=== PATIENT | female | born 1975 | race Caucasian/White ===

== ENCOUNTER → 2019-11-01 16:10 | Outpatient (BNVA) | payer OTHER, SELFPAY | PROVIDERS: Family Provider Registered Nurse; PCP Registered Nurse; Visit Provider Obstetrics & Gynecology | DX: R32 Unspecified urinary incontinence (principal) | CPT/HCPCS: 81003; 87086 ==

== ENCOUNTER → 2019-11-27 15:49 | Outpatient (BNVA) | payer OTHER, SELFPAY | PROVIDERS: Family Provider Registered Nurse; PCP Registered Nurse; Visit Provider Obstetrics & Gynecology | DX: R32 Unspecified urinary incontinence (principal); N64.4 Mastodynia; Z98.890 Other specified postprocedural states | CPT/HCPCS: 81003 ==

== ENCOUNTER → 2020-04-17 15:53 | Outpatient (BNVA) | payer OTHER, SELFPAY | PROVIDERS: Family Provider Registered Nurse; PCP Registered Nurse; Visit Provider Nurse Practitioner Family | DX: M25.512 Pain in left shoulder (principal); M25.522 Pain in left elbow | CPT/HCPCS: 73030; 73080 ==

== ENCOUNTER 2020-12-01 11:22 | Outpatient (CLI) | payer OTHER, SELFPAY ==
--- NOTE | 2020-12-01 | USCV_ITS ---
Miriam Bernard Age: 45 Gender: F : 1975 Exam Date: 12/01/2020 12:14 Ordering Phys: GEORGIE Littlejohn APRN Technologist: Kelsie Smith [place] [facility] [place] ABN EKG WITH CHEST PAIN BP: 123 / 72 HR: 89 Rhythm: Sinus Technical Quality: Adequate MEASUREMENTS (Male / Female) Normal Values 2D ECHO LV Diastolic Diameter PLAX 3.0 cm 4.2 - 5.9 / 3.9 - 5.3 cm LV Systolic Diameter PLAX 2.3 cm LV Chamber Size 3.0 cm IVS Diastolic Thickness 1.4 cm 0.6 - 1.0 / 0.6 - 0.9 cm IVS Systolic Thickness 1.0 cm LVPW Diastolic Thickness 1.2 cm 0.6 - 1.0 / 0.6 - 0.9 cm LVPW Systolic Thickness 1.4 cm RV Chamber Size 2.4 cm LVOT Diameter 2.0 cm LV Ejection Fraction 2D Teich 49.4 % LV Ejection Fraction MOD 2C 44.1 % LV Ejection Fraction 2C AL 43.1 % LA Diameter 2.9 cm LA Width 2.9 cm LA Height 3.8 cm RA Width 2.7 cm RA Height 4.5 cm Aorta at Sinotubular Diameter 2.9 cm M-MODE LV Diastolic Diameter MM 3.4 cm 4.2 - 5.9 / 3.9 - 5.3 cm LV Systolic Diameter MM 1.8 cm LV Ejection Fraction MM Teich 77.7 % IVS Diastolic Thickness MM 0.8 cm 0.6 - 1.0 / 0.6 - 0.9 cm IVS Systolic Thickness MM 1.4 cm LVPW Diastolic Thickness MM 1.5 cm 0.6 - 1.0 / 0.6 - 0.9 cm LVPW Systolic Thickness MM 1.6 cm RV Diastolic Diameter MM 1.4 cm Aortic Annulus Diameter 3.2 cm LA Ao Ratio MM 1.2 MV E Point Septal Separation 0.6 cm DOPPLER AV Peak Velocity 110.0 cm/s LVOT Peak Velocity 83.0 cm/s AV Area Cont Eq vti 2.6 cm squared AV Area Cont Eq pk 2.4 cm squared MV Area PHT 5.0 cm squared Mitral E to A Ratio 1.2 MV E' Velocity 46.0 cm/s Mitral E to MV E' Ratio 6.8 Mitral E to LV E' Lateral Ratio 6.5 Mitral E to LV E' Septal Ratio 7.1 TR Peak Velocity 112.4 cm/s TR Peak Gradient 5.1 mmHg TR Mean Velocity 81.7 cm/s TR Mean Gradient 3.1 mmHg TR Velocity Time Integral 23.1 cm TV Peak E Velocity 56.0 cm/s Right Atrial Pressure 3.0 mmHg Pulmonary Artery Systolic Pressu 8.1 mmHg PV Peak Velocity 50.0 cm/s RV Acceleration Time 0.1 s RV Ejection Time 0.3 s RV AcT/ET 0.3 FINDINGS Left Ventricle Normal left ventricular cavity size. Normal left ventricular systolic function. No regional wall motion abnormalities. Left ventricular ejection fraction is estimated at 65 %. Grade I/IV diastolic dysfunction (abnormal relaxation filling pattern), normal to mildly elevated filling pressures. Right Ventricle The right ventricle is normal in size and function. Right Atrium The right atrium is normal in size. Left Atrium The left atrium is normal in size. Mitral Valve Moderately thickened mitral valve. Moderate mitral annular calcification. No mitral valve stenosis. No mitral valve regurgitation. Aortic Valve Aortic valve sclerosis without stenosis or regurgitation. Tricuspid Valve Structurally normal tricuspid valve without significant stenosis or regurgitation. Pulmonary artery systolic pressure is normal. Pulmonic Valve Structurally normal pulmonic valve without significant stenosis. There is no pulmonic regurgitation. Pericardium Normal pericardium without effusion. Aorta Normal ascending aorta dimension. CONCLUSIONS 1-Normal left ventricular cavity size. Normal left ventricular systolic function. No regional wall motion abnormalities. Left ventricular ejection fraction is estimated at 65 %. Grade I/IV diastolic dysfunction (abnormal relaxation filling pattern), normal to mildly elevated filling pressures. 2-Moderately thickened mitral valve. Moderate mitral annular calcification. No mitral valve stenosis. No mitral valve regurgitation. 3-Aortic valve sclerosis without stenosis or regurgitation. 4-There is no pericardial effusion. 5-Pulmonary artery systolic pressure is within normal limits. 6-There is no pericardial effusion. 7-There are no prior echocardiogram studies to compare. Romy Foreman MD (Electronically Signed) Final Date: 01 December 2020 19:34 S
[2020-12-01 13:14] LABS: Basophils # 0.1 10^3/uL (0.0-0.1); Basophils % 0.7 %; Eosinophils # 0.1 10^3/uL (0.0-0.8); Eosinophils % 0.7 %; Hematocrit 43.4 % (37.0-47.0); Hemoglobin 14.3 g/dL (11.5-15.3); Lymphocytes # 3.1 10^3/uL (0.8-4.8); Lymphocytes % 38.1 %; Mean Corpuscular HGB Conc 32.9 g/dL (30.0-36.0); Mean Corpuscular Hemoglobin 29.7 pg (28.0-34.0); Mean Corpuscular Volume 90.2 fL (81-99); Mean Platelet Volume 9.5 fL (7.4-10.4); Monocytes # 0.7 10^3/uL (0.2-0.9); Monocytes % 9.1 %; Neutrophils # 4.15 10^3/uL (1.8-7.7); Nucleated Red Blood Cells % 0 %; Platelet Count 371 10^3/cmm (130-400); Red Blood Count 4.81 10^6/uL (4.1-5.3); Red Cell Distribution Width 12.4 % (12.1-15.1); White Blood Count 8.1 10^3/uL (4.0-10.0)
[2020-12-01 13:42] LABS: Urine Appearance Clear (CLEAR); Urine Color Yellow (Yellow)
[2020-12-01 13:43] LABS: Bilirubin Urine Neg (Negative); Blood Urine Neg (Negative); Glucose Urine UA Norm (Normal); Ketones Urine Negative (Negative); Leukocyte Esterase Urine Negative (Negative); Nitrate Urine Negative (Negative); Protein Urine Neg (Negative); Urobilinogen Urine Norm (Negative); pH Urine 6.5 (5-7)
[2020-12-01 13:47] LABS: Add Urine Culture? No; Bacteria Urine TRACE /hpf; Squamous Epithelial Cell Urine 0-4 /hpf (0-5)
[2020-12-01 13:59] LABS: Alanine Aminotransferase 18 U/L (0-33); Albumin Level 4.6 g/dL (3.5-5.2); Alkaline Phosphatase 71 IU/L (35-105); Anion Gap 12.2 (5-19); Aspartate Amino Transferase 16 U/L (0-32); Blood Urea Nitrogen 15 mg/dL (6-20); Calcium 9.5 mg/dL (8.5-10.5); Carbon Dioxide 31 mmol/L (22-29); Chloride 98 mmol/L (98-107); Chol HDL Ratio 2.96 mg/dL (0.0-4.40); Cholesterol 201 mg/dL (0-200); Globulin 3.1 g/dL (1.3-4.6); Glomerular Filtration Rate 90.1 mL/min (90-130); Glucose 78 mg/dL (65-115); HDL Cholesterol 68 mg/dL (60-100); LDL Cholesterol Calculated 107 mg/dL (50-129); LDL HDL Ratio 1.57 RATIO (0.00-3.22); Osmolality Calculated 286 mOsm/kg (285-295); Potassium 3.2 mmol/L (3.5-5.1); Sodium 138 mmol/L (136-145); Thyroid Stimulating Hormone 0.92 uIU/mL (0.27-4.20); Total Bilirubin 0.3 mg/dL (0.15-1.2); Total Protein 7.7 g/dL (6.6-8.7); Triglycerides 132 mg/dL (0-150)
[2020-12-01 14:11] LABS: Estmated Average Glucose 97
[2020-12-01 14:28] LABS: 25 Hydroxy Vitamin D 31 ng/mL (30-100)
== END 2020-12-01 11:23 | disposition home or self-care (01) ==
LOC: RAD 11:37
PROVIDERS: PCP Nurse Practitioner Family; Visit Provider Nurse Practitioner Family
DX: R07.9 Chest pain, unspecified (principal); I10 Essential (primary) hypertension; E55.9 Vitamin D deficiency, unspecified; Z79.899 Other long term (current) drug therapy; R94.31 Abnormal electrocardiogram [ECG] [EKG]; I35.8 Other nonrheumatic aortic valve disorders; I05.9 Rheumatic mitral valve disease, unspecified
CPT/HCPCS: 36415; 80053; 80061; 81001; 82306; 83036; 84443; 85025; 93306

== ENCOUNTER 2020-12-04 12:09 | Outpatient (CLI) | payer OTHER, SELFPAY ==
[2020-12-04 12:39] VITALS: BMI 32.2
--- NOTE | 2020-12-04 12:39 | ECG_ITS ---
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 Interpretive Statements NAME OF STUDY: TREADMILL STRESS TEST INDICATION: [Chest Pain, ] EXERCISE DATA: The patient was exercised by Hilton protocol. Baseline heart rate was 91 beats per minute. Baseline blood pressure was 129/87 millimeters of mercury. Maximum predicted heart rate was 174 beats per minute. Maximum heart rate achieved was 175, which was 100% of the target heart rate. Maximum blood pressure was 167/90 millimeters of mercury. Total exercise time was 9 minutes and 37 seconds. Maximum METs achieved was 13.5, maximum VO2 was 47.3. The reason for ending the test was completion of the protocol. The patient did not complain of symptoms during the stress test. ELECTROCARDIOGRAM: BASELINE: Showed sinus rhythm, normal axis, no significant ST-T changes at the baseline noted. [] EXERCISE: At the peak exercise level, [] No significant ST-T changes suggestive of ischemia noted. [] RECOVERY: During the recovery period, heart rate dropped appropriately. No significant ST-T changes in the recovery suggestive of ischemia noted. [] CONCLUSION: 1. Exercise capacity excellent. 2. Heart rate response was appropriate 3. Blood pressure response was appropriate 4. Symptoms not suggestive of ischemia. 5. Electrocardiogram was not suggestive of ischemia. Electronically Signed On 12-14-2020 18:18:21 CDT by Chung Freire M.D. [id number]
[2020-12-04 13:01] VITALS: BP 141/82; PULSE 99
== END 2020-12-04 12:10 | disposition home or self-care (01) ==
LOC: CDL 12:10
PROVIDERS: PCP Nurse Practitioner Family; Visit Provider Nurse Practitioner Family
DX: R07.9 Chest pain, unspecified (principal)
CPT/HCPCS: 93017

== ENCOUNTER → 2021-02-26 11:56 | Outpatient (BNVA) | payer OTHER, SELFPAY | PROVIDERS: PCP Nurse Practitioner Family; Visit Provider Nurse Practitioner Family | DX: K21.9 Gastro-esophageal reflux disease without esophagitis (principal); E87.6 Hypokalemia; E55.9 Vitamin D deficiency, unspecified; E78.2 Mixed hyperlipidemia | CPT/HCPCS: 80053; 80061; 82306; 85025 ==

== ENCOUNTER → 2021-07-13 15:08 | Outpatient (BNVA) | payer OTHER, SELFPAY | PROVIDERS: PCP Nurse Practitioner Family; Visit Provider Internal Medicine | DX: G57.93 Unspecified mononeuropathy of bilateral lower limbs (principal); K21.9 Gastro-esophageal reflux disease without esophagitis; E78.5 Hyperlipidemia, unspecified; Z20.822 Contact with and (suspected) exposure to COVID-19 | CPT/HCPCS: 82607; 82746; 83550 ==

== ENCOUNTER → 2021-12-08 09:05 | Outpatient (BNVA) | payer OTHER, SELFPAY | PROVIDERS: PCP Registered Nurse; Visit Provider Registered Nurse | DX: E87.6 Hypokalemia (principal); E55.9 Vitamin D deficiency, unspecified | CPT/HCPCS: 80053 ==

== ENCOUNTER 2022-04-14 15:21 | Outpatient (CLI) | payer OTHER, SELFPAY ==
--- NOTE | 2022-04-14 15:34 | MM_ITS ---
WS: [id number] BILATERAL 3D TOMOSYNTHESIS DIGITAL SCREENING MAMMOGRAPHY WITH CAD CLINICAL INFORMATION: SCREENING HISTORY: Screening mammogram. No current complaints. COMPARISON: TECHNIQUE: Bilateral CC and MLO views. FINDINGS: The breasts are composed of heterogeneous fibroglandular density tissue, which can limit the detectio n of small underlying mass lesions. Punctate and lucent centered calcifications. No suspicious mass, asymmetry, calcifications, or architectural distortion. No evidence of malignancy. MM/[place] [id number] IMPRESSION: BI-RADS: 2-Benign FOLLOW UP: 1 Year Follow-up Recommend return to annual screening mammography.
[2022-04-14 17:28] LABS: NT Pro B Type Natriuretic Pept 12 pg/mL (0-125)
== END 2022-04-14 15:22 | disposition home or self-care (01) ==
LOC: RAD 15:22
PROVIDERS: Nurse Practitioner Family; PCP Registered Nurse; Visit Provider Family Medicine
DX: Z12.31 Encounter for screening mammogram for malignant neoplasm of breast (principal); R07.9 Chest pain, unspecified; I10 Essential (primary) hypertension
CPT/HCPCS: 77063; 77067; 83880

== ENCOUNTER → 2022-10-25 10:26 | Outpatient (BNVA) | payer OTHER, SELFPAY | PROVIDERS: PCP Registered Nurse; Visit Provider Nurse Practitioner | DX: M79.641 Pain in right hand (principal) | CPT/HCPCS: 73130 ==

== ENCOUNTER 2022-11-22 12:15 | Outpatient (CLI) | payer OTHER, SELFPAY ==
[2022-11-22 13:35] LABS: Anion Gap 13.9 (5-19); Blood Urea Nitrogen 11 mg/dL (6-20); Calcium 8.9 mg/dL (8.5-10.5); Carbon Dioxide 26 mmol/L (22-29); Chloride 100 mmol/L (98-107); Glomerular Filtration Rate 106.7 mL/min (90-130); Glucose 98 mg/dL (65-115); Magnesium 2.1 mg/dL (1.7-2.3); NT Pro B Type Natriuretic Pept 55 pg/mL (0-125); Osmolality Calculated 281 mOsm/kg (285-295); Potassium 3.9 mmol/L (3.5-5.1); Sodium 136 mmol/L (136-145)
== END 2022-11-22 12:16 | disposition home or self-care (01) ==
LOC: LAB 12:17
PROVIDERS: PCP Registered Nurse; Visit Provider Internal Medicine Cardiovascular Disease
DX: I10 Essential (primary) hypertension (principal); R07.9 Chest pain, unspecified
CPT/HCPCS: 36415; 80048; 83735; 83880

== ENCOUNTER → 2023-04-21 10:45 | Outpatient (BNVA) | payer OTHER, SELFPAY | PROVIDERS: PCP Registered Nurse; Visit Provider Nurse Practitioner Family | DX: N83.209 Unspecified ovarian cyst, unspecified side (principal) | CPT/HCPCS: 83001; 83002; 84403; 84443 ==

== ENCOUNTER 2023-04-25 16:19 | Outpatient (CLI) | payer OTHER, SELFPAY ==
--- NOTE | 2023-04-25 16:45 | US_ITS ---
WS: [id number] US transvaginal [id number] HISTORY: N83.209 - Unspecified ovarian cyst, unspecified side COMPARISON: None available. Status post hysterectomy. No midline mass. Right ovary: Prior RIGHT oophorectomy. No adnexal mass. Left ovary: 3.8 cm x 1.6 cm x 2.1 cm. Normal size and vascularity, no cystic or solid masses. Small f ollicles associated with the LEFT ovary. No free fluid in the pelvis. US/US transvaginal [id number] IMPRESSION: 1. Status post hysterectomy and RIGHT oophorectomy. 2. Normal LEFT ovary.
== END 2023-04-25 16:20 | disposition home or self-care (01) ==
PROVIDERS: PCP Registered Nurse; Visit Provider Nurse Practitioner Family
DX: N83.209 Unspecified ovarian cyst, unspecified side (principal); Z90.710 Acquired absence of both cervix and uterus; Z90.721 Acquired absence of ovaries, unilateral
CPT/HCPCS: 76830

== ENCOUNTER 2023-06-01 15:27 | Outpatient (CLI) | payer OTHER, SELFPAY ==
--- NOTE | 2023-06-01 15:34 | MM_ITS ---
WS: [id number] BILATERAL SCREENING DIGITAL TOMOSYNTHESIS MAMMOGRAM WITH CAD HISTORY: SCREENING COMPARISON: 04/14/2022 and 02/14/2019 Bilateral CC and MLO views with tomosynthesis and synthetic mammography submitted. Computer aided det ection analyzed. Breast composition: The breasts are heterogeneously dense, which may obscure small masses. No suspici ous masses, microcalcifications or architectural distortion. Benign calcifications in each breast. He terogeneous densities are stable. IMPRESSION: MM/[place] [id number] BI-RADS: 2-Benign FOLLOW UP: 1 Year Follow-up
== END 2023-06-01 15:28 | disposition home or self-care (01) ==
LOC: RAD 15:32 → MOBLMAM 15:33
PROVIDERS: PCP Registered Nurse; Visit Provider Family Medicine
DX: Z12.31 Encounter for screening mammogram for malignant neoplasm of breast (principal)
CPT/HCPCS: 77063; 77067

== ENCOUNTER 2023-06-07 14:26 | Observation (INO) | payer OTHER, SELFPAY ==
[2023-06-03 08:20] VITALS: BMI 36.3
--- NOTE | 2023-06-03 08:43 | ANES.PREANE2 ---
Pre-Anesthetic Assessment Height/Weight: Height 1.7 m Weight 105.233 kg Operation Date: 06/07/23 12:05 Proposed Procedures p Anterior colporrhaphy 87999,N81.10(Not Applicable) - Arjun Chi MD Familial anesthetic complications: None Social No alcohol and No tobacco Exam alert, oriented x 3, clear to auscultation bilaterally and regular rate & rhythm Airway Mallampati: Class I Dentition: full Pulmonary None reported CV/HEM Hypertension GI Gastroesophageal Reflux Disease Anesthetic Plan ASA status: 2 Anesthesia: General Risk of > 500 ml blood loss (7ml/kg in children): No Medications/Allergies Home Medications Medication Instructions Recorded Confirmed Last Taken Type multivitamin 1 tab PO DAILY 11/27/19 06/03/23 06/03/23 History hydroxyzine HCl 50 mg tablet 50 mg PO DAILY PRN Pain 03/16/22 06/03/23 06/03/23 History metoprolol tartrate 50 mg tablet 50 mg PO BID #180 tabs 01/04/23 06/03/23 06/03/23 Rx potassium chloride 20 mEq 20 meq PO DAILY #90 tabs 01/04/23 06/03/23 06/03/23 Rx tablet,extended release dexlansoprazole 60 mg 60 mg PO DAILY stomach 03/15/23 06/03/23 06/03/23 History capsule,biphase delayed release (Dexilant) epinephrine 0.3 mg/0.3 mL 0.3 mg SUBCUT ONCE PRN Allergic 03/15/23 06/03/23 Unknown History injection, auto-injector Reaction furosemide 20 mg tablet 20 mg PO DAILY #90 tabs 03/15/23 06/03/23 06/03/23 Rx montelukast 10 mg tablet 10 mg PO DAILY #90 tabs 03/15/23 06/03/23 06/03/23 Rx (Singulair) ropinirole 0.5 mg tablet 0.5 mg PO .HS 03/15/23 06/03/23 06/03/23 History albuterol sulfate 90 mcg/actuation See Rx Instructions .Route 05/02/23 06/03/23 Unknown Rx aerosol inhaler .COMPLEX #6.7 grams naproxen 500 mg tablet (Naprosyn) 500 mg PO BID PRN pain #28 tabs 05/09/23 06/03/23 Unknown Rx ibuprofen 800 mg tablet 800 mg PO TID #60 tabs 05/12/23 06/03/23 06/03/23 Rx bupropion HCl 150 mg tablet,12 hr 150 mg PO BID 06/03/23 06/03/23 06/03/23 History sustained-release cyclobenzaprine 5 mg tablet 5 mg PO DAILY PRN Pain 06/03/23 06/03/23 05/29/23 History Allergies Allergy/AdvReac Type Severity Reaction Status Date / Time codeine Allergy Mild unknown Verified 06/02/23 13:05 Tetracyclines Allergy Mild unknown Verified 06/02/23 13:05 doxycycline Allergy unknown Verified 06/02/23 13:05 meperidine [From Demerol] Allergy unknown Verified 06/02/23 13:05 neomycin Allergy unknown Verified 06/02/23 13:05 prochlorperazine Allergy unknown Verified 06/02/23 13:05 [From Compazine] Sulfa (Sulfonamide Allergy Unknown Verified 06/02/23 13:05 Antibiotics) [facility] Anesthesia Medical History Anxiety and depression Chest pain Essential hypertension GERD (gastroesophageal reflux disease) Patient has hsitory of GERD and is controlled with Dexilant. Will refill medication and monitor. Hypokalemia Mixed hyperlipidemia Neuropathy of both feet Obesity Otitis media Urinary incontinence Vitamin D insufficiency Yeast vaginitis Surgical History H/O vaginal surgery anterior colporrhaphy 11/15/2018 S/P ear surgery S/P hysterectomy S/P left oophorectomy S/P tonsillectomy Patient had recent tonsillectomy to remove residual tonsillar tissue. She had previous tonsillectomy in the past, but continued to have problems. Status post creation of urethral sling by suprapubic approach 11/15/2018 Family History Father Congestive heart failure Hypertension Diabetes Hyperlipidemia Heart disease Mother Hypertension Leukemia Diabetes Breast cancer Heart disease Thyroid condition Stroke Sister Hyperlipidemia Denies family history of Colon cancer Ovarian cancer Uterine cancer Social History Smoking and tobacco status: never smoked Alcohol intake: current Alcohol intake frequency: holidays/special occasions only Alcohol type: wine Substance/Drug Use: never Current occupation: [employer] Anesthesia Cardiac Studies: Echocardiogram Ultrasound 12/01/20
[2023-06-03 09:54] LABS: Basophils % 0.5 %; Eosinophils # 0.2 10^3/uL (0.0-0.8); Eosinophils % 2.7 %; Hematocrit 40.5 % (36-47); Lymphocytes # 2.1 10^3/uL (0.8-4.8); Lymphocytes % 36.9 %; Mean Corpuscular HGB Conc 32.3 g/dL (30-55); Mean Corpuscular Hemoglobin 29.9 pg (27-33); Mean Corpuscular Volume 92.5 fl (85-98); Mean Platelet Volume 9.9 fL (7.4-10.4); Monocytes # 0.7 10^3/uL (0.2-0.9); Monocytes % 11.5 %; Neutrophils # 2.72 10^3/uL (1.8-7.7); Neutrophils % 48.2 %; Nucleated Red Blood Cells % 0 %; Platelet Count 353 10^3/cmm (157-399); Red Blood Count 4.38 10^6/uL (3.85-5.65); Red Cell Distribution Width 12.8 % (12.1-15.1); White Blood Count 5.64 10^3/uL (3.29-11.43)
[2023-06-03 10:10] LABS: Anion Gap 14.1 (5-19); Blood Urea Nitrogen 18 mg/dL (6-20); Calcium 9.5 mg/dL (8.5-10.5); Carbon Dioxide 28 mmol/L (22-29); Chloride 104 mmol/L (98-107); Glomerular Filtration Rate 106.7 mL/min (90-130); Glucose 101 mg/dL (65-115); Osmolality Calculated 296 mOsm/kg (285-295); Potassium 4.1 mmol/L (3.5-5.1); Sodium 142 mmol/L (136-145)
[2023-06-07] VITALS (16 sets, daily range): BP systolic 105–135; BP diastolic 63–94; PULSE 65–92; RESP 15–20; TEMP 36.4–36.7; O2SAT 94–100
--- NOTE | 2023-06-07 10:50 | W.PM.OPSUD ---
Surgery/Procedure H&P Update DATE OF PROCEDURE: June 07, 2023 DATE H&P PERFORMED: 06/02/23 H&P UPDATE INFORMATION: I have reviewed H&P completed within last 30 days, I have examined patient prior to procedure and No changes to prior documentation PREOP DIAGNOSIS: Cystocele stage II PLANNED PROCEDURE: Operation Date: 06/07/23 12:05 Proposed Procedures p Anterior colporrhaphy 54944,N81.10(Not Applicable) - Arjun Chi MD
[2023-06-07] MEDS: sodium chloride 0.9% 1,000 ML 30 ML IV (11:31)
[2023-06-07] MEDS: scopolamine 1.5 Patch 1 PATCH TRANSDERMA (11:31)
--- NOTE | 2023-06-07 11:44 | P.ANESUD_ITS ---
Pre-Anesthetic Update Pre-Anesthetic Assessment: Date of Surgery/Procedure: 06/07/23 Preop Yessenia gnosis: Cystocele stage II Proposed Procedure: Operation Date: 06/07/23 12:05 Proposed Procedures p Anterior colporrhaphy 89005,N81.10(Not Applicable) - Arjun Chi MD Any changes to Pre-Anesthetic Assessment?: No Last Intake: Intake Last Liquid Date 06/06/23 Last Liquid Time 22:30 Last Solid Date 06/06/23 Last Solid Time 21:00 Vitals: Temperature 97.7 F 06/07/23 10:59 Temperature Source Temporal Artery S can 06/07/23 10:59 Pulse Rate 65 06/07/23 10:59 Respiratory Rate 18 06/07/23 10:59 Blood Pressure 125/85 06/07/23 10:59 Blood Pressure Sunshine n 98 06/07/23 10:59 Pulse Oximetry 100 06/07/23 10:59 Oxygen Delivery Me thod Room Air 06/07/23 11:05 Exam: Pre-Anes Outpt Exam: alert, oriented x 3, clear to auscultation bilaterally and regular rate & rhythm Cardiac Studies: Echocardiogram Ultrasound 12/01/20
[2023-06-07 12:11] LABS: Add Urine Microscopic? NO; Charge for UA Resulting for Rev
[2023-06-07 12:15] LABS: Bilirubin Urine Neg (Negative); Blood Urine Neg (Negative); Glucose Urine UA Norm (Normal); Ketones Urine Negative (Negative); Leukocyte Esterase Urine Negative (Negative); Nitrate Urine Negative (Negative); Protein Urine Neg (Negative); Specific Gravity, Urine 1.015 (1.005-1.030); Urine Appearance Clear (CLEAR); Urine Color Yellow (Yellow); Urobilinogen Urine Norm (Negative); pH Urine 6 (5-7)
[2023-06-07] MEDS: ceFAZolin 2,000 MG in sodium chloride 0.9% (plus) 50 ML 100 MG IV (12:22)
[2023-06-07] MEDS: lidocaine-epi 2% 20 mL INJ INJECTION (13:14)
[2023-06-07] MEDS: estrogens Conjugated Cream 30 gm 1 APPLIC VAGINAL (13:37)
--- NOTE | 2023-06-07 13:50 | P.OP_ITS ---
Operative Report Date of procedure: June 07, 2023 Pre-op diagnosis: Cystocele stage II Post-op diagnosis: same Post-op findings: Cystocele Surgeon: Arjun Chi MD Estimated blood loss (mL): 5 IV fluids (mL): 500 Urine output (mL): 100 Complications: None Findings: Cystocele Procedure: After obtaining informed consent, the patient was taken to the operating room and placed in the supine position, given general anesthesia, and prepped and draped in sterile fashion. The abdomen, vulva and vagina were prepped and draped in a sterile manner. A time out procedure was performed. The vaginal mucosa was then injected in the midline with normal saline. The vaginal mucosa was scored in the midline with the Bovie approximately 1 cm med ial to the urethral meatus to 1 cm distal to the vaginal cuff. This vaginal mucosa was then undermined and then incised in the midline with the Metzenbaum scissors. The lateral aspects of the vaginal mucosa were then grasped with the Allis clamps and the vaginal mucosa was then dissected off the underlying fascia with the Metzenbaum scissors. Again, there was noted to be quite a bit of oozing at the incision, which was controlled with cautery. After adequate dissection was performed, bilaterally. An Coloplast allograft modified at time of application to fit spacea, 3 x 3 cm piece . The allograft placed in front of cystocele ready to be implanted facing the vagina mucosa. Suture is placed at distal end of graft and placed towards vaginal cuff. Final suture is placed on proximal portion of the graft to complete the placement overlying the bladder. Then Interrupted vertical mattress sutures of 0 Vicryl were used to elevate the cystocele superiorly. The excessive vaginal mucosa was then trimmed with the Metzenbaum scissors and the vaginal mucosa was then reapproximated in the running interlocking fashion with 2-0 Vicryl. The Cummins catheter was was noted yielding clear yellow urine. Excellent hemostasis was obtained. A vaginal pack is placed overnight as postoperative support for the vaginal tissues after graft placement and closure of vaginal incisions. Sponge, lap, needle, and instrument counts were correct times three. The patient was taken to the recovery room, awake and in stable condition.
--- NOTE | 2023-06-07 14:35 | ANE.PACU2 ---
Inpatient post-anesthesia follow up: Airway intact: Yes Vital signs: Temperature 97.9 F Pulse Rate 67 Respiratory Rate 16 Blood Pressure 121/77 Pulse Oximetry 98 Oxygen Delivery Me thod Room Air Oxygen Flow Rate 6 Fraction of Inspir ed Oxygen Hydration adequate: Yes Nausea and vomiting: No Pain level: 1 Mental status: Baseline
[2023-06-07] MEDS: dextrose 5%-lactated ringers 1,000 ML 125 ML IV ×2 (15:33→23:53)
[2023-06-07] MEDS: HYDROcodone-acetaminophen 5-325 mg Tablet PO (15:36)
[2023-06-07] MEDS: ketorolac 30 mg/mL INJ IVP ×2 (17:57→23:53)
[2023-06-07] MEDS: docusate sodium 100 mg Capsule PO (18:09)
[2023-06-07] MEDS: diphenhydrAMINE 50 mg Capsule PO (20:44)
[2023-06-07] MEDS: ropinirole 0.25 mg Tablet 0.5 MG PO (20:45)
[2023-06-07] MEDS: metoprolol tartrate 50 mg Tablet PO (20:45)
[2023-06-07] MEDS: buPROPion SR (12 HR) 150 mg Tablet PO (20:46)
[2023-06-07] MEDS: ondansetron 2 mg/ML SDV 2 mL 4 MG IVP (23:06)
--- NOTE | 2023-06-07 23:14 | PC.NURSE ---
Pt had 20g IV present in right hand at begining of shift that was patent and fluids were running at 125 mL/hr. At 2248 pt stated her arm was starting to swell. This RN stopped fluids, hand appeared to be infiltrated. 20g IV was removed, catheter tip intact, site was covered with 2x2 and bandaid. Pt tolerated well.
[2023-06-08 04:29] VITALS: BP 121/77; PULSE 67; RESP 16; TEMP 36.6; O2SAT 98
[2023-06-08 05:32] LABS: Hematocrit 34.9 % (36-47); Mean Corpuscular HGB Conc 32.7 g/dL (30-55); Mean Corpuscular Hemoglobin 29.8 pg (27-33); Mean Corpuscular Volume 91.1 fl (85-98); Mean Platelet Volume 9.8 fL (7.4-10.4); Platelet Count 308 10^3/cmm (157-399); Red Blood Count 3.83 10^6/uL (3.85-5.65); Red Cell Distribution Width 12.4 % (12.1-15.1); White Blood Count 11.47 10^3/uL (3.29-11.43)
[2023-06-08] MEDS: HYDROcodone-acetaminophen 5-325 mg Tablet PO (07:00)
[2023-06-08] MEDS: docusate sodium 100 mg Capsule PO (08:19)
[2023-06-08] MEDS: FUROsemide 20 mg Tablet PO (08:20)
[2023-06-08] MEDS: buPROPion SR (12 HR) 150 mg Tablet PO (08:20)
[2023-06-08] MEDS: potassium chloride ER 20 mEq Tablet PO (08:20)
[2023-06-08] MEDS: montelukast sodium 10 mg Tablet PO (08:20)
[2023-06-08] MEDS: metoprolol tartrate 50 mg Tablet PO (08:21)
[2023-06-08] MEDS: ibuprofen 800 mg tablet PO (09:01)
[2023-06-08] MEDS: ondansetron 4 MG Tablet PO (09:22)
--- NOTE | 2023-06-08 09:36 | P.DS_ITS ---
Discharge Providers ERECTOR OPERATOR Date of Admission: 06/07/23 14:26 Date of Discharge: 06/08/23 Attending Provider at Admission: Arjun Chi MD Attending Provider at Discharge: Arjun Chi MD Primary Care Provider: Cornelia Pugh [facility] Course Hospital Course Mrs. Bernard 47-year-old female with a cystocele stage II was admitted for planned anterior colporrhaphy augmented with allograft. The procedure was performed without complication. Overnight observation was uneventful. She is afebrile and hemodynamically stable postoperative day 1. Tolerating diet well. Adequate urine output. Normal PVR. Ambulating without difficulty. She was counseled regarding pelvic rest for 6 weeks (no sex, no tampons, no vaginal douches). Return to the emergency room if any fever, increased bleeding or pain. Physical Exam Narrative: GA: Alert and oriented ?3. HEENT: WNL. Heart: Regular rate and rhythm. Lungs: Clear to auscultation bilaterally. Abdomen: Bowel sounds present, nontender. 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 Extremities: No edema, no cyanosis, no calves pain. Urinary Catheter Management: Cummins: Cath Placed During This Visit: yes, but has since been removed by the nurse Reason for Continuing Indwelling Catheter: Decision to DC Catheter Urinary Catheter Date of Insertion: 06/07/23 Urinary Catheter Time of Insertion: 13:00 Date Urinary Catheter Removed: 06/08/23 Time Urinary Catheter Discontinued: 05:33 History History History 2 Term 2 0 Miscarriages/Ectopic 0 Living Children 2 Past Pregnancies Del. Date GA/Weeks Outcome Route Wt Inf Gender Labor Lgth Comp. Anesth esia [facility] 10/29/95 live - full term Vaginal 2.948 kg Female [facility] 04/09/98 live - full term Vaginal 3.629 kg Female [place], [place] Discharge Data Studies Completed and Pending Laboratory Results WBC 11.47 10^3/uL (3.29-11.43) H 06/08/23 05:05 RBC 3.83 10^6/uL (3.85-5.65) L 06/08/23 05:05 Hgb 11.40 g/dL (11.27-16.99) 06/08/23 05:05 Hct 34.9 % (36-47) L 06/08/23 05:05 MCV 91.1 fl (85-98) 06/08/23 05:05 MCH 29.8 pg (27-33) 06/08/23 05:05 MCHC 32.7 g/dL (30-55) 06/08/23 05:05 RDW 12.4 % (12.1-15.1) 06/08/23 05:05 Plt Count 308 10^3/cmm (157-399) 06/08/23 05:05 MPV 9.8 fL (7.4-10.4) 06/08/23 05:05 Neut % (Auto) 48.2 % 06/03/23 08:30 Lymph % (Auto) 36.9 % 06/03/23 08:30 [place] % (Auto) 11.5 % 06/03/23 08:30 Eos % (Auto) 2.7 % 06/03/23 08:30 Baso % (Auto) 0.5 % 06/03/23 08:30 Neut # (Auto) 2.72 10^3/uL (1.8-7.7) 06/03/23 08:30 Lymph # (Auto) 2.1 10^3/uL (0.8-4.8) 06/03/23 08:30 [place] # (Auto) 0.7 10^3/uL (0.2-0.9) 06/03/23 08:30 Eos # (Auto) 0.2 10^3/uL (0.0-0.8) 06/03/23 08:30 Baso # (Auto) 0.0 10^3/uL (0.0-0.1) 06/03/23 08:30 Nucleated RBC % (auto) 0 % 06/03/23 08:30 Nucleated RBCs # 0.0 /100WBC 06/03/23 08:30 Sodium 142 mmol/L (136-145) 06/03/23 08:30 Potassium 4.1 mmol/L (3.5-5.1) 06/03/23 08:30 Chloride 104 mmol/L (98-107) 06/03/23 08:30 Carbon Dioxide 28 mmol/L (22-29) 06/03/23 08:30 Anion Gap 14.1 (5-19) 06/03/23 08:30 BUN 18 mg/dL (6-20) 06/03/23 08:30 Creatinine 0.6 mg/dL (0.5-0.9) 06/03/23 08:30 GFR Calculation 106.7 mL/min (90-130) 06/03/23 08:30 Glucose 101 mg/dL (65-115) 06/03/23 08:30 Calculated Osmolality 296 mOsm/kg (285-295) H 06/03/23 08:30 Calcium 9.5 mg/dL (8.5-10.5) 06/03/23 08:30 Urine Color Yellow (Yellow) 06/07/23 12:00 Urine Appearance Clear (CLEAR) 06/07/23 12:00 Urine pH 6 (5-7) 06/07/23 12:00 Ur Specific [place] 1.015 (1.005-1.030) 06/07/23 12:00 Urine Protein Neg (Negative) 06/07/23 12:00 Urine Glucose (UA) Norm (Normal) 06/07/23 12:00 Urine Ketones Negative (Negative) 06/07/23 12:00 Urine Blood Neg (Negative) 06/07/23 12:00 Urine Nitrate Negative (Negative) 06/07/23 12:00 Urine Bilirubin Neg (Negative) 06/07/23 12:00 Urine Urobilinogen Norm mg/dL (Negative) 06/07/23 12:00 Ur Leukocyte Esterase Negative (Negative) 06/07/23 12:00 Blood Type O Positive 06/07/23 11:20 Rho(D) Type Positive 06/07/23 11:20 Antibody Screen Negative 06/07/23 11:20 Vitals Last Vital Signs Temp 97.9 F 06/08/23 04:29 Pulse 67 06/08/23 04:29 Resp 16 06/08/23 04:29 BP 121/77 06/08/23 04:29 Pulse Ox 98 06/08/23 04:29 O2 Del Method Room Air 06/08/23 04:29 O2 Flow Rate 6 06/07/23 13:58 Discharge Plan Discharge Patient Disposition: Home Condition: Stable Prescriptions: New ibuprofen 800 mg tablet 800 mg PO TID PRN (Reason: pain) Qty: 60 0RF acetaminophen 325 mg capsule 325 mg PO Q4H PRN (Reason: fever or postoperative pain) Qty: 60 0RF ondansetron 4 mg tablet,disintegrating 4 mg PO DAILY 1 Days Qty: 20 0RF Continued hydroxyzine HCl 50 mg tablet 50 mg PO DAILY PRN (Reason: Pain) multivitamin Tablet 1 tab PO DAILY epinephrine 0.3 mg/0.3 mL auto-injector 0.3 mg SUBCUT ONCE PRN (Reason: Allergic Reaction) montelukast [Singulair] 10 mg tablet 10 mg PO DAILY Qty: 90 3RF Dexilant 60 mg capsule,biphase delayed releas 60 mg PO DAILY ropinirole 0.5 mg tablet 0.5 mg PO .HS furosemide 20 mg tablet 20 mg PO DAILY Qty: 90 1RF potassium chloride 20 mEq tablet extended release 20 meq PO DAILY Qty: 90 1RF metoprolol tartrate 50 mg tablet 50 mg PO BID Qty: 180 1RF albuterol sulfate 90 mcg/actuation HFA aerosol inhaler See Rx Instructions .ROUTE .COMPLEX Qty: 6.7 0RF Dose Instruction: INHALE 2 PUFFS BY MOUTH EVERY 6 HOURS NEEDED FOR SHORTNESS OF BREATH OR WHEEZING Rx Instructions: INHALE 2 PUFFS BY MOUTH EVERY 6 HOURS NEEDED FOR SHORTNESS OF BREATH OR WHEEZING naproxen [Naprosyn] 500 mg tablet 500 mg PO BID PRN (Reason: pain) Qty: 28 0RF ibuprofen 800 mg tablet 800 mg PO TID Qty: 60 0RF bupropion HCl 150 mg tablet sustained-release 12 hr 150 mg PO BID cyclobenzaprine 5 mg tablet 5 mg PO DAILY PRN (Reason: Pain) Referrals: Arjun Chi MD [Physician] - 06/21/23 8:00 am (2 week post-op: 06/21/23 @8:00 6 week post-op: 07/18/23 @3:45) Discharge Diet: Usual diet Discharge Activity: Limit activity as instructed Patient Instructions: Cystocele (DC), Anterior Vaginal Repair (DC), OB Discharge Report, OB Food/Drug Interaction Guide, Opioid Safety Activity Restrictions/Additional Instructions: 1. Please call [facility] on next working day to make your post-operative appointment in 2 weeks. 2. Please stay home until you come back to the clinic on first post- hospatilization check up. 3. Please follow instructions on your medications CAREFULLY. 4. If you have abdominal incision, do not cover it unless dressing is necessary because of drainage. OK to shower, but avoid bath. Leave steri-strips until they fall off. If they are still on one week after surgery, you may remove them. 5. If you had vaginal surgery or vaginal repair, Dr. Chi may instruct you to take SITZ bath. 6. Yellow, blood tinged odorous vaginal discharge is usually normal after hysterectomy or vaginal surgeries. 7. No SEXUAL INTERCOURSE, tampons, or douches until you are completely released from the post-operative care. 8. Avoid constipation by eating right and maybe using some Metamucil or Milk of Magnesia. 9. All prescription refills are given during the working hours. Please do no wait till it runs out. Call the clinic at [phone] before your medication runs out. The clinic will get in touch with your doctor to prescribe medications if necessary. 10. Please remain within 40 mile radius from our hospital because emergencies do happen now and then during the post-operative period. 11. If you have stairs at home, take one step at a time slowly and minimize the number of trips. It helps to stay in one floor for the next few days. No lifting except what you can lift by one hand until you are released from the post-operative care. 12. Driving is discouraged until you are well healed. It may be 3-4 weeks before you feel strong enough to drive. You should be able to turn and look through the rear window without pain and you should be able to push the brake pedal very hard without pain before you drive. No fast rules, but SAFETY should be your primary concern. DO NOT drive if you are on sedating medications such as narcotics. 13. Call the clinic (during working hours) to make urgent appointment or go to the Emergency room, if any of the following occurs: i. Vaginal bleeding becomes heavy, more than a period. ii. Incision becomes red and sore, or drains pus. iii. Your TEMPERATURE is over 100.4F or you have chill. iv. IV site becomes red and swollen (a little ``knot?? is usually OK) v. Persistent nausea and vomiting vi. Persistent constipation or diarrhea vii. Rash or allergic reaction to medications. Discharge Attestations ERECTOR OPERATOR Time Spent in Discharge Care*: greater than 30 min Coding Level of Care Code Acute Code for Chg Fwd Diagnoses
[2023-06-08 10:05] VITALS: BP 131/86; PULSE 73; RESP 16; TEMP 36.9
[2023-06-08 10:15] VITALS: BP 131/86; PULSE 73; RESP 16; TEMP 36.9
== END 2023-06-08 10:12 | disposition home or self-care (01) ==
LOC: OBGYN 14:26
PROVIDERS: Anesthesiology; Admitting Provider Obstetrics & Gynecology; PCP Registered Nurse; Visit Provider Obstetrics & Gynecology
PROC: 0JQC0ZZ Repair Pelvic Region Subcutaneous Tissue and Fascia, Open Approach (ICD-10-PCS; CPT 57240; principal; 2023-06-07 11:55)
DX: N81.10 Cystocele, unspecified (principal); I10 Essential (primary) hypertension; K21.9 Gastro-esophageal reflux disease without esophagitis; E66.9 Obesity, unspecified; Z68.36 Body mass index [BMI] 36.0-36.9, adult
CPT/HCPCS: 57240; 57267; 36415; 80048; 81003; 85025; 85027; 86850; 86900; 96374; 96376; C1762; G0378; J0690; J1100; J1885; J2405; J2704; J3010; J3490; J7030; J7121; Q0162; Q0163

== ENCOUNTER 2023-06-10 13:37 | Emergency (ER) | payer OTHER, SELFPAY ==
[2023-06-10 13:42] VITALS: BP 165/107; PULSE 74; RESP 22; TEMP 36.3; O2SAT 98; BMI 36.0
[2023-06-10 14:20] LABS: Basophils # 0.1 10^3/uL (0.0-0.1); Basophils % 0.6 %; Eosinophils # 0.2 10^3/uL (0.0-0.8); Eosinophils % 2.6 %; Hematocrit 36.5 % (36-47); Lymphocytes # 2.7 10^3/uL (0.8-4.8); Lymphocytes % 32.8 %; Mean Corpuscular HGB Conc 32.6 g/dL (30-55); Mean Corpuscular Hemoglobin 29.6 pg (27-33); Mean Corpuscular Volume 90.8 fl (85-98); Mean Platelet Volume 9.9 fL (7.4-10.4); Monocytes # 0.7 10^3/uL (0.2-0.9); Monocytes % 8.9 %; Neutrophils # 4.47 10^3/uL (1.8-7.7); Neutrophils % 54.6 %; Nucleated Red Blood Cells % 0 %; Platelet Count 294 10^3/cmm (157-399); Red Blood Count 4.02 10^6/uL (3.85-5.65); Red Cell Distribution Width 12.4 % (12.1-15.1); White Blood Count 8.19 10^3/uL (3.29-11.43)
[2023-06-10 14:35] LABS: Blood Urea Nitrogen 15 mg/dL (6-20); Calcium 9.3 mg/dL (8.5-10.5); Carbon Dioxide 28 mmol/L (22-29); Chloride 102 mmol/L (98-107); Glomerular Filtration Rate 89.3 mL/min (90-130); Glucose 102 mg/dL (65-115); Osmolality Calculated 289 mOsm/kg (285-295); Sodium 139 mmol/L (136-145)
[2023-06-10 15:26] VITALS: BP 121/75; PULSE 72; RESP 16; TEMP 36.8; O2SAT 99
--- NOTE | 2023-06-10 16:43 | W.ED.ABDPA2 ---
HPI - Abdominal Pain General: Chief Complaint: Abdominal Pain Stated Complaint: lower abd pain Time Seen by Provider: 06/10/23 16:40 Source: patient Mode of arrival: ambulatory History of Present Illness: 47-year-old female presents emergency room complaining of abdominal discomfort. She has a pressure sensation in her lower abdomen she had a bladder surgery 3 days ago. She having pain with urination. No fevers sweats or chills she is states the pain is not controlled by pain medication she was given. MD elicited complaint: abdominal pain Pertinent past history: other (Recent bladder infection) Onset (ago): day(s) Pain Consistency: constant Location: Suprapubic Severity: moderate Quality: cramping Radiation: none Migration to: no migration Exacerbating factors: other (Urination) Relieving factors: nothing Associated Symptoms: Denies anorexia, belching, bloating, change in bowel habits, change in stool character, chills, coffee ground emesis, constipation, GI cramping, diarrhea, dyspepsia, dysuria, excessive flatus, fever(s), heartburn, hematochezia, hematuria, hematemesis, fecal incontinence, loose stools, melena, nausea, poor appetite, syncope and vomiting Review of Systems Const: Denies: fever(s) or chills ENMT: Denies: throat pain, ear or mastoid pain, nasal discharge or nasal congestion Card: Denies: chest pain, palpitations or syncope Resp: Denies: dyspnea, productive cough or non-productive cough GI: Reports: abdominal pain; Denies: nausea, vomiting, hematemesis, coffee ground emesis, heartburn, diarrhea, constipation, bloating, GI cramping, belching, excessive flatus, fecal incontinence, change in bowel habits, change in stool character, hematochezia or melena : Denies: dysuria, urinary frequency, urinary urgency or hematuria Skin/Breast: Denies: rash or pruritus PFSH ED PFSH: Medical History Anxiety and depression Chest pain Essential hypertension GERD (gastroesophageal reflux disease) Patient has hsitory of GERD and is controlled with Dexilant. Will refill medication and monitor. Hypokalemia Mixed hyperlipidemia Neuropathy of both feet Obesity Otitis media Urinary incontinence Vitamin D insufficiency Yeast vaginitis Surgical History H/O vaginal surgery anterior colporrhaphy 11/15/2018 S/P ear surgery S/P hysterectomy S/P left oophorectomy S/P tonsillectomy Patient had recent tonsillectomy to remove residual tonsillar tissue. She had previous tonsillectomy in the past, but continued to have problems. Status post creation of urethral sling by suprapubic approach 11/15/2018 Family History Father Congestive heart failure Hypertension Diabetes Hyperlipidemia Heart disease Mother Hypertension Leukemia Diabetes Breast cancer Heart disease Thyroid condition Stroke Sister Hyperlipidemia Denies family history of Colon cancer Ovarian cancer Uterine cancer Social History Smoking and tobacco status: never smoked Alcohol intake: current Alcohol intake frequency: holidays/special occasions only Alcohol type: wine Substance/Drug Use: never Current occupation: [employer] Physical Exam Const: GENERAL APPEARANCE: cooperative and comfortable ORIENTATION/CONSCIOUSNESS: Yes awake, Yes oriented to person, Yes oriented to place and Yes oriented to time HENMT: COMMON NORMALS: normocephalic, atraumatic and hearing grossly normal bilaterally HEAD & SCALP: normocephalic and atraumatic Resp: COMMON NORMALS: normal respiratory effort, No retractions, No use of accessory muscles and clear to auscultation bilaterally AUSCULTATION: clear to auscultation bilaterally Cardio: COMMON NORMALS: regular rate, regular rhythm and No murmurs present (Cardio) RATE: regular rate RHYTHM: regular rhythm GI: COMMON NORMALS: Soft to palpation and No hepatosplenomegaly present AUSCULTATION: Yes normoactive bowel sounds PALPATION: Yes Soft to palpation, No Tenderness to palpation present (GI), No Guarding due to palpation present (GI) and Yes No hepatosplenomegaly present Extremity: COMMON NORMALS: normal to inspection, capillary refill normal, no clubbing, cyanosis or edema, no calf tenderness and no pedal edema Neuro: SENSORIUM/ORIENTATION: Yes oriented to person, Yes oriented to place and Yes oriented to time Skin: COMMON NORMALS: no rashes or lesions noted GENERAL SKIN EXAM: no rashes or lesions noted Course Vital Signs: Vital signs: Vital Signs Temperature 98.3 F 06/10/23 15:26 Pulse Rate 72 06/10/23 15:26 Respiratory Rate 16 06/10/23 15:26 Blood Pressure 121/75 06/10/23 15:26 Pulse Oximetry 98 06/10/23 17:43 Oxygen Delivery Me thod Room Air 06/10/23 17:43 MDM - Abdominal Pain Medical Decision Making Postsurgical pain no evidence of pathology or infection on the CT her white count is normal no evidence of urinary retention discussed with Dr. Christie will follow-up in his office as previously scheduled. Medical Records I reviewed the patient's medical records. Lab Data I reviewed the patient's lab results. 06/10/23 13:11 06/10/23 13:11 Labs/Radiology: Radiology Impressions Abdomen/Pelvis CT 06/10/23 16:44 IMPRESSION: 1. Previous cholecystectomy and hysterectomy. 2. No acute findings within the abdomen and pelvis. Laboratory Results WBC 8.19 10^3/uL (3.29-11.43) 06/10/23 13:11 RBC 4.02 10^6/uL (3.85-5.65) 06/10/23 13:11 Hgb 11.90 g/dL (11.27-16.99) 06/10/23 13:11 Hct 36.5 % (36-47) 06/10/23 13:11 MCV 90.8 fl (85-98) 06/10/23 13:11 MCH 29.6 pg (27-33) 06/10/23 13:11 MCHC 32.6 g/dL (30-55) 06/10/23 13:11 RDW 12.4 % (12.1-15.1) 06/10/23 13:11 Plt Count 294 10^3/cmm (157-399) 06/10/23 13:11 MPV 9.9 fL (7.4-10.4) 06/10/23 13:11 Neut % (Auto) 54.6 % 06/10/23 13:11 Lymph % (Auto) 32.8 % 06/10/23 13:11 [place] % (Auto) 8.9 % 06/10/23 13:11 Eos % (Auto) 2.6 % 06/10/23 13:11 Baso % (Auto) 0.6 % 06/10/23 13:11 Neut # (Auto) 4.47 10^3/uL (1.8-7.7) 06/10/23 13:11 Lymph # (Auto) 2.7 10^3/uL (0.8-4.8) 06/10/23 13:11 [place] # (Auto) 0.7 10^3/uL (0.2-0.9) 06/10/23 13:11 Eos # (Auto) 0.2 10^3/uL (0.0-0.8) 06/10/23 13:11 Baso # (Auto) 0.1 10^3/uL (0.0-0.1) 06/10/23 13:11 Nucleated RBC % (auto) 0 % 06/10/23 13:11 Nucleated RBCs # 0.0 /100WBC 06/10/23 13:11 Sodium 139 mmol/L (136-145) 06/10/23 13:11 Potassium 4.0 mmol/L (3.5-5.1) 06/10/23 13:11 Chloride 102 mmol/L (98-107) 06/10/23 13:11 Carbon Dioxide 28 mmol/L (22-29) 06/10/23 13:11 Anion Gap 13.0 (5-19) 06/10/23 13:11 BUN 15 mg/dL (6-20) 06/10/23 13:11 Creatinine 0.7 mg/dL (0.5-0.9) 06/10/23 13:11 GFR Calculation 89.3 mL/min (90-130) L 06/10/23 13:11 Glucose 102 mg/dL (65-115) 06/10/23 13:11 Calculated Osmolality 289 mOsm/kg (285-295) 06/10/23 13:11 Calcium 9.3 mg/dL (8.5-10.5) 06/10/23 13:11 Urine Color Yellow (Yellow) 06/10/23 15:00 Urine Appearance Clear (CLEAR) 06/10/23 15:00 Urine pH 5 (5-7) 06/10/23 15:00 Ur Specific [place] 1.005 (1.005-1.030) 06/10/23 15:00 Urine Protein Neg (Negative) 06/10/23 15:00 Urine Glucose (UA) Norm (Normal) 06/10/23 15:00 Urine Ketones Negative (Negative) 06/10/23 15:00 Urine Blood 3+ (Negative) H 06/10/23 15:00 Urine Nitrate Negative (Negative) 06/10/23 15:00 Urine Bilirubin Neg (Negative) 06/10/23 15:00 Urine Urobilinogen Norm mg/dL (Negative) 06/10/23 15:00 Ur Leukocyte Esterase Trace (Negative) H 06/10/23 15:00 Urine RBC 0-4 /hpf (0-2) H 06/10/23 15:00 Urine WBC 0-4 /hpf (0-5) H 06/10/23 15:00 Ur Squamous Epith Cells 10-15 /hpf (0-5) H 06/10/23 15:00 Amorphous Sediment Not Reportable 06/10/23 15:00 Urine Bacteria None /hpf (NONE) 06/10/23 15:00 Discharge Plan Discharge Patient Disposition: Home Clinical Impression: Pelvic pain Condition: Stable Prescriptions: New ondansetron HCl 4 mg tablet 4 mg PO Q6H PRN (Reason: nausea and vomiting) Qty: 10 0RF No Action hydroxyzine HCl 50 mg tablet 50 mg PO DAILY PRN (Reason: Pain) multivitamin Tablet 1 tab PO DAILY epinephrine 0.3 mg/0.3 mL auto-injector 0.3 mg SUBCUT ONCE PRN (Reason: Allergic Reaction) montelukast [Singulair] 10 mg tablet 10 mg PO DAILY Qty: 90 3RF Dexilant 60 mg capsule,biphase delayed releas 60 mg PO DAILY ropinirole 0.5 mg tablet 0.5 mg PO .HS furosemide 20 mg tablet 20 mg PO DAILY Qty: 90 1RF potassium chloride 20 mEq tablet extended release 20 meq PO DAILY Qty: 90 1RF metoprolol tartrate 50 mg tablet 50 mg PO BID Qty: 180 1RF ibuprofen 800 mg tablet 800 mg PO TID Qty: 60 0RF albuterol sulfate 90 mcg/actuation HFA aerosol inhaler See Rx Instructions .ROUTE .COMPLEX Qty: 6.7 0RF Dose Instruction: INHALE 2 PUFFS BY MOUTH EVERY 6 HOURS NEEDED FOR SHORTNESS OF BREATH OR WHEEZING Rx Instructions: INHALE 2 PUFFS BY MOUTH EVERY 6 HOURS NEEDED FOR SHORTNESS OF BREATH OR WHEEZING nitrofurantoin monohyd/m-cryst [Macrobid] 100 mg capsule 100 mg PO BID Qty: 10 0RF Rx Instructions: must administer with a meal/food naproxen [Naprosyn] 500 mg tablet 500 mg PO BID PRN (Reason: pain) Qty: 28 0RF bupropion HCl 150 mg tablet sustained-release 12 hr 150 mg PO BID cyclobenzaprine 5 mg tablet 5 mg PO DAILY PRN (Reason: Pain) acetaminophen 325 mg capsule 325 mg PO Q4H PRN (Reason: fever or postoperative pain) Qty: 60 0RF ibuprofen 800 mg tablet 800 mg PO TID PRN (Reason: pain) Qty: 60 0RF Discharge Orders: Discharge ED (Routine); Ordered 06/10/23 Ordered By: Adalberto Raya Referrals: Cornelia Pugh [Primary Care Provider] - Patient Instructions: Opioid Safety, Pain Management Coding Level of Care Code ED Electronic Lab Technician for Padma Orr
--- NOTE | 2023-06-10 16:44 | CTR_ITS ---
PROCEDURE INFORMATION: Exam: CT Abdomen And Pelvis Without Contrast Exam date and time: 06/10/2023 4:50 PM Age: 47 years old Clinical indication: Abdominal pain; Localized; Lower; Prior surgery; Surgery date: 3-7 days post-operative; Surgery type: Urinary bladder repair; Additional info: Abdominal pain/post op bladder surgery TECHNIQUE: Imaging protocol: Computed tomography of the abdomen and pelvis without contrast. Radiation optimization: All CT scans at this facility use at least one of these dose optimization techniques: automated exposure control; mA and/or kV adjustment per patient size (includes targeted exams where dose is matched to clinical indication); or iterative reconstruction. REPORTING DATA: Count of CT and Cardiac NM exams in prior 12 months: This patient has received 0 known CTs and 0 known cardiac nuclear medicine studies in the 12 months prior to the current study. COMPARISON: US transvaginal [id number] 04/25/2023 5:04 PM RADIATION DOSE METRICS: Total DLP (mGy-cm): 1004.24 FINDINGS: Lungs: No infiltrate or effusion is seen within the visualized lung bases. Liver: Normal. No mass. Gallbladder and bile ducts: Surgical clips in the gallbladder fossa prior cholecystectomy. No biliary ductal dilatation. Pancreas: Normal. No ductal dilation. Spleen: Normal. No splenomegaly. Adrenal glands: Normal. No mass. Kidneys and ureters: Normal. No hydronephrosis or obstruction. No urinary tract stone or perinephric stranding. Stomach and bowel: Unremarkable. No obstruction. No mucosal thickening. Scattered stool in the colon. Appendix: No evidence of appendicitis. Intraperitoneal space: Unremarkable. No free air. No significant fluid collection or ascites. Vasculature: Unremarkable. No abdominal aortic aneurysm. Minimal vascular calcification. Lymph nodes: Unremarkable. No enlarged lymph nodes. Urinary bladder: Partially distended urinary bladder without focal abnormality. Reproductive: Suggestion of prior hysterectomy. No significant adnexal abnormality. Probable tubal ligation clip upper left adnexal region. Pelvic phleboliths. Bones/joints: Mild spondylotic change with component of degenerative disc L4-5 and L5-S1 levels. Soft tissues: Very small umbilical hernia fat. CT/CT abdomen pelvis wo con [id number] IMPRESSION: 1. Previous cholecystectomy and hysterectomy. 2. No acute findings within the abdomen and pelvis.
[2023-06-10] MEDS: ketorolac 30 mg/mL INJ IVP (17:36)
[2023-06-10] MEDS: morphine 4 mg/mL SDV 1 mL IVP (17:36)
[2023-06-10 17:41] LABS: Add Urine Microscopic? YES; Bilirubin Urine Neg (Negative); Blood Urine 3+ (Negative); Glucose Urine UA Norm (Normal); Ketones Urine Negative (Negative); Leukocyte Esterase Urine Trace (Negative); Nitrate Urine Negative (Negative); Protein Urine Neg (Negative); Specific Gravity, Urine 1.005 (1.005-1.030); Urine Appearance Clear (CLEAR); Urine Color Yellow (Yellow); Urobilinogen Urine Norm (Negative); pH Urine 5 (5-7)
[2023-06-10 17:42] LABS: Add Urine Culture? No; RBC Urine 0-4 /hpf (0-2); WBC Urine 0-4 /hpf (0-5)
[2023-06-10 17:43] VITALS: O2SAT 98
[2023-06-10] MEDS: HYDROcodone-acetaminophen 5-325 mg Tablet 1 TAB PO (19:01)
== END 2023-06-10 19:07 | disposition home or self-care (01) ==
PROVIDERS: Physician Assistant; Emergency Provider Family Medicine; PCP Registered Nurse
DX: R10.2 Pelvic and perineal pain (principal); I10 Essential (primary) hypertension; E78.2 Mixed hyperlipidemia
CPT/HCPCS: 36415; 74176; 80048; 81001; 85025; 96374; 96375; 99285; J1885; J2270

== ENCOUNTER → 2023-06-21 09:00 | Outpatient (BNVA) | payer OTHER, SELFPAY | PROVIDERS: PCP Registered Nurse; Visit Provider Nurse Practitioner Women's Health | DX: R30.0 Dysuria (principal); N76.0 Acute vaginitis | CPT/HCPCS: 81000; 87086 ==

== ENCOUNTER → 2023-07-28 13:27 | Outpatient (BNVA) | payer OTHER, SELFPAY | PROVIDERS: PCP Registered Nurse; Visit Provider Obstetrics & Gynecology | DX: R30.0 Dysuria (principal); R39.9 Unspecified symptoms and signs involving the genitourinary system; N95.2 Postmenopausal atrophic vaginitis | CPT/HCPCS: 84315; 87086 ==

== ENCOUNTER → 2023-12-22 09:31 | Outpatient (BNVA) | payer OTHER, SELFPAY | PROVIDERS: PCP Registered Nurse; Visit Provider Obstetrics & Gynecology | DX: R30.0 Dysuria (principal); N83.209 Unspecified ovarian cyst, unspecified side; Z48.816 Encounter for surgical aftercare following surgery on the genitourinary system | CPT/HCPCS: 83001 ==

== ENCOUNTER → 2024-04-13 14:23 | Outpatient (BNVA) | payer OTHER, SELFPAY | PROVIDERS: PCP Registered Nurse; Visit Provider Obstetrics & Gynecology | DX: R39.9 Unspecified symptoms and signs involving the genitourinary system (principal); N76.0 Acute vaginitis; B96.89 Other specified bacterial agents as the cause of diseases classified elsewhere | CPT/HCPCS: 84315; 87086 ==

== ENCOUNTER 2024-05-03 14:52 | Outpatient (CLI) | payer OTHER, SELFPAY ==
[2024-05-03 16:48] LABS: Anion Gap 13.9 (5-19); Blood Urea Nitrogen 14 mg/dL (6-20); Calcium 9.1 mg/dL (8.5-10.5); Carbon Dioxide 28 mmol/L (22-29); Chloride 103 mmol/L (98-107); Glomerular Filtration Rate 106.3 mL/min (90-130); Glucose 81 mg/dL (65-115); NT Pro B Type Natriuretic Pept 59 pg/mL (0-125); Osmolality Calculated 292 mOsm/kg (285-295); Potassium 3.9 mmol/L (3.5-5.1); Sodium 141 mmol/L (136-145)
== END 2024-05-03 14:53 | disposition home or self-care (01) ==
LOC: LAB 14:53
PROVIDERS: PCP Registered Nurse; Visit Provider Internal Medicine
DX: I10 Essential (primary) hypertension (principal); M79.89 Other specified soft tissue disorders
CPT/HCPCS: 36415; 80048; 83880

== ENCOUNTER 2024-06-18 15:02 | Outpatient (CLI) | payer OTHER, SELFPAY ==
--- NOTE | 2024-06-18 15:00 | USCV_ITS ---
Miriam Bernard Age: 48 Gender: F : 1975 Exam Date: 06/18/2024 15:19 Ordering Phys: Jen Randhawa Technologist: CT Exam Location: [facility]_ Indication: BP: 121 / 89 HR: 82 Rhythm: Sinus Technical Quality: Technically difficult study MEASUREMENTS (Male / Female) Normal Values 2D ECHO LVOT Diameter 2.1 cm LV Ejection Fraction MOD 4C 63.8 % LV Ejection Fraction MOD 2C 51.8 % LV Ejection Fraction 2C AL 53.3 % LA Diameter 4.0 cm RA Systolic Volume 4C AL 45.7 ml RA Systolic Volume 4C MOD 45.2 ml LA Sys Volume AL 56.6 cm cubed LA Sys Volume Index AL 23.9 cm cubed/m squared Aorta at Sinotubular Diameter 2.2 cm M-MODE LA Ao Ratio MM 1.5 AV Cusp Separation MM 1.7 cm DOPPLER AV Peak Velocity 122.0 cm/s LVOT Peak Velocity 117.0 cm/s AV Area Cont Eq vti 4.2 cm squared AV Area Cont Eq pk 3.3 cm squared MV Peak Velocity 78.0 cm/s MV Area PHT 4.1 cm squared Mitral E to A Ratio 1.0 TR Peak Velocity 181.0 cm/s TR Peak Gradient 13.1 mmHg TV Peak E Velocity 85.0 cm/s Right Atrial Pressure 3.0 mmHg Pulmonary Artery Systolic Pressu 16.1 mmHg PV Peak Velocity 123.5 cm/s FINDINGS Left Ventricle Left ventricle is normal size. LV systolic function is normal with EF of 55-60%. No regional wall motion abnormalities are seen. Right Ventricle Normal in size and function Right Atrium Normal in size Left Atrium Normal in size Mitral Valve Structurally normal mitral valve. Mild mitral regurgitation. Aortic Valve Structurally normal aortic valve. No significant stenosis . Tricuspid Valve Mild tricuspid regurgitation. Insufficient TR jet to calculate RVSP. Pulmonic Valve Not well visualized Pericardium Normal Aorta Normal in size IVC Appears to be normal CONCLUSIONS LV systolic function is normal with EF of 55-60% Mild mitral regurgitation Mild tricuspid regurgitation Compared to prior echocardiogram from 2020, no significant changes are seen. Chung Freire MD (Electronically Signed) Final Date: 19 June 2024 07:15 S
== END 2024-06-18 15:03 | disposition home or self-care (01) ==
PROVIDERS: PCP Registered Nurse; Visit Provider Nurse Practitioner Family
DX: I51.89 Other ill-defined heart diseases (principal)
CPT/HCPCS: 93306

== ENCOUNTER 2024-07-11 15:29 | Outpatient (CLI) | payer OTHER, SELFPAY ==
--- NOTE | 2024-07-11 15:20 | MM_ITS ---
WS: [id number] BILATERAL 3D TOMOSYNTHESIS DIGITAL SCREENING MAMMOGRAPHY WITH CAD CLINICAL INFORMATION: SCREENING HISTORY: Screening mammogram. No current complaints. COMPARISON: 2022 TECHNIQUE: Bilateral CC and MLO views. FINDINGS: The breasts are composed of heterogeneous fibroglandular density tissue, which can limit the detectio n of small underlying mass lesions. No suspicious mass, asymmetry, calcifications, or architectural d istortion. No evidence of malignancy. Similar-appearing punctate and lucent centered calcifications. MM/MM [facility] tomosynthesis [id number] IMPRESSION: DENSITY: The breasts are heterogeneously dense, which may obscure small masses. BI-RADS: 2 - Benign FOLLOW UP: 1 Year Follow-up Recommend return to annual screening mammography.
== END 2024-07-11 15:30 | disposition home or self-care (01) ==
LOC: MOBLMAM 15:32
DX: Z12.31 Encounter for screening mammogram for malignant neoplasm of breast (principal)
CPT/HCPCS: 77063; 77067

== ENCOUNTER 2024-08-13 16:33 | Outpatient (CLI) | payer OTHER, SELFPAY ==
--- NOTE | 2024-08-13 17:15 | US_ITS ---
WS: [id number] ULTRASOUND SOFT TISSUES bilateral feet HISTORY: rule out mortons neuroma COMPARISON: None available. TECHNIQUE: 2-D and color Doppler imaging is submitted. Ultrasound directed to the intermetatarsal regions of the foot to evaluate for soft tissue mass. No s ignal changes or masses are noted in the intermetatarsal regions. There is no bursitis or fluid. US/US soft tissue/extremity [id number] IMPRESSION: Negative ultrasound bilateral feet for Parr's neuroma.
== END 2024-08-13 16:34 | disposition home or self-care (01) ==
PROVIDERS: Visit Provider Podiatrist Foot & Ankle Surgery
DX: M77.41 Metatarsalgia, right foot (principal); M77.42 Metatarsalgia, left foot
CPT/HCPCS: 76882

== ENCOUNTER 2025-08-12 19:55 | Emergency (ER) | payer OTHER, SELFPAY ==
--- OUTSIDE RECORDS SUMMARY | 2025-08-08 11:00 | XMS_ITS | Encounter Summary ---
Author Organization [facility] Address [address] [place] [address] Care Team Providers Care Real Estate Inspector Name Role Phone Elton Velasquez MD Primary Care Provider [phone] Reason for Visit * Reason Comments Ear Pain Encounter Details Date Type Department Care Team (Late st Contact Info) Description 08/08/2025 11:00 AM PHYSICAL MEDICINE TEACHER Office Visit [facility] Medicine Feura Bush [address] [facility] [address] [place] [address] Gini Pal NP [address] [place] [address] Jaw pain (Primary Dx); Screening [...] on file Legal Sex Female 3:05 PM PHYSICAL MEDICINE TEACHER Gender Identity Not on file Sexual Orientation Not on file documented as of this encounter Last Filed Vital Signs Vital Sign Reading Time Taken Comments Blood Pressure 110/80 08/08/2025 11:21 AM PHYSICAL MEDICINE TEACHER Pulse 60 08/08/2025 11:21 AM PHYSICAL MEDICINE TEACHER Temperature 36.9 C (98.4 F) 08/08/2025 11:21 AM PHYSICAL MEDICINE TEACHER Respiratory Rate 20 08/08/2025 11:2 1 AM PHYSICAL MEDICINE TEACHER Oxygen Saturation 97% 08/08/2025 11: 21 AM PHYSICAL MEDICINE TEACHER Inhaled Oxygen Concentration - - Weight 69.8 kg (153 lb 12.8 oz) 025 11:21 AM PHYSICAL MEDICINE TEACHER Height 168.9 cm (5' 6.5 ) 08/08/2025 11 :21 AM PHYSICAL MEDICINE TEACHER Body Mass Index 24.45 08/08/2025 11:21 AM PHYSICAL MEDICINE TEACHER documented in this encounter Progress Notes * Gini Pal NP - 08/08/2025 12:19 PM CST [facility] [place] 08/08/2025 Subjective: Miriam Bernard [...] author of this note, patient (or authorized public service representative), and all other persons present consent to the audio recording of this visit for charting documentation purposes. This note was automatically generated by a Generative AI technology ([employer]), reviewed, edited, and finalized by Gini Pal NP. ICAL MEDICINE TEACHER documented in this encounter Plan of Treatment Upcoming Encounters Date Type Department Care Team (Late st Contact Info) Description 09/04/2025 12:00 PM PHYSICAL MEDICINE TEACHER Office Visit [address] [address] Elton Velasquez MD [address] [address] documented as of this encounter Visit Diagnoses Diagnosis Jaw pain- Primary Screening mammogram, encounter for Nerve pain Neuralgia, neuritis, and radiculitis, unspecified documented in this encounter Care Teams Real Estate Inspector Relationship Specialty Start Date End Date Elton Velasquez MD [address] [address] PCP - General Family Practice 11/18/22 documented as of this encounter
[2025-08-12] VITALS (7 sets, daily range): BP systolic 112–177; BP diastolic 71–91; PULSE 62–74; RESP 16–20; TEMP 36.4; O2SAT 96–100; BMI 24.5
--- OUTSIDE RECORDS SUMMARY | 2025-08-12 13:35 | XMS_ITS | Encounter Summary ---
Author Organization [facility] Address [address] [place] [address] Care Team Providers Care Offset Printing Operator Name Role Phone Elton Velasquez MD Primary Care Provider [phone] Reason for Visit * Reason Comments Flank Pain Encounter Details Date Type Department Care Team (Late st Contact Info) Description 08/12/2025 1:35 PM SAP DATA ANALYST - 08/12/2025 3:23 PM SAP DATA ANALYST Emergency [facility] Emergency Medicine [address] [place] [address] Melinda Fabian MD [address] [place] [address] Ureteral calculus, right (Primary Dx) [...] worry about transportation for future doctor visits, supervisor opening and picking medication, etc.? No 2024 Housing Stability Answer [...] on file Legal Sex Female 3:05 PM SAP DATA ANALYST Gender Identity Not on file Sexual Orientation Not on file documented as of this encounter Last Filed Vital Signs Vital Sign Reading Time Taken Comments Blood Pressure 115/72 08/12/2025 3:15 PM SAP DATA ANALYST Pulse 66 08/12/2025 3:15 PM SAP DATA ANALYST Temperature 36.5 C (97.7 F) 08/12/2025 1:36 PM SAP DATA ANALYST Respiratory Rate 14 08/12/2025 3:15 PM SAP DATA ANALYST Oxygen Saturation 100% 08/12/2025 3:15 PM SAP DATA ANALYST Inhaled Oxygen Concentration - - Weight 68.9 kg (152 lb) 08/12/2025 1:36 PM SAP DATA ANALYST Height 165.1 cm (5' 5 ) 08/12/2025 1:36 PM SAP DATA ANALYST Body Mass Index 25.29 08/12/2025 1:36 PM SAP DATA ANALYST documented in this encounter Discharge Instructions * Discharge Instructions* Melinda Fabian MD - 08/12/2025 3:18 PM SAP DATA ANALYST Drink plenty of fluids. Take Flomax as prescribed. Take [place] as needed for pain. Follow-up with your primary care physician in 3 to 5 days for reevaluation. Return if you develop fever (with temperature of 100.4 or more), intractable vomiting or worsening pain. DATA ANALYST * Attachments The following attachments cannot be sent through Care Everywhere. * Kidney Stone (Ukrainian) * Tamsulosin (Ukrainian) * Hydrocodone (Ukrainian) * Naloxone Nasal [place] (Ukrainian) documented in this encounter Medications at Time of Discharge tamsulosin (Flomax) 0.4 mg capsule Take 1 Capsule (0.4 mg) by mouth daily for 10 days. 10 Capsule 08/12/2025 08/22/20 25 HYDROcodone-aceta minophen (NORCO) 5-325 mg tabletIndications :Ureteral calculus, right Take 1 Tablet by mouth every 4 hours as needed for Pain, Moderate. Max Daily Amount: 6 Tablets 20 Tablet 08/12/2025 naloxone (NARCAN) 4 mg/spray [place], Non-Aerosol EMERGENCY USE ONLY: Administer 1 spray (4 mg) in one nostril one time. May repeat in alternating nostrils every 2-3 min until responsive or EMS arrives. 2 Each 3 08/12/2025 potassium CHLORIDE (K-TAB) 20 mEq Extended Release tabletIndications :H/O bariatric surgery Take 1 tablet by mouth once daily with breakfast 100 Tablet 08/08/2025 HYDROcodone-aceta minophen (NORCO) 7.5-325 mg Tablet Take 1 Tablet by mouth every 4 hours as needed for Pain. 08/05/2025 baclofen (LIORESAL) 10 mg tabletIndications :Nerve pain Take 1 Tablet (10 mg) by mouth 3 times daily. 90 Tablet 08/08/2025 metoprolol tartrate (LOPRESSOR) 50 mg tabletIndications :HTN (hypertension), benign Take 1 tablet by mouth twice daily 200 Tablet 1 03/11/2025 amoxicillin (AMOXIL) 500 mg capsule Take 500 mg by mouth 3 times daily. until gone 08/02/2025 ondansetron (ZOFRAN ODT) 4 mg Tablet, Rapid [...] daily with breakfast. 100 Tablet 1 03/11/2025 estradioL (ESTRACE) 1 mg [...] by mouth. fluticasone propionate (FLONASE) 50 mcg/spray [place], Suspension nasal inhalerIndication s:Subacute pansinusitis shake liquid and use 2 sprays in each nostril daily 48 Gram 2 09/30/2023 [id number] c acid-biotin (Hair,Skin and Nails,FA-biotin,) 100-1,500 mcg Tablet Take by mouth. mv-minerals/FA/om ega 3,6,9 #3 (WOMEN'S 50+ ADVANCED ORAL) Take by mouth. melatonin 10 mg tablet Take by mouth nightly as needed. furosemide (LASIX) 20 mg tablet 20 mg daily in the morning. 05/07/2022 documented as of this encounter ED Notes * Kayleen Novak RN - 08/12/2025 1:45 PM CST Provider at bedside. DATA ANALYST * Kayleen Novak RN - 08/12/2025 1:43 [...] Patient alert and oriented during this triage. DATA ANALYST * Melinda Fabian MD - 08/12/2025 1:35 PM CST 08/12/25 1:50 PM HISTORY OF PRESENT ILLNESS This 49-year-old female with a history of kidney stones presents to the ER with right flank pain that worsened over the last several hours. Pain is sharp and is associated with nausea. Patient recalls Tylenol she had kidney stones while she was in [place] about 3 weeks ago. She wastreated with [...] Date/Time Order Dose Route Action 08/12/2025 1348 SAP DATA ANALYST HYDROmorphone (PF) (DILAUDID) injection 1 mg 1 mg IV Given 08/12/2025 1405 SAP DATA ANALYST ondansetron (ZOFRAN) 4 mg/2 mL injection 4 mg 4 mg IV Given 08/12/2025 1451 SAP DATA ANALYST metoclopramide (REGLAN) 5 mg/mL injection 10 mg 10 mg IV Given 08/12/2025 1451 SAP DATA ANALYST tamsulosin (FLOMAX) SR 24 hour capsule 0.4 mg 0.4 mg Oral Given 08/12/2025 1457 SAP DATA ANALYST morphine 4 mg/mL injection 4 mg 4 [...] Disp-20 Tablet, R-0 naloxone (NARCAN) 4 mg/spray [place], Non-Aerosol EMERGENCY USE ONLY: Administer 1 spray [...] by mouth. fluticasone propionate (FLONASE) 50 mcg/spray [place], Suspension nasal inhaler shake liquid and use 2 sprays in each nostril dailyPatient requests 90 days supplyDisp-48 Gram, R-2 [id number] acid-biotin (Hair,Skin and Nails,FA-biotin,) 100-1,500 mcg Tablet [...] 2025 3:13 PM Comment -- ATTESTATION STATEMENTS DATA ANALYST documented in this encounter Miscellaneous Notes * Gen AI NATHAN - GENERATIVE AI HANDOFF NOTE - 08/12/2025 7:33 PM CST ## ER_course: ## # DIAGNOSIS: Ureteral calculus, right. The patient, a 49-year-old female with a history of kidney stones, presented to the ER with sharp right flank pain radiating to the right groin, worsening over several hours, and associated with nausea. She has a history of similar episodes, with the most recent kidney stone occurrence about a month ago. # During the ER visit, a CT abdomen/pelvis revealed a 4 mm stone in the distal right ureter, causing moderate right hydronephrosis and hydroureter, along with associated right perinephric edema. # Abnormal findings included elevated blood pressure at 183/122 and a heart rate of 57 bpm. The urinalysis showed trace leukocyte esterase, trace protein, and 1+ ketones. # Medications administered in the ER included HYDROmorphone, ondansetron, metoclopramide, tamsulosin (Flomax), and morphine. # The patient was advised to drink plenty of fluids and was discharged with Flomax. She was instructed to return if she develops fever, worsening pain, intractable vomiting, or any new concerning symptoms. ## Follow_up_orders: ## # The patient was started on a new prescription for tamsulosin (Flomax) 0.4 mg daily for 10 days to aid in passing the stone. # She was advised to follow up with her primary care physician. # The patient was instructed to return to the ER if she experiences fever, worsening pain, intractable vomiting, or any new concerning symptoms. ## Home_Situation: ## # The patient arrived at the ED with her daughter, indicating some level of caregiver support. No specific transportation or financial issues were noted in the ER notes. DATA ANALYST documented in this encounter Plan of Treatment Upcoming Encounters Date Type Department Care Team (Late st Contact Info) Description 09/04/2025 12:00 PM SAP DATA ANALYST Office Visit [facility] [address] [phone] Elton Velasquez MD [address] [phone] documented as of this encounter Procedures Procedure Name Priority Date/Time Associated Diagnosis Comments URINALYSIS WITH REFLEX CULTURE Stat 08/12/2025 2:[address] ABDOMEN PELVIS WO CONTRAST Stat 08/12/2025 2:14 PM SAP DATA ANALYST CBC WITH DIFFERENTIAL Stat 08/12/2025 1:41 PM SAP DATA ANALYST COMPREHENSIVE METABOLIC PANEL Stat 08/12/2025 1:41 PM SAP DATA ANALYST documented in this encounter Results * (ABNORMAL) URINALYSIS WITH REFLEX CULTURE (08/12/2025 2:44 PM SAP DATA ANALYST) COLOR UA Yellow Pale to Dark Yellow 08/12/2025 2:50 PM SAP DATA ANALYST [facility] CLARITY UA Clear Clear 08/12/2025 2:50 PM SAP DATA ANALYST [facility] SPECIFIC GRAVITY UA 1.025 1.003 - 1.035 08/12/2025 2:50 PM SAP DATA ANALYST [facility] PH UA 5.5 5.0 - 8.0 08/12/2025 2:50 PM SAP DATA ANALYST [facility] LEUKOCYTE ESTERASE UA Trace(A) Negative 08/12/2025 2:50 PM [facility] Comment:For patient s with 'trace' results, consider ordering a culture and sensitivity if clinically indicated. NITRITE UA Negative Negative 08/12/2025 2:50 PM SAP DATA ANALYST [facility] PROTEIN UA Trace(A) Negative 08/12/2025 2:50 PM SAP DATA ANALYST [facility] Comment: For patients with 'trace' results, consider ordering a culture and sensitivity if clinically indicated. GLUCOSE UA Negative Negative 08/12/2025 2:50 PM SAP DATA ANALYST [facility] KETONES UA 1+(A) Negative 08/12/2025 2:50 PM SAP DATA ANALYST [facility] UROBILINOGEN UA 0.2 <2.0 mg/dL 2:50 PM SAP DATA ANALYST [facility] BILIRUBIN UA Negative Negative 08/12/2025 2:50 PM SAP DATA ANALYST [facility] BLOOD UA Negative Negative 08/12/2025 2:50 PM SAP DATA ANALYST [facility] Urine URINE SPECIMEN OBTAINED BY CLEAN CATCH PROCEDURE / Unknown Collection / Unknown 08/12/2025 2:44 PM SAP DATA ANALYST 08/12/2025 2:46 PM SAP DATA ANALYST Melinda Fabian MD URINE ORDERABLES Final Resul t [facility] CLIA # [id number] [address] [place] [address] * CT ABDOMEN PELVIS WO CONTRAST (08/12/2025 2:14 PM SAP DATA ANALYST) Anatomical Region Laterality Modality Abdomen Computed Tomogra phy 08/12/2025 2:56 PM SAP DATA ANALYST Impressions 08/12/2025 2:39 PM SAP DATA ANALYST IMPRESSION: 1. Moderate right hydronephrosis and hydroureter with a 4 mm calculus in the distal right ureter. Associated right perinephric edema. Narrative 08/12/2025 2:39 PM SAP DATA ANALYST EXAM: CT ABDOMEN PELVIS WO CONTRAST DATE/TIME [...] (ABNORMAL) COMPREHENSIVE METABOLIC PANEL (08/12/2025 1:41 PM SAP DATA ANALYST) SODIUM 140 136 - 145 mmol/L 08/12/2025 2:05 PM [facility] POTASSIUM 4.1 3.5 - 5.1 mmol/L 08/12/2025 2:05 PM [facility] CHLORIDE 103 98 - 107 mmol/L 08/12/2025 2:05 PM [facility] CO2 27 22 - 29 mmol/L 08/12/2025 2:05 PM [facility] CALCIUM 9.3 8.6 - 10.0 mg/dL 08/12/2025 2:05 PM [facility] BUN 14 6 - 20 mg/dL 08/12/2025 2:05 PM [facility] CREATININE 0.73 0.51 - 0.95 mg/dL 08/12/2025 2:05 PM [facility] GLUCOSE 103(H) 74 - 99 mg/dL 08/12/2025 2:05 PM [facility] TOTAL PROTEIN 7.3 6.6 - 8.7 g/dL 08/12/2025 2:05 PM [facility] ALBUMIN 4.4 3.5 - 5.2 g/dL 08/12/2025 2:05 PM [facility] BILIRUBIN TOTAL 0.4 0.0 - 1.2 mg/dL 08/12/2025 2:05 PM [facility] ALKALINE PHOSPHATASE 104 35 - 104 U/L 08/12/2025 2:05 PM [facility] AST 33 0 - 35 U/L 08/12/2025 2:05 PM [facility] ALT 40(H) 0 - 35 U/L 08/12/2025 2:05 PM [facility] GFR >60 >=60 mL/min/1.7 3 sq meter 08/12/2025 2:05 PM [facility] Comment:eGFR calculated with 2020 CKD-EPI equation. Vegetarian diet, extremely high or low muscle mass, and may affect results. Cystatin C with Glomerular Filtration Rate is a suitable alternative for these patients. ANION GAP 10 5 - 20 mmol/L 08/12/2025 2:05 PM [facility] Blood BLOOD SPECIMEN / Unknown Venipuncture / Unknown 08/12/2025 1:41 PM SAP DATA ANALYST 08/12/2025 1:50 PM SAP DATA ANALYST Melinda Fabian MD CHEMISTRY ORDERABLES Final [id number] [address] [place] [address] * (ABNORMAL) CBC WITH DIFFERENTIAL (08/12/2025 1:41 PM SAP DATA ANALYST) WBC 8.8 4.0 - 10.0 K/uL 08/12/2025 1:56 PM [facility] RBC 4.18 3.93 - 5.22 M/uL 08/12/2025 1:56 PM [facility] HEMOGLOBIN 12.5 11.2 - 15.7 g/dL 08/12/2025 1:56 PM [facility] HEMATOCRIT 38.2 34.1 - 44.9 % 08/12/2025 1:56 PM [facility] MCV 91.4 79.4 - 94.8 fL 08/12/2025 1:56 PM [facility] MCH 29.9 25.6 - 32.2 pg 08/12/2025 1:56 PM [facility] MCHC 32.7 32.2 - 35.5 g/dL 08/12/2025 1:56 PM [facility] RDW 13.0 11.0 - 14.5 % 08/12/2025 1:56 PM [facility] RDW-STDEV 42.9 36.9 - 56.9 fL 08/12/2025 1:56 PM [facility] PLATELETS 353(H) 163 - 337 K/uL 08/12/2025 1:56 PM [facility] MPV 10.0 10.0 - 14.8 fL 08/12/2025 1:56 PM [facility] NEUTROPHILS 51 34 - 71 % 08/12/2025 1:56 PM [facility] LYMPHOCYTES 35 19 - 52 % 08/12/2025 1:56 PM [facility] MONOCYTES 11 5 - 13 % 08/12/2025 1:56 PM [facility] EOSINOPHILS 2 1 - 6 % 08/12/2025 1:56 PM [facility] BASOPHILS 1 0 - 1 % 08/12/2025 1:56 PM [facility] IMMATURE GRANULOCYTES 0 % 08/12/2025 1:56 PM [facility] NEUTROPHIL ABSOLUTE 4.53 1.56 - 6.13 K/uL 08/12/2025 1:56 PM [facility] LYMPHOCYTE ABSOLUTE 3.07 1.20 - 3.40 K/uL 08/12/2025 1:56 PM [facility] MONOCYTE ABSOLUTE 0.99(H) 0.24 - 0.36 K/uL 08/12/2025 1:56 PM [facility] EOSINOPHIL ABSOLUTE 0.14 0.04 - 0.36 K/uL 08/12/2025 1:56 PM [facility] BASOPHILS ABSOLUTE 0.07 0.01 - 0.08 K/uL 08/12/2025 1:56 PM SAP DATA ANALYST [facility] IMMATURE GRANULOCYTES ABSOLUTE 0.02 K/uL 08/12/2025 1:56 PM SAP DATA ANALYST [facility] Blood BLOOD SPECIMEN / Unknown Venipuncture / Unknown 08/12/2025 1:41 PM SAP DATA ANALYST 08/12/2025 1:50 PM SAP DATA ANALYST Melinda Fabian MD HEMATOLOGY ORDERABLES Final Result [facility] CLIA # [id number] [address] [place] [id number] documented in this encounter Visit Diagnoses Diagnosis Ureteral calculus, right- Primary Calculus of ureter documented in this encounter Administered Medications Inactive Administered Medications - up to 3 most recent administrations Medication Order MAR Action Action Date Dose Rate Site HYDROmorphone (PF) (DILAUDID) injection 1 mg 1 mg, IV, ONE TIME ONLY, 1 dose, On Tue08/12/25 at 1400, Routine Given 08/12/2025 1:48 PM SAP DATA ANALYST 1 mg metoclopramide (REGLAN) 5 mg/mL injection 10 mg 10 mg, IV, ONE TIME ONLY, 1 dose, On Tue08/12/25 at 1430, Routine Given 08/12/2025 2:51 PM SAP DATA ANALYST 10 mg morphine 4 mg/mL injection 4 mg 4 mg, IV, ONE TIME ONLY, 1 dose, On Tue08/12/25 at 1500, Routine Given 08/12/2025 2:57 PM SAP DATA ANALYST 4 mg ondansetron (ZOFRAN) 4 mg/2 mL injection 4 mg 4 mg, IV, ONE TIME ONLY, 1 dose, On Tue08/12/25 at 1400, Routine Given 08/12/2025 2:05 PM SAP DATA ANALYST 4 mg tamsulosin (FLOMAX) SR 24 hour capsule 0.4 mg 0.4 mg, Oral, ONE TIME ONLY, 1 dose, On Tue08/12/25 at 1500, Routine Given 08/12/2025 2:51 PM SAP DATA ANALYST 0.4 mg documented in this encounter Active and Recently Administered Medications Times are shown in SAP DATA ANALYST. Scheduled Medication Order 08/10/2025 08/11/2025 08/12/2025 HYDROmorphone [...] RN) documented in this encounter Care Teams Offset Printing Operator Relationship Specialty Start Date End Date Elton Velasquez MD [address] [phone] PCP - General Family Practice 11/18/22 documented as of this encounter
--- OUTSIDE RECORDS SUMMARY | 2025-08-12 20:00 | XMS_ITS | Encounter Summary ---
Author Organization [facility] Address [address] [place] [address] Care Team Providers Care Dry Cell And Battery Assembler Name Role Phone Graciela Marsh MD Primary Care Provider Encounter Details Date Type Department Care Team (Latest Contact Info) Description 06/18/1998 Outpatient Historical [facility] Medicine [address] [phone] Christian Longoria MD [address] [place] [address] Routine follow-up (Primary Dx) Social History Tobacco Use Types Packs/Day Years Used Date Smoking Tobacco: Never Assessed Comments Unknown Sex and Gender Information Value Date Recorded Sex Assigned at Not on file Legal Sex Female 5:20 AM ECOLOGICAL RISK ASSESSOR Gender Identity Not on file Sexual Orientation Not on file documented as of this encounter Plan of Treatment Not on file documented as of this encounter Visit Diagnoses Diagnosis Routine follow-up- Primary documented in this encounter Care Teams Dry Cell And Battery Assembler Relationship Specialty Start Date End Date Graciela Marsh MD [address] [facility] [address] [place] [phone] PCP - General Family Practice 10/11/13 documented as of this encounter
--- OUTSIDE RECORDS SUMMARY | 2025-08-12 20:00 | XMS_ITS | Encounter Summary ---
Author Organization [facility] Address [address] [address] Phone Care Team Providers Care Electrode Turner And Finisher Name Role Phone Mary Ann Thurman RN Unavailable [phone] Elton Velasquez MD Primary Care Provider [phone] Reason for Visit * Reason Onset Date Comments Appointment 12/29/2021 Encounter Details Date Type Department Care Team (Late st Contact Info) Description 12/29/2021 Telephone [facility] [address] [place], [place] [phone] John Paul Khan MD [address] [address] Appointment Social History Tobacco Use Types Packs/Day Years Used Date Smoking Tobacco: Never Smokeless Tobacco: Never Alcohol Use Standard Drinks/Week Comments Not Currently 0 (1 standard drink = 0.6 oz pur e alcohol) Comments Unknown Sex and Gender Information Value Date Recorded Sex Assigned at Not on file Legal Sex Female 10:53 AM CDT Gender Identity Not on file Sexual Orientation Not on file documented as of this encounter Miscellaneous Notes * Telephone Encounter - Marielle Lauren - 12/29/2021 9:25 AM CDT Pt decided she didn't need an appointment after taking some allergy medications. * Telephone Encounter - Shalini Rhodesyton - 12/29/2021 8:00 AM CDT Pt is wanting to make an appointment documented in this encounter Plan of Treatment Upcoming Encounters Date Type Department Care Team (Late st Contact Info) Description 08/28/2025 3:00 PM AIRWORTHINESS SAFETY INSPECTOR [facility] [place] [facility] [address] [place] [address] Omkar Garg Jr., DO [address] [place] [address] documented as of this encounter Visit Diagnoses Not on filedocumented in this encounter Care Teams Electrode Turner And Finisher Relationship Specialty Start Date End Date Elton Velasquez MD [address] [phone] PCP - General Family Medicine 07/18/24 Mary Ann Thurman, RN [address] [phone] Registered Nurse Internal Medicine 06/29/24 documented as of this encounter
--- OUTSIDE RECORDS SUMMARY | 2025-08-12 20:00 | XMS_ITS | Encounter Summary ---
Author Organization [facility] Address 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 [address] [phone] Elton Velasquez MD [address] [address] documented as of this encounter Procedures Procedure Name Priority Date/Time Associated Diagnosis Comments CBC WITH DIFFERENTIAL Stat 08/20/2024 9:29 AM LAUNDROMAT MANAGER Hematuria, unspecified COMPREHENSIVE METABOLIC PANEL Stat 08/20/2024 9:29 AM LAUNDROMAT MANAGER Hematuria, unspecified documented in this encounter Results * (ABNORMAL) COMPREHENSIVE METABOLIC PANEL (08/20/2024 9:29 AM LAUNDROMAT MANAGER) SODIUM 139 136 - 145 mmol/L 08/20/2024 9:55 AM [facility] POTASSIUM 3.5 3.5 - 5.1 mmol/L 08/20/2024 9:55 AM [facility] CHLORIDE 104 98 - 107 mmol/L 08/20/2024 9:55 AM [facility] CO2 25 22 - 29 mmol/L 08/20/2024 9:55 AM [facility] CALCIUM 9.3 8.6 - 10.0 mg/dL 08/20/2024 9:55 AM [facility] BUN 13 6 - 20 mg/dL 08/20/2024 9:55 AM [facility] CREATININE 0.65 0.51 - 0.95 mg/dL 08/20/2024 9:55 AM [facility] GLUCOSE 119(H) 74 - 99 mg/dL 08/20/2024 9:55 AM [facility] TOTAL PROTEIN 7.0 6.6 - 8.7 g/dL 08/20/2024 9:55 AM [facility] ALBUMIN 4.3 3.5 - 5.2 g/dL 08/20/2024 9:55 AM [facility] BILIRUBIN TOTAL 0.4 <=1.2 mg/dL 08/20/2024 9:55 AM [facility] ALKALINE PHOSPHATASE 94 35 - 104 U/L 08/20/2024 9:55 AM [facility] AST 19 10 - 35 U/L 08/20/2024 9:55 AM [facility] ALT 19 10 - 35 U/L 08/20/2024 9:55 AM [facility] GFR >60 >=60 mL/min/1.7 3 sq meter 08/20/2024 9:55 AM [facility] Comment:eGFR calculated with 2020 CKD-EPI equation. Vegetarian diet, extremely high or low muscle mass, and may affect results. Cystatin C with Glomerular Filtration Rate is a suitable alternative for these patients. ANION GAP 10(L) 12 - 20 mmol/L 08/20/2024 9:55 AM [facility] Blood 08/20/2024 9:29 AM LAUNDROMAT MANAGER 08/20/2024 9:29 AM LAUNDROMAT MANAGER us Gini Pal NP CHEMISTRY ORDERABLES Final Res ult [facility] CLIA # [id number] [address] [place] [address] * (ABNORMAL) CBC WITH DIFFERENTIAL (08/20/2024 9:29 AM LAUNDROMAT MANAGER) WBC 6.3 4.0 - 10.0 K/uL 08/20/2024 9:35 AM [facility] RBC 4.16 3.93 - 5.22 M/uL 08/20/2024 9:35 AM [facility] HEMOGLOBIN 12.0 11.2 - 15.7 g/dL 08/20/2024 9:35 AM [facility] HEMATOCRIT 37.5 34.1 - 44.9 % 08/20/2024 9:35 AM [facility] MCV 90.1 79.4 - 94.8 fL 08/20/2024 9:35 AM [facility] MCH 28.8 25.6 - 32.2 pg 08/20/2024 9:35 AM [facility] MCHC 32.0(L) 32.2 - 35.5 g/dL 08/20/2024 9:35 AM [facility] RDW 14.1 11.0 - 14.5 % 08/20/2024 9:35 AM [facility] RDW-STDEV 46.2 36.9 - 56.9 fL 08/20/2024 9:35 AM [facility] PLATELETS 286 163 - 337 K/uL 08/20/2024 9:35 AM [facility] MPV 10.0 10.0 - 14.8 fL 08/20/2024 9:35 AM [facility] NEUTROPHILS 50 34 - 71 % 08/20/2024 9:35 AM [facility] LYMPHOCYTES 36 19 - 52 % 08/20/2024 9:35 AM [facility] MONOCYTES 11 5 - 13 % 08/20/2024 9:35 AM [facility] EOSINOPHILS 2 1 - 6 % 08/20/2024 9:35 AM [facility] BASOPHILS 1 0 - 1 % 08/20/2024 9:35 AM [facility] IMMATURE GRANULOCYTES 0 % 08/20/2024 9:35 AM [facility] NEUTROPHIL ABSOLUTE 3.13 1.56 - 6.13 K/uL 08/20/2024 9:35 AM [facility] LYMPHOCYTE ABSOLUTE 2.27 1.20 - 3.40 K/uL 08/20/2024 9:35 AM [facility] MONOCYTE ABSOLUTE 0.72(H) 0.24 - 0.36 K/uL 08/20/2024 9:35 AM [facility] EOSINOPHIL ABSOLUTE 0.14 0.04 - 0.36 K/uL 08/20/2024 9:35 AM [facility] BASOPHILS ABSOLUTE 0.05 0.01 - 0.08 K/uL 08/20/2024 9:35 AM LAUNDROMAT MANAGER [facility] IMMATURE GRANULOCYTES ABSOLUTE 0.01 K/uL 08/20/2024 9:35 AM LAUNDROMAT MANAGER [facility] Blood Collection / Unknown 08/20/2024 9:29 AM LAUNDROMAT MANAGER 08/20/2024 9:29 AM LAUNDROMAT MANAGER Gini Pal BAG TESTER HEMATOLOGY ORDERABLES Final Re sult [facility] CLIA # [id number] [address] [address] documented in this encounter Visit Diagnoses Diagnosis Hematuria, unspecified documented in this encounter Care Teams Certified Flight Instructor Relationship Specialty Start Date End Date Elton Velasquez MD [address] [address] PCP - General Family Practice 11/18/22 documented as of this encounter
--- OUTSIDE RECORDS SUMMARY | 2025-08-12 20:00 | XMS_ITS | Encounter Summary ---
Author Organization [facility] Address [address] [address] Phone Care Team Providers Care Technical Trainer Name Role Phone Program, Send To [facility] Primary Care Provider Mary Ann Ramirez RN Unavailable [phone] Elton Velasquez MD Primary Care Provider [phone] Encounter Details Date Type Department Care Team (Late st Contact Info) Description 06/24/2020 Orders Only [facility] [address] [place], [place] [phone] Lorraine Patel RN [address] [address] Social History Tobacco Use Types Packs/Day Years [...] st Contact Info) Description 08/28/2025 3:00 PM AUTOMATION LEAD [facility] [address] [phone] Omkar Garg Jr., DO [address] [address] documented as of this encounter Visit Diagnoses Not on filedocumented in this encounter Care Teams Technical Trainer Relationship Specialty Start Date End Date Program, Send To [address] [address] PCP - General Family Medicine 03/03/21 03/03/21 Elton Velasquez MD [address] [phone] PCP - General Family Medicine 07/18/24 Mary Ann Thurman RN [address] [place] [address] Registered Nurse Internal Medicine 06/29/24 documented as of this encounter
--- OUTSIDE RECORDS SUMMARY | 2025-08-12 20:00 | XMS_ITS | Encounter Summary ---
Author Organization [facility] Address [address] [facility] [address] Wilson: [place] [address] Care Team Providers Care Health Unit Supervisor Name Role Phone Elton Velasquez MD Primary Care Provider [phone] Encounter Details Date Type Department Care Team (Latest Contact Info) Description 08/12/2025 Travel Social History Tobacco Use Types Packs/Day Years [...] worry about transportation for future doctor visits, picking crew supervisor medication, etc.? No 2024 Housing Stability Answer [...] on file Legal Sex Female 3:05 PM DRIVER STARTING GATE Gender Identity Not on file Sexual Orientation Not on file documented as of this encounter Plan of Treatment Upcoming Encounters Date Type Department Care Team (Late st Contact Info) Description 09/04/2025 12:00 PM DRIVER STARTING GATE Office Visit [facility] [address] [phone] Elton Velasquez MD [address] [phone] documented as of this encounter Visit Diagnoses Not on filedocumented in this encounter Care Teams Health Unit Supervisor Relationship Specialty Start Date End Date Elton Velasquez MD [address] [phone] PCP - General Family Practice 11/18/22 documented as of this encounter
--- OUTSIDE RECORDS SUMMARY | 2025-08-12 20:00 | XMS_ITS | Encounter Summary ---
Author Organization [facility] Address [address] [place] [address] Care Team Providers Care Human Resources Professional Name Role Phone Graciela Marsh MD Primary Care Provider Encounter Details Date Type Department Care Team (Latest Contact Info) Description 05/16/2000 Outpatient [facility] [address] [phone] Lexi Streeter MD [address] [place] [address] Chest pain, unspecified (Primary Dx); Other specified temporomandibular joint disorders Social History Tobacco Use Types Packs/Day Years Used Date Smoking Tobacco: Never Assessed Comments Unknown Sex and Gender Information Value Date Recorded Sex Assigned at Not on file Legal Sex Female 5:20 AM CYBER 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
--- OUTSIDE RECORDS SUMMARY | 2025-08-12 20:00 | XMS_ITS | Encounter Summary ---
Author Organization [facility] Address [address] [place] [address] Care Team Providers Care Manager Strategic Partnerships Name Role Phone Elton Velasquez MD Primary Care Provider [phone] Reason for Visit * Reason Onset Date Comments Appointment 08/12/2025 08/12/2025 Encounter Details Date Type Department Care Team (Late st Contact Info) Description 08/12/2025 Telephone [facility] Medicine [place] 104 [facility] 60 [place] [address] Gini Pal NP [address] [place] [phone] Appointment 08/12/2025 Social History Tobacco Use Types Packs/Day Years [...] worry about transportation for future doctor visits, pick pulling machine tender medication, etc.? No 2024 Housing Stability Answer [...] on file Legal Sex Female 3:05 PM PACKAGING MACHINE SUPPLIES DISTRIBUTOR Gender Identity Not on file Sexual Orientation Not on file documented as of this encounter Miscellaneous Notes * Telephone Encounter - Betzy Mackay - 08/12/2025 9:37 AM CST 08/12/2025 9:37 AM I called the patient to see if she could come in earlier in the afternoon for her appointment but Iwas unable to speak to the patient at the time of contact. A message with callback information was provided and a [employer] message will be sent. No further commentary to report at this time. Betzy AGING MACHINE SUPPLIES DISTRIBUTOR documented in this encounter Plan of Treatment Upcoming Encounters Date Type Department Care Team (Late st Contact Info) Description 09/04/2025 12:00 PM PACKAGING MACHINE SUPPLIES DISTRIBUTOR Office Visit [facility] Medicine [address] [phone] Elton Velasquez MD [address] [phone] documented as of this encounter Visit Diagnoses Not on filedocumented in this encounter Care Teams Manager Strategic Partnerships Relationship Specialty Start Date End Date Elton Velasquez MD [address] [phone] PCP - General Family Practice 11/18/22 documented as of this encounter
--- OUTSIDE RECORDS SUMMARY | 2025-08-12 20:00 | XMS_ITS | Encounter Summary ---
Author Organization [facility] Address [address] [place] [address] Care Team Providers Care Regulatory Consultant Name Role Phone Graciela Marsh MD Primary Care Provider Encounter Details Date Type Department Care Team (Latest Contact Info) Description 01/26/1999 Outpatient [facility] Medicine[address] [phone] Lexi Streeter MD [address] [place] [address] Other general counseling and advice for contraceptive management (Primary Dx) Social History Tobacco Use Types Packs/Day Years Used Date Smoking Tobacco: Never Assessed Comments Unknown Sex and Gender Information Value Date Recorded Sex Assigned at Not on file Legal Sex Female 5:20 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
--- OUTSIDE RECORDS SUMMARY | 2025-08-12 20:00 | XMS_ITS | Encounter Summary ---
Author Organization [facility] Address [address] [address] Phone Care Team Providers Care Track Patrol Name Role Phone Mary Ann Thurman RN Unavailable [phone] Elton Velasquez MD Primary Care Provider [phone] Reason for Visit * Reason Comments Med Refill Encounter Details Date Type Department Care Team (Late st Contact Info) Description 03/18/2022 Refill [facility] [address] [place], [place] [phone] Jackie Springer, CHRIS [address] [phone] Seasonal allergic rhinitis due to pollen Social History Tobacco Use Types Packs/Day Years [...] st Contact Info) Description 08/28/2025 3:00 PM PRINCIPAL EMBEDDED SOFTWARE ENGINEER [facility] [address] [phone] Omkar Garg Jr., DO [address] [phone] documented as of this encounter Visit Diagnoses Diagnosis Seasonal allergic rhinitis due to pollen documented in this encounter Care Teams Track Patrol Relationship Specialty Start Date End Date Elton Velasquez MD [address] [phone] PCP - General Family Medicine 07/18/24 Mary Ann Thurman, RN [address] [address] Registered Nurse Internal Medicine 06/29/24 documented as of this encounter
--- OUTSIDE RECORDS SUMMARY | 2025-08-12 20:00 | XMS_ITS | Encounter Summary ---
Author Organization [facility] Address [address] [place] [address] Care Team Providers Care Rn Orthopedic Name Role Phone Elton Velasquez MD Primary Care Provider [phone] Reason for Visit * Reason Comments Med Refill Encounter Details Date Type Department Care Team (Late st Contact Info) Description 08/08/2025 Refill [facility] [address] [place] [address] Gini Pal NP [address] [place] [address] H/O bariatric surgery Social History Tobacco Use Types Packs/Day Years [...] on file Legal Sex Female 3:05 PM CALL OR CONTACT CENTRE MANAGER Gender Identity Not on file Sexual Orientation Not on file documented as of this encounter Plan of Treatment Upcoming Encounters Date Type Department Care Team (Late st Contact Info) Description 09/04/2025 12:00 PM CALL OR CONTACT CENTRE MANAGER Office Visit [facility] [address] [phone] Elton Velasquez MD [address] [phone] documented as of this encounter Visit Diagnoses Diagnosis H/O bariatric surgery Bariatric surgery status documented in this encounter Care Teams Rn Orthopedic Relationship Specialty Start Date End Date Elton Velasquez MD [address] [phone] PCP - General Family Practice 11/18/22 documented as of this encounter
--- OUTSIDE RECORDS SUMMARY | 2025-08-12 20:00 | XMS_ITS | Encounter Summary ---
Author Organization [facility] Address [address] [place] [address] Care Team Providers Care Gas Station Service Attendant Name Role Phone Graciela Marsh MD Primary Care Provider [phone] Encounter Details Date Type Department Care Team (Latest Contact Info) Description 04/28/1999 Outpatient [facility] Medicine[address] [phone] Matthew Palacios MD [address] [address] Urinary tract infection, site not specified (Primary Dx) Social History Tobacco Use Types Packs/Day Years Used Date Smoking Tobacco: Never Assessed Comments Unknown Sex and Gender Information Value Date Recorded Sex Assigned at Not on file 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
--- OUTSIDE RECORDS SUMMARY | 2025-08-12 20:00 | XMS_ITS | Encounter Summary ---
Author Organization [facility] Address 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 Gender Identity Not on file Sexual Orientation Not on file documented as of this encounter Plan of Treatment Upcoming Encounters Date Type Department Care Team (Late st Contact Info) Description 09/04/2025 12:00 PM SALES AND MARKETING EXECUTIVE Office Visit [facility] [address] [place] [phone] Elton Velasquez MD [address] [phone] documented as of this encounter Visit Diagnoses Not on filedocumented in this encounter Care Teams Respiratory Care Specialist Relationship Specialty Start Date End Date Elton Velasquez MD [address] [phone] PCP - General Family Practice 11/18/22 documented as of this encounter
--- OUTSIDE RECORDS SUMMARY | 2025-08-12 20:00 | XMS_ITS | Encounter Summary ---
Author Organization [facility] Address [address] [place] [address] Care Team Providers Care Helicopter Repairer Name Role Phone Graciela Marsh MD Primary Care Provider Encounter Details Date Type Department Care Team (Latest Contact Info) Description 07/29/1998 Outpatient [facility] [address] [phone] Christian Longoria MD [address] [place] [address] Acute upper respiratory infections of unspecified site (Primary Dx) Social History Tobacco Use Types Packs/Day Years Used Date Smoking Tobacco: Never Assessed Comments Unknown Sex and Gender Information Value Date Recorded Sex Assigned at Not on file Legal Sex Female 5:20 AM LEAD SOFTWARE DEVELOPER Gender Identity Not on file Sexual Orientation Not on file documented as of this encounter Plan of Treatment Not on file documented as of this encounter Visit Diagnoses Diagnosis Acute upper respiratory infections of unspecified site- Primary documented in this encounter Care Teams Helicopter Repairer Relationship Specialty Start Date End Date Graciela Marsh MD [address] [phone] PCP - General Family Practice 10/11/13 documented as of this encounter
--- OUTSIDE RECORDS SUMMARY | 2025-08-12 20:00 | XMS_ITS | Encounter Summary ---
Author Organization [facility] Address [address] [place] [address] Care Team Providers Care Wad Printing Machine Operator Name Role Phone Elton Velasquez MD Primary Care Provider [phone] [phone] Encounter Details Date Type Department Care Team (Late st Contact Info) Description 07/26/2025 Lab Requisition [facility] [place] [address] [address] NereydaClare olvera, [facility] [address] [address] Calculus of kidney Social History Tobacco Use Types Packs/Day Years [...] on file Legal Sex Female 3:05 PM NUISANCE WILDLIFE TRAPPER Gender Identity Not on file Sexual Orientation Not on file documented as of this encounter Plan of Treatment Upcoming Encounters Date Type Department Care Team (Late st Contact Info) Description 09/04/2025 12:00 PM NUISANCE WILDLIFE TRAPPER Office Visit [facility] [address] [address] Elton Velasquez MD [address] [address] documented as of this encounter Procedures Procedure Name Priority Date/Time Associated Diagnosis Comments CBC WITH DIFFERENTIAL Stat 07/26/2025 3:54 PM CDT Calculus of kidney COMPREHENSIVE METABOLIC PANEL Stat 07/26/2025 3:54 PM CDT Calculus of kidney documented in this encounter Results * (ABNORMAL) COMPREHENSIVE METABOLIC PANEL (07/26/2025 3:54 PM CDT) SODIUM 143 136 - 145 mmol/L 07/26/2025 4:13 PM CDT [facility] POTASSIUM 3.4(L) 3.5 - 5.1 mmol/L 07/26/2025 4:13 PM T [facility] CHLORIDE 106 98 - 107 mmol/L 07/26/2025 4:13 PM T [facility] CO2 29 22 - 29 mmol/L 07/26/2025 4:13 PM T [facility] CALCIUM 8.9 8.6 - 10.0 mg/dL 07/26/2025 4:13 PM [facility] BUN 8 6 - 20 mg/dL 07/26/2025 4:13 PM T [facility] CREATININE 0.62 0.51 - 0.95 mg/dL 07/26/2025 4:13 PM T [facility] GLUCOSE 86 74 - 99 mg/dL 07/26/2025 4:13 PM [facility] TOTAL PROTEIN 6.5(L) 6.6 - 8.7 g/dL 07/26/2025 4:13 PM T [facility] ALBUMIN 4.0 3.5 - 5.2 g/dL 07/26/2025 4:13 PM [facility] BILIRUBIN TOTAL 0.4 0.0 - 1.2 mg/dL 07/26/2025 4:13 PM [facility] ALKALINE PHOSPHATASE 100 35 - 104 U/L 07/26/2025 4:13 PM [facility] AST 27 0 - 35 U/L 07/26/2025 4:13 PM [facility] ALT 37(H) 0 - 35 U/L 07/26/2025 4:13 PM [facility] GFR >60 >=60 mL/min/1.7 3 sq meter 07/26/2025 4:13 PM [facility] Comment:eGFR calculated with 2020 CKD-EPI equation. Vegetarian diet, extremely high or low muscle mass, and may affect results. Cystatin C with Glomerular Filtration Rate is a suitable alternative for these patients. ANION GAP 8 5 - 20 mmol/L 07/26/2025 4:13 PM [facility] Blood BLOOD SPECIMEN / Unknown Venipuncture / Unknown 07/26/2025 3:54 PM CDT 07/26/2025 3:54 PM CDT Clare Dawn IT SUPPORT SPECIALIST CHEMISTRY ORDERABLES Fin al Result [facility] CLIA # [id number] [address] [place] [address] * (ABNORMAL) CBC WITH DIFFERENTIAL (07/26/2025 3:54 PM CDT) WBC 5.0 4.0 - 10.0 K/uL 07/26/2025 3:58 PM CDT [facility] RBC 4.14 3.93 - 5.22 M/uL 07/26/2025 3:58 PM CDT [facility] HEMOGLOBIN 12.2 11.2 - 15.7 g/dL 07/26/2025 3:58 PM [facility] HEMATOCRIT 36.9 34.1 - 44.9 % 07/26/2025 3:58 PM [facility] MCV 89.1 79.4 - 94.8 fL 07/26/2025 3:58 PM [facility] MCH 29.5 25.6 - 32.2 pg 07/26/2025 3:58 PM [facility] MCHC 33.1 32.2 - 35.5 g/dL 07/26/2025 3:58 PM [facility] RDW 13.5 11.0 - 14.5 % 07/26/2025 3:58 PM [facility] RDW-STDEV 44.0 36.9 - 56.9 fL 07/26/2025 3:58 PM [facility] PLATELETS 236 163 - 337 K/uL 07/26/2025 3:58 PM [facility] MPV 10.2 10.0 - 14.8 fL 07/26/2025 3:58 PM [facility] NEUTROPHILS 47 34 - 71 % 07/26/2025 3:58 PM [facility] LYMPHOCYTES 41 19 - 52 % 07/26/2025 3:58 PM [facility] MONOCYTES 10 5 - 13 % 07/26/2025 3:58 PM [facility] EOSINOPHILS 2 1 - 6 % 07/26/2025 3:58 PM [facility] BASOPHILS 1 0 - 1 % 07/26/2025 3:58 PM [facility] IMMATURE GRANULOCYTES 0 % 07/26/2025 3:58 PM [facility] NEUTROPHIL ABSOLUTE 2.34 1.56 - 6.13 K/uL 07/26/2025 3:58 PM [facility] LYMPHOCYTE ABSOLUTE 2.06 1.20 - 3.40 K/uL 07/26/2025 3:58 PM [facility] MONOCYTE ABSOLUTE 0.49(H) 0.24 - 0.36 K/uL 07/26/2025 3:58 PM CDT [facility] EOSINOPHIL ABSOLUTE 0.08 0.04 - 0.36 K/uL 07/26/2025 3:58 PM CDT [facility] BASOPHILS ABSOLUTE 0.05 0.01 - 0.08 K/uL 07/26/2025 3:58 PM CDT [facility] IMMATURE GRANULOCYTES ABSOLUTE 0.01 K/uL 07/26/2025 3:58 PM CDT [facility] Blood BLOOD SPECIMEN / Unknown Venipuncture / Unknown 07/26/2025 3:54 PM CDT 07/26/2025 3:54 PM CDT Clare Ambrose Nereyda IT SUPPORT SPECIALIST HEMATOLOGY ORDERABLES Fi nal Result [facility] CLIA # [id number] [address] [address] documented in this encounter Visit Diagnoses Diagnosis Calculus of kidney documented in this encounter Care Teams Wad Printing Machine Operator Relationship Specialty Start Date End Date Elton Velasquez MD [address] [phone] PCP - General Family Practice 11/18/22 documented as of this encounter
--- OUTSIDE RECORDS SUMMARY | 2025-08-12 20:00 | XMS_ITS | Encounter Summary ---
Author Organization [facility] Address [address] [place] [address] Care Team Providers Care Operations Planner Name Role Phone Elton Velasquez MD Primary Care Provider [phone] Reason for Visit * Reason Onset Date Comments Appointment Information 08/12/2025 Encounter Details Date Type Department Care Team (Late st Contact Info) Description 08/12/[address] [facility] [place] 104 [facility] [address] [place] [address] Gini Pal NP [address] [place] [address] Appointment Information Social History Tobacco Use Types Packs/Day Years [...] for future doctor visits, pick pulling machine operator medication, etc.? No 2024 Housing Stability Answer [...] on file Legal Sex Female 3:05 PM CHOCOLATE FINISHER OPERATOR Gender Identity Not on file Sexual Orientation Not on file documented as of this encounter Miscellaneous Notes * Telephone Encounter - Betzy Mackay - 08/12/2025 10:05 AM CST 08/12/2025 10:06 AM I called the patient and rescheduled her appointment for 3:40. Betzy OLATE FINISHER OPERATOR documented in this encounter Plan of Treatment Upcoming Encounters Date Type Department Care Team (Late st Contact Info) Description 09/04/2025 12:00 PM CHOCOLATE FINISHER OPERATOR Office Visit [facility] [place] [address] [address] Elton Velasquez MD [address] [address] documented as of this encounter Visit Diagnoses Not on filedocumented in this encounter Care Teams Operations Planner Relationship Specialty Start Date End Date Elton Velasquez MD [address] [address] PCP - General Family Practice 11/18/22 documented as of this encounter
--- OUTSIDE RECORDS SUMMARY | 2025-08-12 20:00 | XMS_ITS | Encounter Summary ---
Author Organization [facility] Address [address] [place] [address] Care Team Providers Care Admissions Manager Rn Name Role Phone Graciela Marsh MD Primary Care Provider Encounter Details Date Type Department Care Team (Latest Contact Info) Description 02/04/1999 Outpatient [facility] [address] [phone] Matthew Palacios MD [address] [address] Urinary tract infection, site not specified (Primary Dx) Social History Tobacco Use Types Packs/Day Years Used Date Smoking Tobacco: Never Assessed Comments Unknown Sex and Gender Information Value Date Recorded Sex Assigned at Not on file 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
--- OUTSIDE RECORDS SUMMARY | 2025-08-12 20:00 | XMS_ITS | Encounter Summary ---
Author Organization [facility] Address [address] [place] [address] Care Team Providers Care Driver Recruiter Name Role Phone Graciela Marsh MD Primary Care Provider Encounter Details Date Type Department Care Team (Latest Contact Info) Description 03/06/2001 Outpatient Historical [facility] Medicine [address] [address] Lexi Streeter MD [address] [place] [address] Dyspareunia (Primary Dx); Irregular menstruation Social History Tobacco Use Types Packs/Day Years Used Date Smoking Tobacco: Never Assessed Comments Unknown Sex and Gender Information Value Date Recorded Sex Assigned at Not on file Legal Sex Female 5:20 AM DIRECTOR RECREATION Gender Identity Not on file Sexual Orientation Not on file documented as of this encounter Plan of Treatment Not on file documented as of this encounter Visit Diagnoses Diagnosis Dyspareunia- Primary Irregular menstruation Irregular menstrual cycle documented in this encounter Care Teams Driver Recruiter Relationship Specialty Start Date End Date Graciela Marsh MD [address] [facility] [address] [place] [phone] PCP - General Family Practice 10/11/13 documented as of this encounter
--- OUTSIDE RECORDS SUMMARY | 2025-08-12 20:00 | XMS_ITS | Encounter Summary ---
Author Organization [facility] Address [address] [place] [address] Care Team Providers Care Precision Assembly Inspector Name Role Phone Graciela Marsh MD Primary Care Provider Encounter Details Date Type Department Care Team (Latest Contact Info) Description 05/04/1999 Outpatient [facility] [address] [phone] Lexi Streeter MD [address] [place] [address] Abdominal pain, unspecified site (Primary Dx) Social History Tobacco Use Types Packs/Day Years Used Date Smoking Tobacco: Never Assessed Comments Unknown Sex and Gender Information Value Date Recorded Sex Assigned at Not on file Legal Sex Female 5:20 AM DIRECTOR OF OPERATIONS Gender Identity Not on file Sexual Orientation Not on file documented as of this encounter Plan of Treatment Not on file documented as of this encounter Visit Diagnoses Diagnosis Abdominal pain, unspecified site- Primary documented in this encounter Care Teams Precision Assembly Inspector Relationship Specialty Start Date End Date Graciela Marsh MD [address] [facility] 60 [place] [address] PCP - General Family Practice 10/11/13 documented as of this encounter
--- OUTSIDE RECORDS SUMMARY | 2025-08-12 20:00 | XMS_ITS | Encounter Summary ---
Author Organization [facility] Address [address] [place] [address] Care Team Providers Care Field Installation Technician Name Role Phone Graciela Marsh MD Primary Care Provider Encounter Details Date Type Department Care Team (Latest Contact Info) Description 10/15/1998 Outpatient [facility] [address] [phone] Christian Longoria MD [address] [place] [address] Acute frontal sinusitis (Primary Dx) Social History Tobacco Use Types Packs/Day Years Used Date Smoking Tobacco: Never Assessed Comments Unknown Sex and Gender Information Value Date Recorded Sex Assigned at Not on file 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
--- OUTSIDE RECORDS SUMMARY | 2025-08-12 20:00 | XMS_ITS | Encounter Summary ---
Author Organization [facility] Address [address] [place] [address] Care Team Providers Care Internet Marketing Coordinator Name Role Phone Elton Velasquez MD Primary Care Provider [phone] Encounter Details Date Type Department Care Team [...] on file Legal Sex Female 3:05 PM FURNITURE STAINER Gender Identity Not on file Sexual Orientation Not on file documented as of this encounter Plan of Treatment Upcoming Encounters Date Type Department Care Team (Late st Contact Info) Description 09/04/2025 12:00 PM FURNITURE STAINER Office Visit [facility] [address] [place] [phone] Elton Velasquez MD [address] [address] documented as of this encounter Visit Diagnoses Not on filedocumented in this encounter Care Teams Internet Marketing Coordinator Relationship Specialty Start Date End Date Elton Velasquez MD [address] [address] PCP - General Family Practice 11/18/22 documented as of this encounter
--- OUTSIDE RECORDS SUMMARY | 2025-08-12 20:01 | XMS_ITS | Encounter Summary ---
Author Organization [facility] Address [address] [place] [address] Care Team Providers Care Director Account Management Name Role Phone Graciela Marsh MD Primary Care Provider Encounter Details Date Type Department Care Team (Latest Contact Info) Description 05/31/2002 Outpatient Historical [facility] [address] [phone] Matthew Palacios MD [address] [address] VAGINITIS NOS (Primary Dx) Social History Tobacco Use Types Packs/Day Years Used Date Smoking Tobacco: Never Assessed Comments Unknown Sex and Gender Information Value Date Recorded Sex Assigned at Not on file 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
--- OUTSIDE RECORDS SUMMARY | 2025-08-12 20:01 | XMS_ITS | Encounter Summary ---
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
--- OUTSIDE RECORDS SUMMARY | 2025-08-12 20:01 | XMS_ITS | Encounter Summary ---
Author Organization [facility] Address [address] [place] [address] Care Team Providers Care Certifier Name Role Phone Graciela Marsh MD Primary Care Provider Encounter Details Date Type Department Care Team (Latest Contact Info) Description 08/05/2004 Outpatient Historical [facility] [address] [place] [address] Eliza Amezcua, MIXING TUMBLER OPERATOR [address] [place] [address] ACUTE URI NOS (Primary Dx) Social History Tobacco Use Types Packs/Day Years Used Date Smoking Tobacco: Never Assessed Comments Unknown Sex and Gender Information Value Date Recorded Sex Assigned at Not on file 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
--- OUTSIDE RECORDS SUMMARY | 2025-08-12 20:01 | XMS_ITS | Encounter Summary ---
Author Organization [facility] Address [address] [place] [address] Care Team Providers Care Math Coach Name Role Phone Graciela Marsh MD Primary Care Provider [phone] Encounter Details Date Type Department Care Team (Latest Contact Info) Description 03/28/2002 Outpatient Historical [facility] [address] [place] [address] Drew Davis MD [address] [facility] 200 [place] [phone] URIN TRACT INFECTION NOS (Primary Dx) Social History Tobacco Use Types Packs/Day Years Used Date Smoking Tobacco: Never Assessed Comments Unknown Sex and Gender Information Value Date Recorded Sex Assigned at Not on file 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
--- OUTSIDE RECORDS SUMMARY | 2025-08-12 20:01 | XMS_ITS | Encounter Summary ---
Author Organization [facility] Address [address] [place] [address] Care Team Providers Care Marketing Strategy Manager Name Role Phone Graciela Marsh MD Primary Care Provider Encounter Details Date Type Department Care Team (Latest Contact Info) Description 09/10/2004 Outpatient Historical [facility] Medicine [address] [phone] Alton Kat NP NO ADDRESS ON FILE FINGER INJURY NOS (Primary Dx); FX PHALANX, HAND NOS-CLOSE Social History Tobacco Use Types Packs/Day Years Used Date Smoking Tobacco: Never Assessed Comments Unknown Sex and Gender Information Value Date Recorded Sex Assigned at Not on file Legal Sex Female 5:20 AM PRODUCTION SANITIZER Gender Identity Not on file Sexual Orientation Not on file documented as of this encounter Plan of Treatment Not on file documented as of this encounter Visit Diagnoses Diagnosis Injury, other and unspecified, finger- Primary Closed fracture of unspecified phalanx or phalanges of hand documented in this encounter Care Teams Marketing Strategy Manager Relationship Specialty Start Date End Date Graciela Marsh MD [address] [phone] PCP - General Family Practice 10/11/13 documented as of this encounter
--- OUTSIDE RECORDS SUMMARY | 2025-08-12 20:01 | XMS_ITS | Encounter Summary ---
Author Organization [facility] Address [address] [facility] [address] Wilson: [place] [address] Care Team Providers Care Centrifugal Separator Name Role Phone Graciela Marsh MD Primary Care Provider [phone] Encounter Details Date Type Department Care Team (Late st Contact Info) Description 12/26/2001 Outpatient Historical Eliza Amezcua, SOCIAL SCIENCE MANAGER [address] [place] [phone] Social History Tobacco Use Types Packs/Day Years Used Date Smoking Tobacco: Never Assessed Comments Unknown Sex and Gender Information Value Date Recorded Sex Assigned at Not on file Legal Sex Female 5:20 AM COACH TOUR DRIVER Gender Identity Not on file Sexual Orientation Not on file documented as of this encounter Plan of Treatment Not on file documented as of this encounter Visit Diagnoses Not on filedocumented in this encounter Care Teams Centrifugal Separator Relationship Specialty Start Date End Date Graciela Marsh MD [address] [facility] [address] [place] [phone] PCP - General Family Practice 10/11/13 documented as of this encounter
--- OUTSIDE RECORDS SUMMARY | 2025-08-12 20:01 | XMS_ITS | Encounter Summary ---
Author Organization [facility] Address [address] [place] [address] Care Team Providers Care Issuer Name Role Phone Graciela Marsh MD Primary Care Provider Encounter Details Date Type Department Care Team (Latest Contact Info) Description 02/16/2002 Outpatient Historical [facility] [address] [place] [address] Drew Davis MD [address] [facility] [address] [place] [phone] Corpus luteum cyst (Primary Dx) Social History Tobacco Use Types Packs/Day Years Used Date Smoking Tobacco: Never Assessed Comments Unknown Sex and Gender Information Value Date Recorded Sex Assigned at Not on file Legal Sex Female 5:20 AM MEDICAL LAB DIRECTOR Gender Identity Not on file Sexual Orientation Not on file documented as of this encounter Plan of Treatment Not on file documented as of this encounter Visit Diagnoses Diagnosis Corpus luteum cyst- Primary Corpus luteum cyst or hematoma documented in this encounter Care Teams Issuer Relationship Specialty Start Date End Date Graciela Marsh MD [address] [facility] [address] [place] [address] PCP - General Family Practice 10/11/13 documented as of this encounter
--- OUTSIDE RECORDS SUMMARY | 2025-08-12 20:01 | XMS_ITS | Encounter Summary ---
Author Organization [facility] Address [address] [place] [address] Care Team Providers Care Cloth Cutting Machine Operator Name Role Phone Graciela Marsh MD Primary Care Provider Encounter Details Date Type Department Care Team (Latest Contact Info) Description 05/15/2002 Outpatient Historical [facility] Medicine [address] [address] Amanuel Duvall DO NO ADDRESS ON FILE URIN TRACT INFECTION NOS (Primary Dx); ESOPHAGEAL REFLUX Social History Tobacco Use Types Packs/Day Years Used Date Smoking Tobacco: Never Assessed Comments Unknown Sex and Gender Information Value Date Recorded Sex Assigned at Not on file Legal Sex Female 5:20 AM LAND ACQUISITION MANAGER Gender Identity Not on file Sexual Orientation Not on file documented as of this encounter Plan of Treatment Not on file documented as of this encounter Visit Diagnoses Diagnosis Urinary tract infection, site not specified- Primary Esophageal reflux documented in this encounter Care Teams Cloth Cutting Machine Operator Relationship Specialty Start Date End Date Graciela Marsh MD [address] [address] PCP - General Family Practice 10/11/13 documented as of this encounter
--- OUTSIDE RECORDS SUMMARY | 2025-08-12 20:01 | XMS_ITS | Encounter Summary ---
Author Organization [facility] Address [address] [place] [address] Care Team Providers Care Retail Loan Originator Assistant Name Role Phone Graciela Marsh MD Primary Care Provider Encounter Details Date Type Department Care Team (Latest Contact Info) Description 11/10/2005 Outpatient Historical [facility] [address] [place] [address] Eliza Amezcua, SUGAR BOILER [address] [place] [address] MAMMOGRAPHIC MICROCALCIFICATION (Primary Dx) Social History Tobacco Use Types Packs/Day Years Used Date Smoking Tobacco: Never Assessed Comments Unknown Sex and Gender Information Value Date Recorded Sex Assigned at Not on file 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
--- OUTSIDE RECORDS SUMMARY | 2025-08-12 20:01 | XMS_ITS | Encounter Summary ---
Author Organization [facility] Address [address] [place] [address] Care Team Providers Care Industrial Spray Painter Name Role Phone Graciela Marsh MD Primary Care Provider Encounter Details Date Type Department Care Team (Latest Contact Info) Description 12/25/2004 Outpatient Historical [facility] [address] [place] [address] Eliza Amezcua, BOILER CLEANER [address] [place] [address] FEMALE GENITAL SYMPTOMS NOS (Primary Dx) Social History Tobacco Use Types Packs/Day Years Used Date Smoking Tobacco: Never Assessed Comments Unknown Sex and Gender Information Value Date Recorded Sex Assigned at Not on file Legal Sex Female 5:20 AM COMBO WELDER Gender Identity Not on file Sexual Orientation Not on file documented as of this encounter Plan of Treatment Not on file documented as of this encounter Visit Diagnoses Diagnosis Unspecified symptom associated with female genital organs- Primary documented in this encounter Care Teams Industrial Spray Painter Relationship Specialty Start Date End Date Graciela Marsh MD [address] [facility] 60 [place] [address] PCP - General Family Practice 10/11/13 documented as of this encounter
--- OUTSIDE RECORDS SUMMARY | 2025-08-12 20:01 | XMS_ITS | Encounter Summary ---
Author Organization [facility] Address [address] [place] [address] Care Team Providers Care Operating Systems Specialist Name Role Phone Graciela Marsh MD Primary Care Provider Encounter Details Date Type Department Care Team (Latest Contact Info) Description 06/24/[address] [facility] [address] [place] [address] Eliza Amezcua, WOOD HEEL ATTACHER [address] [place] [address] URTICARIA NOS (Primary Dx) Social History Tobacco Use Types Packs/Day Years Used Date Smoking Tobacco: Never Assessed Comments Unknown Sex and Gender Information Value Date Recorded Sex Assigned at Not on file Legal Sex Female 5:20 AM CROP PRODUCTION ADVISOR Gender Identity Not on file Sexual Orientation Not on file documented as of this encounter Plan of Treatment Not on file documented as of this encounter Visit Diagnoses Diagnosis Urticaria, unspecified- Primary documented in this encounter Care Teams Operating Systems Specialist Relationship Specialty Start Date End Date Graciela Marsh MD [address] [facility] 60 [place] [address] PCP - General Family Practice 10/11/13 documented as of this encounter
--- OUTSIDE RECORDS SUMMARY | 2025-08-12 20:01 | XMS_ITS | Encounter Summary ---
Author Organization [facility] Address [address] [place] [address] Care Team Providers Care Medical Investigator Name Role Phone Graciela Marsh MD Primary Care Provider Encounter Details Date Type Department Care Team (Latest Contact Info) Description 10/20/2005 Outpatient Historical [facility] [address] [place] [address] Eliza Amezcua, WASH OIL COOLER OPERATOR [address] [place] [address] ACUTE URI NOS (Primary Dx) Social History Tobacco Use Types Packs/Day Years Used Date Smoking Tobacco: Never Assessed Comments Unknown Sex and Gender Information Value Date Recorded Sex Assigned at Not on file Legal Sex Female 5:20 AM EHS TEACHER Gender Identity Not on file Sexual Orientation Not on file documented as of this encounter Plan of Treatment Not on file documented as of this encounter Visit Diagnoses Diagnosis Acute upper respiratory infections of unspecified site- Primary documented in this encounter Care Teams Medical Investigator Relationship Specialty Start Date End Date Graciela Marsh MD [address] [facility] 60 [place] [address] PCP - General Family Practice 10/11/13 documented as of this encounter
--- OUTSIDE RECORDS SUMMARY | 2025-08-12 20:01 | XMS_ITS | Encounter Summary ---
Author Organization [facility] Address [address] [place] [address] Care Team Providers Care Industrial Yard Brake Coupler Name Role Phone Graciela Marsh MD Primary Care Provider Encounter Details Date Type Department Care Team (Latest Contact Info) Description 03/25/2003 Outpatient Historical [facility] [address] [place] [address] Drew Davis MD [address] [facility] [address] [place] [address] THRUSH (Primary Dx); ALLERGY, UNSPECIFIED Social History Tobacco Use Types Packs/Day Years Used Date Smoking Tobacco: Never Assessed Comments Unknown Sex and Gender Information Value Date Recorded Sex Assigned at Not on file Legal Sex Female 5:20 AM SENIOR ADMINISTRATIVE ASSOCIATE Gender Identity Not on file Sexual Orientation Not on file documented as of this encounter Plan of Treatment Not on file documented as of this encounter Visit Diagnoses Diagnosis Candidiasis of mouth- Primary Allergy, unspecified not elsewhere classified documented in this encounter Care Teams Industrial Yard Brake Coupler Relationship Specialty Start Date End Date Graciela Marsh MD [address] [facility] [address] [place] [address] PCP - General Family Practice 10/11/13 documented as of this encounter
--- OUTSIDE RECORDS SUMMARY | 2025-08-12 20:01 | XMS_ITS | Encounter Summary ---
Author Organization [facility] Address [address] [place] [address] Care Team Providers Care Pearl Hand Name Role Phone Graciela Marsh MD Primary Care Provider Encounter Details Date Type Department Care Team (Latest Contact Info) Description 12/31/2003 Outpatient Historical [facility] Family Medicine [address] [address] Eliza Amezcua, MACHINE FANCY STITCHER [address] [place] [address] FEMALE GENITAL SYMPTOMS NOS (Primary Dx) Social History Tobacco Use Types Packs/Day Years Used Date Smoking Tobacco: Never Assessed Comments Unknown Sex and Gender Information Value Date Recorded Sex Assigned at Not on file Legal Sex Female 5:20 AM SUPERVISOR PHOSPHORIC ACID Gender Identity Not on file Sexual Orientation Not on file documented as of this encounter Plan of Treatment Not on file documented as of this encounter Visit Diagnoses Diagnosis Unspecified symptom associated with female genital organs- Primary documented in this encounter Care Teams Pearl Hand Relationship Specialty Start Date End Date Graciela Marsh MD [address] [phone] PCP - General Family Practice 10/11/13 documented as of this encounter
--- OUTSIDE RECORDS SUMMARY | 2025-08-12 20:01 | XMS_ITS | Encounter Summary ---
Author Organization [facility] Address [address] [place] [address] Care Team Providers Care Patient Financial Counselor Name Role Phone Graciela Marsh MD Primary Care Provider Encounter Details Date Type Department Care Team (Latest Contact Info) Description 06/01/2004 Outpatient Historical [facility] [address] [place] [address] Eliza Amezcua, POSTAL SORTING OFFICER [address] [place] [address] ACUTE URI NOS (Primary Dx) Social History Tobacco Use Types Packs/Day Years Used Date Smoking Tobacco: Never Assessed Comments Unknown Sex and Gender Information Value Date Recorded Sex Assigned at Not on file Legal Sex Female 5:20 AM MUSEUM DIRECTOR Gender Identity Not on file Sexual Orientation Not on file documented as of this encounter Plan of Treatment Not on file documented as of this encounter Visit Diagnoses Diagnosis Acute upper respiratory infections of unspecified site- Primary documented in this encounter Care Teams Patient Financial Counselor Relationship Specialty Start Date End Date Graciela Marsh MD [address] [facility] 60 [place] [address] PCP - General Family Practice 10/11/13 documented as of this encounter
--- OUTSIDE RECORDS SUMMARY | 2025-08-12 20:01 | XMS_ITS | Encounter Summary ---
Author Organization [facility] Address [address] [place] [address] Care Team Providers Care Drying Machine Tender Name Role Phone Graciela Marsh MD Primary Care Provider [phone] Encounter Details Date Type Department Care Team (Latest Contact Info) Description 02/02/2002 Outpatient Historical [facility] [address] [place] [address] Amanuel Duvall DO NO ADDRESS ON FILE HEMATURIA (Primary Dx) Social History Tobacco Use Types Packs/Day Years Used Date Smoking Tobacco: Never Assessed Comments Unknown Sex and Gender Information Value Date Recorded Sex Assigned at Not on file Legal Sex Female 5:20 AM RETAIL LEASING AGENT Gender Identity Not on file Sexual Orientation Not on file documented as of this encounter Plan of Treatment Not on file documented as of this encounter Visit Diagnoses Diagnosis Hematuria- Primary documented in this encounter Care Teams Drying Machine Tender Relationship Specialty Start Date End Date Graciela Marsh MD [address] [facility] [address] [place] [address] PCP - General Family Practice 10/11/13 documented as of this encounter
--- OUTSIDE RECORDS SUMMARY | 2025-08-12 20:01 | XMS_ITS | Encounter Summary ---
Author Organization [facility] Address [address] [place] [address] Care Team Providers Care Drug Abuse Counselor Name Role Phone Graciela Marsh MD Primary Care Provider Encounter Details Date Type Department Care Team (Latest Contact Info) Description 07/22/2005 Outpatient Historical [facility] Family Medicine [address] [address] Eliza Amezcua, GAUGE AND INSTRUMENT INSPECTOR [address] [place] [address] ACUTE URI NOS (Primary Dx) Social History Tobacco Use Types Packs/Day Years Used Date Smoking Tobacco: Never Assessed Comments Unknown Sex and Gender Information Value Date Recorded Sex Assigned at Not on file Legal Sex Female 5:20 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
--- OUTSIDE RECORDS SUMMARY | 2025-08-12 20:01 | XMS_ITS | Encounter Summary ---
Author Organization [facility] Address [address] [place] [address] Care Team Providers Care Service Desk Lead Name Role Phone Graciela Marsh MD Primary Care Provider Encounter Details Date Type Department Care Team (Latest Contact Info) Description 10/07/2004 Outpatient Historical [facility] [address] [place] [address] Eliza Amezcua, SAND MILL OPERATOR FACING SAND [address] [place] [address] ACUTE SINUSITIS NOS (Primary Dx); ACUTE BRONCHITIS; ABDOMINAL PAIN UNSPEC SITE Social History Tobacco Use Types Packs/Day Years Used Date Smoking Tobacco: Never Assessed Comments Unknown Sex and Gender Information Value Date Recorded Sex Assigned at Not on file Legal Sex Female 5:20 AM LOOM STARTER Gender Identity Not on file Sexual Orientation Not on file documented as of this encounter Plan of Treatment Not on file documented as of this encounter Visit Diagnoses Diagnosis Acute sinusitis, unspecified- Primary Acute bronchitis Abdominal pain, unspecified site documented in this encounter Care Teams Service Desk Lead Relationship Specialty Start Date End Date Graciela Marsh MD [address] [facility] 60 [place] [address] PCP - General Family Practice 10/11/13 documented as of this encounter
--- OUTSIDE RECORDS SUMMARY | 2025-08-12 20:01 | XMS_ITS | Encounter Summary ---
Author Organization [facility] Address [address] [place] [address] Care Team Providers Care Flatbed Company Driver Name Role Phone Graciela Marsh MD Primary Care Provider [phone] Encounter Details Date Type Department Care Team (Latest Contact Info) Description 11/03/2005 Outpatient Historical [facility] [address] [place] [address] Eliza Amezcua, SENIOR STACK ENGINEER [address] [place] [address] SYMPTOMS IN BREAST NEC (Primary Dx); ACUTE URI NOS Social History Tobacco Use Types Packs/Day Years Used Date Smoking Tobacco: Never Assessed Comments Unknown Sex and Gender Information Value Date Recorded Sex Assigned at Not on file Legal Sex Female 5:20 AM DEHORNER Gender Identity Not on file Sexual Orientation Not on file documented as of this encounter Plan of Treatment Not on file documented as of this encounter Visit Diagnoses Diagnosis Other sign and symptom in breast- Primary Acute upper respiratory infections of unspecified site documented in this encounter Care Teams Flatbed Company Driver Relationship Specialty Start Date End Date Graciela Marsh MD [address] [facility] [address] [place] [address] PCP - General Family Practice 10/11/13 documented as of this encounter
--- OUTSIDE RECORDS SUMMARY | 2025-08-12 20:01 | XMS_ITS | Encounter Summary ---
Author Organization [facility] Address [address] [place] [address] Care Team Providers Care Seed District Sales Manager Name Role Phone Graciela Marsh MD Primary Care Provider [phone] Encounter Details Date Type Department Care Team (Latest Contact Info) Description 12/29/2001 Outpatient Historical [facility] [address] [place] [address] Drew Davis MD [address] [address] Gynecologic examination (Primary Dx); VAGINITIS NOS Social History Tobacco Use Types Packs/Day Years Used Date Smoking Tobacco: Never Assessed Comments Unknown Sex and Gender Information Value Date Recorded Sex Assigned at Not on file Legal Sex Female 5:20 AM NUTRITIONAL SERVICES COOK Gender Identity Not on file Sexual Orientation Not on file documented as of this encounter Plan of Treatment Not on file documented as of this encounter Visit Diagnoses Diagnosis Gynecologic examination- Primary Gynecological examination Vaginitis and vulvovaginitis, unspecified documented in this encounter Care Teams Seed District Sales Manager Relationship Specialty Start Date End Date Graciela Marsh MD [address] [facility] [address] [place] [address] PCP - General Family Practice 10/11/13 documented as of this encounter
--- OUTSIDE RECORDS SUMMARY | 2025-08-12 20:01 | XMS_ITS | Encounter Summary ---
Author Organization [facility] Address [address] [place] [address] Care Team Providers Care Employment Clerk Name Role Phone Graciela Marsh MD Primary Care Provider Encounter Details Date Type Department Care Team (Latest Contact Info) Description 09/16/2004 Outpatient Historical [facility] [address] [place] [address] Eliza Amezcua, ITALIAN LECTURER [address] [place] [address] ACUTE URI NOS (Primary Dx) Social History Tobacco Use Types Packs/Day Years Used Date Smoking Tobacco: Never Assessed Comments Unknown Sex and Gender Information Value Date Recorded Sex Assigned at Not on file 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
--- OUTSIDE RECORDS SUMMARY | 2025-08-12 20:01 | XMS_ITS | Encounter Summary ---
Author Organization [facility] Address [address] [place] [address] Care Team Providers Care Asset Coordinator Name Role Phone Graciela Marsh MD Primary Care Provider [phone] Encounter Details Date Type Department Care Team (Latest Contact Info) Description 02/07/2002 Outpatient Historical [facility] [address] [place] [address] Drew Davis MD [address] [facility] [address] [place] [address] ABDOMINAL PAIN UNSPEC SITE (Primary Dx) Social History Tobacco Use Types Packs/Day Years Used Date Smoking Tobacco: Never Assessed Comments Unknown Sex and Gender Information Value Date Recorded Sex Assigned at Not on file Legal Sex Female 5:20 AM HOURLY TEAM MEMBERS Gender Identity Not on file Sexual Orientation Not on file documented as of this encounter Plan of Treatment Not on file documented as of this encounter Visit Diagnoses Diagnosis Abdominal pain, unspecified site- Primary documented in this encounter Care Teams Asset Coordinator Relationship Specialty Start Date End Date Graciela Marsh MD [address] [facility] 60 [place] [address] PCP - General Family Practice 10/11/13 documented as of this encounter
--- OUTSIDE RECORDS SUMMARY | 2025-08-12 20:01 | XMS_ITS | Encounter Summary ---
Author Organization [facility] Address [address] [place] [address] Care Team Providers Care Human Resources Operations Director Name Role Phone Graciela Marsh MD Primary Care Provider Encounter Details Date Type Department Care Team (Latest Contact Info) Description 04/04/2001 Outpatient Historical [facility] Medicine [address] [address] Lexi Streeter MD [address] [place] [address] Abdominal pain, unspecified site (Primary Dx) Social History Tobacco Use Types Packs/Day Years Used Date Smoking Tobacco: Never Assessed Comments Unknown Sex and Gender Information Value Date Recorded Sex Assigned at Not on file Legal Sex Female 5:20 AM SEASONER Gender Identity Not on file Sexual Orientation Not on file documented as of this encounter Plan of Treatment Not on file documented as of this encounter Visit Diagnoses Diagnosis Abdominal pain, unspecified site- Primary documented in this encounter Care Teams Human Resources Operations Director Relationship Specialty Start Date End Date Graciela Marsh MD [address] [facility] [address] [place] [address] PCP - General Family Practice 10/11/13 documented as of this encounter
--- OUTSIDE RECORDS SUMMARY | 2025-08-12 20:01 | XMS_ITS | Encounter Summary ---
Author Organization [facility] Address [address] [place] [address] Care Team Providers Care Gasoline Pump Mechanic Name Role Phone Graciela Marsh MD Primary Care Provider Encounter Details Date Type Department Care Team (Latest Contact Info) Description 10/02/[address] [facility] Medicine [address] [address] Lexi Streeter MD [address] [place] [address] ACUTE FRONTAL SINUSITIS (Primary Dx); MASTODYNIA Social History Tobacco Use Types Packs/Day Years Used Date Smoking Tobacco: Never Assessed Comments Unknown Sex and Gender Information Value Date Recorded Sex Assigned at Not on file Legal Sex Female 5:20 AM LOADING MACHINE OPERATOR HELPER Gender Identity Not on file Sexual Orientation Not on file documented as of this encounter Plan of Treatment Not on file documented as of this encounter Visit Diagnoses Diagnosis Acute frontal sinusitis- Primary Mastodynia documented in this encounter Care Teams Gasoline Pump Mechanic Relationship Specialty Start Date End Date Graciela Marsh MD [address] [facility] 60 [place] [address] PCP - General Family Practice 10/11/13 documented as of this encounter
--- OUTSIDE RECORDS SUMMARY | 2025-08-12 20:01 | XMS_ITS | Encounter Summary ---
Author Organization [facility] Address [address] [facility] [address]: [place] [address] Care Team Providers Care Counter Stacker Name Role Phone Graciela Marsh MD Primary Care Provider [phone] Encounter Details Date Type Department Care Team (Late st Contact Info) Description 01/19/2002 Outpatient Historical Eliza Amezcua, SURFACE PLATE INSPECTOR [address] [place] [address] Social History Tobacco Use Types Packs/Day Years Used Date Smoking Tobacco: Never Assessed Comments Unknown Sex and Gender Information Value Date Recorded Sex Assigned at Not on file Legal Sex Female 5:20 AM SPEEDOMETER INSPECTOR Gender Identity Not on file Sexual Orientation Not on file documented as of this encounter Plan of Treatment Not on file documented as of this encounter Visit Diagnoses Not on filedocumented in this encounter Care Teams Counter Stacker Relationship Specialty Start Date End Date Graciela Marsh MD [address] [facility] 60 [place] [address] PCP - General Family Practice 10/11/13 documented as of this encounter
--- OUTSIDE RECORDS SUMMARY | 2025-08-12 20:01 | XMS_ITS | Encounter Summary ---
Author Organization [facility] Address [address] [place] [address] Care Team Providers Care Field Technical Support Consultant Name Role Phone Graciela Marsh MD Primary Care Provider [phone] Encounter Details Date Type Department Care Team (Latest Contact Info) Description 01/17/2002 Outpatient Historical [facility] [address] [place] [address] Amanuel Duvall DO NO ADDRESS ON FILE Dermatitis due to plant (Primary Dx) Social History Tobacco Use Types Packs/Day Years Used Date Smoking Tobacco: Never Assessed Comments Unknown Sex and Gender Information Value Date Recorded Sex Assigned at Not on file Legal Sex Female 5:20 AM COMPOUND WORKER Gender Identity Not on file Sexual Orientation Not on file documented as of this encounter Plan of Treatment Not on file documented as of this encounter Visit Diagnoses Diagnosis Dermatitis due to plant- Primary Contact dermatitis and other eczema due to plants (except food) documented in this encounter Care Teams Field Technical Support Consultant Relationship Specialty Start Date End Date Graciela Marsh MD [address] [phone] PCP - General Family Practice 10/11/13 documented as of this encounter
--- OUTSIDE RECORDS SUMMARY | 2025-08-12 20:01 | XMS_ITS | Encounter Summary ---
Author Organization [facility] Address [address] [place] [address] Care Team Providers Care Storage Facility Housekeeper Name Role Phone Graciela Marsh MD Primary Care Provider Encounter Details Date Type Department Care Team (Latest Contact Info) Description 04/26/2007 Outpatient Historical [facility] [address] [place] [address] Amanuel Duvall DO NO ADDRESS ON FILE Injury, Other and Unspecified, Knee, Leg, Ankle, and Foot (Primary Dx); Contact Dermatitis and Other Eczema, due to Unspecified Cause Social History Tobacco Use Types Packs/Day Years Used Date Smoking Tobacco: Never Assessed Comments Unknown Sex and Gender Information Value Date Recorded Sex Assigned at Not on file Legal Sex Female 5:20 AM COINING PRESS OPERATOR Gender Identity Not on file Sexual Orientation Not on file documented as of this encounter Plan of Treatment Not on file documented as of this encounter Visit Diagnoses Diagnosis Injury, other and unspecified, knee, leg, ankle, and foot- Primary Contact dermatitis and other eczema, due to unspecified cause documented in this encounter Care Teams Storage Facility Housekeeper Relationship Specialty Start Date End Date Graciela Marsh MD [address] [facility] 60 [place] [address] PCP - General Family Practice 10/11/13 documented as of this encounter
--- OUTSIDE RECORDS SUMMARY | 2025-08-12 20:01 | XMS_ITS | Encounter Summary ---
Author Organization [facility] Address [address] [place] [address] Care Team Providers Care Die Cutter Diamond Name Role Phone Graciela Marsh MD Primary Care Provider Encounter Details Date Type Department Care Team (Latest Contact Info) Description 07/04/2002 Outpatient Historical [facility] [address] [place] [address] Drew Davis MD [address] [facility] [address] [place] [address] OTITIS MEDIA NOS (Primary Dx) Social History Tobacco Use Types Packs/Day Years Used Date Smoking Tobacco: Never Assessed Comments Unknown Sex and Gender Information Value Date Recorded Sex Assigned at Not on file Legal Sex Female 5:20 AM SPECIAL WARFARE COMBATANT CREWMAN Gender Identity Not on file Sexual Orientation Not on file documented as of this encounter Plan of Treatment Not on file documented as of this encounter Visit Diagnoses Diagnosis Unspecified otitis media- Primary documented in this encounter Care Teams Die Cutter Diamond Relationship Specialty Start Date End Date Graciela Marsh MD [address] [facility] 60 [place] [address] PCP - General Family Practice 10/11/13 documented as of this encounter
--- OUTSIDE RECORDS SUMMARY | 2025-08-12 20:01 | XMS_ITS | Encounter Summary ---
Author Organization [facility] Address [address] [place] [address] Care Team Providers Care First Leveler Name Role Phone Graciela Marsh MD Primary Care Provider Encounter Details Date Type Department Care Team (Latest Contact Info) Description 01/12/2002 Outpatient Historical [facility] [address] [address] Lexi Streeter MD [address] [place] [address] DYSPAREUNIA (Primary Dx); ALLERGY, UNSPECIFIED Social History Tobacco Use Types Packs/Day Years Used Date Smoking Tobacco: Never Assessed Comments Unknown Sex and Gender Information Value Date Recorded Sex Assigned at Not on file Legal Sex Female 5:20 AM FLAT DRIER Gender Identity Not on file Sexual Orientation Not on file documented as of this encounter Plan of Treatment Not on file documented as of this encounter Visit Diagnoses Diagnosis Dyspareunia- Primary Allergy, unspecified not elsewhere classified documented in this encounter Care Teams First Leveler Relationship Specialty Start Date End Date Graciela Marsh MD [address] [facility] [address] [place] [address] PCP - General Family Practice 10/11/13 documented as of this encounter
--- OUTSIDE RECORDS SUMMARY | 2025-08-12 20:01 | XMS_ITS | Encounter Summary ---
Author Organization [facility] Address [address] [place] [address] Care Team Providers Care Licensed Pharmacist Name Role Phone Graciela Marsh MD Primary Care Provider Encounter Details Date Type Department Care Team (Latest Contact Info) Description 10/14/2003 Outpatient Historical [facility] [address] [place] [address] Drew Davis MD [address] [facility] [address] [place] [address] ACUTE BRONCHITIS (Primary Dx) Social History Tobacco Use Types Packs/Day Years Used Date Smoking Tobacco: Never Assessed Comments Unknown Sex and Gender Information Value Date Recorded Sex Assigned at Not on file Legal Sex Female 5:20 AM CONCRETE GRINDER OPERATOR Gender Identity Not on file Sexual Orientation Not on file documented as of this encounter Plan of Treatment Not on file documented as of this encounter Visit Diagnoses Diagnosis Acute bronchitis- Primary documented in this encounter Care Teams Licensed Pharmacist Relationship Specialty Start Date End Date Graciela Marsh MD [address] [facility] 60 [place] [address] PCP - General Family Practice 10/11/13 documented as of this encounter
--- OUTSIDE RECORDS SUMMARY | 2025-08-12 20:01 | XMS_ITS | Encounter Summary ---
Author Organization [facility] Address [address] [place] [address] Care Team Providers Care Cigarette Package Examiner Name Role Phone Graciela Marsh MD Primary Care Provider Encounter Details Date Type Department Care Team (Latest Contact Info) Description 06/27/2006 Outpatient Historical [facility] [address] [place] [address] Eliza Amezcua, CHILDHOOD DEVELOPMENT TEACHER [address] [place] [address] Contusion of Unspecified Part of Upper Limb (Primary Dx) Social History Tobacco Use Types Packs/Day Years Used Date Smoking Tobacco: Never Assessed Comments Unknown Sex and Gender Information Value Date Recorded Sex Assigned at Not on file Legal Sex Female 5:20 AM TOP POLISHER Gender Identity Not on file Sexual Orientation Not on file documented as of this encounter Plan of Treatment Not on file documented as of this encounter Visit Diagnoses Diagnosis Contusion of unspecified part of upper limb- Primary documented in this encounter Care Teams Cigarette Package Examiner Relationship Specialty Start Date End Date Graciela Marsh MD [address] [place] [address] PCP - General Family Practice 10/11/13 documented as of this encounter
--- OUTSIDE RECORDS SUMMARY | 2025-08-12 20:01 | XMS_ITS | Encounter Summary ---
Author Organization [facility] Address [address] [place] [address] Care Team Providers Care Eyeglass Lens Cutter Name Role Phone Graciela Marsh MD Primary Care Provider Encounter Details Date Type Department Care Team (Latest Contact Info) Description 12/16/2003 Outpatient Historical [facility] [address] [place] [address] Eilza Amezcua, LEASE ADMINISTRATION ANALYST [address] [place] [address] ACUTE URI NOS (Primary Dx); Benign adilia skin arm Social History Tobacco Use Types Packs/Day Years Used Date Smoking Tobacco: Never Assessed Comments Unknown Sex and Gender Information Value Date Recorded Sex Assigned at Not on file Legal Sex Female 5:20 AM INFECTION CONTROL PRACTITIONER Gender Identity Not on file Sexual Orientation Not on file documented as of this encounter Plan of Treatment Not on file documented as of this encounter Visit Diagnoses Diagnosis Acute upper respiratory infections of unspecified site- Primary Benign adilia skin arm Benign neoplasm of skin of upper limb, including shoulder documented in this encounter Care Teams Eyeglass Lens Cutter Relationship Specialty Start Date End Date Graciela Marsh MD [address] [facility] [address] [place] [address] PCP - General Family Practice 10/11/13 documented as of this encounter
--- OUTSIDE RECORDS SUMMARY | 2025-08-12 20:01 | XMS_ITS | Encounter Summary ---
Author Organization [facility] Address [address] [place] [address] Care Team Providers Care Lidding Machine Operator Name Role Phone Graciela Marsh MD Primary Care Provider Encounter Details Date Type Department Care Team (Latest Contact Info) Description 12/09/2004 Outpatient Historical [facility] [address] [place] [address] Eliza Amezcua, MIDDLEWARE SYSTEMS ARCHITECT [address] [place] [address] ACUTE URI NOS (Primary Dx) Social History Tobacco Use Types Packs/Day Years Used Date Smoking Tobacco: Never Assessed Comments Unknown Sex and Gender Information Value Date Recorded Sex Assigned at Not on file Legal Sex Female 5:20 AM UI SOFTWARE DEVELOPER Gender Identity Not on file Sexual Orientation Not on file documented as of this encounter Plan of Treatment Not on file documented as of this encounter Visit Diagnoses Diagnosis Acute upper respiratory infections of unspecified site- Primary documented in this encounter Care Teams Lidding Machine Operator Relationship Specialty Start Date End Date Graciela Marsh MD [address] [facility] [address] [place] [address] PCP - General Family Practice 10/11/13 documented as of this encounter
--- OUTSIDE RECORDS SUMMARY | 2025-08-12 20:01 | XMS_ITS | Encounter Summary ---
Author Organization [facility] Address [address] [place] [address] Care Team Providers Care Agricultural Mechanic Name Role Phone Graciela Marsh MD Primary Care Provider Encounter Details Date Type Department Care Team (Latest Contact Info) Description 09/18/2003 Outpatient Historical [facility] [address] [phone] Matthew Palacios MD [address] [address] ACUTE FRONTAL SINUSITIS (Primary Dx); Tuberculosis contact Social History Tobacco Use Types Packs/Day Years Used Date Smoking Tobacco: Never Assessed Comments Unknown Sex and Gender Information Value Date Recorded Sex Assigned at Not on file Legal Sex Female 5:20 AM SUPERVISOR TRAIN OPERATIONS Gender Identity Not on file Sexual Orientation Not on file documented as of this encounter Plan of Treatment Not on file documented as of this encounter Visit Diagnoses Diagnosis Acute frontal sinusitis- Primary Tuberculosis contact Contact with or exposure to tuberculosis documented in this encounter Care Teams Agricultural Mechanic Relationship Specialty Start Date End Date Graciela Marsh MD [address] [facility] [address] [place] [phone] PCP - General Family Practice 10/11/13 documented as of this encounter
--- OUTSIDE RECORDS SUMMARY | 2025-08-12 20:01 | XMS_ITS | Encounter Summary ---
Author Organization [facility] Address [address] [place] [address] Care Team Providers Care Cardiac Nurse Practitioner Name Role Phone Graciela Marsh MD Primary Care Provider [phone] Encounter Details Date Type Department Care Team (Latest Contact Info) Description 08/31/2004 Outpatient Historical [facility] [address] [place] [address] Eliza Amezcua, UPSETTER [address] [place] [address] ACUTE URI NOS (Primary Dx) Social History Tobacco Use Types Packs/Day Years Used Date Smoking Tobacco: Never Assessed Comments Unknown Sex and Gender Information Value Date Recorded Sex Assigned at Not on file Legal Sex Female 5:20 AM 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
--- OUTSIDE RECORDS SUMMARY | 2025-08-12 20:01 | XMS_ITS | Encounter Summary ---
Author Organization [facility] Address [address] [place] [address] Care Team Providers Care Allopathic Doctor Name Role Phone Graciela Marsh MD Primary Care Provider Encounter Details Date Type Department Care Team (Latest Contact Info) Description 11/11/2003 Outpatient Historical [facility] [address] [place] [address] Eliza Amezcua, LASTING MACHINE OPERATOR BED [address] [place] [address] Skin sensation disturb (Primary Dx) Social History Tobacco Use Types Packs/Day Years Used Date Smoking Tobacco: Never Assessed Comments Unknown Sex and Gender Information Value Date Recorded Sex Assigned at Not on file Legal Sex Female 5:20 AM PROGRAM ENGAGEMENT DIRECTOR Gender Identity Not on file Sexual Orientation Not on file documented as of this encounter Plan of Treatment Not on file documented as of this encounter Visit Diagnoses Diagnosis Skin sensation disturb- Primary Disturbance of skin sensation documented in this encounter Care Teams Allopathic Doctor Relationship Specialty Start Date End Date Graciela Marsh MD [address] [facility] 60 [place] [address] PCP - General Family Practice 10/11/13 documented as of this encounter
--- OUTSIDE RECORDS SUMMARY | 2025-08-12 20:01 | XMS_ITS | Encounter Summary ---
Author Organization [facility] Address [address] [place] [address] Care Team Providers Care Fan Blade Aligner Name Role Phone Graciela Marsh MD Primary Care Provider Encounter Details Date Type Department Care Team (Latest Contact Info) Description 04/20/2004 Outpatient Historical [facility] [address] [place] [address] Eliza Amezcua, GI TECHNICIAN [address] [place] [address] ACUTE URI NOS (Primary Dx) Social History Tobacco Use Types Packs/Day Years Used Date Smoking Tobacco: Never Assessed Comments Unknown Sex and Gender Information Value Date Recorded Sex Assigned at Not on file Legal Sex Female 5:20 AM EXECUTIVE VP Gender Identity Not on file Sexual Orientation Not on file documented as of this encounter Plan of Treatment Not on file documented as of this encounter Visit Diagnoses Diagnosis Acute upper respiratory infections of unspecified site- Primary documented in this encounter Care Teams Fan Blade Aligner Relationship Specialty Start Date End Date Graciela Marsh MD [address] [facility] 60 [place] [address] PCP - General Family Practice 10/11/13 documented as of this encounter
--- OUTSIDE RECORDS SUMMARY | 2025-08-12 20:01 | XMS_ITS | Encounter Summary ---
Author Organization [facility] Address [address] [place] [address] Care Team Providers Care Garden Consultant Name Role Phone Graciela Marsh MD Primary Care Provider Encounter Details Date Type Department Care Team (Latest Contact Info) Description 07/03/2004 Outpatient Historical [facility] [address] [place] [address] Eliza Amezcua, DISTRIBUTION TECH [address] [place] [address] CONJUNCTIVITIS NEC (Primary Dx) Social History Tobacco Use Types Packs/Day Years Used Date Smoking Tobacco: Never Assessed Comments Unknown Sex and Gender Information Value Date Recorded Sex Assigned at Not on file Legal Sex Female 5:20 AM 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
--- OUTSIDE RECORDS SUMMARY | 2025-08-12 20:01 | XMS_ITS | Encounter Summary ---
Author Organization [facility] Address [address] [facility] [address]: [place] [address] Care Team Providers Care Agricultural Chemicals Inspector Name Role Phone Graciela Marsh MD Primary Care Provider [phone] Encounter Details Date Type Department Care Team (Late st Contact Info) Description 01/01/2002 Outpatient Historical Eliza Amezcua, JET AIRCRAFT SERVICER [address] [place] [address] Social History Tobacco Use Types Packs/Day Years Used Date Smoking Tobacco: Never Assessed Comments Unknown Sex and Gender Information Value Date Recorded Sex Assigned at Not on file Legal Sex Female 5:20 AM PICU NURSE Gender Identity Not on file Sexual Orientation Not on file documented as of this encounter Plan of Treatment Not on file documented as of this encounter Visit Diagnoses Not on filedocumented in this encounter Care Teams Agricultural Chemicals Inspector Relationship Specialty Start Date End Date Graciela Marsh MD [address] [facility] 60 [place] [address] PCP - General Family Practice 10/11/13 documented as of this encounter
--- OUTSIDE RECORDS SUMMARY | 2025-08-12 20:01 | XMS_ITS | Encounter Summary ---
Author Organization [facility] Address [address] [place] [address] Care Team Providers Care Environmental Maintenance Worker Name Role Phone Graciela Marsh MD Primary Care Provider [phone] Encounter Details Date Type Department Care Team (Latest Contact Info) Description 07/23/[address] 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
--- OUTSIDE RECORDS SUMMARY | 2025-08-12 20:01 | XMS_ITS | Encounter Summary ---
Author Organization [facility] Address [address] [place] [address] Care Team Providers Care Production Control Planner Name Role Phone Graciela Marsh MD Primary Care Provider [phone] Encounter Details Date Type Department Care Team (Latest Contact Info) Description 06/21/2002 Outpatient Historical [facility] [address] [phone] Kathie Steward MD NO ADDRESS ON FILE ACUTE PHARYNGITIS (Primary Dx) Social History Tobacco Use Types Packs/Day Years Used Date Smoking Tobacco: Never Assessed Comments Unknown Sex and Gender Information Value Date Recorded Sex Assigned at Not on file Legal Sex Female 5:20 AM SANDWICH HAND Gender Identity Not on file Sexual Orientation Not on file documented as of this encounter Plan of Treatment Not on file documented as of this encounter Visit Diagnoses Diagnosis Acute pharyngitis- Primary documented in this encounter Care Teams Production Control Planner Relationship Specialty Start Date End Date Graciela Marsh MD [address] [address] PCP - General Family Practice 10/11/13 documented as of this encounter
--- OUTSIDE RECORDS SUMMARY | 2025-08-12 20:01 | XMS_ITS | Encounter Summary ---
Author Organization [facility] Address [address] [place] [address] Care Team Providers Care Demolitionist Name Role Phone Graciela Marsh MD Primary Care Provider Encounter Details Date Type Department Care Team (Latest Contact Info) Description 04/10/2004 Outpatient Historical [facility] [address] [place] [address] Eliza Amezcua, EVENT MANAGEMENT CONSULTANT [address] [place] [address] VAGINITIS NOS (Primary Dx) Social History Tobacco Use Types Packs/Day Years Used Date Smoking Tobacco: Never Assessed Comments Unknown Sex and Gender Information Value Date Recorded Sex Assigned at Not on file Legal Sex Female 5:20 AM LOCAL OPERATOR Gender Identity Not on file Sexual Orientation Not on file documented as of this encounter Plan of Treatment Not on file documented as of this encounter Visit Diagnoses Diagnosis Vaginitis and vulvovaginitis, unspecified- Primary documented in this encounter Care Teams Demolitionist Relationship Specialty Start Date End Date Graciela Marsh MD [address] [facility] [address] [place] [address] PCP - General Family Practice 10/11/13 documented as of this encounter
--- OUTSIDE RECORDS SUMMARY | 2025-08-12 20:01 | XMS_ITS | Encounter Summary ---
Author Organization [facility] Address [address] [place] [address] Care Team Providers Care Construction Ironworker Helper Name Role Phone Etlon Velasquez MD Primary Care Provider [phone] Encounter Details Date Type Department Care Team [...] on file Legal Sex Female 3:05 PM HUMAN RESOURCE ANALYST Gender Identity Not on file Sexual Orientation Not on file documented as of this encounter Plan of Treatment Upcoming Encounters Date Type Department Care Team (Late st Contact Info) Description 09/04/2025 12:00 PM HUMAN RESOURCE ANALYST Office Visit [facility] [address] [place] [phone] Elton Velasquez MD [address] [address] documented as of this encounter Visit Diagnoses Not on filedocumented in this encounter Care Teams Construction Ironworker Helper Relationship Specialty Start Date End Date Elton Velasquez MD [address] [address] PCP - General Family Practice 11/18/22 documented as of this encounter
--- OUTSIDE RECORDS SUMMARY | 2025-08-12 20:01 | XMS_ITS | Encounter Summary ---
Author Organization [facility] Address [address] [place] [address] Care Team Providers Care Web Database Developer Name Role Phone Graciela Marsh MD Primary Care Provider Encounter Details Date Type Department Care Team (Latest Contact Info) Description 08/21/2004 Outpatient Historical [facility] [address] [place] [address] Eliza Amezcua, CONTROL SUPERVISOR [address] [place] [address] Pain in limb (Primary Dx) Social History Tobacco Use Types Packs/Day Years Used Date Smoking Tobacco: Never Assessed Comments Unknown Sex and Gender Information Value Date Recorded Sex Assigned at Not on file Legal Sex Female 5:20 AM REGULATORY PRODUCT MANAGER Gender Identity Not on file Sexual Orientation Not on file documented as of this encounter Plan of Treatment Not on file documented as of this encounter Visit Diagnoses Diagnosis Pain in limb- Primary Pain in soft tissues of limb documented in this encounter Care Teams Web Database Developer Relationship Specialty Start Date End Date Graciela Marsh MD [address] [facility] [place] [address] PCP - General Family Practice 10/11/13 documented as of this encounter
--- OUTSIDE RECORDS SUMMARY | 2025-08-12 20:01 | XMS_ITS | Encounter Summary ---
Author Organization [facility] Address [address] [place] [address] Care Team Providers Care Joint Runner Name Role Phone Graciela Marsh MD Primary Care Provider Encounter Details Date Type Department Care Team (Latest Contact Info) Description 07/15/2004 Outpatient Historical [facility] Medicine[address] [phone] Rosio Washington MD [address] [place] [address] ACUTE FRONTAL SINUSITIS (Primary Dx); ESOPHAGEAL REFLUX Social History Tobacco Use Types Packs/Day Years Used Date Smoking Tobacco: Never Assessed Comments Unknown Sex and Gender Information Value Date Recorded Sex Assigned at Not on file Legal Sex Female 5:20 AM BENCH LOOM WEAVER Gender Identity Not on file Sexual Orientation Not on file documented as of this encounter Plan of Treatment Not on file documented as of this encounter Visit Diagnoses Diagnosis Acute frontal sinusitis- Primary Esophageal reflux documented in this encounter Care Teams Joint Runner Relationship Specialty Start Date End Date Graciela Marsh MD [address] [phone] PCP - General Family Practice 10/11/13 documented as of this encounter
--- OUTSIDE RECORDS SUMMARY | 2025-08-12 20:01 | XMS_ITS | Encounter Summary ---
Author Organization [facility] Address [address] [place] [address] Care Team Providers Care Ornamental Machine Operator Name Role Phone Graciela Marsh MD Primary Care Provider Encounter Details Date Type Department Care Team (Latest Contact Info) Description 07/30/2002 Outpatient [facility] Medicine[address] [phone] Christian Longoria MD [address] [place] [address] ACUTE PHARYNGITIS (Primary Dx) Social History Tobacco Use Types Packs/Day Years Used Date Smoking Tobacco: Never Assessed Comments Unknown Sex and Gender Information Value Date Recorded Sex Assigned at Not on file Legal Sex Female 5:20 AM CARDIOTHORACIC ICU RN Gender Identity Not on file Sexual Orientation Not on file documented as of this encounter Plan of Treatment Not on file documented as of this encounter Visit Diagnoses Diagnosis Acute pharyngitis- Primary documented in this encounter Care Teams Ornamental Machine Operator Relationship Specialty Start Date End Date Graciela Marsh MD [address] [facility] [address] [place] [phone] PCP - General Family Practice 10/11/13 documented as of this encounter
--- OUTSIDE RECORDS SUMMARY | 2025-08-12 20:01 | XMS_ITS | Encounter Summary ---
Author Organization [facility] Address [address] [place] [address] Care Team Providers Care Art Editor Name Role Phone Graciela Marsh MD Primary Care Provider [phone] Encounter Details Date Type Department Care Team (Latest Contact Info) Description 11/16/2004 Outpatient Historical [facility] Medicine[address] [phone] Rosio Washington MD [address] [place] [address] ACUTE FRONTAL SINUSITIS (Primary Dx) Social History Tobacco Use Types Packs/Day Years Used Date Smoking Tobacco: Never Assessed Comments Unknown Sex and Gender Information Value Date Recorded Sex Assigned at Not on file Legal Sex Female 5:20 AM ANVIL SEATING PRESS OPERATOR Gender Identity Not on file Sexual Orientation Not on file documented as of this encounter Plan of Treatment Not on file documented as of this encounter Visit Diagnoses Diagnosis Acute frontal sinusitis- Primary documented in this encounter Care Teams Art Editor Relationship Specialty Start Date End Date Graciela Marsh MD [address] at [facility] [address] [place] [phone] PCP - General Family Practice 10/11/13 documented as of this encounter
--- OUTSIDE RECORDS SUMMARY | 2025-08-12 20:01 | XMS_ITS | Encounter Summary ---
Author Organization [facility] Address [address] [place] [address] Care Team Providers Care Box Fabricator Name Role Phone Graciela Marsh MD Primary Care Provider [phone] Encounter Details Date Type Department Care Team (Latest Contact Info) Description 02/08/2002 Outpatient Historical [facility] Family Medicine [address] [phone] Kathie Steward MD NO ADDRESS ON FILE ABDOMINAL TENDERNESS UNSP SITE (Primary Dx); FEMALE GENITAL SYMPTOMS NOS Social History Tobacco Use Types Packs/Day Years Used Date Smoking Tobacco: Never Assessed Comments Unknown Sex and Gender Information Value Date Recorded Sex Assigned at Not on file Legal Sex Female 5:20 AM SCARFER Gender Identity Not on file Sexual Orientation Not on file documented as of this encounter Plan of Treatment Not on file documented as of this encounter Visit Diagnoses Diagnosis Abdominal tenderness, unspecified site- Primary Unspecified symptom associated with female genital organs documented in this encounter Care Teams Box Fabricator Relationship Specialty Start Date End Date Graciela Marsh MD [address] [phone] PCP - General Family Practice 10/11/13 documented as of this encounter
--- OUTSIDE RECORDS SUMMARY | 2025-08-12 20:01 | XMS_ITS | Clinical Summary ---
Author Organization [facility] Address [address] [place] [address] Care Team Providers Care Child Development Specialist Name Role Phone Elton Velasquez MD Primary Care Provider [phone] Allergies Active Allergy Reactions Criticality Noted Date Comments Codeine Hives High 10/10/2017 Doxycycline Swelling Low 10/23/2008 Gabapentin Hives High 01/18/2023 Heparin Hives High 08/02/2023 Meperidine Hives High 10/23/2008 Neomycin Hives High 10/10/2017 Other Van-3s Other (See Comments) 05/18/2023 NEOSPORIN TRIPLE ANTIBIOTOC OINTMENT CAUSES BURNING Phenergan Dm Unknown 01/06/2022 Prochlorperazine Anaphylaxis High 10/23/2008 Prochlorperazine Edisylate Anaphylaxis High 10/23/2008 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 022 Active ncymjkmg-etk-db lic acid-biotin (Hair,Skin and Nails,FA-biotin ,) 100-1,500 mcg Tablet Take by mouth. Acti ve mv-minerals/FA/ omega 3,6,9 #3 (WOMEN'S 50+ ADVANCED ORAL) Take by mouth. Active melatonin 10 mg tablet Take by mouth nightly as needed. Active fluticasone propionate (FLONASE) 50 mcg/spray Clayton, Suspension nasal inhalerIndicati ons:Subacute pansinusitis shake liquid and use 2 sprays in each nostril daily 48 Gram 2 023 Active Arginine HCl, L-Arginine, 1,000 mg Tablet Take by mouth. Active EPINEPHrine (EPIPEN) 0.3 mg/0.3 mL Auto-Injector Inject 0.3 mL (0.3 mg) by intramuscular injection 1 time daily as needed for Anaphylaxis. 2 Each 1 024 Active dicyclomine (BENTYL) 10 mg capsule 024 Active pseudoephedrine (SUDAFED) 30 mg tabletIndicatio ns:Acute non-recurrent pansinusitis Take 1 Tablet (30 mg) by mouth every 4 hours as needed for Congestion. 20 Tablet 025 Active Additional Information Patient not taking.Reported on 07/26/2025 hydrOXYzine HCL (ATARAX) 25 mg tabletIndicatio ns:Itching,Rash TAKE 1 TABLET(25 MG) BY MOUTH EVERY 8 HOURS NEEDED FOR ITCHING Strength: 25 mg 30 Tablet 3 025 Active sucralfate (CARAFATE) 1 gram tabletIndicatio ns:Gastroesopha geal reflux disease with esophagitis, unspecified whether hemorrhage Take 1 Tablet (1 Gram) by mouth 4 times daily before meals and at bedtime. 120 Tablet 3 025 Active estradioL (ESTRACE) 1 mg tablet Take 1 mg by mouth daily. 025 Active predniSONE (DELTASONE) 10 mg tabletIndicatio ns:Bug bite, initial encounter,Pain and swelling of left elbow Take 4 tablets for 3 days then 3 tablets for 3 days then 2 tablets for 3 days and 1 tablet for 3 days 30 Tablet 025 Active Additional Information Patient not taking.Reported on 07/26/2025 metFORMIN (GLUCOPHAGE XR) 500 mg Extended Release 24 hour tabletIndicatio ns:Obesity (BMI 35.0-39.9 without comorbidity) Take 1 Tablet (500 mg) by mouth daily with breakfast. 100 Tablet 1 025 Active metoprolol tartrate (LOPRESSOR) 50 mg tabletIndicatio ns:HTN (hypertension), benign Take 1 tablet by mouth twice daily 200 Tablet 1 025 Active buPROPion HCL (WELLBUTRIN SR) 150 mg Sustained Release 12 hour tabletIndicatio ns:Encounter for weight management,Obes ity (BMI 35.0-39.9 without comorbidity) Take 1 Tablet (150 mg) by mouth 2 times daily. 180 Tablet 3 025 Active mupirocin (BACTROBAN) 2 % OintmentIndicat ions:Infected superficial injury of toe of left foot, initial encounter Apply to affected area daily. 30 Gram 1 025 Active ofloxacin (FLOXIN) 0.3 % DropsIndication s:Recurrent acute allergic otitis media of left ear Administer 10 Drops in left ear daily. 10 mL 025 Active rOPINIRole (REQUIP) 0.5 mg tabletIndicatio ns:Restless leg syndrome Take 1 Tablet (0.5 mg) by mouth daily at bedtime. 30 Tablet 1 025 Active ondansetron (ZOFRAN) 8 mg TabletIndicatio ns:Nausea TAKE 1 TABLET BY MOUTH EVERY 8 HOURS NEEDED FOR NAUSEA OR VOMITING 30 Tablet 2 025 Active progesterone micronized (PROMETRIUM) 100 mg Capsule Take by mouth. 025 Active fluconazole (DIFLUCAN) 150 mg tabletIndicatio ns:Vaginal deyvi Take one tablet and repeat in 72 hours if needed 2 Tablet 025 Active nystatin (MYCOSTATIN) 100,000 unit/mL suspensionIndic ations:Oral thrush Take 5 mL (500,000 Units) by mouth 4 times daily. 473 mL 1 025 Active Additional Information Patient not taking.Reported on 07/26/2025 albuterol sulfate HFA 90 mcg/actuation aerosol inhalerIndicati ons:Environment al and seasonal allergies INHALE 2 PUFFS BY MOUTH EVERY 6 HOURS NEEDED FOR SHORTNESS OF BREATH 9 Gram 2 025 Active ondansetron (ZOFRAN ODT) 4 mg Tablet, Rapid DissolveIndicat ions:Nausea Take 1 Tablet (4 mg) by mouth every 8 hours as needed for Nausea/Emesis. Dissolve tablet on top of tongue, then swallow with saliva. 30 Tablet 025 Active potassium CHLORIDE (K-TAB) 20 mEq Extended Release tabletIndicatio ns:H/O bariatric surgery Take 1 tablet by mouth once daily with breakfast 100 Tablet Active HYDROcodone-wilson taminophen (NORCO) 7.5-325 mg Tablet Take 1 Tablet by mouth every 4 hours as needed for Pain. Active amoxicillin (AMOXIL) 500 mg capsule Take 500 mg by mouth 3 times daily. until gone Active baclofen (LIORESAL) 10 mg tabletIndicatio ns:Nerve pain Take 1 Tablet (10 mg) by mouth 3 times daily. 90 Tablet Active tamsulosin (Flomax) 0.4 mg capsule Take 1 Capsule (0.4 mg) by mouth daily for 10 days. 10 Capsule 025 2024 Active HYDROcodone-wilson taminophen (NORCO) 5-325 mg tabletIndicatio ns:Ureteral calculus, right Take 1 Tablet by mouth every 4 hours as needed for Pain, Moderate. Max Daily Amount: 6 Tablets 20 Tablet Active naloxone (NARCAN) 4 mg/spray Clayton, Non-Aerosol EMERGENCY USE ONLY: Administer 1 spray (4 mg) in one nostril one time. May repeat in alternating nostrils every 2-3 min until responsive or EMS arrives. 2 Each 3 Active cyclobenzaprine (FLEXERIL) 5 mg Tablet TAKE 1 TABLET(5 MG) BY MOUTH DAILY AT BEDTIME 90 Tablet 3 024 2024 Discontinued potassium CHLORIDE (K-TAB) 20 mEq Extended Release tabletIndicatio ns:H/O bariatric surgery Take 1 Tablet (20 mEq) by mouth daily with breakfast. 100 Tablet 025 2024 Discontinued albuterol sulfate HFA 90 mcg/actuation aerosol inhalerIndicati ons:Environment al and seasonal allergies INHALE 2 PUFFS BY MOUTH EVERY 6 HOURS NEEDED FOR SHORTNESS OF BREATH 9 Gram 2 025 2024 Discontinued tamsulosin (FLOMAX) 0.4 mg capsuleIndicati ons:Kidney stone Take 1 Capsule (0.4 mg) by mouth daily for 14 days. 14 Capsule 025 2024 Discontinued(R eorder) tamsulosin (FLOMAX) 0.4 mg capsuleIndicati ons:Kidney stone Take 1 Capsule (0.4 mg) by mouth daily for 14 days. 14 Capsule 025 2024 phenazopyridine 200 mg tabletIndicatio ns:Kidney stones Take 1 Tablet (200 mg) by mouth 3 times daily for 3 days. 9 Tablet 025 2024 Active Problems Problem Noted Date Diagnosed Date Calculus of ureterovesical junction (UVJ) 2023 Esophageal dysphagia 08/03/2023 YENY (generalized anxiety disorder) 11/18/2022 HTN (hypertension), benign 11/18/2022 Chronic left maxillary sinusitis 07/29/2020 Decreased hearing of right ear 07/29/2020 Gastroesophageal reflux disease with esophagitis 07/29/2020 Fluid retention 05/11/2012 Resolved Problems Problem Noted Date Diagnosed Date Resolved Date Severe obesity (BMI 35.0-39. 9) with comorbidity 11/18/2022 10/25/2024 Encounters Date Type Department Care Team Description 08/12/2025 1:35 PM STOCK ROLLER - 08/12/2025 3:23 PM [facility] Emergency [facility] Emergency Medicine [address] [phone] Melinda Fabian MD Ureteral calculus, right (Primary Dx) Discharge Disposition: Home or Self Care 08/12/2025 Travel 08/12/[address] [phone] Gini Pal NP Appointment Information 08/12/[address] [phone] Gini Pal NP Appointment 08/12/2025 08/08/2025 11:00 AM STOCK ROLLER Office Visit [address] [phone] Gini Pal NP Jaw pain (Primary Dx); Screening mammogram, encounter for; Nerve pain 08/08/2025 Refill [facility] [address] [place] [address] Gini Pal NP H/O bariatric surgery 08/06/2025 External Device Data STL ABSTRACTION Provider, Abstract 08/06/2025 External Device Data STL ABSTRACTION Provider, Abstract 08/06/2025 External Device Data STL ABSTRACTION Provider, Abstract 07/31/2025 External Device Data STL ABSTRACTION Provider, Abstract 07/30/2025 External Device Data STL ABSTRACTION Provider, Abstract 07/26/2025 3:30 PM CDT - 07/26/2025 11:59 PM CDT Hospital Encounter [facility] [place] [address] [phone] Nereyda, Crystal Halie, HYDROGEN PLANT OPERATIONS MANAGER Calculus of kidney Discharge Disposition: Home or Self Care 07/26/2025 3:27 PM CDT - 07/26/2025 11:59 PM CDT Hospital Encounter [facility] CT Scan [address] [phone] Nereyda, Crystal Halie, HY[employer]OG[employer]ANT OPERATIONS MANAGER Discharge Disposition: Home or Self Care 07/26/2025 2:40 PM CDT Office Visit [address] [phone] Nereyda, Crystal Halie, HYDROG[employer] PLANT OPERATIONS MANAGER Kidney stones (Primary Dx); Hematuria, unspecified type; Bilateral flank pain; Nausea; Muscular atrophy, unspecified site 07/26/2025 Results Follow-Up [address] [phone] Nereyda, Crystal Halie, HYDROGEN PLANT OPERATIONS MANAGER CBC WITH DIFFERENTIAL, COMPREHENSIVE METABOLIC PANEL 07/26/2025 Lab Requisition [facility] [place] [address] [phone] Nereyda, Crystal Halie, HYDROG[employer] PLANT OPERATIONS MANAGER Calculus of kidney 07/24/2025 External Device Data STL ABSTRACTION Provider, Abstract 07/23/[address] [phone] Gini Pal NP Kidney stone 07/23/[address] [phone] Gini Pal NP Environmental and seasonal allergies 07/19/2025 2:40 PM CDT Video Visit [address] [phone] Gini Pal NP Oral thrush (Primary Dx) 07/19/2025 Patient Self-Triage [facility] [address] [place] [address] 07/16/2025 External Device Data STL ABSTRACTION Provider, Abstract 07/09/2025 External Device Data STL ABSTRACTION Provider, Abstract 06/21/[address] [phone] Gini Pal NP Vaginal deyvi 06/21/2025 Orders Only [address] [phone] Gini Pal NP Ingrown toenail of both feet 06/19/2025 External Device Data STL ABSTRACTION Provider, Abstract 06/18/2025 External Device Data STL ABSTRACTION Provider, Abstract 06/18/2025 External Device Data STL ABSTRACTION Provider, Abstract 06/17/2025 3:20 PM CDT Procedure visit [address] [phone] Gini Pal NP Ingrown toenail of both feet (Primary Dx) 06/11/2025 8:20 AM CDT Office Visit [address] [phone] Gini Pal NP Ingrown toenail of both feet (Primary Dx); Declined influenza vaccine; Vaginal deyvi 06/11/2025 Results Follow-Up [address] [phone] Gini Pal NP ALLERGY PANEL, FOOD AND TREE NUTS W/COMP 06/05/2025 10:00 AM CDT Clinical Support [facility] [address] [place] [address] Allergy to alpha-gal 06/04/2025 External Device Data STL ABSTRACTION Provider, Abstract 05/27/2025 Refill [facility] [address] [phone] Gini Pal NP Nausea 05/13/2025 Orders Only [facility] [address] [phone] Gini Pal NP Allergy to alpha-gal (Primary Dx) from Last 3 Months Immunizations Immunization Administration Dates Next Due (ADACEL/BOOSTRIX)(10 YR UP) TDAP VACCINE, 0.5ML, IM 03/22/2025 INFLUENZA VACCINE QUADRIVALENT 6 MOS UP IM 07/08 Influenza Seasonal Unspecified Formulation IM ,09/09/2003 Influenza Vaccine Split 3+ Yrs PF IM 07/30/2013 Family History Medical History Relation Name Comments Diabetes Father Dad Heart Disease Father Dad Hypertension Father Dad Breast Cancer Mother Mom Cancer Mother Mom High Cholesterol Mother Mom Hypertension Mother Mom Asthma Paternal Grandmother Grandma Colon Cancer Neg Hx Ovarian Cancer Neg Hx Relation Name Status Comments Daughter 1 Alive Daughter 2 Alive Father Dad Alive Maternal Grandmother Alive Mother Mom Alive Paternal Grandmother Grandma Alive Sister 1 Alive Sister 2 Alive Social History Tobacco Use Types Packs/Day Years [...] worry about transportation for future doctor visits, sheepskin pickler medication, etc.? No 2024 Housing Stability [...] on file Legal Sex Female 3:05 PM STOCK ROLLER Gender Identity Not on file Sexual Orientation Not on file Last Filed Vital Signs Vital Sign Reading Time Taken Comments Blood Pressure 115/72 08/12/2025 3:15 PM STOCK ROLLER Pulse 66 08/12/2025 3:15 PM STOCK ROLLER Temperature 36.5 C (97.7 F) 08/12/2025 1:36 PM STOCK ROLLER Respiratory Rate 14 08/12/2025 3:15 PM STOCK ROLLER Oxygen Saturation 100% 08/12/2025 3:15 PM STOCK ROLLER Inhaled Oxygen Concentration - - Weight 68.9 kg (152 lb) 08/12/2025 1:36 PM STOCK ROLLER Height 165.1 cm (5' 5 ) 08/12/2025 1:36 PM STOCK ROLLER Body Mass Index 25.29 08/12/2025 1:36 PM STOCK ROLLER Plan of Treatment Upcoming Encounters Date Type Department Care Team (Late st Contact Info) Description 09/04/2025 12:00 PM STOCK ROLLER Office Visit [facility] Medicine [address] [phone] Elton Velasquez MD [address] [phone] Health Maintenance Due Date Last Done Comments HEPATITIS B VACCINES (1 of 3 - 19+ 3-dose series) 1993 FIT-DNA Q 3 years 2019 FIT/FOBT Q 1 year 2019 Flex Sig/CT Colonography Q 5 years 2019 ZOSTER VACCINE (1 of 2) 2024 Preventative Visit- Commercial 10/03/2024 BREAST CANCER SCREENING 07/11/2025 07/11/20 24, 04/14/2022, 01/14/2016, Additional history exists Pre-Diabetes and Diabetes Screening 10/27/2026 10/27/2023 PAP SMEAR 08/27/2027 08/27/2024 CERVICAL CANCER SCREENING 08/27/2029 HPV/Cotest (21-29) 08/27/2029 08/27/2024 HPV/Cotest (30-65) 08/27/2029 08/27/2024 COLORECTAL SCREENING 12/08/2032 12/08/2022 Colorectal Cancer Screening 12/08/2032 DTAP/TDAP/TD VACCINES (2 - T d or Tdap) 03/22/2035 03/22/2025 INFLUENZA VACCINE Completed 06/17/2025, , 01/21/2022, Additional history exists Medical Devices Implanted Type Area Supervisor [employer] Device Identifier Shelf Expiration Date Model / Serial / Lot Clip Crtg Med/Lrg 1112 - [id number] Implanted:Qty: 1 on 04/09/2023 by Ignacio Peña MD at [facility] Clip N/A: Abdomen [employer] [id number] 12/29/2027 1112 / / [id number] Capsule [employer] Fgs-0635 - [id number] Implanted:Qty: 1 on 06/14/2023 by Gama Verde MD at [facility] Other N/A: Esophagus [employer] broadband engineer. GIVEN 08/04/2024 FGS-[id number] / / [id number] Description:implanted at 33 cm in the esophagus Procedures Procedure Name Priority Date/Time Associated Diagnosis Comments URINALYSIS WITH REFLEX CULTURE Stat 08/12/2025 2:[address] ABDOMEN PELVIS WO CONTRAST Stat 08/12/2025 2:14 PM STOCK ROLLER COMPREHENSIVE METABOLIC PANEL Stat 08/12/2025 1:41 PM STOCK ROLLER CBC WITH DIFFERENTIAL Stat 08/12/2025 1:41 PM STOCK ROLLER COMPREHENSIVE METABOLIC PANEL Stat 07/26/2025 3:54 PM CDT Calculus of kidney CBC WITH DIFFERENTIAL Stat 07/26/2025 3:54 PM CDT Calculus of kidney CT URINARY CALCULI WO CONTRAST Stat 07/26/2025 3:48 PM CDT Bilateral flank pain POC URINALYSIS DIPSTICK AUTOMATED Routine 07/26/2025 3:03 PM CDT Hematuria, unspecified type FL AVULSION NAIL PLATE PARTIAL/COMPLETE SIMPLE 1 Routine 06/17/2025 3:20 PM CDT Ingrown toenail of both feet FL AVULSION NAIL PLATE PARTIAL/COMPLETE SIMPLE 1 Routine 06/17/2025 3:20 PM CDT Ingrown toenail of both feet ALLERGY PANEL, FOOD AND TREE NUTS W/COMP Routine 06/05/2025 10:10 AM CDT Allergy to alpha-gal CERV/VAG CYTOPATH, THIN PREP AND HPV W/RFLX GENOTYPES 16, 18/45 Routine 08/27/2024 4:28 PM STOCK ROLLER Encounter for cervical Pap smear with pelvic exam MAMMO SCREEN BILAT W OR WO CAD Routine 07/11/2024 9:33 AM CDT HEMOGLOBIN A1C Routine 10/27/2023 8:15 AM STOCK ROLLER Severe obesity (BMI 35.0-39.9) with comorbidity (CMS/HCC) from Last 3 Months or Most Recently Relevant to Health Maintenance Results * (ABNORMAL) URINALYSIS WITH REFLEX CULTURE (08/12/2025 2:44 PM STOCK ROLLER) COLOR UA Yellow Pale to Dark Yellow 08/12/2025 2:50 PM STOCK ROLLER [facility] CLARITY UA Clear Clear 08/12/2025 2:50 PM STOCK ROLLER [facility] SPECIFIC GRAVITY UA 1.025 1.003 - 1.035 08/12/2025 2:50 PM STOCK ROLLER [facility] PH UA 5.5 5.0 - 8.0 08/12/2025 2:50 PM STOCK ROLLER [facility] LEUKOCYTE ESTERASE UA Trace(A) Negative 08/12/2025 2:50 PM STOCK ROLLER [facility] Comment:For patient s with 'trace' results, consider ordering a culture and sensitivity if clinically indicated. NITRITE UA Negative Negative 08/12/2025 2:50 PM STOCK ROLLER [facility] PROTEIN UA Trace(A) Negative 08/12/2025 2:50 PM STOCK ROLLER [facility] Comment: For patients with 'trace' results, consider ordering a culture and sensitivity if clinically indicated. GLUCOSE UA Negative Negative 08/12/2025 2:50 PM STOCK ROLLER [facility] KETONES UA 1+(A) Negative 08/12/2025 2:50 PM STOCK ROLLER [facility] UROBILINOGEN UA 0.2 <2.0 mg/dL 2:50 PM STOCK ROLLER [facility] BILIRUBIN UA Negative Negative 08/12/2025 2:50 PM STOCK ROLLER [facility] BLOOD UA Negative Negative 08/12/2025 2:50 PM STOCK ROLLER [facility] Urine URINE SPECIMEN OBTAINED BY CLEAN CATCH PROCEDURE / Unknown Collection / Unknown 08/12/2025 2:44 PM STOCK ROLLER 08/12/2025 2:46 PM STOCK ROLLER us Melinda Fabian MD URINE ORDERABLES Final Resul t [facility] CLIA # [id number] [address] [place] [address] * CT ABDOMEN PELVIS WO CONTRAST (08/12/2025 2:14 PM STOCK ROLLER) Anatomical Region Laterality Modality Abdomen Computed Tomogra phy 08/12/2025 2:56 PM STOCK ROLLER Impressions 08/12/2025 2:39 PM STOCK ROLLER IMPRESSION: 1. Moderate right hydronephrosis and hydroureter with a 4 mm calculus in the distal right ureter. Associated right perinephric edema. Narrative 08/12/2025 2:39 PM STOCK ROLLER EXAM: CT ABDOMEN PELVIS WO CONTRAST DATE/TIME [...] MD CT ORDERABLES Final Result * (ABNORMAL) CBC WITH DIFFERENTIAL (08/12/2025 1:41 PM STOCK ROLLER) Only the most recent of2 resultswithin the time period is included. WBC 8.8 4.0 - 10.0 K/uL 08/12/2025 1:56 PM [facility] RBC 4.18 3.93 - 5.22 M/uL 08/12/2025 1:56 PM [facility] HEMOGLOBIN 12.5 11.2 - 15.7 g/dL 08/12/2025 1:56 PM [facility] HEMATOCRIT 38.2 34.1 - 44.9 % 08/12/2025 1:56 PM [facility] MCV 91.4 79.4 - 94.8 fL 08/12/2025 1:56 PM [facility] MCH 29.9 25.6 - 32.2 pg 08/12/2025 1:56 PM [facility] MCHC 32.7 32.2 - 35.5 g/dL 08/12/2025 1:56 PM [facility] RDW 13.0 11.0 - 14.5 % 08/12/2025 1:56 PM [facility] RDW-STDEV 42.9 36.9 - 56.9 fL 08/12/2025 1:56 PM [facility] PLATELETS 353(H) 163 - 337 K/uL 08/12/2025 1:56 PM [facility] MPV 10.0 10.0 - 14.8 fL 08/12/2025 1:56 PM [facility] NEUTROPHILS 51 34 - 71 % 08/12/2025 1:56 PM [facility] LYMPHOCYTES 35 19 - 52 % 08/12/2025 1:56 PM [facility] MONOCYTES 11 5 - 13 % 08/12/2025 1:56 PM [facility] EOSINOPHILS 2 1 - 6 % 08/12/2025 1:56 PM [facility] BASOPHILS 1 0 - 1 % 08/12/2025 1:56 PM [facility] IMMATURE GRANULOCYTES 0 % 08/12/2025 1:56 PM [facility] NEUTROPHIL ABSOLUTE 4.53 1.56 - 6.13 K/uL 08/12/2025 1:56 PM [facility] LYMPHOCYTE ABSOLUTE 3.07 1.20 - 3.40 K/uL 08/12/2025 1:56 PM [facility] MONOCYTE ABSOLUTE 0.99(H) 0.24 - 0.36 K/uL 08/12/2025 1:56 PM [facility] EOSINOPHIL ABSOLUTE 0.14 0.04 - 0.36 K/uL 08/12/2025 1:56 PM [facility] BASOPHILS ABSOLUTE 0.07 0.01 - 0.08 K/uL 08/12/2025 1:56 PM [facility] IMMATURE GRANULOCYTES ABSOLUTE 0.02 K/uL 08/12/2025 1:56 PM [facility] Blood BLOOD SPECIMEN / Unknown Venipuncture / Unknown 08/12/2025 1:41 PM STOCK ROLLER 08/12/2025 1:50 PM STOCK ROLLER Melinda Fbaian MD HEMATOLOGY ORDERABLES Final Result [id number] [address] [place] [address] * (ABNORMAL) COMPREHENSIVE METABOLIC PANEL (08/12/2025 1:41 PM STOCK ROLLER) Only the most recent of2 resultswithin the time period is included. SODIUM 140 136 - 145 mmol/L 08/12/2025 2:05 PM [facility] POTASSIUM 4.1 3.5 - 5.1 mmol/L 08/12/2025 2:05 PM [facility] CHLORIDE 103 98 - 107 mmol/L 08/12/2025 2:05 PM [facility] CO2 27 22 - 29 mmol/L 08/12/2025 2:05 PM [facility] CALCIUM 9.3 8.6 - 10.0 mg/dL 08/12/2025 2:05 PM [facility] BUN 14 6 - 20 mg/dL 08/12/2025 2:05 PM [facility] CREATININE 0.73 0.51 - 0.95 mg/dL 08/12/2025 2:05 PM [facility] GLUCOSE 103(H) 74 - 99 mg/dL 08/12/2025 2:05 PM [facility] TOTAL PROTEIN 7.3 6.6 - 8.7 g/dL 08/12/2025 2:05 PM [facility] ALBUMIN 4.4 3.5 - 5.2 g/dL 08/12/2025 2:05 PM [facility] BILIRUBIN TOTAL 0.4 0.0 - 1.2 mg/dL 08/12/2025 2:05 PM [facility] ALKALINE PHOSPHATASE 104 35 - 104 U/L 08/12/2025 2:05 PM [facility] AST 33 0 - 35 U/L 08/12/2025 2:05 PM [facility] ALT 40(H) 0 - 35 U/L 08/12/2025 2:05 PM [facility] GFR >60 >=60 mL/min/1.7 3 sq meter 08/12/2025 2:05 PM [facility] Comment:eGFR calculated with 2020 CKD-EPI equation. Vegetarian diet, extremely high or low muscle mass, and may affect results. Cystatin C with Glomerular Filtration Rate is a suitable alternative for these patients. ANION GAP 10 5 - 20 mmol/L 08/12/2025 2:05 PM [facility] Blood BLOOD SPECIMEN / Unknown Venipuncture / Unknown 08/12/2025 1:41 PM STOCK ROLLER 08/12/2025 1:50 PM STOCK ROLLER us Melinda Fabian MD CHEMISTRY ORDERABLES Final R esult [facility] CLIA # [id number] [address] [place] [address] * CT URINARY CALCULI WO CONTRAST (07/26/2025 3:48 PM CDT) Anatomical Region Laterality Modality Abdomen Computed Tomogra phy 07/26/2025 3:30 PM CDT Impressions 07/26/2025 4:13 PM CDT IMPRESSION: 1. No evidence of any ureteral stones or ureteral obstruction. 2. Prior cholecystectomy and gastric surgery. Narrative 07/26/2025 4:13 PM CDT Exam: CT URINARY CALCULI WO CONTRAST Date/Time of Exam: 07/26/2025 3:48 PM Reason For Exam: Flank pain, stone disease suspected. Contiguous axial images were obtained through the abdomen and pelvis. Sagittal and coronal reformatted images are included. The study was performed without IV contrast. There is no evidence of any ureteral stones or any dilatation of the ureters or collecting systems. The gallbladder is surgically absent. Postsurgical changes are seen in the gastric fundus. There is no evidence of any abdominal aortic aneurysm. The appendix is visualized and is unremarkable in appearance. The liver, spleen, pancreas, kidneys and adrenals are unremarkable. There is no evidence of abnormal soft tissue masses, abnormal fluid collections or adenopathy in the abdomen or pelvis. Bowel loops are nondilated. There is no evidence of any free intraperitoneal air. Procedure Note Eron Trinidad MD - 07/26/2025 Exam: CT URINARY CALCULI WO CONTRAST Date/Time of Exam: 07/26/2025 3:48 PM Reason For Exam: Flank pain, stone disease suspected. Contiguous axial images were obtained through the abdomen and pelvis. Sagittal and coronal reformatted images are included. The study was performed without IV contrast. There is no evidence of any ureteral stones or any dilatation of the ureters or collecting systems. The gallbladder is surgically absent. Postsurgical changes are seen in the gastric fundus. There is no evidence of any abdominal aortic aneurysm. The appendix is visualized and is unremarkable in appearance. The liver, spleen, pancreas, kidneys and adrenals are unremarkable. There is no evidence of abnormal soft tissue masses, abnormal fluid collections or adenopathy in the abdomen or pelvis. Bowel loops are nondilated. There is no evidence of any free intraperitoneal air. IMPRESSION: 1. No evidence of any ureteral stones or ureteral obstruction. 2. Prior cholecystectomy and gastric surgery. Clare Dawn [facility] CT ORDERABLES Final Re sult * (ABNORMAL) POC URINALYSIS DIPSTICK AUTOMATED (07/26/2025 3:03 PM CDT) COLOR UA POC Yellow Pale to Dark Yellow [facility] CLARITY UA POC Slightly Cloudy(A) Clear, Other [facility] GLUCOSE UA POC Negative Negative, Normal [facility] BILIRUBIN UA POC Negative Negative [facility] UA POC Negative Negative [facility] SPECIFIC GRAVITY UA POC >=1.030 1.000 - 1.030 [facility] BLOOD UA POC 2+(A) Negative [facility] PH UA POC 6.5 5.0 - 8.0 [facility] IC [facility] PROTEIN UA POC Trace(A) Negative [facility] UROBILINOGEN UA POC 1.0 <2.0 mg/dL [facility] NITRITE UA POC Negative Negative [facility] LEUKOCYTE ESTERASE UA POC Negative Negative [facility] KIT LOT NUMBER POC [phone] [facility] KIT EXP DATE POC 05/02/2026 [facility] Urine 07/26/2025 3:03 PM CDT Clare Dawn [facility] POINT OF CARE TESTING Fi nal Result [facility] CLIA# [id number] [address] [place] [address] * [place] AVULSION NAIL PLATE PARTIAL/COMPLETE SIMPLE 1 (06/17/2025 3:20 PM CDT) Narrative [facility] - 06/17/2025 3:20 PM CDT Gini Pal NP 06/17/2025 4:19 PM Nail Removal Date/Time: 06/17/2025 3:20 PM Performed by: Gini Pal NP Authorized by: Gini Pal NP Location: left foot Location details: left big toe Anesthesia: local infiltration Anesthesia: Local Anesthetic: lidocaine 1% without epinephrine Anesthetic total: 2 mL Sedation: Patient sedated: no Preparation: sterile field established and skin prepped with providone-iodine Amount removed: partial Side: lateral Wedge excision of skin of nail fold: no Nail bed sutured: no Nail matrix removed: partial Removed nail replaced and anchored: no Dressing: tube gauze and petrolatum-impregnated gauze Patient tolerance: patient tolerated the procedure well with no immediate complications Gini Pal REGULATORY AFFAIRS STRATEGY SPECIALIST PROCEDURE/MINOR SURGICAL ORDER AROLDO Final Result Performing Organization Address [facility] de Phone Number [facility] CLIA# [id number] [address] [address] [address] [place] [address] * [place] AVULSION NAIL PLATE PARTIAL/COMPLETE SIMPLE 1 (06/17/2025 3:20 PM CDT) Narrative [facility] - 06/17/2025 3:20 PM CDT Gini Pal NP 06/17/2025 4:19 PM Nail Removal Date/Time: 06/17/2025 3:20 PM Performed by: Gini Pal NP Authorized by: Gini Pal NP Location: right foot Location details: right big toe Anesthesia: local infiltration Anesthesia: Local Anesthetic: lidocaine 1% without epinephrine Anesthetic total: 2 mL Sedation: Patient sedated: no Preparation: sterile field established and skin prepped with providone-iodine Amount removed: partial Side: medial Wedge excision of skin of nail fold: no Nail bed sutured: no Nail matrix removed: partial Removed nail replaced and anchored: no Dressing: petrolatum-impregnated gauze, 4x4 and tube gauze Patient tolerance: patient tolerated the procedure well with no immediate complications us Gini Pal REGULATORY AFFAIRS STRATEGY SPECIALIST PROCEDURE/MINOR SURGICAL ORDER AROLDO Final Result Performing Organization Address [facility] Co de Phone Number [facility] CLIA# [id number] [address] [place] [address] * ALLERGY PANEL, FOOD AND TREE NUTS W/COMP (06/05/2025 10:10 AM CDT) ALLERGEN EGG WHITE <0.10 kU/L [facility] ALLERGEN EGG WHITE CLASS 0 [facility] ALLERGEN PEANUT <0.10 kU/L [facility] ALLERGEN PEANUT CLASS 0 [facility] WHEAT IGE <0.10 kU/L [facility] ALLERGEN WHEAT CLASS 0 [facility] WALNUT IGE <0.10 kU/L [facility] ALLERGEN WALNUT CLASS 0 [facility] ALLERGEN CODFISH <0.10 kU/L [facility] ALLERGEN CODFISH CLASS 0 [facility] ALLERGEN MILK <0.10 kU/L [facility] ALLERGEN MILK CLASS 0 [facility] SOYBEAN IGE <0.10 kU/L [facility] ALLERGEN SOYBEAN CLASS 0 [facility] SHRIMP IGE <0.10 kU/L [facility] ALLERGEN SHRIMP CLASS 0 [facility] SCALLOP IGE <0.10 kU/L [facility] ALLERGEN SCALLOP CLASS 0 [facility] SESAME SEED IGE <0.10 kU/L [facility] ALLERGEN SESAME SEED CLASS 0 [facility] ALLERGEN HAZELNUT <0.10 kU/L [facility] ALLERGEN HAZELNUT CLASS 0 [facility] ALLERGEN CASHEW NUT <0.10 kU/L [facility] ALLERGEN CASHEW NUT CLASS 0 [facility] ALLERGEN ALMOND <0.10 kU/L [facility] ALLERGEN ALMOND CLASS 0 [facility] SALMON IGE <0.10 kU/L [facility] ALLERGEN SALMON CLASS 0 [facility] TUNA IGE <0.10 kU/L [facility] ALLERGEN TUNA CLASS 0 [facility] ALLERGEN BRAZIL NUT <0.10 kU/L [facility] BRAZIL NUT % RESPONSE (CLASS) 0 [facility] ALLERGEN MACADAMIA <0.10 kU/L [facility] ALLERGEN MACADAMIA CLASS 0 [facility] ALLERGY PANEL INTERP [facility] Comment: Specific Level of Allergen IGE Class kU/L Specific IGE Antibody ----- --------- 0 <0.10 Absent/Undetectable 0/1 0.10-0.34 Very Low Level 1 0.35-0.69 Low Level 2 0.70-3.49 Moderate Level 3 3.50-17.4 High Level 4 17.5-49.9 Very High Level 5 50-100 Very High Level 6 >100 Very High Level The clinical relevance of allergen results of 0.10-0.34 kU/L are undetermined and intended for specialist use. Allergens denoted with a include results using one or more analyte specific reagents. In those cases, the test was developed and its analytical performance characteristics have been determined by [facility]. It has not been cleared or approved by the U.S. Food and Drug Administration. This assay has been validated pursuant to the CLIA regulations and is used for clinical purposes. Test Performed at: [facility] [address] [place] [address] Alison Raymond MD Blood 06/05/2025 10:1 0 AM CDT 06/07/2025 5:05 AM CDT us Gini Pal NP CHEMISTRY ORDERABLES Final Res ult [facility] [phone] [address] [address] [place] [address] * CERV/VAG CYTOPATH, THIN PREP AND HPV W/RFLX GENOTYPES 16, 18/45 (08/27/2024 4:28 PM STOCK ROLLER) CLINICAL INFORMATION [employer] Comment:None given LAST MENSTRUAL PERIOD [employer] Comment:NONE GIVEN PREV PAP: [facility] Comment:NONE GIVEN PREV BX: [facility] Comment:NONE GIVEN SOURCE [facility] Comment:[employer] ADEQUACY: [facility] Comment: Specimen processed and examined, but unsatisfactory for evaluation due to an insufficient number of squamous cells. PAP INTERP [facility] Comment: Cytology Results: Unable to provide interpretation due to unsatisfactory specimen adequacy. COMMENT (PAP TEST) [facility] Comment: This case could not be evaluated with computer assisted technology. The slide was manually screened according to routine procedures. Microscopic features present suggestive of an interfering substance, including cellular debris, mucus, or possible lubricant (patient or provider use). Use of lubricant is not recommended. CUSTOMS MANAGER: [facility] Anthony [place] Comment: MEF, CT(ASCP) CT screening location: [place] [address] [place] [address] REVIEW CUSTOMS MANAGER: Patricia [facility] Anthony [place] Comment: KMS, CT(ASCP) CT Screening location: [place] [address] [address] [facility] EXPLANATORY NOTE [facility] [employer] Anthony [place] Comment: EXPLANATORY NOTE: The Pap is a screening test for cervical cancer. It is not a diagnostic test and is subject to false negative and false positive results. It is most reliable when a satisfactory sample, regularly obtained, is submitted with relevant clinical findings and history, and when the Pap result is evaluated along with historic and current clinical information. HPV E6/E7 Not Detected Not Detected [facility] Anthony [facility] Comment: Methodology: Money Order Clerk-Mediated Amplification This assay detects E6/E7 viral messenger RNA (mRNA) from 14 high-risk HPV types (16,18,31,33,35,39,45,51,52,56,58,59,66,68). Cervical sources are required for HPV testing. If a vaginal source from a patient who has had a total hysterectomy with removal of cervix was submitted, please contact the testing laboratory for alternative testing options. For additional information, please refer to http://education.Crowdpac/faq/YFQ056l4 (This link if provided for information/ educational purposes only.) Test Performed at: [facility] [address] [place] [address] Alison DUBON Genital SWAB OF ENDOCERVIX / Unknown 08/27/2024 4:28 PM STOCK ROLLER 08/30/2024 4:16 AM STOCK ROLLER us Gini Pal NP PATHOLOGY/CYTOLOGY ORDERABLES Final Result [facility] [phone] [facility] [address] [place] [address] * MAMMO SCREEN BILAT W OR WO CAD (07/11/2024 9:33 AM CDT) Anatomical Region Laterality Modality Breast Bilateral Mammography Abstract Provider MAMMO ORDERABLES Final Result * HEMOGLOBIN A1C (10/27/2023 8:15 AM STOCK ROLLER) HEMOGLOBIN A1C 5.4 <5.7 % of total Hgb [facility] Comment: For the purpose of screening for the presence of diabetes: <5.7% Consistent with the absence of diabetes 5.7-6.4% Consistent with increased risk for diabetes (prediabetes) > or =6.5% Consistent with diabetes This assay result is consistent with a decreased risk of diabetes. Currently, no consensus exists regarding use of hemoglobin A1c for diagnosis of diabetes in children. According to [place] Diabetes Association (ADA) guidelines, hemoglobin A1c <7.0% represents optimal control in non- diabetic patients. Different metrics may apply to specific patient populations. Standards of Medical Care in Diabetes(ADA). ESTIMATED AVERAGE GLUCOSE (MG/DL) 108 mg/dL [facility] ESTIMATED AVERAGE GLUCOSE (MMOL/L) 6.0 mmol/L [facility] Comment: HbA1c performed on [employer] platform. Test Performed at: [facility] [address] [place] [address] Alison Raymond MD Blood 10/27/2023 8:15 AM STOCK ROLLER 10/28/2023 4:36 AM STOCK ROLLER Clare JERNIGANP CHEMISTRY ORDERABLES Fin al Result [facility] [phone] [email or web address] [facility] [address] [place] [address] from Last 3 Months or Most Recently Relevant to Health Maintenance Insurance [employer] [facility] [place] [employer] [id number] RX [employer] Member Subscriber Plan / Payer (Ef fective 2023-Present) Name:Miriam Bernard Relation to Subscriber:Not on file Name:Miriam Bernard Subscriber ID:Not on file Date of :1975 Payer ID:Not on file Group ID:[id number] Type:RX Commercial Address: [address] Advance Directives For more information, please contact: [phone] * Full Code (Latest Code Status on File) Date Activated Date Inactivated Comments 09/01/2023 10:48 AM 09/01/2023 3:09 PM * Full Code Date Activated Date Inactivated Comments 07/11/2023 2:49 PM 07/12/2023 7:45 PM * Full Code Date Activated Date Inactivated Comments 07/11/2023 9:34 AM 07/11/2023 2:48 PM * Full Code Date Activated Date Inactivated Comments 04/09/2023 9:51 AM 04/09/2023 7:40 PM * Full Code Date Activated Date Inactivated Comments 04/09/2023 9:50 AM 04/09/2023 9:51 AM Care Teams Child Development Specialist Relationship Specialty Start Date End Date Elton Velasquez MD [address] [id number] PCP - General Family Practice 11/18/22
--- OUTSIDE RECORDS SUMMARY | 2025-08-12 20:01 | XMS_ITS | Clinical Summary ---
Author Organization [facility] Address [address] [address] Phone Care Team Providers Care Financial Examiner Name Role Phone Mary Ann Thurman RN Unavailable [phone] Elton Velasquez MD Primary Care Provider [phone] Allergies Active Allergy Reactions Criticality Noted Date Comments Pvtic-R-Wuxdraofvgjkz 06/18/2025 Alpha-Gal (Ewxkhmgbr-Pwnhr-5,3-Galact ose) 06/18/2025 Amoxicillin-Pot Clavulanate Nausea/Vomiting Upset stomach Clindamycin Hives 06/24/2020 Codeine Hives High 10/10/2017 Other reaction(s): BLISTERS Prochlorperazine Anaphylaxis High 06/24/2020 Doxycycline Swelling Low 10/23/2008 Gabapentin Hives High 01/18/2023 Heparin Hives High 08/02/2023 Meperidine Hives High 10/23/2008 Neomycin Other,Hives High 10/10/2017 Matthews skins Phenergan Dm Unknown 01/06/2022 Other Reaction(s): Unknown, Unknown Prochlorperazine Edisylate Anaphylaxis High 10/23/19 09 Dzmxmezslqkxyxk-Hjsirno-Zd Other 0 Blisters Sulfa (Sulfonamide Antibiotics) Other High 10/23/2008 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 Active furosemide (Lasix) 20 mg tablet Take 20 mg by mouth 1 (one) time each day. Active buPROPion SR (Wellbutrin SR) 100 mg 12 hr tablet Take 150 mg by mouth 2 (two) times a day. 0 Active cyclobenzaprine (Flexeril) 10 mg tablet 0 Active potassium chloride CR (Klor-Con M20) 20 mEq ER tablet Take 20 mEq by mouth 1 (one) time each day. 1 Active fluticasone (Flonase Allergy Relief) 50 mcg/actuation nasal spray Administer 1 spray into each nostril 1 (one) time each day. 16 g 2 1 Active EPINEPHrine (EpiPen 2-Steven) 0.3 mg/0.3 mL injection syringeIndicati ons:Seasonal allergic rhinitis due to pollen Inject 0.3 mL (0.3 mg total) into the shoulder, thigh, or buttocks if needed for anaphylaxis. 1 each 2 Active Additional Information Patient not taking.Reported on 11/28/2024 rOPINIRole (Requip) 1 mg tablet Take 1 mg by mouth every night. Active amitriptyline (Elavil) 50 mg tablet Take 50 mg by mouth every night. Active metFORMIN XR (Glucophage-XR) 500 mg 24 hr tablet Take 500 mg by mouth 1 (one) time each day with breakfast. Do not crush, chew, or split. Active metoclopramide (Reglan) 10 mg tablet Take 10 mg by mouth in the morning and 10 mg at noon and 10 mg in the evening and 10 mg before bedtime. Active metoprolol tartrate (Lopressor) 50 mg tablet Take 50 mg by mouth 2 (two) times a day. 4 Active hydrOXYzine HCL (Atarax) 10 mg tabletIndicatio ns:Other dysphagia,Anxie ty Take 2.5 tablets (25 mg total) by mouth every 8 (eight) hours if needed for itching. 30 tablet 4 11/28/19 26 Active ondansetron (Zofran) 4 mg tablet 3 Active ffwjrgay-jde-pp lic acid-biotin (Hair,Skin and Nails,FA-biotin ,) 100-1,500 mcg tablet Take by mouth. 4 Active melatonin 10 mg tablet Take by mouth 1 (one) time each day if needed. 4 Active loperamide (Imodium) 2 mg capsule Take 2 mg by mouth every 3 (three) hours. 4 Active arginine HCl, L-arginine, 1,000 mg tablet Take by mouth. 4 Active albuterol (Proventil;Vent puja) 90 mcg/actuation inhaler INHALE 2 PUFFS BY MOUTH EVERY 6 HOURS NEEDED FOR SHORTNESS OF BREATH Active acetaminophen (Tylenol) 325 mg tablet Take 325 mg by mouth every 6 (six) hours. 3 Active meloxicam (Mobic) 7.5 mg tablet 3 Active dicyclomine (Bentyl) 10 mg capsule 4 Active sucralfate (Carafate) 1 gram tablet Take 1 g by mouth every night. 5 Active estradioL (Estrace) 1 mg tablet Take 1 mg by mouth 1 (one) time each day. 5 Active Active Problems Problem Noted Date Diagnosed Date Morbid obesity due to excess calories 06/27/2024 Postsurgical dumping syndrome 06/27/2024 History of Hany fundoplication 06/27/2024 Other dysphagia 06/20/2024 Chronic GERD 06/20/2024 Non-seasonal allergic rhinitis 12/18/2020 Tonsil stone 07/29/2020 Gastroesophageal reflux disease with esophagitis 07/29/2020 Food allergy 07/29/2020 Decreased hearing of right ear 07/29/2020 Chronic left maxillary sinusitis 07/29/2020 Seasonal allergic rhinitis due to pollen 020 Allergic rhinitis due to animal hair and dander 07/29/2020 Allergic rhinitis 07/29/2020 Fluid retention 05/11/2012 Immunizations Immunization Administration Dates Next Due Influenza, Quadrivalent, with Preservative 07/08 Family History Medical History Relation Comments Diabetes Father Heart disease Father Heart failure Father Hypertension Father Cancer Mother Diabetes Mother Hypertension Mother Anesthesia problems Neg Hx Malig Hypertension Neg Hx Malig Hyperthermia Neg Hx Pseudochol deficiency Neg Hx Relation Status Comments Father Mother Alive Social History Tobacco Use Types Packs/Day Years Used Date Smoking Tobacco: Never Passive Smoke Exposure: Never Smokeless Tobacco: Never Alcohol Use Standard Drinks/Week Comments Not Currently 0 (1 standard drink = 0.6 oz pur e alcohol) last drink 1 year ago PHQ-2 Answer Date Recorded Patient Health Questionnaire-2 Score 0 02/20/2025 [facility] - Mental Health Answer Date Recorde d Little interest or pleasure in doing things Not at all 02/20/2025 Feeling down, depressed, or hopeless Not at all 02/20/2025 Feeling of Stress Not on file 02/20/2025 Comments No Sex and Gender Information Value Date Recorded Sex Assigned at Not on file Legal Sex Female 10:53 AM CDT Gender Identity Not on file Sexual Orientation Not on file Last Filed Vital Signs Vital Sign Reading Time Taken Comments Blood Pressure 132/81 02/20/2025 8:40 AM CDT Pulse 53 02/20/2025 8:40 AM CDT Temperature 36.4 C (97.6 F) 02/20/2025 8:40 AM CDT Respiratory Rate 18 02/20/2025 8:40 AM CDT Oxygen Saturation 100% 02/20/2025 8:40 AM CDT Inhaled Oxygen Concentration - - Weight 78.4 kg (172 lb 12.8 oz) 02/20/2025 8:40 AM CDT Height 167.6 cm (5' 6 ) 02/20/2025 8:40 AM CDT Body Mass Index 27.89 02/20/2025 8:40 AM CDT Plan of Treatment Upcoming Encounters Date Type Department Care Team (Late st Contact Info) Description 08/28/2025 3:00 PM HUMAN RESOURCES OPERATIONS SPECIALIST [facility] [address] [place] [address] [id number] Omkar Garg Jr., DO [address] [place] [address] [phone] Health Maintenance Due Date Last Done Comments CT Colonography 1974 Colonoscopy 1974 Colorectal Cancer Screening 1974 FIT-DNA 1974 FIT 1974 FOBT 1974 Sigmoidoscopy 1974 MMR Vaccines (1 of 1 - Standard series) 1975 DTaP,Tdap,and Td Vaccines (1 - Tdap) 1981 Varicella Vaccines (1 of 2 - 13+ 2-dose series) 1987 Diabetes Screening 1992 Social Drivers of Health (SDoH) 1992 Hepatitis B Vaccines (1 of 3 - 19+ 3-dose series) 1993 Pneumococcal Vaccine: 50+ Years (1 of 1 - PCV) 2024 Zoster Vaccines (1 of 2) 2024 COVID-19 Vaccine (1 - 2023- season) 2025 Influenza Vaccine (#1) 2025 5, 07/30/2013, 09/09/2003 Mammogram 07/11/2025 07/11/2024, 04/02, 04/14/2022, Additional history exists Creatinine Level 07/19/2025 07/19/2024, 06/2024, 06/21/2024 Potassium Level 07/19/2025 07/19/2024, 10/0 06/2024, 06/21/2024 Depression Screening 02/21/2026 02/20/2025 Lipid Panel 07/11/2029 07/11/2024 RSV Vaccines (1 - 1-dose 75+ series) 2049 HIB Vaccines Aged Out No longer eligi ble based on patient's age to complete this topic HPV Vaccines Aged Out No longer eligi ble based on patient's age to complete this topic Hepatitis A Vaccines Aged Out No long er eligible based on patient's age to complete this topic IPV Vaccines Aged Out No longer eligi ble based on patient's age to complete this topic Meningococcal B Vaccine Aged Out No l onger eligible based on patient's age to complete this topic Meningococcal Vaccine Aged Out No marcela joie eligible based on patient's age to complete this topic Pneumococcal Vaccine Aged Out No long er eligible based on patient's age to complete this topic Rotavirus Vaccines Aged Out No longer eligible based on patient's age to complete this topic Medical Devices Implanted Type Area Network Liaison Device Identifier Shelf Expiration Date Model / Serial / Lot Staple 2.0 Med Thick Tri - [id number] Implanted:Qty : 6 on 07/18/2024 by Omkar Garg Jr., DO at [facility] Patient Billable Implant N/A: Abdomen COVI 03/02/2027 [id number] AMT / / [id number] Staple 2.0 Med Thick Tri - [id number] Implanted:Qty : 1 on 07/18/2024 by Omkar Garg Jr., DO at [facility] Patient Billable Implant N/A: Abdomen COVI 03/02/2027 [id number] AMT / / [id number] Staple Artic Vasc Med Tri - [id number] Implanted:Qty : 1 on 07/18/2024 by Omkar Garg Jr., DO at [facility] Vascular Implant N/A: Abdomen MEDI 06/05/2028 [id number] / / [id number] Procedures Procedure Name Priority Date/Time Associated Diagnosis Comments COMPREHENSIVE METABOLIC PANEL Pending Discharge 07/19/2024 5:35 AM CDT LIPID PANEL Routine 07/11/2024 8:22 AM CDT Pre-bariatric surgery nutrition evaluation Preoperative clearance from Last 3 Months or Most Recently Relevant to Health Maintenance Results * (ABNORMAL) Comprehensive metabolic panel (07/19/2024 5:35 AM CDT) Glucose 103(H) 70 - 100 mg/dL LAB CHEMISTRY METHOD 07/19/2024 6:04 AM CDT [facility] BUN 9 7 - 17 mg/dL LAB CHEMISTRY METHOD 07/19/2024 6:04 AM CDT [facility] Creatinine 0.60 0.52 - 1.04 mg/dl LAB CHEMISTRY METHOD 07/19/2024 6:04 AM CDT [facility] BUN/Creatinine Ratio 15 12 - 17 LAB CHEMISTRY METHOD 07/19/2024 6:04 AM CDT [facility] Sodium 139 135 - 145 mmol/L LAB CHEMISTRY METHOD 07/19/2024 6:04 AM CDT [facility] Potassium 3.9 3.6 - 5.0 mmol/L LAB CHEMISTRY METHOD 07/19/2024 6:04 AM CDT [facility] Chloride 107 101 - 111 mmol/L LAB CHEMISTRY METHOD 07/19/2024 6:04 AM CDT [facility] Total Carbon Dioxide 23 22 - 30 mmol/L LAB CHEMISTRY METHOD 07/19/2024 6:04 AM CDT [facility] Anion Gap 13 9 - 17 mmol/L LAB CHEMISTRY METHOD 07/19/2024 6:04 AM CDT [facility] Calcium 8.5 8.2 - 10.2 mg/dL LAB CHEMISTRY METHOD 07/19/2024 6:04 AM CDT [facility] Total Protein, Serum 6.9 5.6 - 8.5 g/dL LAB CHEMISTRY METHOD 07/19/2024 6:04 AM CDT [facility] Albumin 3.6 3.5 - 5.2 g/dL LAB CHEMISTRY METHOD 07/19/2024 6:04 AM CDT [facility] GLOBULIN 3.3 2.1 - 3.8 g/dL LAB CHEMISTRY METHOD 07/19/2024 6:04 AM CDT [facility] A/G Ratio 1.1(L) 1.4 - 1.7 LAB CHEMISTRY METHOD 07/19/2024 6:04 AM CDT [facility] Bilirubin, Total 0.3 0.1 - 1.3 mg/dL LAB CHEMISTRY METHOD 07/19/2024 6:04 AM CDT [facility] Alkaline Phosphatase 127(H) 45 - 117 U/L LAB CHEMISTRY METHOD 07/19/2024 6:04 AM CDT [facility] ALT (SGPT) 143(H) 11 - 58 U/L LAB CHEMISTRY METHOD 07/19/2024 6:04 AM CDT [facility] AST (SGOT) 72(H) 9 - 55 U/L LAB CHEMISTRY METHOD 07/19/2024 6:04 AM CDT [facility] eGFR >60 >=60 mL/min/1. 73 m2 LAB CHEMISTRY METHOD 07/19/2024 6:04 AM CDT [facility] Blood Venous blood specimen / Unknown Venipuncture / Unknown 07/19/2024 5:35 AM CDT 07/19/2024 5:41 AM CDT us Omkar Garg Jr., DO LAB BLOOD ORDERABLES Final Result [facility] [address] [address] * (ABNORMAL) Lipid panel (07/11/2024 8:22 AM CDT) Cholesterol, Total 255(H) 0 - 200 mg/dL LAB CHEMISTRY METHOD 07/11/2024 10:29 AM CDT [facility] Comment: NCEP guidelines: Adults (older than 19 yrs) Desirable: Less than 200 mg/dL Borderline-High: 200 - 239 mg/dL High: Greater than or equal to 240 mg/dL Triglycerides 172(H) 0 - 150 mg/dL LAB CHEMISTRY METHOD 07/11/2024 10:29 AM CDT [facility] Comment: NCEP guidelines: Normal: 10 - 150 mg/dL Borderline-High: 150 - 199 mg/dL High: 200 - 499 mg/dL Very High: Greater than 500 mg/dL High-Density Lipoprotein 41 40 - 60 mg/dL LAB CHEMISTRY METHOD 07/11/2024 10:29 AM CDT [facility] Comment: NCEP guidelines: Low: Less than 40 mg/dL Normal: 40 - 60 mg/dL High: Greater than 60 mg/dL LDL 180(H) 0 - 130 mg/dL LAB CHEMISTRY METHOD 07/11/2024 10:29 AM CDT [facility] Blood Venous blood specimen / Unknown Venipuncture / Unknown 07/11/2024 8:22 AM CDT 07/11/2024 8:25 AM CDT Omkar Garg Jr., DO LAB BLOOD ORDERABLES Final Result Performing Organization Address City/State/[facility] Co de Phone Number [facility] [address] [address] from Last 3 Months or Most Recently Relevant to Health Maintenance Insurance [facility] Advance Directives For more information, please contact: [phone] (7:30 AM - 5PM [facility], 7 days a week) * Full Code (Latest Code Status on File) Date Activated Date Inactivated Comments 07/18/2024 12:42 PM 07/19/2024 2:50 PM Care Teams Financial Examiner Relationship Specialty Start Date End Date Elton Velasquez MD [address] [address] PCP - General Family Medicine 07/18/24 Mary Ann Thurman, RN [address] [address] Registered Nurse Internal Medicine 06/29/24
--- OUTSIDE RECORDS SUMMARY | 2025-08-12 20:01 | XMS_ITS | Encounter Summary ---
Author Organization [facility] Address [address] [place] [address] Care Team Providers Care Resident Hall Director Name Role Phone Graciela Marsh MD Primary Care Provider Encounter Details Date Type Department Care Team (Latest Contact Info) Description 09/09/[address] [facility] [address] [phone] Matthew Palacios MD [address] [address] Vaccine for influenza (Primary Dx) Social History Tobacco Use Types Packs/Day Years Used Date Smoking Tobacco: Never Assessed Comments Unknown Sex and Gender Information Value Date Recorded Sex Assigned at Not on file Legal Sex Female 5:20 AM CLASSROOM INSTRUCTIONAL AIDE Gender Identity Not on file Sexual Orientation Not on file documented as of this encounter Plan of Treatment Not on file documented as of this encounter Visit Diagnoses Diagnosis Vaccine for influenza- Primary Need for prophylactic vaccination and inoculation against influenza documented in this encounter Care Teams Resident Hall Director Relationship Specialty Start Date End Date Graciela Marsh MD [address] [facility] [address] [place] [address] PCP - General Family Practice 10/11/13 documented as of this encounter
--- OUTSIDE RECORDS SUMMARY | 2025-08-12 20:01 | XMS_ITS | Encounter Summary ---
Author Organization [facility] Address [address] [place] [address] Care Team Providers Care Butt Welder Name Role Phone Graciela Marsh MD Primary Care Provider Encounter Details Date Type Department Care Team (Latest Contact Info) Description 04/27/2004 Outpatient Historical [facility] [address] [place] [address] Eliza Amezcua, LEAD DESIGNER [address] [place] [address] ACUTE URI NOS (Primary Dx) Social History Tobacco Use Types Packs/Day Years Used Date Smoking Tobacco: Never Assessed Comments Unknown Sex and Gender Information Value Date Recorded Sex Assigned at Not on file Legal Sex Female 5:20 AM 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
--- OUTSIDE RECORDS SUMMARY | 2025-08-12 20:01 | XMS_ITS | Encounter Summary ---
Author Organization [facility] Address [address] [place] [address] Care Team Providers Care Company Laborer Name Role Phone Graciela Marsh MD Primary Care Provider Encounter Details Date Type Department Care Team (Latest Contact Info) Description 06/12/2003 Outpatient [facility] Medicine[address] [phone] Lexi Streeter MD [address] [place] [address] ACUTE FRONTAL SINUSITIS (Primary Dx) Social History Tobacco Use Types Packs/Day Years Used Date Smoking Tobacco: Never Assessed Comments Unknown Sex and Gender Information Value Date Recorded Sex Assigned at Not on file 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
--- OUTSIDE RECORDS SUMMARY | 2025-08-12 20:01 | XMS_ITS | Encounter Summary ---
Author Organization [facility] Address [address] [place] [address] Care Team Providers Care Pole Lift Operator Name Role Phone Graciela Marsh MD Primary Care Provider Encounter Details Date Type Department Care Team (Latest Contact Info) Description 06/26/1998 Outpatient Historical [facility] Medicine[address] [phone] Matthew Palacios MD [address] [address] Erythema multiforme (Primary Dx) Social History Tobacco Use Types Packs/Day Years Used Date Smoking Tobacco: Never Assessed Comments Unknown Sex and Gender Information Value Date Recorded Sex Assigned at Not on file Legal Sex Female 5:20 AM SNACK STEWARD Gender Identity Not on file Sexual Orientation Not on file documented as of this encounter Plan of Treatment Not on file documented as of this encounter Visit Diagnoses Diagnosis Erythema multiforme- Primary documented in this encounter Care Teams Pole Lift Operator Relationship Specialty Start Date End Date Graciela Marsh MD [address] [facility] [address] [place] [phone] PCP - General Family Practice 10/11/13 documented as of this encounter
--- OUTSIDE RECORDS SUMMARY | 2025-08-12 20:01 | XMS_ITS | Encounter Summary ---
Author Organization [facility] Address [address] [place] [address] Care Team Providers Care Seo Executive Name Role Phone Elton Velasquez MD Primary Care Provider [phone] Reason for Visit * Reason Onset Date Comments Casey pt 03/01/2024 Encounter Details Date Type Department Care Team (Late st Contact Info) Description 03/01/2024 Telephone [facility] Gen Spec Surg [place] [facility] [address] [place] [address] Ignacio Peña MD [address] [place] [address] [place] [phone] Casey pt Social History Tobacco Use Types Packs/Day Years [...] on file Legal Sex Female 3:05 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 documented in this encounter Plan of Treatment Upcoming Encounters Date Type Department Care Team (Late st Contact Info) Description 09/04/2025 12:00 PM EARLY CHILDHOOD WORKER Office Visit [facility] Medicine [place] [address] [address] Elton Velasquez MD [address] [address] documented as of this encounter Visit Diagnoses Not on filedocumented in this encounter Care Teams Seo Executive Relationship Specialty Start Date End Date Elton Velasquez MD [address] [address] PCP - General Family Practice 11/18/22 documented as of this encounter
--- OUTSIDE RECORDS SUMMARY | 2025-08-12 20:01 | XMS_ITS | Encounter Summary ---
Author Organization [facility] Address [address] [place] [address] Care Team Providers Care Web Marketing Intern Name Role Phone Graciela Marsh MD Primary Care Provider Encounter Details Date Type Department Care Team (Latest Contact Info) Description 06/27/1998 Outpatient Historical [facility] Medicine [address] [phone] Lexi Streeter MD [address] [place] [address] Erythema multiforme (Primary Dx) Social History Tobacco Use Types Packs/Day Years Used Date Smoking Tobacco: Never Assessed Comments Unknown Sex and Gender Information Value Date Recorded Sex Assigned at Not on file 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
--- OUTSIDE RECORDS SUMMARY | 2025-08-12 20:01 | XMS_ITS | Encounter Summary ---
Author Organization [facility] Address [address] [place] [address] Care Team Providers Care Electrician Aircraft Name Role Phone Graciela Marsh MD Primary Care Provider [phone] Encounter Details Date Type Department Care Team (Latest Contact Info) Description 01/13/[address] [facility] [address] [place] [address] Eliza Amezcua, LEAN ENGINEER [address] [place] [address] ACUTE URI NOS (Primary Dx) Social History Tobacco Use Types Packs/Day Years Used Date Smoking Tobacco: Never Assessed Comments Unknown Sex and Gender Information Value Date Recorded Sex Assigned at Not on file Legal Sex Female 5:20 AM HEAD REFRIGERATION ENGINEER Gender Identity Not on file Sexual Orientation Not on file documented as of this encounter Plan of Treatment Not on file documented as of this encounter Visit Diagnoses Diagnosis Acute upper respiratory infections of unspecified site- Primary documented in this encounter Care Teams Electrician Aircraft Relationship Specialty Start Date End Date Graciela Marsh MD [address] [facility] [address] [place] [phone] PCP - General Family Practice 10/11/13 documented as of this encounter
--- OUTSIDE RECORDS SUMMARY | 2025-08-12 20:01 | XMS_ITS | Encounter Summary ---
Author Organization [facility] Address [address] [place] [address] Care Team Providers Care Mobile Equipment Operator Name Role Phone Graciela Marsh MD Primary Care Provider [phone] Encounter Details Date Type Department Care Team (Latest Contact Info) Description 03/22/2003 Outpatient Historical [facility] [address] [place] [address] Amanuel Duvall DO NO ADDRESS ON FILE ACUTE URI NOS (Primary Dx) Social History Tobacco Use Types Packs/Day Years Used Date Smoking Tobacco: Never Assessed Comments Unknown Sex and Gender Information Value Date Recorded Sex Assigned at Not on file 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
--- OUTSIDE RECORDS SUMMARY | 2025-08-12 20:01 | XMS_ITS | Encounter Summary ---
Author Organization [facility] Address [address] [place] [address] Care Team Providers Care Family Services Manager Name Role Phone Graciela Marsh MD Primary Care Provider Encounter Details Date Type Department Care Team (Latest Contact Info) Description 12/25/2003 Outpatient Historical [facility] [address] [place] [address] Eliza Amezcua, LONG WALL MINING MACHINE TENDER [address] [place] [address] BACKACHE NOS (Primary Dx) Social History Tobacco Use Types Packs/Day Years Used Date Smoking Tobacco: Never Assessed Comments Unknown Sex and Gender Information Value Date Recorded Sex Assigned at Not on file Legal Sex Female 5:20 AM DUMP OPERATOR Gender Identity Not on file Sexual Orientation Not on file documented as of this encounter Plan of Treatment Not on file documented as of this encounter Visit Diagnoses Diagnosis Backache, unspecified- Primary documented in this encounter Care Teams Family Services Manager Relationship Specialty Start Date End Date Graciela Marsh MD [address] [facility] [address] [place] [address] PCP - General Family Practice 10/11/13 documented as of this encounter
--- OUTSIDE RECORDS SUMMARY | 2025-08-12 20:01 | XMS_ITS | Encounter Summary ---
Author Organization [facility] Address [address] [place] [address] Care Team Providers Care Cannon Fire Direction Specialist Name Role Phone Graciela Marsh MD Primary Care Provider [phone] Encounter Details Date Type Department Care Team (Latest Contact Info) Description 01/25/2005 Outpatient Historical [facility] [address] [place] [address] Eliza Amezcua, REPRODUCTIVE HEALTHCARE ASSISTANT [address] [place] [address] CANDIDIASIS SITE NEC (Primary Dx) Social History Tobacco Use Types Packs/Day Years Used Date Smoking Tobacco: Never Assessed Comments Unknown Sex and Gender Information Value Date Recorded Sex Assigned at Not on file Legal Sex Female 5:20 AM CHEMICAL BLENDER Gender Identity Not on file Sexual Orientation Not on file documented as of this encounter Plan of Treatment Not on file documented as of this encounter Visit Diagnoses Diagnosis Other candidiasis of other specified sites- Primary documented in this encounter Care Teams Cannon Fire Direction Specialist Relationship Specialty Start Date End Date Graciela Marsh MD [address] [facility] [address] [place] [address] PCP - General Family Practice 10/11/13 documented as of this encounter
--- OUTSIDE RECORDS SUMMARY | 2025-08-12 20:01 | XMS_ITS | Encounter Summary ---
Author Organization [facility] Address [address] [place] [address] Care Team Providers Care Dirt Bike Racer Name Role Phone Graciela Marsh MD Primary Care Provider Encounter Details Date Type Department Care Team (Latest Contact Info) Description 09/04/2003 Outpatient Historical [facility] [address] [place] [address] Drew Davis MD [address] [facility] [address] [place] [address] OTITIS MEDIA NOS (Primary Dx) Social History Tobacco Use Types Packs/Day Years Used Date Smoking Tobacco: Never Assessed Comments Unknown Sex and Gender Information Value Date Recorded Sex Assigned at Not on file Legal Sex Female 5:20 AM SHAKE PACKER Gender Identity Not on file Sexual Orientation Not on file documented as of this encounter Plan of Treatment Not on file documented as of this encounter Visit Diagnoses Diagnosis Unspecified otitis media- Primary documented in this encounter Care Teams Dirt Bike Racer Relationship Specialty Start Date End Date Graciela Marsh MD [address] [facility] 60 [place] [address] PCP - General Family Practice 10/11/13 documented as of this encounter
--- OUTSIDE RECORDS SUMMARY | 2025-08-12 20:01 | XMS_ITS | Encounter Summary ---
Author Organization [facility] Address [address] [place] [address] Care Team Providers Care Media Promoter Name Role Phone Graciela Marsh MD Primary Care Provider Encounter Details Date Type Department Care Team (Latest Contact Info) Description 02/23/2002 Outpatient Historical [facility] Medicine [address] [address] Lexi Streeter MD [address] [place] [address] ABDOMINAL PAIN RUQ (Primary Dx); ACUTE FRONTAL SINUSITIS Social History Tobacco Use Types Packs/Day Years Used Date Smoking Tobacco: Never Assessed Comments Unknown Sex and Gender Information Value Date Recorded Sex Assigned at Not on file Legal Sex Female 5:20 AM QUALITY CONTROL LAB TECHNICIAN Gender Identity Not on file Sexual Orientation Not on file documented as of this encounter Plan of Treatment Not on file documented as of this encounter Visit Diagnoses Diagnosis Abdominal pain, right upper quadrant- Primary Acute frontal sinusitis documented in this encounter Care Teams Media Promoter Relationship Specialty Start Date End Date Graciela Marsh MD [address] [facility] [place] [address] PCP - General Family Practice 10/11/13 documented as of this encounter
--- OUTSIDE RECORDS SUMMARY | 2025-08-12 20:01 | XMS_ITS | Encounter Summary ---
Author Organization [facility] Address [address] [place] [address] Care Team Providers Care Loom Inspector Name Role Phone Graciela Marsh MD Primary Care Provider Encounter Details Date Type Department Care Team (Latest Contact Info) Description 06/17/2004 Outpatient Historical [facility] [address] [place] [address] Eliza Amezcua, DIRECTOR OF FIELD SERVICE [address] [place] [address] ANXIETY STATE NOS (Primary Dx) Social History Tobacco Use Types Packs/Day Years Used Date Smoking Tobacco: Never Assessed Comments Unknown Sex and Gender Information Value Date Recorded Sex Assigned at Not on file Legal Sex Female 5:20 AM 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
--- OUTSIDE RECORDS SUMMARY | 2025-08-12 20:01 | XMS_ITS | Encounter Summary ---
Author Organization [facility] Address [address]: [place] [address] Care Team Providers Care Die Presser Name Role Phone Graciela Marsh MD Primary Care Provider Encounter Details Date Type Department Care Team (Late st Contact Info) Description 07/24/2002 Outpatient Historical Drew Davis MD [address] [address] Social History Tobacco Use Types Packs/Day Years Used Date Smoking Tobacco: Never Assessed Comments Unknown Sex and Gender Information Value Date Recorded Sex Assigned at Not on file Legal Sex Female 5:20 AM WEB EDITOR Gender Identity Not on file Sexual Orientation Not on file documented as of this encounter Plan of Treatment Not on file documented as of this encounter Visit Diagnoses Not on filedocumented in this encounter Care Teams Die Presser Relationship Specialty Start Date End Date Graciela Marsh MD [address] [facility] 60 [place] [address] PCP - General Family Practice 10/11/13 documented as of this encounter
--- OUTSIDE RECORDS SUMMARY | 2025-08-12 20:01 | XMS_ITS | Encounter Summary ---
Author Organization [facility] Address [address] [place] [address] Care Team Providers Care Electronics Detail Draftsperson Name Role Phone Graciela Marsh MD Primary Care Provider [phone] Encounter Details Date Type Department Care Team (Latest Contact Info) Description 09/18/2004 Outpatient Historical [facility] [address] [place] [address] Eliza Amezcua, HIDE AND SKIN CLASSER [address] [place] [address] HAND INJURY NOS (Primary Dx) Social History Tobacco Use Types Packs/Day Years Used Date Smoking Tobacco: Never Assessed Comments Unknown Sex and Gender Information Value Date Recorded Sex Assigned at Not on file Legal Sex Female 5:20 AM FOREIGN LANGUAGES DEPARTMENT CHAIR Gender Identity Not on file Sexual Orientation Not on file documented as of this encounter Plan of Treatment Not on file documented as of this encounter Visit Diagnoses Diagnosis Injury, other and unspecified, hand, except finger- Primary documented in this encounter Care Teams Electronics Detail Draftsperson Relationship Specialty Start Date End Date Graciela Marsh MD [address] [facility] 60 [place] [address] PCP - General Family Practice 10/11/13 documented as of this encounter
--- OUTSIDE RECORDS SUMMARY | 2025-08-12 20:01 | XMS_ITS | Encounter Summary ---
Author Organization [facility] Address [address] [place] [address] Care Team Providers Care Garment Examiner Name Role Phone Graciela Marsh MD Primary Care Provider Encounter Details Date Type Department Care Team (Latest Contact Info) Description 12/26/2001 Outpatient Historical [facility] Medicine [address] [address] Amanuel Duvall DO NO ADDRESS ON FILE HEADACHE (Primary Dx); Irregular menstruation; ESOPHAGEAL REFLUX Social History Tobacco Use Types [...] as of this encounter Visit Diagnoses Diagnosis Headache(784.0)- Primary Headache Irregular menstruation Irregular menstrual cycle Esophageal reflux documented in this encounter Care Teams Garment Examiner Relationship Specialty Start Date End Date Graciela Marsh MD [address] [address] PCP - General Family Practice 10/11/13 documented as of this encounter
--- OUTSIDE RECORDS SUMMARY | 2025-08-12 20:01 | XMS_ITS | Encounter Summary ---
Author Organization [facility] Address [address] [place] [address] Care Team Providers Care Patternmaker Plaster And Plastic Name Role Phone Graciela Marsh MD Primary Care Provider [phone]- [phone] Encounter Details Date Type Department Care Team (Late st Contact Info) Description 07/26/2007 Outpatient Historical [facility] Family Medicine [address] [address] Social History Tobacco Use Types Packs/Day Years Used Date Smoking Tobacco: Never Assessed Comments Unknown Sex and Gender Information Value Date Recorded Sex Assigned at Not on file Legal Sex Female 5:20 AM DIVE SUPERINTENDENT Gender Identity Not on file Sexual Orientation Not on file documented as of this encounter Plan of Treatment Not on file documented as of this encounter Visit Diagnoses Not on filedocumented in this encounter Care Teams Patternmaker Plaster And Plastic Relationship Specialty Start Date End Date Graciela Marsh MD [address] [phone] PCP - General Family Practice 10/11/13 documented as of this encounter
--- OUTSIDE RECORDS SUMMARY | 2025-08-12 20:01 | XMS_ITS | Encounter Summary ---
Author Organization [facility] Address [address] [place] [address] Care Team Providers Care Automotive General Sales Manager Name Role Phone Graciela Marsh MD Primary Care Provider [phone]- [phone] Encounter Details Date Type Department Care Team (Late st Contact Info) Description 06/28/2006 Outpatient Historical [facility] [place] [address] [place] [address] Social History Tobacco Use Types Packs/Day Years Used Date Smoking Tobacco: Never Assessed Comments Unknown Sex and Gender Information Value Date Recorded Sex Assigned at Not on file Legal Sex Female 5:20 AM IT COMMUNICATIONS MANAGER Gender Identity Not on file Sexual Orientation Not on file documented as of this encounter Plan of Treatment Not on file documented as of this encounter Visit Diagnoses Not on filedocumented in this encounter Care Teams Automotive General Sales Manager Relationship Specialty Start Date End Date Graciela Marsh MD [address] [facility] 60 [place] [address] PCP - General Family Practice 10/11/13 documented as of this encounter
--- OUTSIDE RECORDS SUMMARY | 2025-08-12 20:01 | XMS_ITS | Encounter Summary ---
Author Organization [facility] Address [address] [place]: [place] [address] Care Team Providers Care Shop Cooper Name Role Phone Graciela Marsh MD Primary Care Provider [phone]- [phone] Encounter Details Date Type Department Care Team (Late st Contact Info) Description 02/08/2002 Outpatient Historical Eliza Amezcua, RECONCILING CLERK [address] [place] [address] Social History Tobacco Use Types Packs/Day Years Used Date Smoking Tobacco: Never Assessed Comments Unknown Sex and Gender Information Value Date Recorded Sex Assigned at Not on file Legal Sex Female 5:20 AM HR SYSTEMS ANALYST Gender Identity Not on file Sexual Orientation Not on file documented as of this encounter Plan of Treatment Not on file documented as of this encounter Visit Diagnoses Not on filedocumented in this encounter Care Teams Shop Cooper Relationship Specialty Start Date End Date Graciela Marsh MD [address] [facility] [address] [place] [address] PCP - General Family Practice 10/11/13 documented as of this encounter
--- OUTSIDE RECORDS SUMMARY | 2025-08-12 20:01 | XMS_ITS | Encounter Summary ---
Author Organization [facility] Address [address] [place] [address] Care Team Providers Care Sugar Refiner Name Role Phone Graciela Marsh MD Primary Care Provider [phone]- [phone] Encounter Details Date Type Department Care Team (Latest Contact Info) Description 06/29/2002 Outpatient Historical [facility] [address] [place] [address] Kathie Steward MD NO ADDRESS ON FILE Benign adilia skin trunk (Primary Dx) Social History Tobacco Use Types Packs/Day Years Used Date Smoking Tobacco: Never Assessed Comments Unknown Sex and Gender Information Value Date Recorded Sex Assigned at Not on file Legal Sex Female 5:20 AM ANGIOGRAPHY NURSE Gender Identity Not on file Sexual Orientation Not on file documented as of this encounter Plan of Treatment Not on file documented as of this encounter Visit Diagnoses Diagnosis Benign adilia skin trunk- Primary Benign neoplasm of skin of trunk, except scrotum documented in this encounter Care Teams Sugar Refiner Relationship Specialty Start Date End Date Graciela Marsh MD [address] [phone] PCP - General Family Practice 10/11/13 documented as of this encounter
--- OUTSIDE RECORDS SUMMARY | 2025-08-12 20:01 | XMS_ITS | Encounter Summary ---
Author Organization [facility] Address [address] [place] [address] Care Team Providers Care Preparer Making Department Name Role Phone Graciela Marsh MD Primary Care Provider Encounter Details Date Type Department Care Team (Latest Contact Info) Description 10/25/2005 Outpatient Historical [facility] [address] [place] [address] Eliza Amezcua, HEALTH EDUCATOR [address] [place] [address] BREAST DISORDER NOS (Primary Dx) Social History Tobacco Use Types Packs/Day Years Used Date Smoking Tobacco: Never Assessed Comments Unknown Sex and Gender Information Value Date Recorded Sex Assigned at Not on file Legal Sex Female 5:20 AM SKID ADZER Gender Identity Not on file Sexual Orientation Not on file documented as of this encounter Plan of Treatment Not on file documented as of this encounter Visit Diagnoses Diagnosis Unspecified breast disorder- Primary documented in this encounter Care Teams Preparer Making Department Relationship Specialty Start Date End Date Graciela Marsh MD [address] [facility] 60 [place] [address] PCP - General Family Practice 10/11/13 documented as of this encounter
--- OUTSIDE RECORDS SUMMARY | 2025-08-12 20:01 | XMS_ITS | Encounter Summary ---
Author Organization [facility] Address [address] [place] [address] Care Team Providers Care Instrument Designer Name Role Phone Graciela Marsh MD Primary Care Provider Encounter Details Date Type Department Care Team (Latest Contact Info) Description 08/26/2003 Outpatient Historical [facility] [address] [place] [address] Drew Davis MD [address] [facility] [address] [place] [address] ACUTE URI NOS (Primary Dx) Social History Tobacco Use Types Packs/Day Years Used Date Smoking Tobacco: Never Assessed Comments Unknown Sex and Gender Information Value Date Recorded Sex Assigned at Not on file Legal Sex Female 5:20 AM PRODUCTION ADMINISTRATOR Gender Identity Not on file Sexual Orientation Not on file documented as of this encounter Plan of Treatment Not on file documented as of this encounter Visit Diagnoses Diagnosis Acute upper respiratory infections of unspecified site- Primary documented in this encounter Care Teams Instrument Designer Relationship Specialty Start Date End Date Graciela Marsh MD [address] [facility] 60 [place] [address] PCP - General Family Practice 10/11/13 documented as of this encounter
--- OUTSIDE RECORDS SUMMARY | 2025-08-12 20:01 | XMS_ITS | Encounter Summary ---
Author Organization [facility] Address [address] [place] [address] Care Team Providers Care Respiratory Therapy Technician Name Role Phone Graciela Marsh MD Primary Care Provider Encounter Details Date Type Department Care Team (Latest Contact Info) Description 10/31/2003 Outpatient Historical [facility] Family Medicine [address] [address] Kathie Steward MD NO ADDRESS ON FILE URIN TRACT INFECTION NOS (Primary Dx); ACUTE URI NOS Social History Tobacco Use Types Packs/Day Years Used Date Smoking Tobacco: Never Assessed Comments Unknown Sex and Gender Information Value Date Recorded Sex Assigned at Not on file Legal Sex Female 5:20 AM APPOINTMENT CLERK Gender Identity Not on file Sexual Orientation Not on file documented as of this encounter Plan of Treatment Not on file documented as of this encounter Visit Diagnoses Diagnosis Urinary tract infection, site not specified- Primary Acute upper respiratory infections of unspecified site documented in this encounter Care Teams Respiratory Therapy Technician Relationship Specialty Start Date End Date Graciela Marsh MD [address] [address] PCP - General Family Practice 10/11/13 documented as of this encounter
--- OUTSIDE RECORDS SUMMARY | 2025-08-12 20:01 | XMS_ITS | Encounter Summary ---
Author Organization [facility] Address [address] [place] [address] Care Team Providers Care Concrete Mason Name Role Phone Graciela Marsh MD Primary Care Provider [phone] Encounter Details Date Type Department Care Team (Latest Contact Info) Description 08/09/2002 Outpatient Historical [facility] [address] [address] Matthew Palacios MD [address] [address] OTITIS MEDIA NOS (Primary Dx); ACUTE FRONTAL SINUSITIS Social History Tobacco Use Types Packs/Day Years Used Date Smoking Tobacco: Never Assessed Comments Unknown Sex and Gender Information Value Date Recorded Sex Assigned at Not on file Legal Sex Female 5:20 AM MUSIC VIDEO DIRECTOR Gender Identity Not on file Sexual Orientation Not on file documented as of this encounter Plan of Treatment Not on file documented as of this encounter Visit Diagnoses Diagnosis Unspecified otitis media- Primary Acute frontal sinusitis documented in this encounter Care Teams Concrete Mason Relationship Specialty Start Date End Date Graciela Marsh MD [address] [phone] PCP - General Family Practice 10/11/13 documented as of this encounter
--- OUTSIDE RECORDS SUMMARY | 2025-08-12 20:02 | XMS_ITS | Encounter Summary ---
Author Organization [facility] Address [address] [place] [address] Care Team Providers Care Dairy Clerk Name Role Phone Graciela Marsh MD Primary Care Provider Encounter Details Date Type Department Care Team (Latest Contact Info) Description 09/21/2002 Outpatient Historical [facility] [address] [place] [address] Drew Davis MD [address] [address] VACCINE FOR TETANUS + DIPHTHERIA (Primary Dx) Social History Tobacco Use Types Packs/Day Years Used Date Smoking Tobacco: Never Assessed Comments Unknown Sex and Gender Information Value Date Recorded Sex Assigned at Not on file 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
--- OUTSIDE RECORDS SUMMARY | 2025-08-12 20:02 | XMS_ITS | Encounter Summary ---
Author Organization [facility] Address [address] [place] [address] Care Team Providers Care Business Liaison Officer Name Role Phone Graciela Marsh MD Primary Care Provider [phone] Reason for Referral * Outpatient Services (Routine) - Closed Specialty Diagnoses / Procedures Referred By Kenn saavedra Referred To Contact Radiology Diagnoses Visit for screening mammogram Procedures MAMMO DIGITAL SCREEN BILAT Bryan Monet Sr., FNP [address] [place] [address] Phone: tel: fax: [facility] Mammography [place] [address] [place] [address] Phone: tel: fax: Referral ID Status Reason Start Date Expiration Date V isits Requested Visits Authorized [id number] Closed IAN View CTS to Schedule (SGF) 01/06/2016 02/05/2017 1 1 Encounter Details Date Type Department Care Team (Latest Contact Info) Description 01/06/2016 Ancillary Orders [facility] Scheduling [address] [place] [address] Bryan Monet Sr., FNP [address] [place] [address] Visit for screening mammogram (Primary Dx) Social History Tobacco Use Types Packs/Day Years Used Date Smoking Tobacco: Never Smokeless Tobacco: Never Alcohol Use Standard Drinks/Week Comments Not Asked 0 (1 standard drink = 0.6 oz pur e alcohol) Comments No Sex and Gender Information Value Date Recorded Sex Assigned at Not on file 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 This examination was reviewed with the aid of a computer-aided detection system(CAD). The breast tissue is dense. No significant new findings since the prior mammogram(s). Bryan Monet Sr., ASSOCIATE [employer]UDENTS MAMMO ORDERABLES Final Result documented in this encounter Visit Diagnoses Diagnosis Visit for screening mammogram- Primary Other screening mammogram Visit for screening mammogram Other screening mammogram documented in this encounter Care Teams Business Liaison Officer Relationship Specialty Start Date End Date Graciela Marsh MD [address] [facility] [place] [address] PCP - General Family Practice 10/11/13 documented as of this encounter
--- OUTSIDE RECORDS SUMMARY | 2025-08-12 20:02 | XMS_ITS | Encounter Summary ---
Author Organization [facility] Address [address] [place] [address] Care Team Providers Care Electrician Helper Name Role Phone Graciela Marsh MD Primary Care Provider Encounter Details Date Type Department Care Team (Latest Contact Info) Description 03/11/2003 Outpatient Historical [facility] [address] [place] [address] Drew Davis MD [address] [facility] 200 [place] [address] ACUTE URI NOS (Primary Dx) Social History Tobacco Use Types Packs/Day Years Used Date Smoking Tobacco: Never Assessed Comments Unknown Sex and Gender Information Value Date Recorded Sex Assigned at Not on file 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
--- OUTSIDE RECORDS SUMMARY | 2025-08-12 20:02 | XMS_ITS | Encounter Summary ---
Author Organization [facility] Address [address] [place] [address] Care Team Providers Care Outside Laborer Name Role Phone Graciela Marsh MD Primary Care Provider Encounter Details Date Type Department Care Team (Latest Contact Info) Description 03/07/2003 Outpatient Historical [facility] Medicine [address] [address] Eliza Amezcua, CHARGE GANG WEIGHER [address] [place] [address] SCREENING MAL NEOP-CERVIX (Primary Dx) Social History Tobacco Use Types Packs/Day Years Used Date Smoking Tobacco: Never Assessed Comments Unknown Sex and Gender Information Value Date Recorded Sex Assigned at Not on file Legal Sex Female 5:20 AM 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
--- OUTSIDE RECORDS SUMMARY | 2025-08-12 20:02 | XMS_ITS | Encounter Summary ---
Author Organization [facility] Address [address] [place] [address] Care Team Providers Care Joss House Keeper Name Role Phone Graciela Marsh MD Primary Care Provider Encounter Details Date Type Department Care Team (Latest Contact Info) Description 03/21/2003 Outpatient Historical [facility] Family Medicine [address] [address] Kathie Steward MD NO ADDRESS ON FILE OPEN WOUND OF FOOT (Primary Dx) Social History Tobacco Use Types Packs/Day Years Used Date Smoking Tobacco: Never Assessed Comments Unknown Sex and Gender Information Value Date Recorded Sex Assigned at Not on file Legal Sex Female 5:20 AM INFORMATICIST Gender Identity Not on file Sexual Orientation Not on file documented as of this encounter Plan of Treatment Not on file documented as of this encounter Visit Diagnoses Diagnosis Open wound of foot except toe(s) alone, without mention of complication- Primary documented in this encounter Care Teams Joss House Keeper Relationship Specialty Start Date End Date Graciela Marsh MD [address] [address] PCP - General Family Practice 10/11/13 documented as of this encounter
--- OUTSIDE RECORDS SUMMARY | 2025-08-12 20:02 | XMS_ITS | Encounter Summary ---
Author Organization [facility] Address [address] [place] [address] Care Team Providers Care Electronics Hardware Design Engineer Name Role Phone Graciela Marsh MD Primary Care Provider Encounter Details Date Type Department Care Team (Latest Contact Info) Description 12/31/[address] [facility] [address] [place] [address] Drew Davis MD [address] [facility] [address] [place] [phone] ACUTE URI NOS (Primary Dx) Social History Tobacco Use Types Packs/Day Years Used Date Smoking Tobacco: Never Assessed Comments Unknown Sex and Gender Information Value Date Recorded Sex Assigned at Not on file Legal Sex Female 5:20 AM INSURANCE ADVISOR Gender Identity Not on file Sexual Orientation Not on file documented as of this encounter Plan of Treatment Not on file documented as of this encounter Visit Diagnoses Diagnosis Acute upper respiratory infections of unspecified site- Primary documented in this encounter Care Teams Electronics Hardware Design Engineer Relationship Specialty Start Date End Date Graciela Marsh MD [address] [facility] 60 [place] [phone] PCP - General Family Practice 10/11/13 documented as of this encounter
--- OUTSIDE RECORDS SUMMARY | 2025-08-12 20:02 | XMS_ITS | Encounter Summary ---
Author Organization [facility] Address [address] [place] [address] Care Team Providers Care Clinical Documentation Developer Name Role Phone Graciela Marsh MD Primary Care Provider [phone] Encounter Details Date Type Department Care Team (Latest Contact Info) Description 04/10/2004 Outpatient Historical [facility] [address] [place] [address] Eliza Amezcua, SECTION LEADER [address] [place] [address] VAGINITIS NOS (Primary Dx) Social History Tobacco Use Types Packs/Day Years Used Date Smoking Tobacco: Never Assessed Comments Unknown Sex and Gender Information Value Date Recorded Sex Assigned at Not on file Legal Sex Female 5:20 AM ORACLE FUSION DEVELOPER Gender Identity Not on file Sexual Orientation Not on file documented as of this encounter Plan of Treatment Not on file documented as of this encounter Visit Diagnoses Diagnosis Vaginitis and vulvovaginitis, unspecified- Primary documented in this encounter Care Teams Clinical Documentation Developer Relationship Specialty Start Date End Date Graciela Marsh MD [address] [facility] 60 [place] [phone] PCP - General Family Practice 10/11/13 documented as of this encounter
--- OUTSIDE RECORDS SUMMARY | 2025-08-12 20:02 | XMS_ITS | Encounter Summary ---
Author Organization [facility] Address [address] [place] [address] Care Team Providers Care Professor In Family Studies Name Role Phone Graciela Marsh MD Primary Care Provider Encounter Details Date Type Department Care Team (Latest Contact Info) Description 12/17/2002 Outpatient [facility] [address] [place] [address] Drew Davis MD [address] [facility] 200 [place] [address] OPEN WOUND OF FOOT (Primary Dx) Social History Tobacco Use Types Packs/Day Years Used Date Smoking Tobacco: Never Assessed Comments Unknown Sex and Gender Information Value Date Recorded Sex Assigned at Not on file 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
--- OUTSIDE RECORDS SUMMARY | 2025-08-12 20:02 | XMS_ITS | Encounter Summary ---
Author Organization [facility] Address [address] [place] [address] Care Team Providers Care Petroleum Inspector Supervisor Name Role Phone Elton Velasquez MD Primary Care Provider [phone] Encounter Details Date Type Department Care Team (Late st Contact Info) Description 06/11/2025 Results Follow-Up [facility] Family Medicine [place] [address] [facility] 60 [place] [address] Gini Pal NP [address] [place] [address] ALLERGY PANEL, FOOD AND TREE NUTS W/COMP Social History Tobacco Use Types Packs/Day Years [...] worry about transportation for future doctor visits, flower picker medication, etc.? No 2024 Housing Stability Answer [...] on file Legal Sex Female 3:05 PM SECURITY SERVICES MANAGER Gender Identity Not on file Sexual Orientation Not on file documented as of this encounter Miscellaneous Notes * Result Encounter Note - Gini Pal NP - 06/11/2025 5:12 PM CDT Allergy panel is negative. documented in this encounter Plan of Treatment Upcoming Encounters Date Type Department Care Team (Late st Contact Info) Description 09/04/2025 12:00 PM SECURITY SERVICES MANAGER Office Visit [facility] [address] [address] Elton Velasquez MD [address] [address] documented as of this encounter Visit Diagnoses Not on filedocumented in this encounter Care Teams Petroleum Inspector Supervisor Relationship Specialty Start Date End Date Elton Velasquez MD [address] [address] PCP - General Family Practice 11/18/22 documented as of this encounter
--- OUTSIDE RECORDS SUMMARY | 2025-08-12 20:02 | XMS_ITS | Encounter Summary ---
Author Organization [facility] Address [address] [place] [address] Care Team Providers Care Painter And Body Work Name Role Phone Graciela Marsh MD Primary Care Provider [phone] Encounter Details Date Type Department Care Team (Latest Contact Info) Description 12/05/2002 Outpatient Historical [facility] [address] [place] [address] Amanuel Duvall DO NO ADDRESS ON FILE FEMALE GENITAL SYMPTOMS NOS (Primary Dx); REFLUX ESOPHAGITIS Social History Tobacco Use Types Packs/Day Years Used Date Smoking Tobacco: Never Assessed Comments Unknown Sex and Gender Information Value Date Recorded Sex Assigned at Not on file Legal Sex Female 5:20 AM SHIFT PRODUCTION ASSOCIATE Gender Identity Not on file Sexual Orientation Not on file documented as of this encounter Plan of Treatment Not on file documented as of this encounter Visit Diagnoses Diagnosis Unspecified symptom associated with female genital organs- Primary Reflux esophagitis documented in this encounter Care Teams Painter And Body Work Relationship Specialty Start Date End Date Graciela Marsh MD [address] [facility] 60 [place] [address] PCP - General Family Practice 10/11/13 documented as of this encounter
--- OUTSIDE RECORDS SUMMARY | 2025-08-12 20:02 | XMS_ITS | Encounter Summary ---
Author Organization [facility] Address [address] [place] [address] Care Team Providers Care Legal Manager Name Role Phone Graciela Marsh MD Primary Care Provider [phone] Encounter Details Date Type Department Care Team (Latest Contact Info) Description 03/20/2004 Outpatient Historical [facility] Family Medicine [address] [address] Alton Kat NP NO ADDRESS ON FILE ACUTE PHARYNGITIS (Primary Dx); ACUTE SINUSITIS NOS Social History Tobacco Use Types Packs/Day Years Used Date Smoking Tobacco: Never Assessed Comments Unknown Sex and Gender Information Value Date Recorded Sex Assigned at Not on file Legal Sex Female 5:20 AM ORDER ENTRY Gender Identity Not on file Sexual Orientation Not on file documented as of this encounter Plan of Treatment Not on file documented as of this encounter Visit Diagnoses Diagnosis Acute pharyngitis- Primary Acute sinusitis, unspecified documented in this encounter Care Teams Legal Manager Relationship Specialty Start Date End Date Graciela Marsh MD [address] [address] PCP - General Family Practice 10/11/13 documented as of this encounter
--- OUTSIDE RECORDS SUMMARY | 2025-08-12 20:02 | XMS_ITS | Encounter Summary ---
Author Organization [facility] Address [address] [place] [address] Care Team Providers Care Shipping And Receiving Coordinator Name Role Phone Graciela Marsh MD Primary Care Provider Encounter Details Date Type Department Care Team (Latest Contact Info) Description 08/21/[address] [facility] [address] [phone] Matthew Palacios MD [address] [address] OTITIS MEDIA NOS (Primary Dx); ACUTE FRONTAL SINUSITIS Social History Tobacco Use Types Packs/Day Years Used Date Smoking Tobacco: Never Assessed Comments Unknown Sex and Gender Information Value Date Recorded Sex Assigned at Not on file Legal Sex Female 5:20 AM NEWSCAST DIRECTOR Gender Identity Not on file Sexual Orientation Not on file documented as of this encounter Plan of Treatment Not on file documented as of this encounter Visit Diagnoses Diagnosis Unspecified otitis media- Primary Acute frontal sinusitis documented in this encounter Care Teams Shipping And Receiving Coordinator Relationship Specialty Start Date End Date Graciela Marsh MD [address] [phone] PCP - General Family Practice 10/11/13 documented as of this encounter
--- OUTSIDE RECORDS SUMMARY | 2025-08-12 20:02 | XMS_ITS | Encounter Summary ---
Author Organization [facility] Address [address] [place] [address] Care Team Providers Care Safety Director Name Role Phone Graciela Marsh MD Primary Care Provider Encounter Details Date Type Department Care Team (Latest Contact Info) Description 09/27/2002 Outpatient Historical [facility] Family Medicine [address] [address] Kathie Steward MD NO ADDRESS ON FILE ACUTE PHARYNGITIS (Primary Dx); URIN TRACT INFECTION NOS Social History Tobacco Use Types Packs/Day Years Used Date Smoking Tobacco: Never Assessed Comments Unknown Sex and Gender Information Value Date Recorded Sex Assigned at Not on file Legal Sex Female 5:20 AM AGENCY RECRUITER Gender Identity Not on file Sexual Orientation Not on file documented as of this encounter Plan of Treatment Not on file documented as of this encounter Visit Diagnoses Diagnosis Acute pharyngitis- Primary Urinary tract infection, site not specified documented in this encounter Care Teams Safety Director Relationship Specialty Start Date End Date Graciela Marsh MD [address] [address] PCP - General Family Practice 10/11/13 documented as of this encounter
--- OUTSIDE RECORDS SUMMARY | 2025-08-12 20:02 | XMS_ITS | Encounter Summary ---
Author Organization [facility] Address [address] [place] [address] Care Team Providers Care Stove Fitter Name Role Phone Graciela Marsh MD Primary Care Provider Encounter Details Date Type Department Care Team (Latest Contact Info) Description 10/02/2002 Outpatient Historical [facility] Family Medicine [address] [address] Amanuel Duvall DO NO ADDRESS ON FILE URIN TRACT INFECTION NOS (Primary Dx) Social History Tobacco Use Types Packs/Day Years Used Date Smoking Tobacco: Never Assessed Comments Unknown Sex and Gender Information Value Date Recorded Sex Assigned at Not on file Legal Sex Female 5:20 AM ADOPTION SOCIAL WORKER Gender Identity Not on file Sexual Orientation Not on file documented as of this encounter Plan of Treatment Not on file documented as of this encounter Visit Diagnoses Diagnosis Urinary tract infection, site not specified- Primary documented in this encounter Care Teams Stove Fitter Relationship Specialty Start Date End Date Graciela Marsh MD [address] [address] PCP - General Family Practice 10/11/13 documented as of this encounter
--- OUTSIDE RECORDS SUMMARY | 2025-08-12 20:02 | XMS_ITS | Encounter Summary ---
Author Organization [facility] Address [address] [place] [address] Care Team Providers Care Coagulant Dipper Name Role Phone Graciela Marsh MD Primary Care Provider Encounter Details Date Type Department Care Team (Latest Contact Info) Description 02/04/2003 Outpatient [facility] [address] [phone] Matthew Palacios MD [address] [address] INFEC OTITIS EXTERNA NOS (Primary Dx); ACUTE PHARYNGITIS Social History Tobacco Use Types Packs/Day Years Used Date Smoking Tobacco: Never Assessed Comments Unknown Sex and Gender Information Value Date Recorded Sex Assigned at Not on file 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
--- OUTSIDE RECORDS SUMMARY | 2025-08-12 20:02 | XMS_ITS | Encounter Summary ---
Author Organization [facility] Address [address] [place] [address] Care Team Providers Care Heel Builder Machine Name Role Phone Graciela Marsh MD Primary Care Provider Encounter Details Date Type Department Care Team (Latest Contact Info) Description 01/28/2003 Outpatient Historical [facility] [address] [place] [address] Drew Davis MD [address] [facility] 200 [place] [address] URINARY FREQUENCY (Primary Dx) Social History Tobacco Use Types Packs/Day Years Used Date Smoking Tobacco: Never Assessed Comments Unknown Sex and Gender Information Value Date Recorded Sex Assigned at Not on file Legal Sex Female 5:20 AM FOREIGN LAW CONSULTANT Gender Identity Not on file Sexual Orientation Not on file documented as of this encounter Plan of Treatment Not on file documented as of this encounter Visit Diagnoses Diagnosis Urinary frequency- Primary documented in this encounter Care Teams Heel Builder Machine Relationship Specialty Start Date End Date Graciela Marsh MD [address] [facility] [address] [place] [address] PCP - General Family Practice 10/11/13 documented as of this encounter
--- OUTSIDE RECORDS SUMMARY | 2025-08-12 20:02 | XMS_ITS | Encounter Summary ---
Author Organization [facility] Address [address] [place] [address] Care Team Providers Care Skip Hoist Engineer Name Role Phone Graciela Marsh MD Primary Care Provider [phone] Reason for Referral * Outpatient Services (Routine) - Closed Specialty Diagnoses / Procedures Referred By Kenn t Referred To Contact Radiology Diagnoses Other screening mammogram Procedures MAMMO DIGITAL SCREEN BILAT Bryan Monet Sr., FNP [address] [place] [address] Phone: tel: fax: [facility] [place] [address] [place] [address] Phone: tel: fax: Referral ID Status Reason Start Date Expiration Date V isits Requested Visits Authorized [id number] Closed [facility] View CTS to Schedule (SGF) 12/12/2014 01/12/2016 1 1 Encounter Details Date Type Department Care Team (Latest Contact Info) Description 12/12/2014 Ancillary Orders [facility] Scheduling [address] [place] [phone] Bryan Monet Sr., FNP [address] [place] [address] Other screening mammogram (Primary Dx) Social History Tobacco Use Types Packs/Day Years Used Date Smoking Tobacco: Never Smokeless Tobacco: Never Alcohol Use Standard Drinks/Week Comments Not Asked 0 (1 standard drink = 0.6 oz pur e alcohol) Comments No Sex and Gender Information Value Date Recorded Sex Assigned at Not on file Legal Sex Female 5:20 AM LANGUAGE THERAPIST Gender Identity Not on file Sexual Orientation Not on file documented as of this encounter Plan of Treatment Not on file documented as of this encounter Results * MAMMO DIGITAL SCREEN BILAT (12/18/2014 10:03 AM CDT) Anatomical Region Laterality Modality Breast Bilateral Mammography Addenda Addendum by Kartik Islas MD on 12/26/2014 12:49 PM CDT ADDENDUM TO SCREENING MAMMOGRAM OF 12/18/2014: We now have previous 11/03/2005, for comparison. No significant interval change is identified. IMPRESSION: No significant change is suggested when recent screening mammogram is compared with previous. I continue to recommend routine annual screening mammograms. AGUEDA/winsome - Transcribed in Epic - Narrative 12/19/2014 3:32 PM CDT Bilateral Mammogram Reason for Exam: Screening Comparison: Unavailable at time of reading Findings: Bilateral CC and MLO views were obtained. This examination was reviewed with the aid of a computer-aided detection system(CAD). The breast tissue is dense. There are multiple bilateral well defined nodules. Prior mammogram(s) are not available at this time. We are attempting to retrieve them for comparison. If they do not become available within the next 2-4 weeks, I would recommend the patient resume routine screening mammograms. No significant new findings since the prior mammogram(s). Bryan Monet Sr., LOG RAFTER MAMMO ORDERABLES Edited Result - Final documented in this encounter Visit Diagnoses Diagnosis Other screening mammogram- Primary Other screening mammogram documented in this encounter Care Teams Skip Hoist Engineer Relationship Specialty Start Date End Date Graciela Marsh MD [address] [phone] PCP - General Family Practice 10/11/13 documented as of this encounter
--- OUTSIDE RECORDS SUMMARY | 2025-08-12 20:02 | XMS_ITS | Encounter Summary ---
Author Organization [facility] Address [address] [place] [address] Care Team Providers Care Brake [address] Freight Name Role Phone Graciela Marsh MD Primary Care Provider Encounter Details Date Type Department Care Team (Latest Contact Info) Description 02/28/2003 Outpatient Historical [facility] Medicine [address] [address] Kathie Steward MD NO ADDRESS ON FILE ACUTE SINUSITIS NOS (Primary Dx); LYMPHADENITIS NOS Social History Tobacco Use Types Packs/Day Years Used Date Smoking Tobacco: Never Assessed Comments Unknown Sex and Gender Information Value Date Recorded Sex Assigned at Not on file Legal Sex Female 5:20 AM NEURODIAGNOSTIC TECH Gender Identity Not on file Sexual Orientation Not on file documented as of this encounter Plan of Treatment Not on file documented as of this encounter Visit Diagnoses Diagnosis Acute sinusitis, unspecified- Primary Lymphadenitis, unspecified, except mesenteric documented in this encounter Care Teams Brake [address] Freight Relationship Specialty Start Date End Date Graciela Marsh MD [address] [address] PCP - General Family Practice 10/11/13 documented as of this encounter
--- OUTSIDE RECORDS SUMMARY | 2025-08-12 20:02 | XMS_ITS | Encounter Summary ---
Author Organization [facility] Address [address] [place] [address] Care Team Providers Care Babysitter Name Role Phone Graciela Marsh MD Primary Care Provider Encounter Details Date Type Department Care Team (Latest Contact Info) Description 03/18/2003 Outpatient Historical [facility] Family Medicine [address] [address] Kathie Steward MD NO ADDRESS ON FILE OPEN WOUND OF FOOT (Primary Dx) Social History Tobacco Use Types Packs/Day Years Used Date Smoking Tobacco: Never Assessed Comments Unknown Sex and Gender Information Value Date Recorded Sex Assigned at Not on file Legal Sex Female 5:20 AM MGMT SPECIALIST Gender Identity Not on file Sexual Orientation Not on file documented as of this encounter Plan of Treatment Not on file documented as of this encounter Visit Diagnoses Diagnosis Open wound of foot except toe(s) alone, without mention of complication- Primary documented in this encounter Care Teams Babysitter Relationship Specialty Start Date End Date Graciela Marsh MD [address] [address] PCP - General Family Practice 10/11/13 documented as of this encounter
--- OUTSIDE RECORDS SUMMARY | 2025-08-12 20:02 | XMS_ITS | Encounter Summary ---
Author Organization [facility] Address [address] [place] [address] Care Team Providers Care Business Sales Consultant Name Role Phone Graciela Marsh MD Primary Care Provider Encounter Details Date Type Department Care Team (Latest Contact Info) Description 02/19/2003 Outpatient Historical [facility] Family Medicine- [address] [place] [address] Drew Davis MD [address] [phone] CANDIDAL VULVOVAGINITIS (Primary Dx); DYSURIA; ABDOMINAL PAIN EPIGASTRIC; Dysfunct eustachian tube Social History Tobacco Use Types Packs/Day Years Used Date Smoking Tobacco: Never Assessed Comments Unknown Sex and Gender Information Value Date Recorded Sex Assigned at Not on file Legal Sex Female 5:20 AM SILO FILLER Gender Identity Not on file Sexual Orientation Not on file documented as of this encounter Plan of Treatment Not on file documented as of this encounter Visit Diagnoses Diagnosis Candidiasis of vulva and vagina- Primary Dysuria Abdominal pain, epigastric Dysfunct eustachian tube Dysfunction of Eustachian tube documented in this encounter Care Teams Business Sales Consultant Relationship Specialty Start Date End Date Graciela Marsh MD [address] [phone] PCP - General Family Practice 10/11/13 documented as of this encounter
--- OUTSIDE RECORDS SUMMARY | 2025-08-12 20:02 | XMS_ITS | Clinical Summary ---
Author Organization [facility] Address [address] [place] [address] Care Team Providers Care Podiatric Assistant Name Role Phone Graciela Marsh MD Primary Care Provider [phone] Allergies Active Allergy Reactions Criticality Noted Date Comments Codeine Hives High 10/10/2017 Doxycycline Swelling Low 10/23/2008 Meperidine Hives High 10/23/2008 Neomycin Hives High 10/10/2017 Prochlorperazine Anaphylaxis High 10/23/2008 Prochlorperazine Edisylate Anaphylaxis High 10/23/19 09 Sulfa (Sulfonamide Antibiotics) Willis Fabio Syndrome High 10/23/2008 Medications MULTI-VITAMIN PO Take by mouth. Active dexlansoprazole (DEXILANT) 60 mg Delayed Release capsule 1 Capsule. Active hydroCHLOROthiaz jodi 25 mg tablet 1 Tablet. Act finesse buPROPion HCL (WELLBUTRIN SR) 100 mg Sustained Release 12 hour tablet TK 1 T PO BID 02/01/2020 Active montelukast (SINGULAIR) 10 mg tablet Take 10 mg by mouth daily at bedtime. Active fexofenadine HCl (MARTÍNEZ ALLERGY ORAL) Take by mouth. Active phentermine (ADIPEX P) 37.5 mg tabletIndication s:Obesity (BMI 35.0-39.9 without comorbidity) Take 1 Tablet (37.5 mg) by mouth daily before breakfast. 30 Tablet 03/20/2021 Active Active Problems Problem Noted Date Diagnosed Date Chronic left maxillary sinusitis 07/29/2020 Decreased hearing of right ear 07/29/2020 Gastroesophageal reflux disease with esophagitis 07/29/2020 Fluid retention 05/11/2012 Immunizations Immunization Administration Dates Next Due Influenza Seasonal Unspecified Formulation IM Influenza Vaccine Split 3+ Yrs PF IM 07/30/2013 Family History Medical History Relation Name Comments Cancer Mother LEUKEMIA Breast Cancer Neg Hx Ovarian Cancer Neg Hx Relation Name Status Comments Daughter 1 Alive Daughter 2 Alive Maternal Grandmother Alive Mother Alive Sister 1 Alive Sister 2 Alive Social History Tobacco Use Types Packs/Day Years Used Date Smoking Tobacco: Never Smokeless Tobacco: Never Tobacco Cessation:Counseling Given: Yes Alcohol Use Standard Drinks/Week Comments Not Asked 0 (1 standard drink = 0.6 oz pur e alcohol) Comments No Sex and Gender Information Value Date Recorded Sex Assigned at Not on file Legal Sex Female 5:20 AM LINTER OPERATOR Gender Identity Not on file Sexual Orientation Not on file Last Filed Vital Signs Vital Sign Reading Time Taken Comments Blood Pressure 120/66 03/20/2021 8:46 AM CDT Pulse 99 03/20/2021 8:46 AM CDT Temperature 36.3 C (97.3 F) 03/20/2021 8:46 AM CDT Respiratory Rate 18 10/10/2017 4:25 PM LINTER OPERATOR Oxygen Saturation 98% 03/20/2021 8:46 AM CDT Inhaled Oxygen Concentration - - Weight 104.8 kg (231 lb) 03/20/2021 8:46 AM CDT Height 172.7 cm (5' 8 ) 03/20/2021 8:46 AM CDT Body Mass Index 35.12 03/20/2021 8:46 AM CDT Plan of Treatment Health Maintenance Due Date Last Done Comments DTAP/TDAP/TD VACCINES (1 - Tdap) 1993 HEPATITIS B VACCINES (1 of 3 - 19+ 3-dose series) 1993 HPV/Cotest (21-29) 1995 CERVICAL CANCER SCREENING 2004 HPV/Cotest (30-65) 2004 PAP SMEAR 2004 03/06/2001 COLORECTAL SCREENING 2019 Colorectal Cancer Screening 2019 FIT-DNA Q 3 years 2019 FIT/FOBT Q 1 year 2019 Flex Sig/CT Colonography Q 5 years 2019 ZOSTER VACCINE (1 of 2) 2024 Preventative Visit- Commercial 10/03/2024 INFLUENZA VACCINE (#1) 2025 5, 07/30/2013, 09/09/2003 BREAST CANCER SCREENING 07/11/2025 07/11/20 24, 04/14/2022, 01/14/2016, Additional history exists Procedures Procedure Name Priority Date/Time Associated Diagnosis Comments MAMMO SCREEN BILAT W OR WO CAD Routine 01/14/2016 2:32 PM CDT Visit for screening mammogram from Last 3 Months or Most Recently Relevant to Health Maintenance Results * MAMMO DIGITAL SCREEN BILAT (01/14/2016 [...] since the prior mammogram(s). Bryan Monet Sr., TALLOW MAKER MAMMO ORDERABLES Final Result from Last 3 Months or Most Recently Relevant to Health Maintenance Insurance [employer] CHOICE Care Teams Podiatric Assistant Relationship Specialty Start Date End Date Graciela Marsh MD [address] [phone] PCP - General Family Practice 10/11/13
--- OUTSIDE RECORDS SUMMARY | 2025-08-12 20:02 | XMS_ITS | Encounter Summary ---
Author Organization [facility] Address [address] [place] [address] Care Team Providers Care Furniture Technician Name Role Phone Graciela Marsh MD Primary Care Provider [phone] Encounter Details Date Type Department Care Team (Latest Contact Info) Description 01/20/2004 Outpatient Historical [facility] [address] [place] [address] Eliza Amezcua, MANAGER BUSINESS PLANNING [address] [place] [address] ACUTE URI NOS (Primary Dx); CANDIDIASIS SITE NEC Social History Tobacco Use Types Packs/Day Years Used Date Smoking Tobacco: Never Assessed Comments Unknown Sex and Gender Information Value Date Recorded Sex Assigned at Not on file Legal Sex Female 5:20 AM WOOD CARVING LATHE OPERATOR Gender Identity Not on file Sexual Orientation Not on file documented as of this encounter Plan of Treatment Not on file documented as of this encounter Visit Diagnoses Diagnosis Acute upper respiratory infections of unspecified site- Primary Other candidiasis of other specified sites documented in this encounter Care Teams Furniture Technician Relationship Specialty Start Date End Date Graciela Marsh MD [address] [facility] [address] [place] [phone] PCP - General Family Practice 10/11/13 documented as of this encounter
--- OUTSIDE RECORDS SUMMARY | 2025-08-12 20:02 | XMS_ITS | Encounter Summary ---
Author Organization [facility] Address [address] [place] [address] Care Team Providers Care Pattern Cutter Name Role Phone Graciela Marsh MD Primary Care Provider Encounter Details Date Type Department Care Team (Latest Contact Info) Description 01/27/2004 Outpatient Historical [facility] [address] [place] [address] Eliza Amezcua, WELDING MACHINE OPERATOR [employer] [address] [place] [address] URINARY FREQUENCY (Primary Dx) Social History Tobacco Use Types Packs/Day Years Used Date Smoking Tobacco: Never Assessed Comments Unknown Sex and Gender Information Value Date Recorded Sex Assigned at Not on file Legal Sex Female 5:20 AM STUDENT SUCCESS COACH Gender Identity Not on file Sexual Orientation Not on file documented as of this encounter Plan of Treatment Not on file documented as of this encounter Visit Diagnoses Diagnosis Urinary frequency- Primary documented in this encounter Care Teams Pattern Cutter Relationship Specialty Start Date End Date Graciela Marsh MD [address] [facility] [place] [phone] PCP - General Family Practice 10/11/13 documented as of this encounter
--- OUTSIDE RECORDS SUMMARY | 2025-08-12 20:02 | XMS_ITS | Encounter Summary ---
Author Organization [facility] Address [address] [place] [address] Care Team Providers Care Lump Receiver Name Role Phone Graciela Marsh MD Primary Care Provider [phone] Encounter Details Date Type Department Care Team (Latest Contact Info) Description 01/16/2003 Outpatient Historical [facility] [address] [place] [address] Kathie Steward MD NO ADDRESS ON FILE OTITIS MEDIA NOS (Primary Dx) Social History Tobacco Use Types Packs/Day Years Used Date Smoking Tobacco: Never Assessed Comments Unknown Sex and Gender Information Value Date Recorded Sex Assigned at Not on file Legal Sex Female 5:20 AM SUPERVISOR FRAME ASSEMBLY Gender Identity Not on file Sexual Orientation Not on file documented as of this encounter Plan of Treatment Not on file documented as of this encounter Visit Diagnoses Diagnosis Unspecified otitis media- Primary documented in this encounter Care Teams Lump Receiver Relationship Specialty Start Date End Date Graciela Marsh MD [address] [facility] [place] [phone] PCP - General Family Practice 10/11/13 documented as of this encounter
--- OUTSIDE RECORDS SUMMARY | 2025-08-12 20:02 | XMS_ITS | Encounter Summary ---
Author Organization [facility] Address [address] [place] [address] Care Team Providers Care Power Barker Operator Name Role Phone Graciela Marsh MD Primary Care Provider Encounter Details Date Type Department Care Team (Latest Contact Info) Description 03/07/2003 Outpatient Historical [facility] Medicine [address] [address] Kathie Steward MD NO ADDRESS ON FILE Gynecologic examination (Primary Dx); ALLERGY, UNSPECIFIED; ESOPHAGEAL REFLUX Social History Tobacco Use Types Packs/Day Years Used Date Smoking Tobacco: Never Assessed Comments Unknown Sex and Gender Information Value Date Recorded Sex Assigned at Not on file Legal Sex Female 5:20 AM SAND OPERATOR Gender Identity Not on file Sexual Orientation Not on file documented as of this encounter Plan of Treatment Not on file documented as of this encounter Visit Diagnoses Diagnosis Gynecologic examination- Primary Gynecological examination Allergy, unspecified not elsewhere classified Esophageal reflux documented in this encounter Care Teams Power Barker Operator Relationship Specialty Start Date End Date Graciela Marsh MD [address] [phone] PCP - General Family Practice 10/11/13 documented as of this encounter
--- OUTSIDE RECORDS SUMMARY | 2025-08-12 20:02 | XMS_ITS | Encounter Summary ---
Author Organization [facility] Address [address] [place] [address] Care Team Providers Care Assembler Clip On Sunglasses Name Role Phone Graciela Marsh MD Primary Care Provider Encounter Details Date Type Department Care Team (Latest Contact Info) Description 03/09/2004 Outpatient Historical [facility] [address] [place] [address] Eliza Amezcua, MARKETING SEGMENT MANAGER [address] [place] [address] DERMATITIS OTHER NEC (Primary Dx) Social History Tobacco Use Types Packs/Day Years Used Date Smoking Tobacco: Never Assessed Comments Unknown Sex and Gender Information Value Date Recorded Sex Assigned at Not on file Legal Sex Female 5:20 AM HANDLE TURNER Gender Identity Not on file Sexual Orientation Not on file documented as of this encounter Plan of Treatment Not on file documented as of this encounter Visit Diagnoses Diagnosis Contact dermatitis and other eczema due to other specified agent- Primary documented in this encounter Care Teams Assembler Clip On Sunglasses Relationship Specialty Start Date End Date Graciela Marsh MD [address] [facility] [address] [place] [phone] PCP - General Family Practice 10/11/13 documented as of this encounter
--- OUTSIDE RECORDS SUMMARY | 2025-08-12 20:02 | XMS_ITS | Encounter Summary ---
Author Organization [facility] Address [address] [place] [address] Care Team Providers Care Diving Instructor Name Role Phone Graciela Marsh MD Primary Care Provider Encounter Details Date Type Department Care Team (Late st Contact Info) Description 03/06/2019 Ancillary Orders [employer] [place] [address] [place] [address] Dulce Maria Pugh, [facility] [address] [place] [address] Injury of left hand, initial encounter Social History Tobacco Use Types Packs/Day Years Used Date Smoking Tobacco: Never Smokeless Tobacco: Never Alcohol Use Standard Drinks/Week Comments Not Asked 0 (1 standard drink = 0.6 oz pur e alcohol) Comments No Sex and Gender Information Value Date Recorded Sex Assigned at Not on file Legal Sex Female 5:20 AM BAND SCROLL SAW OPERATOR Gender Identity Not on file Sexual Orientation Not on file documented as of this encounter Plan of Treatment Not on file documented as of this encounter Results * XR HAND 3+ VW LEFT (03/06/2019 8:03 AM CDT) Anatomical Region Laterality Modality Wrist / Hand Computed Radiogr aphy 03/06/2019 8:03 AM CDT Impressions 03/06/2019 2:07 PM CDT IMPRESSION: Please see below. Exam: XR HAND 3+ VW LEFT Date/Time of Exam: 03/06/2019 8:03 AM Reason For Exam: See Diagnosis. Diagnosis: Injury of left hand, initial encounter. Comparison: None Findings: No acute fracture or significant focal osseous or joint space abnormality. IMPRESSION: 1. Nothing acute. [id number] Narrative Procedure Note Devin Heaton MD - 03/06/2019 IMPRESSION: Please see below. Exam: XR HAND 3+ VW LEFT Date/Time of Exam: 03/06/2019 8:03 AM Reason For Exam: See Diagnosis. Diagnosis: Injury of left hand, initial encounter. Comparison: None Findings: No acute fracture or significant focal osseous or joint space abnormality. IMPRESSION: 1. Nothing acute. [id number] Dulce Maria Pugh DIE KEEPER DIAGNOSTIC IMAGING ORDERABL ES Final Result documented in this encounter Visit Diagnoses Diagnosis Injury of left hand, initial encounter Injury of left hand, initial encounter documented in this encounter Care Teams Diving Instructor Relationship Specialty Start Date End Date Graciela Marsh MD [address] [phone] PCP - General Family Practice 10/11/13 documented as of this encounter
--- OUTSIDE RECORDS SUMMARY | 2025-08-12 20:02 | XMS_ITS | Encounter Summary ---
Author Organization [facility] Address [address] [place] [address] Care Team Providers Care Structural Steel Ironworker Name Role Phone Graciela Marsh MD Primary Care Provider [phone] Encounter Details Date Type Department Care Team (Latest Contact Info) Description 2002 Outpatient Historical [facility] [address] [place] [address] Kathie Steward MD NO ADDRESS ON FILE ACUTE SINUSITIS NOS (Primary Dx) Social History Tobacco Use Types Packs/Day Years Used Date Smoking Tobacco: Never Assessed Comments Unknown Sex and Gender Information Value Date Recorded Sex Assigned at Not on file Legal Sex Female 5:20 AM PERSONNEL GENERALIST MANAGER Gender Identity Not on file Sexual Orientation Not on file documented as of this encounter Plan of Treatment Not on file documented as of this encounter Visit Diagnoses Diagnosis Acute sinusitis, unspecified- Primary documented in this encounter Care Teams Structural Steel Ironworker Relationship Specialty Start Date End Date Graciela Marsh MD [address] [facility] [place] [phone] PCP - General Family Practice 10/11/13 documented as of this encounter
--- OUTSIDE RECORDS SUMMARY | 2025-08-12 20:02 | XMS_ITS | Encounter Summary ---
Author Organization [facility] Address [address] [place] [address] Care Team Providers Care Importer Or Exporter Name Role Phone Graciela Marsh MD Primary Care Provider Encounter Details Date Type Department Care Team (Latest Contact Info) Description 09/24/2002 Outpatient Historical [facility] [address] [place] [address] Drew Davis MD [address] [facility] [address] [place] [phone] URIN TRACT INFECTION NOS (Primary Dx) Social History Tobacco Use Types Packs/Day Years Used Date Smoking Tobacco: Never Assessed Comments Unknown Sex and Gender Information Value Date Recorded Sex Assigned at Not on file Legal Sex Female 5:20 AM TUBE REBUILDER Gender Identity Not on file Sexual Orientation Not on file documented as of this encounter Plan of Treatment Not on file documented as of this encounter Visit Diagnoses Diagnosis Urinary tract infection, site not specified- Primary documented in this encounter Care Teams Importer Or Exporter Relationship Specialty Start Date End Date Graciela Marsh MD [address] [facility] [address] [place] [phone] PCP - General Family Practice 10/11/13 documented as of this encounter
--- OUTSIDE RECORDS SUMMARY | 2025-08-12 20:02 | XMS_ITS | Encounter Summary ---
Author Organization [facility] Address [address] [place] [address] Care Team Providers Care Risk Intern Name Role Phone Graciela Marsh MD Primary Care Provider Encounter Details Date Type Department Care Team (Latest Contact Info) Description 03/13/2007 Outpatient Historical [facility] [address] [place] [address] Eliza Amezcua, OPERATIONAL INTELLIGENCE OFFICER [address] [place] [address] Contusion of Unspecified Site (Primary Dx) Social History Tobacco Use Types Packs/Day Years Used Date Smoking Tobacco: Never Assessed Comments Unknown Sex and Gender Information Value Date Recorded Sex Assigned at Not on file Legal Sex Female 5:20 AM NEW CAR SALES MANAGER Gender Identity Not on file Sexual Orientation Not on file documented as of this encounter Plan of Treatment Not on file documented as of this encounter Visit Diagnoses Diagnosis Contusion of unspecified site- Primary documented in this encounter Care Teams Risk Intern Relationship Specialty Start Date End Date Graciela Marsh MD [address] [facility] [address] [place] [phone] PCP - General Family Practice 10/11/13 documented as of this encounter
--- OUTSIDE RECORDS SUMMARY | 2025-08-12 20:02 | XMS_ITS | Encounter Summary ---
Author Organization [facility] Address [address] [place] [address] Care Team Providers Care Liquor Bridge Operator Name Role Phone Graciela Marsh MD Primary Care Provider Encounter Details Date Type Department Care Team (Latest Contact Info) Description 12/20/2002 Outpatient [facility] [address] [phone] Matthew Palacios MD [address] [address] MENSTRUAL DISORDER NEC (Primary Dx) Social History Tobacco Use Types Packs/Day Years Used Date Smoking Tobacco: Never Assessed Comments Unknown Sex and Gender Information Value Date Recorded Sex Assigned at Not on file Legal Sex Female 5:20 AM TELEPHONE SEX WORKER Gender Identity Not on file Sexual Orientation Not on file documented as of this encounter Plan of Treatment Not on file documented as of this encounter Visit Diagnoses Diagnosis Other disorder of menstruation and other abnormal bleeding from female genital tract- Primary documented in this encounter Care Teams Liquor Bridge Operator Relationship Specialty Start Date End Date Graciela Marsh MD [address] [phone] PCP - General Family Practice 10/11/13 documented as of this encounter
--- OUTSIDE RECORDS SUMMARY | 2025-08-12 20:02 | XMS_ITS | Encounter Summary ---
Author Organization [facility] Address [address] [place] [address] Care Team Providers Care Training And Development Head Name Role Phone Graciela Marsh MD Primary Care Provider Encounter Details Date Type Department Care Team (Latest Contact Info) Description 08/13/2002 Outpatient Historical [facility] [address] [place] [address] Drew Davis MD [address] 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
--- OUTSIDE RECORDS SUMMARY | 2025-08-12 20:02 | XMS_ITS | Encounter Summary ---
Author Organization [facility] Address [address] [place] [address] Care Team Providers Care Rotary Adjuster Name Role Phone Graciela Marsh MD Primary Care Provider Encounter Details Date Type Department Care Team (Latest Contact Info) Description 10/22/2002 Outpatient Historical [facility] [address] [place] [address] Drew Davis MD [address] [address] ACUTE URI NOS (Primary Dx); URIN TRACT INFECTION NOS Social History Tobacco Use Types Packs/Day Years Used Date Smoking Tobacco: Never Assessed Comments Unknown Sex and Gender Information Value Date Recorded Sex Assigned at Not on file 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
--- NOTE | 2025-08-12 20:30 | W.ED.FEMALGU ---
HPI - Female Genitourinary General: Chief complaint: Urogenital-Female Stated complaint: ABD Pain RT Side Time Seen by Provider: 08/12/25 20:16 Source: patient Mode of arrival: ambulatory Limitations: no limitations History of Present Illness: This patient is a 49-year-old female who presents to the Emergency Department with right back and flank pain beginning yesterday. History of kidney stones in the past, she was actually seen at prior emergency department earlier today diagnosed with a 4 mm nonobstructing kidney stone, and ultimately discharged home on Flomax and [place]. Attempting to obtain these records from previous ER. She states she went home and pain is only gotten worse, has had dysuria throughout the day. No fevers or vomiting but does state that she feels nauseous. No history of previous stone obstruction or infected stone. Reporting severe 10/10 pain at this time, she is tearful. However no other new symptoms of popped up since her discharge from previous ER. She is hypertensive at this time likely secondary to pain, afebrile however and does not appear toxic. No rash. MD elicited complaint: dysuria and flank pain Pertinent past history: other (kidney stones) Onset (ago): day(s) Severity: severe Associated symptoms: Reports abdominal pain and nausea; Deny headache(s) Related Data Home Medications ?Medication ?Instructions ?Recorded ?Confirmed multivitamin 1 tab PO DAILY 11/27/19 06/20/25 hydroxyzine HCl 50 mg tablet 50 mg PO DAILY PRN Pain 03/16/22 06/20/25 cyclobenzaprine 5 mg tablet 5 mg PO DAILY PRN Pain 06/03/23 06/20/25 ondansetron HCl 4 mg tablet 4 mg PO Q6H 09/02/23 06/20/25 metformin 500 mg tablet 500 mg PO DAILY 04/13/24 06/20/25 sucralfate 1 gram tablet PO 12/13/24 06/20/25 potassium chloride 20 mEq 20 meq PO DAILY 03/06/25 06/20/25 tablet,extended release (K-Tab) phytonadione (vitamin K1) 1,000 2 mg PO DAILY 04/25/25 06/20/25 mcg capsule vitamin A 2,400 mcg capsule 10,000 unit PO DAILY 04/25/25 06/20/25 amitriptyline 25 mg tablet 25 mg PO DAILY 06/20/25 06/20/25 estradiol 1 mg tablet 1 mg PO DAILY 06/20/25 06/20/25 Previous Rx's ?Medication ?Instructions ?Recorded metoprolol tartrate 50 mg tablet 50 mg PO BID #180 tabs 01/04/23 albuterol sulfate 90 mcg/actuation See Rx Instructions .Route 07/08/23 aerosol inhaler .COMPLEX #6.7 grams bupropion HCl 150 mg tablet,12 hr See Rx Instructions .Route 08/16/23 sustained-release .COMPLEX #30 tabs epinephrine 0.3 mg/0.3 mL 0.3 mg (0.3 mL) SUBCUT ONCE PRN 02/10/24 injection, auto-injector Allergic Reaction #2 ea furosemide 20 mg tablet See Rx Instructions .Route 06/19/24 .COMPLEX #90 tabs estradiol 0.01% (0.1 mg/gram) 1 g vaginal .twice weekly #3 tubes 04/25/25 vaginal cream terconazole 0.4 % vaginal cream 1 appful vaginal .hs 7 days #45 04/25/25 grams estradiol 1 mg tablet See Rx Instructions .Route 05/27/25 .COMPLEX #90 tabs progesterone micronized 200 mg 200 mg PO BEDTIME #90 caps 06/11/25 capsule ondansetron 4 mg disintegrating 4 mg PO TID PRN nausea and 08/12/25 tablet vomiting #30 tabs Allergies Allergy/AdvReac Type Severity Reaction Status Date / Time codeine Allergy Severe ALGY-Hives Verified 08/12/25 20:05 doxycycline Allergy Severe ALGY-Swell Verified 08/12/25 20:05 Lip/Tongue/Throat heparin Allergy Severe ALGY-Hives Verified 08/12/25 20:05 meperidine (From Demerol) Allergy Severe ALGY-Hives Verified 08/12/25 20:05 prochlorperazine (From Allergy Severe ALGY-Anaphy Verified 08/12/25 20:05 Compazine) laxis Sulfa (Sulfonamide Allergy Severe Unknown Verified 08/12/25 20:05 Antibiotics) Tetracyclines Allergy Severe ALGY-Anaphy Verified 08/12/25 20:05 laxis neomycin Allergy Intermediate ALGY-Bliste Verified 08/12/25 20:05 r Alpha-Gal Allergy Unknown Verified 08/12/25 20:05 ([id number],3-Gala Review of Systems General: Reports: 10 or more systems reviewed and unremarkable except in HPI and below Const: Denies: fever(s), chills, change in appetite, change in weight or diaphoresis ENMT: Denies: throat pain or hoarseness Card: Denies: chest pain, palpitations or lightheadedness Resp: Denies: dyspnea, productive cough or wheezing GI: Reports: abdominal pain and nausea; Denies: vomiting, diarrhea, constipation, bloating, change in stool character or hematochezia : Reports: flank pain and dysuria; Denies: difficulty voiding, urinary frequency, urinary urgency or hematuria Musc: Reports: back pain; Denies: neck pain Skin/Breast: Denies: rash or new lesions Neuro: Denies: headache(s) or dizziness PFSH ED PFSH: Medical History Allergy to alpha-gal No pertinent past medical history neghx: dm, thyroid, dvt/pe PCP: [facility] Esophageal dilatation Neuropathy of both feet Vitamin D insufficiency Mixed hyperlipidemia Anxiety and depression Hypokalemia Essential hypertension Obesity GERD (gastroesophageal reflux disease) Patient has hsitory of GERD and is controlled with Dexilant. Will refill medication and monitor. Surgical History S/P hysterectomy (~2004) [facility]-- performed for AUB, PP. Uncertain of where this occurred. Reported as benign Status post creation of urethral sling by suprapubic approach 11/15/2018 S/P left oophorectomy (~1999) Performed in [facility]--- due to pain. Benign findings (per patient) S/P ear surgery H/O vaginal surgery anterior colporrhaphy 11/15/2018 anterior colporrhapy augmented with allograft 06/07/2023, performed by Alon at [facility] S/P tonsillectomy Patient had recent tonsillectomy to remove residual tonsillar tissue. She had previous tonsillectomy in the past, but continued to have problems. Family History Father Congestive heart failure (CHF) Hypertension Diabetes Hyperlipidemia Heart disease Mother Hypertension Leukemia Diabetes Breast cancer, Onset Age: 66 Heart disease Thyroid disease Stroke Sister Hyperlipidemia Denies family history of Colon cancer Ovarian cancer Uterine cancer Social History Smoking and tobacco/nicotine status: never used tobacco/nicotine Physical Exam Const: COMMON NORMALS: patient oriented x3, healthy appearing, alert and well nourished GENERAL APPEARANCE: cooperative ORIENTATION/CONSCIOUSNESS: Yes awake OTHER: tearful, acute distress from pain Neck/C-Spine: COMMON NORMALS: full ROM, supple and no meningeal signs Resp: COMMON NORMALS: normal respiratory effort, No retractions, No use of accessory muscles and clear to auscultation bilaterally AUSCULTATION: clear to auscultation bilaterally, no crackles, no rales, no rhonchi and no wheezes Cardio: COMMON NORMALS: regular rate, regular rhythm, No gallops present (Cardio), No clicks present (Cardio), No murmurs present (Cardio) and No rub (Cardio) RATE: regular rate RHYTHM: regular rhythm GI: COMMON NORMALS: Soft to palpation, No hepatosplenomegaly present and no masses AUSCULTATION: Yes normoactive bowel sounds PALPATION: Yes Soft to palpation, Yes Tenderness to palpation present (GI) (right abd), No Guarding due to palpation present (GI), No Rigid due to palpation and Yes No hepatosplenomegaly present RECTAL EXAM: deferred : BLADDER/KIDNEY EXAM: Yes CVA tenderness on the right Back/Pelvis: GENERAL BACK: Yes CVA tenderness Extremity: COMMON NORMALS: normal to inspection and full ROM Neuro: COMMON NORMALS: patient oriented x3, moves all extremities, no focal motor deficits and no sensory deficits noted SENSORIUM/ORIENTATION: Yes alert MENINGEAL SIGNS: Yes no meningeal signs Psych: COMMON NORMALS: mental status grossly normal, cooperative and speech normal SPEECH: Yes normal speech Skin: COMMON NORMALS: no rashes or lesions noted GENERAL SKIN EXAM: no rashes or lesions noted Course ED course: I was able to obtain reports on the patient's previous abdominal pelvis CT without contrast from earlier today. Impression there is moderate right hydronephrosis and hydroureter with a 4 mm calculus in the distal right ureter. Associated right perinephric edema. Vital Signs: Vital signs: Vital Signs Temperature 97.5 F L 08/12/25 19:58 Pulse Rate 62 08/12/25 22:26 Respiratory Rate 16 08/12/25 20:43 Blood Pressure 128/77 08/12/25 22:26 Pulse Oximetry 99 08/12/25 22:26 Oxygen Delivery Me thod Room Air 08/12/25 22:26 MDM - Female Medical Decision Making Patient presented with continued right flank pain after being diagnosed with kidney stone earlier today at separate ER. I was able to obtain a CT scan, that showed a 4 mm distal right ureteral stone. Here she was complaining of 10/10 pain, however it was greatly relieved after fentanyl through the IV and fluids. She was also given another dose of Flomax. Lab work was reassuring, urinalysis did not show any significant signs of infection, no leukocytosis on lab, and kidney function normal. Still feel that this will pass spontaneously, she does feel well enough to go home, notably her blood pressure has improved greatly and she just appears more comfortable than when she arrived. She is allowed discharge and will be referred to urology. Medical Records I reviewed the patient's medical records. Lab Data 08/12/25 20:30 08/12/25 22:12 Laboratory Results WBC 9.88 10^3/uL (3.29-11.43) 08/12/25 20:30 RBC 4.29 10^6/uL (3.85-5.65) 08/12/25 20:30 Hgb 12.80 g/dL (11.27-16.99) 08/12/25 20:30 Hct 39.2 % (36-47) 08/12/25 20:30 MCV 91.4 fl (85-98) 08/12/25 20:30 MCH 29.8 pg (27-33) 08/12/25 20:30 MCHC 32.7 g/dL (30-55) 08/12/25 20:30 RDW 13.6 % (12.1-15.1) 08/12/25 20:30 Plt Count 330 10^3/cmm (157-399) 08/12/25 20:30 MPV 11.1 fL (7.4-10.4) H 08/12/25 20:30 Neut % (Auto) 84.0 % 08/12/25 20:30 Lymph % (Auto) 10.5 % 08/12/25 20:30 [place] % (Auto) 4.6 % 08/12/25 20:30 Eos % (Auto) 0.2 % 08/12/25 20:30 Baso % (Auto) 0.4 % 08/12/25 20:30 Neut # (Auto) 8.30 10^3/uL (1.8-7.7) H 08/12/25 20:30 Lymph # (Auto) 1.0 10^3/uL (0.8-4.8) 08/12/25 20:30 [place] # (Auto) 0.5 10^3/uL (0.2-0.9) 08/12/25 20:30 Eos # (Auto) 0.0 10^3/uL (0.0-0.8) 08/12/25 20:30 Baso # (Auto) 0.0 10^3/uL (0.0-0.1) 08/12/25 20:30 Nucleated RBC % (auto) 0 % 08/12/25 20:30 Nucleated RBCs # 0.0 /100WBC 08/12/25 20:30 Sodium 140 mmol/L (136-145) 08/12/25 22:12 Potassium 4.3 mmol/L (3.5-5.1) 08/12/25 22:12 Chloride 106 mmol/L (98-107) 08/12/25 22:12 Carbon Dioxide 23 mmol/L (22-29) 08/12/25 22:12 Anion Gap 15.3 (5-19) 08/12/25 22:12 BUN 12 mg/dL (6-20) 08/12/25 22:12 Creatinine 0.4 mg/dL (0.5-0.9) L 08/12/25 22:12 GFR Calculation 169.0 mL/min (90-130) H 08/12/25 22:12 Glucose 147 mg/dL (65-115) H 08/12/25 22:12 Calculated Osmolality 292 mOsm/kg (285-295) 08/12/25 22:12 Calcium 8.9 mg/dL (8.5-10.5) 08/12/25 22:12 Total Bilirubin 0.4 mg/dL (0.15-1.2) 08/12/25 22:12 AST 69 U/L (0-32) H 08/12/25 22:12 ALT 61 U/L (0-33) H 08/12/25 22:12 Alkaline Phosphatase 112 U/L (35-105) H 08/12/25 22:12 Total Protein 7.0 g/dL (6.6-8.7) 08/12/25 22:12 Albumin 4.3 g/dL (3.5-5.2) 08/12/25 22:12 Globulin 2.7 g/dL (1.3-4.6) 08/12/25 22:12 Lipase 16 U/L (13-60) 08/12/25 22:12 Urine Color Yellow (Yellow) 08/12/25 20:47 Urine Appearance Cloudy (CLEAR) A 08/12/25 20: Urine pH 5.0 (5-7) 08/12/25 20:47 Ur Specific [place] 1.025 (1.005-1.030) 08/12/25 20:47 Urine Protein Trace (Negative) A 08/12/25 20:47 Urine Glucose (UA) Negative (Normal) 08/12/25 20:47 Urine Ketones 1+ (Negative) H 08/12/25 20:47 Urine Blood Negative (Negative) 08/12/25 20:47 Urine Nitrate Negative (Negative) 08/12/25 20:47 Urine Bilirubin Negative (Negative) 08/12/25 20:47 Urine Urobilinogen 0.2 mg/dL (Negative) 08/12/25 20:47 Ur Leukocyte Esterase Trace (Negative) A 08/12/25 20:47 Urine RBC 3-5 /hpf (0-2) 08/12/25 20:47 Urine WBC 0-5 /hpf (0-5) 08/12/25 20:47 Ur Squamous Epith Cells 0-5 /hpf (0-5) 08/12/25 20:47 Calcium Oxalate Crystal 15-25 /hpf H 08/12/25 20:47 Amorphous Sediment Not Reportable 08/12/25 20:47 Urine Bacteria None seen /hpf (NONE) 08/12/25 20:47 Hyaline Casts 7.01 /lpf 08/12/25 20:47 No radiology studies performed this visit Discharge Plan Discharge Patient Disposition: Home Clinical Impression: Ureterolithiasis Condition: Stable Prescriptions: New ondansetron 4 mg tablet,disintegrating 4 mg PO TID PRN (Reason: nausea and vomiting) Qty: 30 0RF No Action hydroxyzine HCl 50 mg tablet 50 mg PO DAILY PRN (Reason: Pain) multivitamin Tablet 1 tab PO DAILY potassium chloride [K-Tab] 20 mEq tablet extended release 20 meq PO DAILY metformin 500 mg tablet 500 mg PO DAILY sucralfate 1 gram tablet PO vitamin A 2,400 mcg capsule 10,000 unit PO DAILY phytonadione (vitamin K1) 1,000 mcg capsule 2 mg PO DAILY terconazole 0.4 % cream 1 appful vaginal .hs 7 Days Qty: 45 0RF estradiol 0.01 % (0.1 mg/gram) cream 1 g vaginal .twice weekly Qty: 3 3RF Rx Instructions: [email or web address] ondansetron HCl 4 mg tablet 4 mg PO Q6H estradiol 1 mg tablet 1 mg PO DAILY Rx Instructions: off 1 week; repeat cycle amitriptyline 25 mg tablet 25 mg PO DAILY metoprolol tartrate 50 mg tablet 50 mg PO BID Qty: 180 1RF albuterol sulfate 90 mcg/actuation HFA aerosol inhaler See Rx Instructions .ROUTE .COMPLEX Qty: 6.7 0RF Dose Instruction: INHALE 2 PUFFS BY MOUTH EVERY 6 HOURS NEEDED FOR SHORTNESS OF BREATH OR WHEEZING Rx Instructions: INHALE 2 PUFFS BY MOUTH EVERY 6 HOURS NEEDED FOR SHORTNESS OF BREATH OR WHEEZING bupropion HCl 150 mg tablet sustained-release 12 hr See Rx Instructions .ROUTE .COMPLEX Qty: 30 0RF Dose Instruction: TAKE 1 TABLET BY MOUTH TWICE DAILY Rx Instructions: TAKE 1 TABLET BY MOUTH TWICE DAILY epinephrine 0.3 mg/0.3 mL auto-injector 0.3 mg SUBCUT ONCE PRN (Reason: Allergic Reaction) Qty: 2 0RF furosemide 20 mg tablet See Rx Instructions .ROUTE .COMPLEX Qty: 90 3RF Dose Instruction: TAKE 1 TABLET BY MOUTH DAILY Rx Instructions: TAKE 1 TABLET BY MOUTH DAILY estradiol 1 mg tablet See Rx Instructions .ROUTE .COMPLEX Qty: 90 3RF Dose Instruction: Take 1 tablet by mouth once daily Rx Instructions: Take 1 tablet by mouth once daily progesterone micronized 200 mg capsule 200 mg PO BEDTIME Qty: 90 0RF cyclobenzaprine 5 mg tablet 5 mg PO DAILY PRN (Reason: Pain) Discharge Orders: Discharge ED (Routine); Ordered 08/12/25 Ordered By: Christian Duggan Referrals: Gini Pal [Primary Care Provider] Patient Instructions: Patient Portal & [place] Instructions Activity Restrictions/Additional Instructions: Ureteral Stone Discharge Instructions You have a 4 mm stone in your right ureter (the tube connecting your kidney to your bladder). Most stones this size pass on their own within a few weeks. Medications: - Take your pain medication (hydrocodone-acetaminophen) as prescribed, only when needed for pain. Do not exceed the recommended dose. - Take tamsulosin (Flomax) as prescribed. This medication may help relax your ureter and make it easier for the stone to pass. - If you have any questions about your medications, contact your healthcare provider. What to Expect: - You may continue to have pain as the stone moves. This is normal, but pain should improve over time. - Most stones of this size pass within 4 weeks. - You may notice the stone in your urine. If possible, urinate through a strainer or filter to catch the stone for analysis. When to Seek Medical Attention: - Fever, chills, or feeling very unwell - Severe pain not controlled by medication - Nausea or vomiting that prevents you from keeping fluids down - Blood in your urine that is heavy or does not improve - Difficulty urinating or inability to urinate Follow-Up: - You have been referred to a urologist for further care. Attend your appointment as scheduled. - Repeat imaging may be needed to confirm that the stone has passed. Self-Care: - Drink plenty of fluids (aim for at least 2-3 liters per day) unless you have been told otherwise. - You may follow your normal diet, but reducing salt intake can help prevent future stones. - Stay active as tolerated; gentle movement may help the stone pass. If you have any questions or concerns, contact your healthcare provider or return to the emergency department. Print Language: New Zealander Coding Level of Care Code ED Food Demonstrator for Padma Orr
[2025-08-12] MEDS: ondansetron 2 mg/ML SDV 2 mL 4 MG IVP ×2 (20:43→22:25)
[2025-08-12] MEDS: fentaNYL 50 mcg/mL INJ 2mL 70 MCG IVP (20:43)
[2025-08-12 20:44] LABS: Hematocrit 39.2 % (36-47); Hemoglobin 12.80 g/dL (11.27-16.99); Mean Corpuscular HGB Conc 32.7 g/dL (30-55); Mean Corpuscular Hemoglobin 29.8 pg (27-33); Mean Corpuscular Volume 91.4 fl (85-98); Nucleated Red Blood Cells % 0 %; Platelet Count 330 10^3/cmm (157-399); Red Blood Count 4.29 10^6/uL (3.85-5.65); White Blood Count 9.88 10^3/uL (3.29-11.43)
[2025-08-12 21:06] LABS: Glucose Urine UA Negative (Normal); Nitrate Urine Negative (Negative); Specific Gravity, Urine 1.025 (1.005-1.030)
[2025-08-12 21:11] LABS: Add Urine Microscopic? YES
[2025-08-12] MEDS: fentaNYL 50 mcg/mL INJ 2mL IVP (22:25)
[2025-08-12 22:36] LABS: Alanine Aminotransferase 61 U/L (0-33); Albumin Level 4.3 g/dL (3.5-5.2); Alkaline Phosphatase 112 U/L (35-105); Anion Gap 15.3 (5-19); Aspartate Amino Transferase 69 U/L (0-32); Blood Urea Nitrogen 12 mg/dL (6-20); Calcium 8.9 mg/dL (8.5-10.5); Carbon Dioxide 23 mmol/L (22-29); Chloride 106 mmol/L (98-107); Creatinine Clr Calc Pharmacy 167.7645; Globulin 2.7 g/dL (1.3-4.6); Glucose 147 mg/dL (65-115); Lipase 16 U/L (13-60); Osmolality Calculated 292 mOsm/kg (285-295); Potassium 4.3 mmol/L (3.5-5.1); Sodium 140 mmol/L (136-145); Total Protein 7.0 g/dL (6.6-8.7)
--- NOTE | 2025-08-14 14:15 | DCPLANNER ---
urology referral sent to [facility] as requested
== END 2025-08-13 00:05 | disposition home or self-care (01) ==
PROVIDERS: Emergency Medicine; Emergency Provider Physician Assistant
DX: N20.1 Calculus of ureter (principal); Z87.442 Personal history of urinary calculi; I10 Essential (primary) hypertension; E78.2 Mixed hyperlipidemia
CPT/HCPCS: 36415; 80053; 81001; 83690; 85025; 96361; 96374; 96375; 96376; 99284; J2405; J3010; J7030; J7040; J9999

== ENCOUNTER 2025-08-14 13:02 | Emergency (ER) | payer OTHER, SELFPAY ==
--- OUTSIDE RECORDS SUMMARY | 2025-08-08 11:00 | XMS_ITS | Encounter Summary ---
Author Organization [facility] Address [address] [place] [address] Care Team Providers Care Sludge Filtration Attendant Name Role Phone Elton Velasquez MD Primary Care Provider [phone] Reason for Visit * Reason Comments Ear Pain Encounter Details Date Type Department Care Team (Late st Contact Info) Description 08/08/2025 11:00 AM DIRECTOR PHARMACEUTICAL Office Visit [facility] Medicine [place] [address] [facility] [address] [place] [address] Gini Pal NP [address] [place] [address] Jaw pain (Primary Dx); Screening mammogram, encounter for; Nerve pain Social History Tobacco Use Types Packs/Day Years Used Date Smoking Tobacco: Never Passive Smoke Exposure: Never Smokeless Tobacco: Never Tobacco Cessation:Counseling Given: No Alcohol Use Standard Drinks/Week Comments Not Currently 0 (1 standard drink = 0.6 oz pur e alcohol) Feeling Safe Answer Date Recorded Are you in a relationship wi th someone who hurts you emotionally and/or physically? No 08/20/2024 Food Insecurity Answer Date Recorded Social/Environmental Concerns Household pets;Wel l water;No concerns 07/11/2023 Transportation Needs Answer Date Record ed Social/Environmental Concerns Household pets;Wel l water;No concerns 07/11/2023 Housing Stability Answer Date Recorded Social/Environmental Concerns Household pets;Wel l water;No concerns 07/11/2023 Utility Needs Answer Date Recorded Social/Environmental Concerns Household pets;Wel l water;No concerns 07/11/2023 Comments No Sex and Gender Information Value Date Recorded Sex Assigned at Not on file Legal Sex Female 3:05 PM DIRECTOR PHARMACEUTICAL Gender Identity Not on file Sexual Orientation Not on file documented as of this encounter Last Filed Vital Signs Vital Sign Reading Time Taken Comments Blood Pressure 110/80 08/08/2025 11:21 AM DIRECTOR PHARMACEUTICAL Pulse 60 08/08/2025 11:21 AM DIRECTOR PHARMACEUTICAL Temperature 36.9 C (98.4 F) 08/08/2025 11:21 AM DIRECTOR PHARMACEUTICAL Respiratory Rate 20 08/08/2025 11:2 1 AM DIRECTOR PHARMACEUTICAL Oxygen Saturation 97% 08/08/2025 11: 21 AM DIRECTOR PHARMACEUTICAL Inhaled Oxygen Concentration - - Weight 69.8 kg (153 lb 12.8 oz) 025 11:21 AM DIRECTOR PHARMACEUTICAL Height 168.9 cm (5' 6.5 ) 08/08/2025 11 :21 AM DIRECTOR PHARMACEUTICAL Body Mass Index 24.45 08/08/2025 11:21 AM DIRECTOR PHARMACEUTICAL documented in this encounter Progress Notes * Gini Pal NP - 08/08/2025 12:19 PM CST [facility] [place] 08/08/2025 Subjective: Miriam Bernard is a 49 y.o. female who comes today for evaluation of Ear Pain . History of Present Illness The patient is a 49-year-old female who presents for evaluation of ear pain. She reports severe oral discomfort following a dental extraction, which has been ongoing for approximately 1.5 weeks. The pain was exacerbated during the administration of a local anesthetic injection, leading to earache. She also experienced a black eye post-procedure. Additionally, she notes swelling in her throat and cheek, with the latter being particularly sensitive to touch. She is currently on amoxicillin and analgesics for pain management. She has previously been prescribed amitriptyline but is unable to tolerate gabapentin. Review of Systems Constitutional: Negative for chills and fever. Respiratory: Negative for shortness of breath. Cardiovascular: Negative for chest pain. Musculoskeletal: Negative for myalgias. All other systems reviewed and are negative. Objective: Vitals: 08/08/25 1121 Temp: 98.4 ??F (36.9 ??C) Pulse: 60 BP: 110/80 Resp: 20 SpO2: 97% Physical Exam Vitals and nursing note reviewed. Eyes: Pupils: Pupils are equal, round, and reactive to light. Cardiovascular: Rate and Rhythm: Normal rate and regular rhythm. Pulses: Normal pulses. Heart sounds: Normal heart sounds. Pulmonary: Effort: Pulmonary effort is normal. Breath sounds: Normal breath sounds. Musculoskeletal: General: Normal range of motion. Cervical back: Normal range of motion and neck supple. Skin: General: Skin is warm and dry. Capillary Refill: Capillary refill takes less than 2 seconds. Neurological: Mental Status: She is alert and oriented to person, place, and time. Mental status is at baseline. Psychiatric: Mood and Affect: Mood normal. Behavior: Behavior normal. Past medical history, surgical history and social history reviewed. Past Medical History: Diagnosis Date Allergies Anxiety GERD (gastroesophageal reflux disease) HTN (hypertension) Post-operative nausea and vomiting Assessment/Plan: ICD-10-CM ICD-9-CM 1. Jaw pain R68.84 784.92 2. Screening mammogram, encounter for Z12.31 V76.12 3. Nerve pain M79.2 729.2 baclofen (LIORESAL) 10 mg tablet Assessment & Plan 1. Otalgia: - The patient reports severe ear pain following dental procedures, possibly due to nerve irritation. - Examination reveals no signs of thrush; ear appears normal. - Baclofen prescribed to be taken up to three times daily to alleviate nerve pain. - If pain persists, further evaluation for nerve pain management with amitriptyline or gabapentin may be considered. ONIEL Romano The author of this note, patient (or authorized livestock sales representative), and all other persons present consent to the audio recording of this visit for charting documentation purposes. This note was automatically generated by a Generative AI technology ([employer]), reviewed, edited, and finalized by Gini Pal NP. CTOR PHARMACEUTICAL documented in this encounter Plan of Treatment Upcoming Encounters Date Type Department Care Team (Late st Contact Info) Description 09/04/2025 12:00 PM DIRECTOR PHARMACEUTICAL Office Visit [address] [address] Elton Velasquez MD [address] [address] documented as of this encounter Visit Diagnoses Diagnosis Jaw pain- Primary Screening mammogram, encounter for Nerve pain Neuralgia, neuritis, and radiculitis, unspecified documented in this encounter Care Teams Sludge Filtration Attendant Relationship Specialty Start Date End Date Elton Velasquez MD [address] [address] PCP - General Family Practice 11/18/22 documented as of this encounter
--- OUTSIDE RECORDS SUMMARY | 2025-08-12 13:35 | XMS_ITS | Encounter Summary ---
Author Organization [facility] Address [address] [place] [address] [address] Team Providers Care Court Registry Officer Name Role Phone Elton Velasquez MD Primary Care Provider [phone] Reason for Visit * Reason Comments Flank Pain Encounter Details Date Type Department Care Team (Late st Contact Info) Description 08/12/2025 1:35 PM MUSIC WORKER - 08/12/2025 3:23 PM [address] Emergency [facility] Emergency Medicine [address] [place] [address] Melinda Fabian MD [address] [place] [address] Ureteral calculus, right (Primary Dx) Discharge Disposition: Home or Self Care Social History Tobacco Use Types Packs/Day Years Used Date Smoking Tobacco: Never Passive Smoke Exposure: Never Smokeless Tobacco: Never Alcohol Use Standard Drinks/Week Comments Not Currently 0 (1 standard drink = 0.6 oz pur e alcohol) Food Insecurity Answer Date Recorded Do you find you are eating l ess than you should because you can t pay for food? No 08/12/2025 Transportation Needs Answer Date Record ed Have you gone without health care because you didn t have a way to get there? Or worry about transportation for future doctor visits, continuous pickling line pickler medication, etc.? No 2024 Housing Stability Answer Date Recorded Do you worry you won t have a steady place to sleep or struggle to pay rent or mortgage? No 08/12/2025 Utility Needs Answer Date Recorded Do you have difficulty payin g for utility costs (electric, water or gas bills)? No 08/12/2025 Medication Needs Answer Date Recorded Have you skipped taking medi cation due to cost or worry you can t afford new medications? No 08/12/2025 Feeling Safe Answer Date Recorded Are you in a relationship wi th someone who hurts you emotionally and/or physically? No 08/12/2025 Food Insecurity Answer Date Recorded Social/Environmental Concerns [...] on file Legal Sex Female 3:05 PM MUSIC WORKER Gender Identity Not on file Sexual Orientation Not on file documented as of this encounter Last Filed Vital Signs Vital Sign Reading Time Taken Comments Blood Pressure 115/72 08/12/2025 3:15 PM MUSIC WORKER Pulse 66 08/12/2025 3:15 PM MUSIC WORKER Temperature 36.5 C (97.7 F) 08/12/2025 1:36 PM MUSIC WORKER Respiratory Rate 14 08/12/2025 3:15 PM MUSIC WORKER Oxygen Saturation 100% 08/12/2025 3:15 PM MUSIC WORKER Inhaled Oxygen Concentration - - Weight 68.9 kg (152 lb) 08/12/2025 1:36 PM MUSIC WORKER Height 165.1 cm (5' 5 ) 08/12/2025 1:36 PM MUSIC WORKER Body Mass Index 25.29 08/12/2025 1:36 PM MUSIC WORKER documented in this encounter Discharge Instructions * Discharge Instructions* Melinda Fabian MD - 08/12/2025 3:18 PM MUSIC WORKER Drink plenty of fluids. Take Flomax as prescribed. Take [place] as needed for pain. Follow-up with your primary care physician in 3 to 5 days for reevaluation. Return if you develop fever (with temperature of 100.4 or more), intractable vomiting or worsening pain. C WORKER * Attachments The following attachments cannot be sent through Care Everywhere. * Kidney Stone (Ethiopian) * Tamsulosin (Ethiopian) * Hydrocodone (Ethiopian) * Naloxone Nasal Lester (Ethiopian) documented in this encounter Medications at Time of Discharge potassium CHLORIDE (K-TAB) 20 mEq Extended Release tabletIndications :H/O bariatric surgery Take 1 tablet by mouth once daily with breakfast 100 Tablet 08/08/2025 tamsulosin (Flomax) 0.4 mg capsule Take 1 Capsule (0.4 mg) by mouth daily for 10 days. 10 Capsule 08/12/2025 08/22/20 25 HYDROcodone-aceta minophen (NORCO) 5-325 mg tabletIndications :Ureteral calculus, right Take 1 Tablet by mouth every 4 hours as needed for Pain, Moderate. Max Daily Amount: 6 Tablets 20 Tablet 08/12/2025 naloxone (NARCAN) 4 mg/spray Lester, Non-Aerosol EMERGENCY USE ONLY: Administer 1 spray (4 mg) in one nostril one time. May repeat in alternating nostrils every 2-3 min until responsive or EMS arrives. 2 Each 3 08/12/2025 HYDROcodone-aceta minophen (NORCO) 7.5-325 mg Tablet Take 1 Tablet by mouth every 4 hours as needed for Pain. 08/05/2025 amoxicillin (AMOXIL) 500 mg capsule Take 500 mg by mouth 3 times daily. until gone 08/02/2025 baclofen (LIORESAL) 10 mg tabletIndications :Nerve pain Take 1 Tablet (10 mg) by mouth 3 times daily. 90 Tablet 08/08/2025 ondansetron (ZOFRAN ODT) 4 mg Tablet, Rapid DissolveIndicatio ns:Nausea Take 1 Tablet (4 mg) by mouth every 8 hours as needed for Nausea/Emesis. Dissolve tablet on top of tongue, then swallow with saliva. 30 Tablet 07/26/2025 albuterol sulfate HFA 90 mcg/actuation aerosol inhalerIndication s:Environmental and seasonal allergies INHALE 2 PUFFS BY MOUTH EVERY 6 HOURS NEEDED FOR SHORTNESS OF BREATH 9 Gram 2 07/23/2025 nystatin (MYCOSTATIN) 100,000 unit/mL suspensionIndicat ions:Oral thrush Take 5 mL (500,000 Units) by mouth 4 times daily. 473 mL 1 07/19/2025 fluconazole (DIFLUCAN) 150 mg tabletIndications :Vaginal deyvi Take one tablet and repeat in 72 hours if needed 2 Tablet 06/24/2025 progesterone micronized (PROMETRIUM) 100 mg Capsule Take by mouth. 01/23/2025 ondansetron (ZOFRAN) 8 mg TabletIndications :Nausea TAKE 1 TABLET BY MOUTH EVERY 8 HOURS NEEDED FOR NAUSEA OR VOMITING 30 Tablet 2 05/27/2025 rOPINIRole (REQUIP) 0.5 mg tabletIndications :Restless leg syndrome Take 1 Tablet (0.5 mg) by mouth daily at bedtime. 30 Tablet 1 04/17/2025 buPROPion HCL (WELLBUTRIN SR) 150 mg Sustained Release 12 hour tabletIndications :Encounter for weight management,Obesit y (BMI 35.0-39.9 without comorbidity) Take 1 Tablet (150 mg) by mouth 2 times daily. 180 Tablet 3 03/22/2025 mupirocin (BACTROBAN) 2 % OintmentIndicatio ns:Infected superficial injury of toe of left foot, initial encounter Apply to affected area daily. 30 Gram 1 03/22/2025 ofloxacin (FLOXIN) 0.3 % DropsIndications: Recurrent acute allergic otitis media of left ear Administer 10 Drops in left ear daily. 10 mL 03/22/2025 metFORMIN (GLUCOPHAGE XR) 500 mg Extended Release 24 hour tabletIndications :Obesity (BMI 35.0-39.9 without comorbidity) Take 1 Tablet (500 mg) by mouth daily with breakfast. 100 Tablet 1 03/11/2025 metoprolol tartrate (LOPRESSOR) 50 mg tabletIndications :HTN (hypertension), benign Take 1 tablet by mouth twice daily 200 Tablet 1 03/11/2025 estradioL (ESTRACE) 1 mg tablet Take 1 mg by mouth daily. 02/04/2025 predniSONE (DELTASONE) 10 mg tabletIndications :Bug bite, initial encounter,Pain and swelling of left elbow Take 4 tablets for 3 days then 3 tablets for 3 days then 2 tablets for 3 days and 1 tablet for 3 days 30 Tablet 02/21/2025 hydrOXYzine HCL (ATARAX) 25 mg tabletIndications :Itching,Rash TAKE 1 TABLET(25 MG) BY MOUTH EVERY 8 HOURS NEEDED FOR ITCHING Strength: 25 mg 30 Tablet 3 11/23/2024 sucralfate (CARAFATE) 1 gram tabletIndications :Gastroesophageal reflux disease with esophagitis, unspecified whether hemorrhage Take 1 Tablet (1 Gram) by mouth 4 times daily before meals and at bedtime. 120 Tablet 3 11/23/2024 pseudoephedrine (SUDAFED) 30 mg tabletIndications :Acute non-recurrent pansinusitis Take 1 Tablet (30 mg) by mouth every 4 hours as needed for Congestion. 20 Tablet 10/31/2024 dicyclomine (BENTYL) 10 mg capsule 08/20/2024 EPINEPHrine (EPIPEN) 0.3 mg/0.3 mL Auto-Injector Inject 0.3 mL (0.3 mg) by intramuscular injection 1 time daily as needed for Anaphylaxis. 2 Each 1 04/03/2024 Arginine HCl, L-Arginine, 1,000 mg Tablet Take by mouth. fluticasone propionate (FLONASE) 50 mcg/spray Lester, Suspension nasal inhalerIndication s:Subacute pansinusitis shake liquid and use 2 sprays in each nostril daily 48 Gram 2 09/30/2023 xqcynwwl-weh-lgqo c acid-biotin (Hair,Skin and Nails,FA-biotin,) 100-1,500 mcg Tablet Take by mouth. mv-minerals/FA/om ega 3,6,9 #3 (WOMEN'S 50+ ADVANCED ORAL) Take by mouth. melatonin 10 mg tablet Take by mouth nightly as needed. furosemide (LASIX) 20 mg tablet 20 mg daily in the morning. 05/07/2022 documented as of this encounter ED Notes * Kayleen Novak RN - 08/12/2025 1:45 PM CST Provider at bedside. C WORKER * Kayleen Novak RN - 08/12/2025 1:43 PM CST Patient arrived to the ED via private vehicle with daughter at side. Patient states she started having sharp right flank pain that radiates to her right groin area. Patient states she has a history of kidney stones with the most recent one being last month. Patient denies urinary pain of any kind. Patient states she took a muscle relaxer and a hydrocodone today. Patient alert and oriented during this triage. C WORKER * Melinda Fabian MD - 08/12/2025 1:35 PM CST 08/12/25 1:50 PM HISTORY OF PRESENT ILLNESS This 49-year-old female with a history of kidney stones presents to the ER with right flank pain that worsened over the last several hours. Pain is sharp and is associated with nausea. Patient recalls Tylenol she had kidney stones while she was in [place] about 3 weeks ago. She wastreated with pain medications and Flomax. Patient adds that ever since, she has been having intermittent right flank pain which gets better when she drinks cranberry juice and fluids. Few hours ago, the pain got worse and has not let up since then. Patient is tearful and seems to be in significant discomfort. She is nauseated but has not vomited.There is no fever, chest pain or shortness of breath. PAST MEDICAL HISTORY REVIEWED MEDICAL: Patient has a past medical history of Allergies, Anxiety, GERD (gastroesophageal reflux disease), HTN (hypertension), and Post-operative nausea and vomiting. SURGICAL: Patient has a past surgical history that includes hysterectomy (N/A, 2004); tonsillectomy; tympanostomy; tubal ligation; pr colonoscopy flx dx w/collj spec when pfrmd (N/A, 12/08/2022); pr laparoscopy surg cholecystectomy (N/A, 04/09/2023); bladder repair (06/07/2023); pr esophageal motility study w /interp&rpt (N/A, 06/14/2023); pr gastroesophag reflx test w/telemtry ph eltrd (N/A, 06/14/2023); esophagogastroduodenoscopy (N/A, 06/14/2023); pr laps surg esopg/gstr fundoplasty (N/A, 07/11/2023); laparoscopy repair hiatal hernia (N/A, 07/11/2023); esophagogastroduodenoscopy (N/A, 08/03/2023); esophagogastroduodenoscopy (N/A, 09/01/2023); and surgical other (07/11/23). ALLERGIES Codeine, Gabapentin, Heparin, Meperidine, Neomycin, Prochlorperazine, Prochlorperazine edisylate, Sulfa (sulfonamide antibiotics), Tetracycline, Other omega-3s, Phenergan dm, and Doxycycline PHYSICAL EXAM INITIAL VS BP: (!) 183/122 (08/12/25 1336), Heart Rate: (!) 57 bpm (08/12/25 1336), Resp: 20 (08/12/25 1336), Pulse: 60 (08/12/25 1445), Temp: 97.7 ??F (36.5 ??C) (08/12/25 1336), Temp src: Temporal (08/12/25 1336), SpO2: 99 % (08/12/25 1336), Height: 5' 5 (165.1 cm) (08/12/25 1336), Weight: 68.9 kg (152 lb)(08/12/25 1336), BMI (Calculated): (!) 25.28 (08/12/25 133) No LMP recorded. Patient has had a hysterectomy. Physical Exam Vitals and nursing note reviewed. Constitutional: General: She is in acute distress (due to flank pain). Appearance: Normal appearance. She is well-developed. She is not toxic-appearing. HENT: Head: Normocephalic and atraumatic. Eyes: Extraocular Movements: Extraocular movements intact. Conjunctiva/sclera: Conjunctivae normal. Cardiovascular: Rate and Rhythm: Normal rate and regular rhythm. Pulses: Normal pulses. Heart sounds: No murmur heard. Pulmonary: Effort: Pulmonary effort is normal. No respiratory distress. Breath sounds: Normal breath sounds. No rhonchi or rales. Abdominal: General: Bowel sounds are normal. There is no distension. Palpations: Abdomen is soft. Tenderness: There is abdominal tenderness (right flank). Musculoskeletal: Cervical back: Normal range of motion and neck supple. Right lower leg: No edema. Left lower leg: No edema. Skin: General: Skin is warm and dry. Neurological: General: No focal deficit present. Mental Status: She is alert and oriented to person, place, and time. Psychiatric: Behavior: Behavior normal. DIAGNOSTICS LAB: CBC WITH DIFFERENTIAL - Abnormal Result Value WBC 8.8 RBC 4.18 HEMOGLOBIN 12.5 HEMATOCRIT 38.2 MCV 91.4 MCH 29.9 MCHC 32.7 RDW 13.0 RDW-STDEV 42.9 PLATELETS 353 (*) MPV 10.0 NEUTROPHILS 51 LYMPHOCYTES 35 MONOCYTES 11 EOSINOPHILS 2 BASOPHILS 1 IMMATURE GRANULOCYTES 0 NEUTROPHIL ABSOLUTE 4.53 LYMPHOCYTE ABSOLUTE 3.07 MONOCYTE ABSOLUTE 0.99 (*) EOSINOPHIL ABSOLUTE 0.14 BASOPHILS ABSOLUTE 0.07 IMMATURE GRANULOCYTES ABSOLUTE 0.02 COMPREHENSIVE METABOLIC PANEL - Abnormal SODIUM 140 POTASSIUM 4.1 CHLORIDE 103 CO2 27 CALCIUM 9.3 BUN 14 CREATININE 0.73 GLUCOSE 103 (*) TOTAL PROTEIN 7.3 ALBUMIN 4.4 BILIRUBIN TOTAL 0.4 ALKALINE PHOSPHATASE 104 AST 33 ALT 40 (*) GFR >60 ANION GAP 10 URINALYSIS WITH REFLEX CULTURE - Abnormal COLOR UA Yellow CLARITY UA Clear SPECIFIC GRAVITY UA 1.025 PH UA 5.5 LEUKOCYTE ESTERASE UA Trace (*) NITRITE UA Negative PROTEIN UA Trace (*) GLUCOSE UA Negative KETONES UA 1+ (*) UROBILINOGEN UA 0.2 BILIRUBIN UA Negative BLOOD UA Negative RADIOLOGY: CT ABDOMEN PELVIS WO CONTRAST Radiologist Impression IMPRESSION: 1. Moderate right hydronephrosis and hydroureter with a 4 mm calculus in the distal right ureter. Associated right perinephric edema. EKG: PROCEDURES Procedures MEDICAL DECISION MAKING AND PLAN OF CARE Medical Decision Making History as above Patient presents with right flank pain that started few hours ago. CT abdomen/pelvis reveals a 4 mmstone in the distal right ureter with associated right hydronephrosis and hydroureter. After receiving pain medications, patient felt considerably better. At 4 mm, she stands a good chance of passing the stone. She was advised to drink plenty of fluids and was also sent home with Flomax. She will follow-up with her primary care physician but was advised to return if she develops fever, worsening pain, intractable vomiting or any new concerning symptoms. Patient verbalized understanding and agrees with the plan. Amount and/or Complexity of Data Reviewed Labs: ordered. Radiology: ordered. Risk Prescription drug management. Clinical Scoring & Consults Medications Administered During the ED Stay from 08/12/2025 1335 to 08/12/2025 1742 Date/Time Order Dose Route Action 08/12/2025 1348 MUSIC WORKER HYDROmorphone (PF) (DILAUDID) injection 1 mg 1 mg IV Given 08/12/2025 1405 MUSIC WORKER ondansetron (ZOFRAN) 4 mg/2 mL injection 4 mg 4 mg IV Given 08/12/2025 1451 MUSIC WORKER metoclopramide (REGLAN) 5 mg/mL injection 10 mg 10 mg IV Given 08/12/2025 1451 MUSIC WORKER tamsulosin (FLOMAX) SR 24 hour capsule 0.4 mg 0.4 mg Oral Given 08/12/2025 1457 MUSIC WORKER morphine 4 mg/mL injection 4 mg 4 mg IV Given Discharge Medication List as of 08/12/2025 3:21 PM START taking these medications Details tamsulosin (Flomax) 0.4 mg capsule Take 1 Capsule (0.4 mg) by mouth daily for 10 days., Disp-10 Capsule, R-0 HYDROcodone-acetaminophen (NORCO) 5-325 mg tablet Take 1 Tablet by mouth every 4 hours as needed for Pain, Moderate. Max Daily Amount: 6 Tablets, Disp-20 Tablet, R-0 naloxone (NARCAN) 4 mg/spray Lester, Non-Aerosol EMERGENCY USE ONLY: Administer 1 spray (4 mg) in one nostril one time. May repeat in alternating nostrils every 2-3 min until responsive or EMS arrives., Disp-2 Each, R-3 CONTINUE these medications which have NOT CHANGED Details potassium CHLORIDE (K-TAB) 20 mEq Extended Release tablet Take 1 tablet by mouth once daily with breakfast, Disp-100 Tablet, R-0 HYDROcodone-acetaminophen (NORCO) 7.5-325 mg Tablet Take 1 Tablet by mouth every 4 hours as needed for Pain. baclofen (LIORESAL) 10 mg tablet Take 1 Tablet (10 mg) by mouth 3 times daily., Disp-90 Tablet, R-0 metoprolol tartrate (LOPRESSOR) 50 mg tablet Take 1 tablet by mouth twice daily, Disp-200 Tablet, R-1 amoxicillin (AMOXIL) 500 mg capsule Take 500 mg by mouth 3 times daily. until gone ondansetron (ZOFRAN ODT) 4 mg Tablet, Rapid Dissolve Take 1 Tablet (4 mg) by mouth every 8 hours asneeded for Nausea/Emesis. Dissolve tablet on top of tongue, then swallow with saliva., Disp-30 Tablet, R-0 albuterol sulfate HFA 90 mcg/actuation aerosol inhaler INHALE 2 PUFFS BY MOUTH EVERY 6 HOURS NEEDED FOR SHORTNESS OF BREATH, Disp-9 Gram, R-2 nystatin (MYCOSTATIN) 100,000 unit/mL suspension Take 5 mL (500,000 Units) by mouth 4 times daily.,Disp-473 mL, R-1 fluconazole (DIFLUCAN) 150 mg tablet Take one tablet and repeat in 72 hours if needed, Disp-2 Tablet, R-0 progesterone micronized (PROMETRIUM) 100 mg Capsule Take by mouth. ondansetron (ZOFRAN) 8 mg Tablet TAKE 1 TABLET BY MOUTH EVERY 8 HOURS NEEDED FOR NAUSEA OR VOMITING, Disp-30 Tablet, R-2 rOPINIRole (REQUIP) 0.5 mg tablet Take 1 Tablet (0.5 mg) by mouth daily at bedtime., Disp-30 Tablet, R-1 buPROPion HCL (WELLBUTRIN SR) 150 mg Sustained Release 12 hour tablet Take 1 Tablet (150 mg) by mouth 2 times daily., Disp-180 Tablet, R-3 mupirocin (BACTROBAN) 2 % Ointment Apply to affected area daily., Disp-30 Gram, R-1 ofloxacin (FLOXIN) 0.3 % Drops Administer 10 Drops in left ear daily., Disp-10 mL, R-0 metFORMIN (GLUCOPHAGE XR) 500 mg Extended Release 24 hour tablet Take 1 Tablet (500 mg) by mouth daily with breakfast., Disp-100 Tablet, R-1 estradioL (ESTRACE) 1 mg tablet Take 1 mg by mouth daily. predniSONE (DELTASONE) 10 mg tablet Take 4 tablets for 3 days then 3 tablets for 3 days then 2 tablets for 3 days and 1 tablet for 3 days, Disp-30 Tablet, R-0 hydrOXYzine HCL (ATARAX) 25 mg tablet TAKE 1 TABLET(25 MG) BY MOUTH EVERY 8 HOURS NEEDED FOR ITCHING Strength: 25 mg, Disp-30 Tablet, R-3 sucralfate (CARAFATE) 1 gram tablet Take 1 Tablet (1 Gram) by mouth 4 times daily before meals and at bedtime., Disp-120 Tablet, R-3 pseudoephedrine (SUDAFED) 30 mg tablet Take 1 Tablet (30 mg) by mouth every 4 hours as needed for Congestion.Dx: J01.40, last visit 4Disp-20 Tablet, R-0 dicyclomine (BENTYL) 10 mg capsule EPINEPHrine (EPIPEN) 0.3 mg/0.3 mL Auto-Injector Inject 0.3 mL (0.3 mg) by intramuscular injection 1 time daily as needed for Anaphylaxis., Disp-2 Each, R-1 Arginine HCl, L-Arginine, 1,000 mg Tablet Take by mouth. fluticasone propionate (FLONASE) 50 mcg/spray Lester, Suspension nasal inhaler shake liquid and use 2 sprays in each nostril dailyPatient requests 90 days supplyDisp-48 Gram, R-2 gzlbjbkx-yke-ogngn acid-biotin (Hair,Skin and Nails,FA-biotin,) 100-1,500 mcg Tablet Take by mouth. mv-minerals/FA/omega 3,6,9 #3 (WOMEN'S 50+ ADVANCED ORAL) Take by mouth. melatonin 10 mg tablet Take by mouth nightly as needed. furosemide (LASIX) 20 mg tablet 20 mg daily in the morning. LAST VS BP: 115/72 (08/12/25 1515), Heart Rate: (!) 57 bpm (08/12/25 1336), Resp: 14 (08/12/25 1515), Pulse: 66 (08/12/25 1515), Temp: 97.7 ??F (36.5 ??C) (08/12/25 1336), Temp src: Temporal (08/12/25 1336),SpO2: 100 % (08/12/25 1515) CLINICAL IMPRESSION Diagnosis Diagnosis Comment Added By Time Added Ureteral calculus, right [N20.1] Melinda Fabian MD 08/12/2025 3:14 PM DISPOSITION, EDUCATION AND MEDICATION RECONCILIATION Medications reconciled. See after visit summary for patient education on discharged patients. ED Disposition ED Disposition Discharge Condition Stable User Melinda Fabian MD Date/Time TueAug 12, 2025 3:13 PM Comment -- ATTESTATION STATEMENTS C WORKER documented in this encounter Miscellaneous Notes * Gen AI NATHAN - GENERATIVE AI HANDOFF NOTE - 08/13/2025 11:37 PM CST ## ER_course: ## # DIAGNOSIS: Ureteral calculus, right. The patient, a 49-year-old female with a history of kidney stones, presented to the ER with sharp right flank pain radiating to the right groin, worsening over several hours, and associated with nausea. She had a history of kidney stones treated with pain medications and Flomax three weeks prior. # During the ER visit, a CT abdomen/pelvis revealed a 4 mm stone in the distal right ureter with associated right hydronephrosis and hydroureter. The patient was administered HYDROmorphone, ondansetron, metoclopramide, tamsulosin, and morphine for pain and nausea management. # Abnormal findings included elevated blood pressure at 183/122, a heart rate of 57 bpm, and trace leukocyte esterase and protein in urinalysis. The patient was advised to drink plenty of fluids and was discharged with Flomax, with instructions to follow up with her primary care physician. ## Follow_up_orders: ## # The patient was started on a new prescription for tamsulosin (Flomax) 0.4 mg daily for 10 days. # She was advised to return to the ER if she develops fever, worsening pain, intractable vomiting, or any new concerning symptoms. # Follow-up with her primary care physician was recommended. ## Home_Situation: ## # The patient arrived at the ED via private vehicle with her daughter, indicating she has some caregiver support. No other factors potentially impairing follow-up care were noted. C WORKER documented in this encounter Plan of Treatment Upcoming Encounters Date Type Department Care Team (Late st Contact Info) Description 09/04/2025 12:00 PM MUSIC WORKER Office Visit [address] [address] Elton Velasquez MD [address] [address] documented as of this encounter Procedures Procedure Name Priority Date/Time Associated Diagnosis Comments URINALYSIS WITH REFLEX CULTURE Stat 08/12/2025 2:[address] ABDOMEN PELVIS WO CONTRAST Stat 08/12/2025 2:14 PM MUSIC WORKER CBC WITH DIFFERENTIAL Stat 08/12/2025 1:41 PM MUSIC WORKER COMPREHENSIVE METABOLIC PANEL Stat 08/12/2025 1:41 PM MUSIC WORKER documented in this encounter Results * (ABNORMAL) URINALYSIS WITH REFLEX CULTURE (08/12/2025 2:44 PM MUSIC WORKER) COLOR UA Yellow Pale to Dark Yellow 08/12/2025 2:50 PM MUSIC WORKER [facility] CLARITY UA Clear Clear 08/12/2025 2:50 PM MUSIC WORKER [facility] SPECIFIC GRAVITY UA 1.025 1.003 - 1.035 08/12/2025 2:50 PM MUSIC WORKER [facility] PH UA 5.5 5.0 - 8.0 08/12/2025 2:50 PM MUSIC WORKER [facility] LEUKOCYTE ESTERASE UA Trace(A) Negative 08/12/2025 2:50 PM [facility] Comment:For patient s with 'trace' results, consider ordering a culture and sensitivity if clinically indicated. NITRITE UA Negative Negative 08/12/2025 2:50 PM MUSIC WORKER [facility] PROTEIN UA Trace(A) Negative 08/12/2025 2:50 PM MUSIC WORKER [facility] Comment: For patients with 'trace' results, consider ordering a culture and sensitivity if clinically indicated. GLUCOSE UA Negative Negative 08/12/2025 2:50 PM MUSIC WORKER [facility] KETONES UA 1+(A) Negative 08/12/2025 2:50 PM [facility] UROBILINOGEN UA 0.2 <2.0 mg/dL 2:50 PM MUSIC WORKER [facility] BILIRUBIN UA Negative Negative 08/12/2025 2:50 PM MUSIC WORKER [facility] BLOOD UA Negative Negative 08/12/2025 2:50 PM [facility] Urine URINE SPECIMEN OBTAINED BY CLEAN CATCH PROCEDURE / Unknown Collection / Unknown 08/12/2025 2:44 PM MUSIC WORKER 08/12/2025 2:46 PM MUSIC WORKER Melinda Fabian MD URINE ORDERABLES [facility]ul [facility] [id number] [address] [place] [id number] * CT ABDOMEN PELVIS WO CONTRAST (08/12/2025 2:14 PM MUSIC WORKER) Anatomical Region Laterality Modality Abdomen Computed Tomogra phy 08/12/2025 2:56 PM MUSIC WORKER Impressions 08/12/2025 2:39 PM MUSIC WORKER IMPRESSION: 1. Moderate right hydronephrosis and hydroureter with a 4 mm calculus in the distal right ureter. Associated right perinephric edema. Narrative 08/12/2025 2:39 PM MUSIC WORKER EXAM: CT ABDOMEN PELVIS WO CONTRAST DATE/TIME OF EXAM: 08/12/2025 2:14 PM REASON FOR STUDY: Flank pain, stone disease suspected DIAGNOSIS: See Reason for Exam COMPARISON: July 26, 2025 TECHNIQUE: CT AP without intravenous contrast. INTRAVENOUS CONTRAST: NONE FINDINGS: No acute abnormality of the imaged portion of the lung bases. Moderate right hydronephrosis and hydroureter has developed. 4 mm calculus in the distal right ureter. Numerous phleboliths are present throughout the pelvis. Mild right perinephric edema. The remainder of the abdominal solid organs are grossly unremarkable in unenhanced appearance. Prior gastric bypass. No gas distended bowel. The appendix is nondistended. The gallbladder is surgically absent. No ascites collects in the pelvis. The bladder is nearly empty. Multilevel degenerative changes of the thoracolumbar spine with levoscoliosis. Procedure Note Ced Walsh MD - 08/12/2025 EXAM: CT ABDOMEN PELVIS WO CONTRAST DATE/TIME OF EXAM: 08/12/2025 2:14 PM REASON FOR STUDY: Flank pain, stone disease suspected DIAGNOSIS: See Reason for Exam COMPARISON: July 26, 2025 TECHNIQUE: CT AP without intravenous contrast. INTRAVENOUS CONTRAST: NONE FINDINGS: No acute abnormality of the imaged portion of the lung bases. Moderate right hydronephrosis and hydroureter has developed. 4 mm calculus in the distal right ureter. Numerous phleboliths are present throughout the pelvis. Mild right perinephric edema. The remainder of the abdominal solid organs are grossly unremarkable in unenhanced appearance. Prior gastric bypass. No gas distended bowel. The appendix is nondistended. The gallbladder is surgically absent. No ascites collects in the pelvis. The bladder is nearly empty. Multilevel degenerative changes of the thoracolumbar spine with levoscoliosis. IMPRESSION: 1. Moderate right hydronephrosis and hydroureter with a 4 mm calculus in the distal right ureter. Associated right perinephric edema. Melinda Fabian MD CT ORDERABLES Final Result * (ABNORMAL) COMPREHENSIVE METABOLIC PANEL (08/12/2025 1:41 PM MUSIC WORKER) SODIUM 140 136 - 145 mmol/L 08/12/2025 2:05 PM [facility] POTASSIUM 4.1 3.5 - 5.1 mmol/L 08/12/2025 2:05 PM [facility] CHLORIDE 103 98 - 107 mmol/L 08/12/2025 2:05 PM [facility] CO2 27 22 - 29 mmol/L 08/12/2025 2:05 PM [facility] CALCIUM 9.3 8.6 - 10.0 mg/dL 08/12/2025 2:05 PM [facility] BUN 14 6 - 20 mg/dL 08/12/2025 2:05 PM [facility] CREATININE 0.73 0.51 - 0.95 mg/dL 08/12/2025 2:05 PM [facility] GLUCOSE 103(H) 74 - 99 mg/dL 08/12/2025 2:05 PM [facility] TOTAL PROTEIN 7.3 6.6 - 8.7 g/dL 08/12/2025 2:05 PM [facility] ALBUMIN 4.4 3.5 - 5.2 g/dL 08/12/2025 2:05 PM [facility] BILIRUBIN TOTAL 0.4 0.0 - 1.2 mg/dL 08/12/2025 2:05 PM [facility] ALKALINE PHOSPHATASE 104 35 - 104 U/L 08/12/2025 2:05 PM [facility] AST 33 0 - 35 U/L 08/12/2025 2:05 PM [facility] ALT 40(H) 0 - 35 U/L 08/12/2025 2:05 PM [facility] GFR >60 >=60 mL/min/1.7 3 sq meter 08/12/2025 2:05 PM [facility] Comment:eGFR calculated with 2020 CKD-EPI equation. Vegetarian diet, extremely high or low muscle mass, and may affect results. Cystatin C with Glomerular Filtration Rate is a suitable alternative for these patients. ANION GAP 10 5 - 20 mmol/L 08/12/2025 2:05 PM [facility] Blood BLOOD SPECIMEN / Unknown Venipuncture / Unknown 08/12/2025 1:41 PM MUSIC WORKER 08/12/2025 1:50 PM MUSIC WORKER Melinda Fabian MD CHEMISTRY ORDERABLES Final [id number] [address] [place] [address] * (ABNORMAL) CBC WITH DIFFERENTIAL (08/12/2025 1:41 PM MUSIC WORKER) WBC 8.8 4.0 - 10.0 K/uL 08/12/2025 1:56 PM [facility] RBC 4.18 3.93 - 5.22 M/uL 08/12/2025 1:56 PM [facility] HEMOGLOBIN 12.5 11.2 - 15.7 g/dL 08/12/2025 1:56 PM [facility] HEMATOCRIT 38.2 34.1 - 44.9 % 08/12/2025 1:56 PM [facility] MCV 91.4 79.4 - 94.8 fL 08/12/2025 1:56 PM [facility] MCH 29.9 25.6 - 32.2 pg 08/12/2025 1:56 PM [facility] MCHC 32.7 32.2 - 35.5 g/dL 08/12/2025 1:56 PM [facility] RDW 13.0 11.0 - 14.5 % 08/12/2025 1:56 PM [facility] RDW-STDEV 42.9 36.9 - 56.9 fL 08/12/2025 1:56 PM [facility] PLATELETS 353(H) 163 - 337 K/uL 08/12/2025 1:56 PM [facility] MPV 10.0 10.0 - 14.8 fL 08/12/2025 1:56 PM [facility] NEUTROPHILS 51 34 - 71 % 08/12/2025 1:56 PM [facility] LYMPHOCYTES 35 19 - 52 % 08/12/2025 1:56 PM [facility] MONOCYTES 11 5 - 13 % 08/12/2025 1:56 PM [facility] EOSINOPHILS 2 1 - 6 % 08/12/2025 1:56 PM [facility] BASOPHILS 1 0 - 1 % 08/12/2025 1:56 PM [facility] IMMATURE GRANULOCYTES 0 % 08/12/2025 1:56 PM [facility] NEUTROPHIL ABSOLUTE 4.53 1.56 - 6.13 K/uL 08/12/2025 1:56 PM [facility] LYMPHOCYTE ABSOLUTE 3.07 1.20 - 3.40 K/uL 08/12/2025 1:56 PM [facility] MONOCYTE ABSOLUTE 0.99(H) 0.24 - 0.36 K/uL 08/12/2025 1:56 PM [facility] EOSINOPHIL ABSOLUTE 0.14 0.04 - 0.36 K/uL 08/12/2025 1:56 PM [facility] BASOPHILS ABSOLUTE 0.07 0.01 - 0.08 K/uL 08/12/2025 1:56 PM [facility] IMMATURE GRANULOCYTES ABSOLUTE 0.02 K/uL 08/12/2025 1:56 PM MUSIC WORKER [facility] Blood BLOOD SPECIMEN / Unknown Venipuncture / Unknown 08/12/2025 1:41 PM MUSIC WORKER 08/12/2025 1:50 PM MUSIC WORKER Melinda Fabian MD HEMATOLOGY ORDERABLES Final Result [facility] CLIA # [id number] [address] [place] [address] documented in this encounter Visit Diagnoses Diagnosis Ureteral calculus, right- Primary Calculus of ureter documented in this encounter Administered Medications Inactive Administered Medications - up to 3 most recent administrations Medication Order MAR Action Action Date Dose Rate Site HYDROmorphone (PF) (DILAUDID) injection 1 mg 1 mg, IV, ONE TIME ONLY, 1 dose, On Tue08/12/25 at 1400, Routine Given 08/12/2025 1:48 PM MUSIC WORKER 1 mg metoclopramide (REGLAN) 5 mg/mL injection 10 mg 10 mg, IV, ONE TIME ONLY, 1 dose, On Tue08/12/25 at 1430, Routine Given 08/12/2025 2:51 PM MUSIC WORKER 10 mg morphine 4 mg/mL injection 4 mg 4 mg, IV, ONE TIME ONLY, 1 dose, On Tue08/12/25 at 1500, Routine Given 08/12/2025 2:57 PM MUSIC WORKER 4 mg ondansetron (ZOFRAN) 4 mg/2 mL injection 4 mg 4 mg, IV, ONE TIME ONLY, 1 dose, On Tue08/12/25 at 1400, Routine Given 08/12/2025 2:05 PM MUSIC WORKER 4 mg tamsulosin (FLOMAX) SR 24 hour capsule 0.4 mg 0.4 mg, Oral, ONE TIME ONLY, 1 dose, On Tue08/12/25 at 1500, Routine Given 08/12/2025 2:51 PM MUSIC WORKER 0.4 mg documented in this encounter Active and Recently Administered Medications Times are shown in MUSIC WORKER. Scheduled Medication Order 08/10/2025 08/11/2025 08/12/2025 HYDROmorphone (PF) (DILAUDID) injection 1 mg (COMPLETED) 1 mg, IV, ONE TIME ONLY, 1 dose, On Tue08/12/25 at 1400, Routine 1348 (Given - Provid er: Kayleen Novak RN) metoclopramide (REGLAN) 5 mg/mL injection 10 mg (COMPLETED) 10 mg, IV, ONE TIME ONLY, 1 dose, On Tue08/12/25 at 1430, Routine 1451 (Given - Provid er: Kayleen Novak RN) morphine 4 mg/mL injection 4 mg (COMPLETED) 4 mg, IV, ONE TIME ONLY, 1 dose, On Tue08/12/25 at 1500, Routine 1457 (Given - Provid er: Edel Bowling RN) ondansetron (ZOFRAN) 4 mg/2 mL injection 4 mg (COMPLETED) 4 mg, IV, ONE TIME ONLY, 1 dose, On Tue08/12/25 at 1400, Routine 1405 (Given - Provid er: Kayleen Novak RN) tamsulosin (FLOMAX) SR 24 hour capsule 0.4 mg (COMPLETED) 0.4 mg, Oral, ONE TIME ONLY, 1 dose, On Tue08/12/25 at 1500, Routine 1451 (Given - Provid er: Kayleen Novak RN) documented in this encounter Care Teams Court Registry Officer Relationship Specialty Start Date End Date Elton Velasquez MD [address] [phone] PCP - General Family Practice 11/18/22 documented as of this encounter
[2025-08-14] VITALS (7 sets, daily range): BP systolic 132–157; BP diastolic 85–97; PULSE 59–70; RESP 18; TEMP 36.7; O2SAT 95–100
--- OUTSIDE RECORDS SUMMARY | 2025-08-14 13:08 | XMS_ITS | Encounter Summary ---
Author Organization [facility] Address 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 [address] [phone] Elton Velasquez MD [address] [phone] documented as of this encounter Procedures Procedure Name Priority Date/Time Associated Diagnosis Comments CBC WITH DIFFERENTIAL Stat 08/20/2024 9:29 AM MANAGER MEETING Hematuria, unspecified COMPREHENSIVE METABOLIC PANEL Stat 08/20/2024 9:29 AM MANAGER MEETING Hematuria, unspecified documented in this encounter Results * (ABNORMAL) COMPREHENSIVE METABOLIC PANEL (08/20/2024 9:29 AM MANAGER MEETING) SODIUM 139 136 - 145 mmol/L 08/20/2024 9:55 AM [facility] POTASSIUM 3.5 3.5 - 5.1 mmol/L 08/20/2024 9:55 AM [facility] CHLORIDE 104 98 - 107 mmol/L 08/20/2024 9:55 AM [facility] CO2 25 22 - 29 mmol/L 08/20/2024 9:55 AM [facility] CALCIUM 9.3 8.6 - 10.0 mg/dL 08/20/2024 9:55 AM [facility] BUN 13 6 - 20 mg/dL 08/20/2024 9:55 AM [facility] CREATININE 0.65 0.51 - 0.95 mg/dL 08/20/2024 9:55 AM [facility] GLUCOSE 119(H) 74 - 99 mg/dL 08/20/2024 9:55 AM [facility] TOTAL PROTEIN 7.0 6.6 - 8.7 g/dL 08/20/2024 9:55 AM [facility] ALBUMIN 4.3 3.5 - 5.2 g/dL 08/20/2024 9:55 AM [facility] BILIRUBIN TOTAL 0.4 <=1.2 mg/dL 08/20/2024 9:55 AM [facility] ALKALINE PHOSPHATASE 94 35 - 104 U/L 08/20/2024 9:55 AM [facility] AST 19 10 - 35 U/L 08/20/2024 9:55 AM [facility] ALT 19 10 - 35 U/L 08/20/2024 9:55 AM [facility] GFR >60 >=60 mL/min/1.7 3 sq meter 08/20/2024 9:55 AM [facility] Comment:eGFR calculated with 2020 CKD-EPI equation. Vegetarian diet, extremely high or low muscle mass, and may affect results. Cystatin C with Glomerular Filtration Rate is a suitable alternative for these patients. ANION GAP 10(L) 12 - 20 mmol/L 08/20/2024 9:55 AM [facility] Blood 08/20/2024 9:29 AM MANAGER MEETING 08/20/2024 9:29 AM MANAGER MEETING us Gini Pal NP CHEMISTRY ORDERABLES Final Res ult [facility] CLIA # [id number] [address] [place] [id number] * (ABNORMAL) CBC WITH DIFFERENTIAL (08/20/2024 9:29 AM MANAGER MEETING) WBC 6.3 4.0 - 10.0 K/uL 08/20/2024 9:35 AM [facility] RBC 4.16 3.93 - 5.22 M/uL 08/20/2024 9:35 AM [facility] HEMOGLOBIN 12.0 11.2 - 15.7 g/dL 08/20/2024 9:35 AM [facility] HEMATOCRIT 37.5 34.1 - 44.9 % 08/20/2024 9:35 AM [facility] MCV 90.1 79.4 - 94.8 fL 08/20/2024 9:35 AM [facility] MCH 28.8 25.6 - 32.2 pg 08/20/2024 9:35 AM [facility] MCHC 32.0(L) 32.2 - 35.5 g/dL 08/20/2024 9:35 AM [facility] RDW 14.1 11.0 - 14.5 % 08/20/2024 9:35 AM [facility] RDW-STDEV 46.2 36.9 - 56.9 fL 08/20/2024 9:35 AM [facility] PLATELETS 286 163 - 337 K/uL 08/20/2024 9:35 AM [facility] MPV 10.0 10.0 - 14.8 fL 08/20/2024 9:35 AM [facility] NEUTROPHILS 50 34 - 71 % 08/20/2024 9:35 AM [facility] LYMPHOCYTES 36 19 - 52 % 08/20/2024 9:35 AM [facility] MONOCYTES 11 5 - 13 % 08/20/2024 9:35 AM [facility] EOSINOPHILS 2 1 - 6 % 08/20/2024 9:35 AM [facility] BASOPHILS 1 0 - 1 % 08/20/2024 9:35 AM [facility] IMMATURE GRANULOCYTES 0 % 08/20/2024 9:35 AM [facility] NEUTROPHIL ABSOLUTE 3.13 1.56 - 6.13 K/uL 08/20/2024 9:35 AM [facility] LYMPHOCYTE ABSOLUTE 2.27 1.20 - 3.40 K/uL 08/20/2024 9:35 AM [facility] MONOCYTE ABSOLUTE 0.72(H) 0.24 - 0.36 K/uL 08/20/2024 9:35 AM [facility] EOSINOPHIL ABSOLUTE 0.14 0.04 - 0.36 K/uL 08/20/2024 9:35 AM [facility] BASOPHILS ABSOLUTE 0.05 0.01 - 0.08 K/uL 08/20/2024 9:35 AM MANAGER MEETING [facility] IMMATURE GRANULOCYTES ABSOLUTE 0.01 K/uL 08/20/2024 9:35 AM MANAGER MEETING [facility] Blood Collection / Unknown 08/20/2024 9:29 AM MANAGER MEETING 08/20/2024 9:29 AM MANAGER MEETING Gini Pal TABLE ASSEMBLER HEMATOLOGY ORDERABLES Final Re sult [facility] CLIA # [id number] [address] [address] documented in this encounter Visit Diagnoses Diagnosis Hematuria, unspecified documented in this encounter Care Teams Roll Contour Grinder Relationship Specialty Start Date End Date Elton Velasquez MD [address] [phone] PCP - General Family Practice 11/18/22 documented as of this encounter
--- OUTSIDE RECORDS SUMMARY | 2025-08-14 13:08 | XMS_ITS | Encounter Summary ---
Author Organization [facility] Address [address] [address] Phone Care Team Providers Care Grain Elevator Superintendent Name Role Phone Program, Send To [facility] Primary Care Provider Mary Ann Ramirez RN Unavailable [phone] Elton Velasquez MD Primary Care Provider Encounter Details Date Type Department Care Team (Late st Contact Info) Description 06/24/2020 Orders Only [facility] [address] [place], [place] [address] Lorraine Patel RN [address] [address] Social History Tobacco Use Types [...] st Contact Info) Description 08/28/2025 3:00 PM COUNCIL MEMBER Office [facility] [address] [phone] Omkar Garg Jr., DO [address] [phone] documented as of this encounter Visit Diagnoses Not on filedocumented in this encounter Care Teams Grain Elevator Superintendent Relationship Specialty Start Date End Date Program, Send To [address] [address] PCP - General Family Medicine 03/03/21 03/03/21 Elton Velasquez MD [address] [phone] PCP - General Family Medicine 07/18/24 Mary Ann Thurman RN [address] [place] [phone] Registered Nurse Internal Medicine 06/29/24 documented as of this encounter
--- OUTSIDE RECORDS SUMMARY | 2025-08-14 13:09 | XMS_ITS | Encounter Summary ---
Author Organization [facility] Address [address] [place] [address] Care Team Providers Care Midwife Practitioner Name Role Phone Graciela Marsh MD Primary Care Provider Encounter Details Date Type Department Care Team (Latest Contact Info) Description 02/08/2002 Outpatient Historical [facility] Family Medicine [address] [address] Kathie Steward MD NO ADDRESS ON FILE ABDOMINAL TENDERNESS UNSP SITE (Primary Dx); FEMALE GENITAL SYMPTOMS NOS Social History Tobacco Use Types Packs/Day Years Used Date Smoking Tobacco: Never Assessed Comments Unknown Sex and Gender Information Value Date Recorded Sex Assigned at Not on file Legal Sex Female 5:20 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
--- OUTSIDE RECORDS SUMMARY | 2025-08-14 13:09 | XMS_ITS | Encounter Summary ---
Author Organization [facility] Address [address] [place] [address] Care Team Providers Care Neurological Surgeon Name Role Phone Graciela Marsh MD Primary Care Provider [phone] Encounter Details Date Type Department Care Team (Latest Contact Info) Description 01/26/1999 Outpatient [facility] Medicine[address] [phone] Lexi Streeter MD [address] [place] [address] Other general counseling and advice for contraceptive management (Primary Dx) Social History Tobacco Use Types Packs/Day Years Used Date Smoking Tobacco: Never Assessed Comments Unknown Sex and Gender Information Value Date Recorded Sex Assigned at Not on file Legal Sex Female 5:20 AM 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
--- OUTSIDE RECORDS SUMMARY | 2025-08-14 13:09 | XMS_ITS | Encounter Summary ---
Author Organization [facility] Address [address] [place] [address] Care Team Providers Care Special Event Assistant Name Role Phone Elton Velasquez MD Primary Care Provider [phone] Reason for Visit * Reason Onset Date Comments Appointment Information 08/12/2025 Encounter Details Date Type Department Care Team (Late st Contact Info) Description 08/12/2025 Telephone [facility] Medicine [place] 104 [facility] 60 [place] [address] Gini Pal NP [address] [place] [address] Appointment Information Social History Tobacco [...] worry about transportation for future doctor visits, bead picker medication, etc.? No 2024 Housing Stability [...] on file Legal Sex Female 3:05 PM CUTLET MAKER PORK Gender Identity Not on file Sexual Orientation Not on file documented as of this encounter Miscellaneous Notes * Telephone Encounter - Betzy Mackay - 08/12/2025 10:05 AM CST 08/12/2025 10:06 AM I called the patient and rescheduled her appointment for 3:40. Betzy ET MAKER PORK documented in this encounter Plan of Treatment Upcoming Encounters Date Type Department Care Team (Late st Contact Info) Description 09/04/2025 12:00 PM CUTLET MAKER PORK Office Visit [facility] Medicine [place] [address] [address] Elton Velasquez MD [address] [address] documented as of this encounter Visit Diagnoses Not on filedocumented in this encounter Care Teams Special Event Assistant Relationship Specialty Start Date End Date Elton Velasquez MD [address] [address] PCP - General Family Practice 11/18/22 documented as of this encounter
--- OUTSIDE RECORDS SUMMARY | 2025-08-14 13:09 | XMS_ITS | Encounter Summary ---
Author Organization [facility] Address [address] [place] [address] Care Team Providers Care Abattoir Supervisor Name Role Phone Graciela Marsh MD Primary Care Provider Encounter Details Date Type Department Care Team (Latest Contact Info) Description 08/31/2004 Outpatient Historical [facility] [address] [place] [address] Eliza Amezcua, VENDING ROUTE DRIVER [address] [place] [address] ACUTE URI NOS (Primary Dx) Social History Tobacco Use Types Packs/Day Years Used Date Smoking Tobacco: Never Assessed Comments Unknown Sex and Gender Information Value Date Recorded Sex Assigned at Not on file 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
--- OUTSIDE RECORDS SUMMARY | 2025-08-14 13:09 | XMS_ITS | Encounter Summary ---
Author Organization [facility] Address [address] [place] [address] Care Team Providers Care Netezza Developer Name Role Phone Graciela Marsh MD Primary Care Provider [phone] Encounter Details Date Type Department Care Team (Latest Contact Info) Description 07/03/2004 Outpatient Historical [facility] [address] [place] [address] Eliza Amezcua, NEWSSTAND VENDOR [address] [place] [address] CONJUNCTIVITIS NEC (Primary Dx) Social History Tobacco Use Types Packs/Day Years Used Date Smoking Tobacco: Never Assessed Comments Unknown Sex and Gender Information Value Date Recorded Sex Assigned at Not on file 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
--- OUTSIDE RECORDS SUMMARY | 2025-08-14 13:09 | XMS_ITS | Encounter Summary ---
Author Organization [facility] Address [address] [place] [address] Care Team Providers Care Rn Infusion Name Role Phone Graciela Marsh MD Primary Care Provider Encounter Details Date Type Department Care Team (Latest Contact Info) Description 10/07/2004 Outpatient Historical [facility] 149 [place] [address] Eliza Amezcua, FUR GLAZER [address] [place] [address] ACUTE SINUSITIS NOS (Primary Dx); ACUTE BRONCHITIS; ABDOMINAL PAIN UNSPEC SITE Social History Tobacco Use Types Packs/Day Years Used Date Smoking Tobacco: Never Assessed Comments Unknown Sex and Gender Information Value Date Recorded Sex Assigned at Not on file Legal Sex Female 5:20 AM SUPERVISOR MONEY ROOM Gender Identity Not on file Sexual Orientation Not on file documented as of this encounter Plan of Treatment Not on file documented as of this encounter Visit Diagnoses Diagnosis Acute sinusitis, unspecified- Primary Acute bronchitis Abdominal pain, unspecified site documented in this encounter Care Teams Rn Infusion Relationship Specialty Start Date End Date Graciela Marsh MD [address] [facility] [place] [address] PCP - General Family Practice 10/11/13 documented as of this encounter
--- OUTSIDE RECORDS SUMMARY | 2025-08-14 13:09 | XMS_ITS | Encounter Summary ---
Author Organization [facility] Address [address] [place] [address] Care Team Providers Care Fishing Tool Operator Name Role Phone Elton Velasquez MD Primary Care Provider [phone] Reason for Visit * Reason Comments Med Refill Encounter Details Date Type Department Care Team (Late st Contact Info) Description 08/08/2025 Refill [facility] [address] [place] [address] Gini Pal NP [address] [place] [address] H/O bariatric surgery Social History Tobacco Use [...] on file Legal Sex Female 3:05 PM PROCESSING TECH Gender Identity Not on file Sexual Orientation Not on file documented as of this encounter Plan of Treatment Upcoming Encounters Date Type Department Care Team (Late st Contact Info) Description 09/04/2025 12:00 PM PROCESSING TECH Office Visit [facility] [address] [address] Elton Velasquez MD [address] [address] documented as of this encounter Visit Diagnoses Diagnosis H/O bariatric surgery Bariatric surgery status documented in this encounter Care Teams Fishing Tool Operator Relationship Specialty Start Date End Date Elton Velasquez MD [address] [address] PCP - General Family Practice 11/18/22 documented as of this encounter
--- OUTSIDE RECORDS SUMMARY | 2025-08-14 13:09 | XMS_ITS | Encounter Summary ---
Author Organization [facility] Address [address] [address] Phone Care Team Providers Care Mica Washer Gluer Name Role Phone Mary Ann Thurman RN Unavailable [phone] Elton Velasquez MD Primary Care Provider [phone] Reason for Visit * Reason Comments Med Refill Encounter Details Date Type Department Care Team (Late st Contact Info) Description 03/18/2022 Refill [facility] [address] [place], [place] [id number] Jackie Springer, CHRIS [address] [phone] Seasonal allergic rhinitis due to pollen Social [...] st Contact Info) Description 08/28/2025 3:00 PM VACUUM CLEANER MECHANIC [facility] [address] [phone] Omkar Garg Jr., DO [address] [phone] documented as of this encounter Visit Diagnoses Diagnosis Seasonal allergic rhinitis due to pollen documented in this encounter Care Teams Mica Washer Gluer Relationship Specialty Start Date End Date Elton Velasquez MD [address] [phone] PCP - General Family Medicine 07/18/24 Mary Ann Thurman, RN [address] [address] Registered Nurse Internal Medicine 06/29/24 documented as of this encounter
--- OUTSIDE RECORDS SUMMARY | 2025-08-14 13:09 | XMS_ITS | Encounter Summary ---
Author Organization [facility] Address [address] [place] [address] Care Team Providers Care Technical Marketing Engineer Name Role Phone Elton Velasquez MD Primary Care Provider [phone] Encounter Details Date Type Department Care Team (Late st Contact Info) Description 08/13/2025 External Device Data STL ABSTRACTION Provider, Abstract [...] about transportation for future doctor visits, pick pack worker medication, etc.? No 2024 Housing Stability Answer [...] on file Legal Sex Female 3:05 PM TIRE RETREADER Gender Identity Not on file Sexual Orientation Not on file documented as of this encounter Plan of Treatment Upcoming Encounters Date Type Department Care Team (Late st Contact Info) Description 09/04/2025 12:00 PM TIRE RETREADER Office Visit [facility] Medicine [place] [address] [address] Elton Velasquez MD [address] [address] documented as of this encounter Visit Diagnoses Not on filedocumented in this encounter Care Teams Technical Marketing Engineer Relationship Specialty Start Date End Date Elton Velasquez MD [address] [address] PCP - General Family Practice 11/18/22 documented as of this encounter
--- OUTSIDE RECORDS SUMMARY | 2025-08-14 13:09 | XMS_ITS | Encounter Summary ---
Author Organization [facility] Address [address] [place] [address] Care Team Providers Care Equalizing Saw Operator Name Role Phone Graciela Marsh MD Primary Care Provider [phone] Encounter Details Date Type Department Care Team (Latest Contact Info) Description 10/20/2005 Outpatient Historical [facility] [address] [place] [address] Eliza Amezcua, BANKING SERVICES OFFICER [address] [place] [address] ACUTE URI NOS (Primary Dx) Social History Tobacco Use Types Packs/Day Years Used Date Smoking Tobacco: Never Assessed Comments Unknown Sex and Gender Information Value Date Recorded Sex Assigned at Not on file Legal Sex Female 5:20 AM MANUFACTURING INTERN Gender Identity Not on file Sexual Orientation Not on file documented as of this encounter Plan of Treatment Not on file documented as of this encounter Visit Diagnoses Diagnosis Acute upper respiratory infections of unspecified site- Primary documented in this encounter Care Teams Equalizing Saw Operator Relationship Specialty Start Date End Date Graciela Marsh MD [address] [facility] 60 [place] [address] PCP - General Family Practice 10/11/13 documented as of this encounter
--- OUTSIDE RECORDS SUMMARY | 2025-08-14 13:09 | XMS_ITS | Encounter Summary ---
Author Organization [facility] Address [address] [place] [address] Care Team Providers Care Epidemiology Investigator Name Role Phone Graciela Marsh MD Primary Care Provider [phone] Encounter Details Date Type Department Care Team (Latest Contact Info) Description 12/09/2004 Outpatient Historical [facility] [address] [place] [address] Eliza Amezcua, SOUND EFFECTS SUPERVISOR [address] [place] [address] ACUTE URI NOS (Primary Dx) Social History Tobacco Use Types Packs/Day Years Used Date Smoking Tobacco: Never Assessed Comments Unknown Sex and Gender Information Value Date Recorded Sex Assigned at Not on file 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
--- OUTSIDE RECORDS SUMMARY | 2025-08-14 13:09 | XMS_ITS | Encounter Summary ---
Author Organization [facility] Address [address] [place] [address] Care Team Providers Care Farm Product Purchaser Name Role Phone Graciela Marsh MD Primary Care Provider Encounter Details Date Type Department Care Team (Latest Contact Info) Description 09/18/2004 [facility] [address] [place] [address] Eliza Amezcua, [facility] [address] [place] [address] HAND INJURY NOS (Primary Dx) Social History Tobacco Use Types Packs/Day Years Used Date Smoking Tobacco: Never Assessed Comments Unknown Sex and Gender Information Value Date Recorded Sex Assigned at Not on file Legal Sex Female 5:20 AM KNITTER HELPER Gender Identity Not on file Sexual Orientation Not on file documented as of this encounter Plan of Treatment Not on file documented as of this encounter Visit Diagnoses Diagnosis Injury, other and unspecified, hand, except finger- Primary documented in this encounter Care Teams Farm Product Purchaser Relationship Specialty Start Date End Date Graciela Marsh MD [address] [facility] 60 [place] [address] PCP - General Family Practice 10/11/13 documented as of this encounter
--- OUTSIDE RECORDS SUMMARY | 2025-08-14 13:09 | XMS_ITS | Encounter Summary ---
Author Organization [facility] Address [address] [place] [address] Care Team Providers Care Retail Route Supervisor Name Role Phone Graciela Marsh MD Primary Care Provider Encounter Details Date Type Department Care Team (Latest Contact Info) Description 06/24/2004 Outpatient Historical [facility] [address] [place] [address] Eliza Amezcua, WEBMETHODS CONSULTANT [address] [place] [address] URTICARIA NOS (Primary Dx) Social History Tobacco Use Types Packs/Day Years Used Date Smoking Tobacco: Never Assessed Comments Unknown Sex and Gender Information Value Date Recorded Sex Assigned at Not on file Legal Sex Female 5:20 AM PARTS SALES COUNTERPERSON Gender Identity Not on file Sexual Orientation Not on file documented as of this encounter Plan of Treatment Not on file documented as of this encounter Visit Diagnoses Diagnosis Urticaria, unspecified- Primary documented in this encounter Care Teams Retail Route Supervisor Relationship Specialty Start Date End Date Graciela Marsh MD [address] [facility] 60 [place] [address] PCP - General Family Practice 10/11/13 documented as of this encounter
--- OUTSIDE RECORDS SUMMARY | 2025-08-14 13:09 | XMS_ITS | Encounter Summary ---
Author Organization [facility] Address [address] [place] [address] Care Team Providers Care Hand Laster Name Role Phone Graciela Marsh MD Primary Care Provider Encounter Details Date Type Department Care Team (Latest Contact Info) Description 12/25/[address] [facility] [address] [place] [address] Eliza Amezcua, HEAVY EQUIPMENT ENGINE MECHANIC [address] [place] [address] FEMALE GENITAL SYMPTOMS NOS (Primary Dx) Social History Tobacco Use Types Packs/Day Years Used Date Smoking Tobacco: Never Assessed Comments Unknown Sex and Gender Information Value Date Recorded Sex Assigned at Not on file Legal Sex Female 5:20 AM HOSPICE HOME HEALTH AIDE Gender Identity Not on file Sexual Orientation Not on file documented as of this encounter Plan of Treatment Not on file documented as of this encounter Visit Diagnoses Diagnosis Unspecified symptom associated with female genital organs- Primary documented in this encounter Care Teams Hand Laster Relationship Specialty Start Date End Date Graciela Marsh MD [address] [facility] 60 [place] [address] PCP - General Family Practice 10/11/13 documented as of this encounter
--- OUTSIDE RECORDS SUMMARY | 2025-08-14 13:09 | XMS_ITS | Encounter Summary ---
Author Organization [facility] Address [address] [place] [address] Care Team Providers Care Rivet Catcher Name Role Phone Graciela Marsh MD Primary Care Provider Encounter Details Date Type Department Care Team (Latest Contact Info) Description 11/10/2005 Outpatient Historical [facility] [address] [place] [address] Eliza Amezcua, BATTER OUT [address] [place] [address] MAMMOGRAPHIC MICROCALCIFICATION (Primary Dx) Social History Tobacco Use Types Packs/Day Years Used Date Smoking Tobacco: Never Assessed Comments Unknown Sex and Gender Information Value Date Recorded Sex Assigned at Not on file Legal Sex Female 5:20 AM LIFT ELECTRICIAN Gender Identity Not on file Sexual Orientation Not on file documented as of this encounter Plan of Treatment Not on file documented as of this encounter Visit Diagnoses Diagnosis Mammographic microcalcification- Primary documented in this encounter Care Teams Rivet Catcher Relationship Specialty Start Date End Date Graciela Marsh MD [address] [facility] 60 [place] [address] PCP - General Family Practice 10/11/13 documented as of this encounter
--- OUTSIDE RECORDS SUMMARY | 2025-08-14 13:09 | XMS_ITS | Encounter Summary ---
Author Organization [facility] Address [address] [place] [address] Care Team Providers Care Neon Technician Name Role Phone Graciela Marsh MD Primary Care Provider Encounter Details Date Type Department Care Team (Latest Contact Info) Description 02/07/2002 Outpatient Historical [facility] [address] [place] [address] Drew Davis MD [address] [facility] [address] [place] [address] ABDOMINAL PAIN UNSPEC SITE (Primary Dx) Social History Tobacco Use Types Packs/Day Years Used Date Smoking Tobacco: Never Assessed Comments Unknown Sex and Gender Information Value Date Recorded Sex Assigned at Not on file Legal Sex Female 5:20 AM VENIPUNCTURIST Gender Identity Not on file Sexual Orientation Not on file documented as of this encounter Plan of Treatment Not on file documented as of this encounter Visit Diagnoses Diagnosis Abdominal pain, unspecified site- Primary documented in this encounter Care Teams Neon Technician Relationship Specialty Start Date End Date Graciela Marsh MD [address] [facility] 60 [place] [address] PCP - General Family Practice 10/11/13 documented as of this encounter
--- OUTSIDE RECORDS SUMMARY | 2025-08-14 13:09 | XMS_ITS | Encounter Summary ---
Author Organization [facility] Address [address] [place] [address] Care Team Providers Care Mid Level Game Designer Name Role Phone Graciela Marsh MD Primary Care Provider [phone] Encounter Details Date Type Department Care Team (Latest Contact Info) Description 06/21/2002 Outpatient Historical [facility] Family Medicine [address] [phone] Kathie Steward MD NO ADDRESS ON FILE ACUTE PHARYNGITIS (Primary Dx) Social History Tobacco Use Types Packs/Day Years Used Date Smoking Tobacco: Never Assessed Comments Unknown Sex and Gender Information Value Date Recorded Sex Assigned at Not on file Legal Sex Female 5:20 AM BI LEAD Gender Identity Not on file Sexual Orientation Not on file documented as of this encounter Plan of Treatment Not on file documented as of this encounter Visit Diagnoses Diagnosis Acute pharyngitis- Primary documented in this encounter Care Teams Mid Level Game Designer Relationship Specialty Start Date End Date Graciela Marsh MD [address] [address] PCP - General Family Practice 10/11/13 documented as of this encounter
--- OUTSIDE RECORDS SUMMARY | 2025-08-14 13:09 | XMS_ITS | Encounter Summary ---
Author Organization [facility] Address [address] [place] [address] Care Team Providers Care It Infrastructure Architect Name Role Phone Graciela Marsh MD Primary Care Provider Encounter Details Date Type Department Care Team (Latest Contact Info) Description 01/12/2002 Outpatient Historical [facility] [address] [address] Lexi Streeter MD [address] [place] [address] DYSPAREUNIA (Primary Dx); ALLERGY, UNSPECIFIED Social History Tobacco Use Types Packs/Day Years Used Date Smoking Tobacco: Never Assessed Comments Unknown Sex and Gender Information Value Date Recorded Sex Assigned at Not on file Legal Sex Female 5:20 AM HOME CARE NURSE Gender Identity Not on file Sexual Orientation Not on file documented as of this encounter Plan of Treatment Not on file documented as of this encounter Visit Diagnoses Diagnosis Dyspareunia- Primary Allergy, unspecified not elsewhere classified documented in this encounter Care Teams It Infrastructure Architect Relationship Specialty Start Date End Date Graciela Marsh MD [address] [facility] [address] [place] [address] PCP - General Family Practice 10/11/13 documented as of this encounter
--- OUTSIDE RECORDS SUMMARY | 2025-08-14 13:09 | XMS_ITS | Encounter Summary ---
Author Organization [facility] Address [address] [place] [address] Care Team Providers Care Spinneret Cleaner Name Role Phone Graciela Marsh MD Primary Care Provider Encounter Details Date Type Department Care Team (Latest Contact Info) Description 09/10/[address] [facility] Medicine [address] [phone] Alton Kat NP NO ADDRESS ON FILE FINGER INJURY NOS (Primary Dx); FX PHALANX, HAND NOS-CLOSE Social History Tobacco Use Types Packs/Day Years Used Date Smoking Tobacco: Never Assessed Comments Unknown Sex and Gender Information Value Date Recorded Sex Assigned at Not on file Legal Sex Female 5:20 AM CERTIFIED PESTICIDE APPLICATOR Gender Identity Not on file Sexual Orientation Not on file documented as of this encounter Plan of Treatment Not on file documented as of this encounter Visit Diagnoses Diagnosis Injury, other and unspecified, finger- Primary Closed fracture of unspecified phalanx or phalanges of hand documented in this encounter Care Teams Spinneret Cleaner Relationship Specialty Start Date End Date Graciela Marsh MD [address] [phone] PCP - General Family Practice 10/11/13 documented as of this encounter
--- OUTSIDE RECORDS SUMMARY | 2025-08-14 13:09 | XMS_ITS | Encounter Summary ---
Author Organization [facility] Address [address] [place] [address] Care Team Providers Care Housekeeper Manager Name Role Phone Graciela Marsh MD Primary Care Provider [phone] Encounter Details Date Type Department Care Team (Latest Contact Info) Description 01/25/2005 Outpatient Historical [facility] [address] [place] [address] Eliza Amezcua, VP CONSTRUCTION [address] [place] [address] CANDIDIASIS SITE NEC (Primary Dx) Social History Tobacco Use Types Packs/Day Years Used Date Smoking Tobacco: Never Assessed Comments Unknown Sex and Gender Information Value Date Recorded Sex Assigned at Not on file Legal Sex Female 5:20 AM CHEMICAL WEIGHER Gender Identity Not on file Sexual Orientation Not on file documented as of this encounter Plan of Treatment Not on file documented as of this encounter Visit Diagnoses Diagnosis Other candidiasis of other specified sites- Primary documented in this encounter Care Teams Housekeeper Manager Relationship Specialty Start Date End Date Graciela Marsh MD [address] [facility] [address] [place] [phone] PCP - General Family Practice 10/11/13 documented as of this encounter
--- OUTSIDE RECORDS SUMMARY | 2025-08-14 13:09 | XMS_ITS | Encounter Summary ---
Author Organization [facility] Address [address] [place] [address] Care Team Providers Care Clay Stain Mixer Name Role Phone Graciela Marsh MD Primary Care Provider [phone] Encounter Details Date Type Department Care Team (Latest Contact Info) Description 02/23/2002 Outpatient Historical [facility] Medicine [address] [phone] Lexi Streeter MD [address] [place] [address] ABDOMINAL PAIN RUQ (Primary Dx); ACUTE FRONTAL SINUSITIS Social History Tobacco Use Types Packs/Day Years Used Date Smoking Tobacco: Never Assessed Comments Unknown Sex and Gender Information Value Date Recorded Sex Assigned at Not on file Legal Sex Female 5:20 AM WAGE AND SALARY ADMINISTRATOR Gender Identity Not on file Sexual Orientation Not on file documented as of this encounter Plan of Treatment Not on file documented as of this encounter Visit Diagnoses Diagnosis Abdominal pain, right upper quadrant- Primary Acute frontal sinusitis documented in this encounter Care Teams Clay Stain Mixer Relationship Specialty Start Date End Date Graciela Marsh MD [address] [facility] [place] [address] PCP - General Family Practice 10/11/13 documented as of this encounter
--- OUTSIDE RECORDS SUMMARY | 2025-08-14 13:09 | XMS_ITS | Encounter Summary ---
Author Organization [facility] Address [address] [place] [address] Care Team Providers Care Mineralogy Teacher Name Role Phone Elton Velasquez MD Primary Care Provider [phone] Encounter Details Date Type Department Care Team [...] worry about transportation for future doctor visits, picker and sorter load and unload medication, etc.? No 2024 Housing Stability Answer [...] on file Legal Sex Female 3:05 PM INDUSTRIAL CUSTODIAN Gender Identity Not on file Sexual Orientation Not on file documented as of this encounter Plan of Treatment Upcoming Encounters Date Type Department Care Team (Late st Contact Info) Description 09/04/2025 12:00 PM INDUSTRIAL CUSTODIAN Office Visit [facility] Medicine [place] [address] [address] Elton Velasquez MD [address] [address] documented as of this encounter Visit Diagnoses Not on filedocumented in this encounter Care Teams Mineralogy Teacher Relationship Specialty Start Date End Date Elton Velasquez MD [address] [address] PCP - General Family Practice 11/18/22 documented as of this encounter
--- OUTSIDE RECORDS SUMMARY | 2025-08-14 13:09 | XMS_ITS | Encounter Summary ---
Author Organization [facility] Address [address] [place] [address] Care Team Providers Care Police District Switchboard Operator Name Role Phone Graciela Marsh MD Primary Care Provider Encounter Details Date Type Department Care Team (Latest Contact Info) Description 05/15/2002 Outpatient Historical [facility] Medicine [address] [address] Amanuel Duvall DO NO ADDRESS ON FILE URIN TRACT INFECTION NOS (Primary Dx); ESOPHAGEAL REFLUX Social History Tobacco Use Types Packs/Day Years Used Date Smoking Tobacco: Never Assessed Comments Unknown Sex and Gender Information Value Date Recorded Sex Assigned at Not on file Legal Sex Female 5:20 AM SKIVER UPPERS OR LININGS Gender Identity Not on file Sexual Orientation Not on file documented as of this encounter Plan of Treatment Not on file documented as of this encounter Visit Diagnoses Diagnosis Urinary tract infection, site not specified- Primary Esophageal reflux documented in this encounter Care Teams Police District Switchboard Operator Relationship Specialty Start Date End Date Graciela Marsh MD [address] [address] PCP - General Family Practice 10/11/13 documented as of this encounter
--- OUTSIDE RECORDS SUMMARY | 2025-08-14 13:09 | XMS_ITS | Encounter Summary ---
Author Organization [facility] Address [address] [place] [address] Care Team Providers Care Internal Audit Director Name Role Phone Graciela Marsh MD Primary Care Provider Encounter Details Date Type Department Care Team (Latest Contact Info) Description 01/13/2005 Outpatient Historical [facility] [address] [place] [address] Eliza Amezcua, FILM SPOOLER [address] [place] [address] ACUTE URI NOS (Primary Dx) Social History Tobacco Use Types Packs/Day Years Used Date Smoking Tobacco: Never Assessed Comments Unknown Sex and Gender Information Value Date Recorded Sex Assigned at Not on file Legal Sex Female 5:20 AM COMPUTER EQUIPMENT REPAIRER Gender Identity Not on file Sexual Orientation Not on file documented as of this encounter Plan of Treatment Not on file documented as of this encounter Visit Diagnoses Diagnosis Acute upper respiratory infections of unspecified site- Primary documented in this encounter Care Teams Internal Audit Director Relationship Specialty Start Date End Date Graciela Marsh MD [address] [facility] 60 [place] [address] PCP - General Family Practice 10/11/13 documented as of this encounter
--- OUTSIDE RECORDS SUMMARY | 2025-08-14 13:09 | XMS_ITS | Encounter Summary ---
Author Organization [facility] Address [address]: [place] [address] Care Team Providers Care Safekeeping Clerk Name Role Phone Graciela Marsh MD Primary Care Provider [phone] Encounter Details Date Type Department Care Team (Late st Contact Info) Description 01/01/2002 Outpatient Historical Eliza Amezcua, UPHOLSTERER HELPER [address] [place] [phone] Social History Tobacco Use Types Packs/Day Years Used Date Smoking Tobacco: Never Assessed Comments Unknown Sex and Gender Information Value Date Recorded Sex Assigned at Not on file Legal Sex Female 5:20 AM PRESS OPERATOR [employer] Gender Identity Not on file Sexual Orientation Not on file documented as of this encounter Plan of Treatment Not on file documented as of this encounter Visit Diagnoses Not on filedocumented in this encounter Care Teams Safekeeping Clerk Relationship Specialty Start Date End Date Graciela Marsh MD [address] [facility] 60 [place] [phone] PCP - General Family Practice 10/11/13 documented as of this encounter
--- OUTSIDE RECORDS SUMMARY | 2025-08-14 13:09 | XMS_ITS | Encounter Summary ---
Author Organization [facility] Address [address] [place] [address] Care Team Providers Care Controlled Area Checker Name Role Phone Elton Velasquez MD Primary Care Provider [phone] Encounter Details Date Type Department Care Team (Late st Contact Info) Description 08/13/2025 Orders Only [facility] [address] [place] [address] Provider, Abstract NO ADDRESS ON FILE Social [...] worry about transportation for future doctor visits, cloth picker medication, etc.? No 2024 Housing Stability [...] on file Legal Sex Female 3:05 PM RANGE MECHANIC Gender Identity Not on file Sexual Orientation Not on file documented as of this encounter Plan of Treatment Upcoming Encounters Date Type Department Care Team (Late st Contact Info) Description 09/04/2025 12:00 PM RANGE MECHANIC Office Visit [facility] Medicine [place] [address] [address] Elton Velasquez MD [address] [address] documented as of this encounter Procedures Procedure Name Priority Date/Time Associated Diagnosis Comments COMPREHENSIVE METABOLIC PANEL Routine 08/12/2025 10:08 AM RANGE MECHANIC documented in this encounter Results * COMPREHENSIVE METABOLIC PANEL (08/12/2025 10:08 AM RANGE MECHANIC) Blood us Abstract Provider CHEMISTRY ORDERABLES Final Res ult documented in this encounter Visit Diagnoses Not on filedocumented in this encounter Care Teams Controlled Area Checker Relationship Specialty Start Date End Date Elton Velasquez MD [address] [address] PCP - General Family Practice 11/18/22 documented as of this encounter
--- OUTSIDE RECORDS SUMMARY | 2025-08-14 13:09 | XMS_ITS | Encounter Summary ---
Author Organization [facility] Address [address] [place] [address] Care Team Providers Care Insurance Processing Clerk Name Role Phone Graciela Marsh MD Primary Care Provider Encounter Details Date Type Department Care Team (Latest Contact Info) Description 08/05/2004 Outpatient Historical [facility] [address] [place] [address] Eliza Amezcua, REHAB ASSISTANT [address] [place] [address] ACUTE URI NOS (Primary Dx) Social History Tobacco Use Types Packs/Day Years Used Date Smoking Tobacco: Never Assessed Comments Unknown Sex and Gender Information Value Date Recorded Sex Assigned at Not on file Legal Sex Female 5:20 AM PIE TOPPER Gender Identity Not on file Sexual Orientation Not on file documented as of this encounter Plan of Treatment Not on file documented as of this encounter Visit Diagnoses Diagnosis Acute upper respiratory infections of unspecified site- Primary documented in this encounter Care Teams Insurance Processing Clerk Relationship Specialty Start Date End Date Graciela Marsh MD [address] [facility] 60 [place] [address] PCP - General Family Practice 10/11/13 documented as of this encounter
--- OUTSIDE RECORDS SUMMARY | 2025-08-14 13:09 | XMS_ITS | Encounter Summary ---
Author Organization [facility] Address [address] [place] [address] Care Team Providers Care Conditioning Machine Operator Name Role Phone Graciela Marsh MD Primary Care Provider [phone] Encounter Details Date Type Department Care Team (Latest Contact Info) Description 08/21/2004 Outpatient Historical [facility] [address] [place] [address] Eliza Amezcua, AUTO STRIPER [address] [place] [address] Pain in limb (Primary Dx) Social History Tobacco Use Types Packs/Day Years Used Date Smoking Tobacco: Never Assessed Comments Unknown Sex and Gender Information Value Date Recorded Sex Assigned at Not on file Legal Sex Female 5:20 AM IRONING MACHINE OPERATOR Gender Identity Not on file Sexual Orientation Not on file documented as of this encounter Plan of Treatment Not on file documented as of this encounter Visit Diagnoses Diagnosis Pain in limb- Primary Pain in soft tissues of limb documented in this encounter Care Teams Conditioning Machine Operator Relationship Specialty Start Date End Date Graciela Marsh MD [address] [facility] [place] [address] PCP - General Family Practice 10/11/13 documented as of this encounter
--- OUTSIDE RECORDS SUMMARY | 2025-08-14 13:09 | XMS_ITS | Encounter Summary ---
Author Organization [facility] Address [address] [place] [address] Care Team Providers Care Children'S Tutor Name Role Phone Graciela Marsh MD Primary Care Provider [phone] Encounter Details Date Type Department Care Team (Latest Contact Info) Description 10/15/1998 Outpatient [facility] [address] [phone] Christian Longoria MD [address] [place] [address] Acute frontal sinusitis (Primary Dx) Social History Tobacco Use Types Packs/Day Years Used Date Smoking Tobacco: Never Assessed Comments Unknown Sex and Gender Information Value Date Recorded Sex Assigned at Not on file Legal Sex Female 5:20 AM SPECIALTY TRANSFORMER ASSEMBLER Gender Identity Not on file Sexual Orientation Not on file documented as of this encounter Plan of Treatment Not on file documented as of this encounter Visit Diagnoses Diagnosis Acute frontal sinusitis- Primary documented in this encounter Care Teams Children'S Tutor Relationship Specialty Start Date End Date Graciela Marsh MD [address] [facility] 60 [place] [address] PCP - General Family Practice 10/11/13 documented as of this encounter
--- OUTSIDE RECORDS SUMMARY | 2025-08-14 13:09 | XMS_ITS | Encounter Summary ---
Author Organization [facility] Address [address] [place] [address] Care Team Providers Care Heating Equipment Repairer Name Role Phone Graciela Marsh MD Primary Care Provider Encounter Details Date Type Department Care Team (Latest Contact Info) Description 06/26/1998 Outpatient Historical [facility] [address] [phone] Matthew Palacios MD [address] [address] Erythema multiforme (Primary Dx) Social History Tobacco Use Types Packs/Day Years Used Date Smoking Tobacco: Never Assessed Comments Unknown Sex and Gender Information Value Date Recorded Sex Assigned at Not on file Legal Sex Female 5:20 AM HOME ECONOMIST Gender Identity Not on file Sexual Orientation Not on file documented as of this encounter Plan of Treatment Not on file documented as of this encounter Visit Diagnoses Diagnosis Erythema multiforme- Primary documented in this encounter Care Teams Heating Equipment Repairer Relationship Specialty Start Date End Date Graciela Marsh MD [address] [facility] [address] [place] [phone] PCP - General Family Practice 10/11/13 documented as of this encounter
--- OUTSIDE RECORDS SUMMARY | 2025-08-14 13:09 | XMS_ITS | Encounter Summary ---
Author Organization [employer] Address [address] [place] [address] Care Team Providers Care Chief Innovation Officer Name Role Phone Elton Velasquez MD Primary Care Provider [phone] Encounter Details Date Type Department Care Team [...] worry about transportation for future doctor visits, roll picker medication, etc.? No 2024 Housing Stability [...] on file Legal Sex Female 3:05 PM RN INTERNATIONAL Gender Identity Not on file Sexual Orientation Not on file documented as of this encounter Plan of Treatment Upcoming Encounters Date Type Department Care Team (Late st Contact Info) Description 09/04/2025 12:00 PM RN INTERNATIONAL Office Visit [facility] Medicine [place] [address] [address] Elton Velasquez MD [address] [address] documented as of this encounter Visit Diagnoses Not on filedocumented in this encounter Care Teams Chief Innovation Officer Relationship Specialty Start Date End Date Elton Velasquez MD [address] [address] PCP - General Family Practice 11/18/22 documented as of this encounter
--- OUTSIDE RECORDS SUMMARY | 2025-08-14 13:09 | XMS_ITS | Encounter Summary ---
Author Organization [facility] Address [address] [place] [address] Care Team Providers Care Office Technology Instructor Name Role Phone Elton Velasquez MD Primary Care Provider [phone] Encounter Details Date Type Department Care Team [...] on file Legal Sex Female 3:05 PM ROLL OVER PRESS OPERATOR Gender Identity Not on file Sexual Orientation Not on file documented as of this encounter Plan of Treatment Upcoming Encounters Date Type Department Care Team (Late st Contact Info) Description 09/04/2025 12:00 PM ROLL OVER PRESS OPERATOR Office Visit [facility] [address] [place] [phone] Elton Velasquez MD [address] [address] documented as of this encounter Visit Diagnoses Not on filedocumented in this encounter Care Teams Office Technology Instructor Relationship Specialty Start Date End Date Elton Velasquez MD [address] [address] PCP - General Family Practice 11/18/22 documented as of this encounter
--- OUTSIDE RECORDS SUMMARY | 2025-08-14 13:09 | XMS_ITS | Encounter Summary ---
Author Organization [facility] Address [address] [place] [address] Care Team Providers Care Vp Marketing Name Role Phone Graciela Marsh MD Primary Care Provider [phone] Encounter Details Date Type Department Care Team (Latest Contact Info) Description 03/06/2001 Outpatient Historical [facility] Medicine [address] [address] Lexi Streeter MD [address] [place] [address] Dyspareunia (Primary Dx); Irregular menstruation Social History Tobacco Use Types Packs/Day Years Used Date Smoking Tobacco: Never Assessed Comments Unknown Sex and Gender Information Value Date Recorded Sex Assigned at Not on file Legal Sex Female 5:20 AM VESSEL BUILDER Gender Identity Not on file Sexual Orientation Not on file documented as of this encounter Plan of Treatment Not on file documented as of this encounter Visit Diagnoses Diagnosis Dyspareunia- Primary Irregular menstruation Irregular menstrual cycle documented in this encounter Care Teams Vp Marketing Relationship Specialty Start Date End Date Graciela Marsh MD [address] [facility] [address] [place] [address] PCP - General Family Practice 10/11/13 documented as of this encounter
--- OUTSIDE RECORDS SUMMARY | 2025-08-14 13:09 | XMS_ITS | Encounter Summary ---
Author Organization [facility] Address [address] [place] [address] Care Team Providers Care Electric Motor Control Assembler Name Role Phone Elton Velasquez MD Primary Care Provider [phone] Encounter Details Date Type Department Care Team (Late st Contact Info) Description 07/26/2025 Lab Requisition [facility] [place] [address] [address] NereydaClare olvera, [facility] [address] [address] Calculus of kidney Social History [...] on file Legal Sex Female 3:05 PM AD COMPOSITOR Gender Identity Not on file Sexual Orientation Not on file documented as of this encounter Plan of Treatment Upcoming Encounters Date Type Department Care Team (Late st Contact Info) Description 09/04/2025 12:00 PM AD COMPOSITOR Office Visit [facility] [address] [address] Elton Velasquez MD [address] [address] documented as of this encounter Procedures Procedure Name Priority Date/Time Associated Diagnosis Comments CBC WITH DIFFERENTIAL Stat 07/26/2025 3:54 PM CDT Calculus of kidney COMPREHENSIVE METABOLIC PANEL Stat 07/26/2025 3:54 PM CDT Calculus of kidney documented in this encounter Results * (ABNORMAL) COMPREHENSIVE METABOLIC PANEL (07/26/2025 3:54 PM CDT) SODIUM 143 136 - 145 mmol/L 07/26/2025 4:13 PM CDT [facility] POTASSIUM 3.4(L) 3.5 - 5.1 mmol/L 07/26/2025 4:13 PM T [facility] CHLORIDE 106 98 - 107 mmol/L 07/26/2025 4:13 PM T [facility] CO2 29 22 - 29 mmol/L 07/26/2025 4:13 PM T [facility] CALCIUM 8.9 8.6 - 10.0 mg/dL 07/26/2025 4:13 PM [facility] BUN 8 6 - 20 mg/dL 07/26/2025 4:13 PM T [facility] CREATININE 0.62 0.51 - 0.95 mg/dL 07/26/2025 4:13 PM T [facility] GLUCOSE 86 74 - 99 mg/dL 07/26/2025 4:13 PM [facility] TOTAL PROTEIN 6.5(L) 6.6 - 8.7 g/dL 07/26/2025 4:13 PM T [facility] ALBUMIN 4.0 3.5 - 5.2 g/dL 07/26/2025 4:13 PM [facility] BILIRUBIN TOTAL 0.4 0.0 - 1.2 mg/dL 07/26/2025 4:13 PM [facility] ALKALINE PHOSPHATASE 100 35 - 104 U/L 07/26/2025 4:13 PM [facility] AST 27 0 - 35 U/L 07/26/2025 4:13 PM [facility] ALT 37(H) 0 - 35 U/L 07/26/2025 4:13 PM [facility] GFR >60 >=60 mL/min/1.7 3 sq meter 07/26/2025 4:13 PM [facility] Comment:eGFR calculated with 2020 CKD-EPI equation. Vegetarian diet, extremely high or low muscle mass, and may affect results. Cystatin C with Glomerular Filtration Rate is a suitable alternative for these patients. ANION GAP 8 5 - 20 mmol/L 07/26/2025 4:13 PM [facility] Blood BLOOD SPECIMEN / Unknown Venipuncture / Unknown 07/26/2025 3:54 PM CDT 07/26/2025 3:54 PM CDT Clare Dawn SANITARIAN AIDE CHEMISTRY ORDERABLES Fin al Result [facility] CLIA # [id number] [address] [place] [address] * (ABNORMAL) CBC WITH DIFFERENTIAL (07/26/2025 3:54 PM CDT) WBC 5.0 4.0 - 10.0 K/uL 07/26/2025 3:58 PM CDT [facility] RBC 4.14 3.93 - 5.22 M/uL 07/26/2025 3:58 PM CDT [facility] HEMOGLOBIN 12.2 11.2 - 15.7 g/dL 07/26/2025 3:58 PM [facility] HEMATOCRIT 36.9 34.1 - 44.9 % 07/26/2025 3:58 PM [facility] MCV 89.1 79.4 - 94.8 fL 07/26/2025 3:58 PM [facility] MCH 29.5 25.6 - 32.2 pg 07/26/2025 3:58 PM [facility] MCHC 33.1 32.2 - 35.5 g/dL 07/26/2025 3:58 PM [facility] RDW 13.5 11.0 - 14.5 % 07/26/2025 3:58 PM [facility] RDW-STDEV 44.0 36.9 - 56.9 fL 07/26/2025 3:58 PM [facility] PLATELETS 236 163 - 337 K/uL 07/26/2025 3:58 PM [facility] MPV 10.2 10.0 - 14.8 fL 07/26/2025 3:58 PM [facility] NEUTROPHILS 47 34 - 71 % 07/26/2025 3:58 PM [facility] LYMPHOCYTES 41 19 - 52 % 07/26/2025 3:58 PM [facility] MONOCYTES 10 5 - 13 % 07/26/2025 3:58 PM [facility] EOSINOPHILS 2 1 - 6 % 07/26/2025 3:58 PM [facility] BASOPHILS 1 0 - 1 % 07/26/2025 3:58 PM [facility] IMMATURE GRANULOCYTES 0 % 07/26/2025 3:58 PM [facility] NEUTROPHIL ABSOLUTE 2.34 1.56 - 6.13 K/uL 07/26/2025 3:58 PM [facility] LYMPHOCYTE ABSOLUTE 2.06 1.20 - 3.40 K/uL 07/26/2025 3:58 PM [facility] MONOCYTE ABSOLUTE 0.49(H) 0.24 - 0.36 K/uL 07/26/2025 3:58 PM CDT [facility] EOSINOPHIL ABSOLUTE 0.08 0.04 - 0.36 K/uL 07/26/2025 3:58 PM CDT [facility] BASOPHILS ABSOLUTE 0.05 0.01 - 0.08 K/uL 07/26/2025 3:58 PM CDT [facility] IMMATURE GRANULOCYTES ABSOLUTE 0.01 K/uL 07/26/2025 3:58 PM CDT [facility] Blood BLOOD SPECIMEN / Unknown Venipuncture / Unknown 07/26/2025 3:54 PM CDT 07/26/2025 3:54 PM CDT Clare Ambrose Nereyda SANITARIAN AIDE HEMATOLOGY ORDERABLES Fi nal Result [facility] CLIA # [id number] [address] [address] documented in this encounter Visit Diagnoses Diagnosis Calculus of kidney documented in this encounter Care Teams Electric Motor Control Assembler Relationship Specialty Start Date End Date Elton Velasquez MD [address] [phone] PCP - General Family Practice 11/18/22 documented as of this encounter
--- OUTSIDE RECORDS SUMMARY | 2025-08-14 13:09 | XMS_ITS | Encounter Summary ---
Author Organization [facility] Address [address] [place] [address] Care Team Providers Care Cv Tech Name Role Phone Graciela Marsh MD Primary Care Provider Encounter Details Date Type Department Care Team (Latest Contact Info) Description 12/26/2001 Outpatient Historical [facility] Medicine [address] [address] Amanuel Duvall DO NO ADDRESS ON FILE HEADACHE (Primary Dx); Irregular menstruation; ESOPHAGEAL REFLUX Social History Tobacco Use Types Packs/Day Years Used Date Smoking Tobacco: Never Assessed Comments Unknown Sex and Gender Information Value Date Recorded Sex Assigned at Not on file Legal Sex Female 5:20 AM BECK OPERATOR Gender Identity Not on file Sexual Orientation Not on file documented as of this encounter Plan of Treatment Not on file documented as of this encounter Visit Diagnoses Diagnosis Headache(784.0)- Primary Headache Irregular menstruation Irregular menstrual cycle Esophageal reflux documented in this encounter Care Teams Cv Tech Relationship Specialty Start Date End Date Graciela Marsh MD [address] [address] PCP - General Family Practice 10/11/13 documented as of this encounter
--- OUTSIDE RECORDS SUMMARY | 2025-08-14 13:09 | XMS_ITS | Encounter Summary ---
Author Organization [facility] Address [address] [place] [address] Care Team Providers Care Shade Classifier Name Role Phone Graciela Marsh MD Primary Care Provider Encounter Details Date Type Department Care Team (Latest Contact Info) Description 03/28/2002 Outpatient Historical [facility] [address] [place] [address] Drew Davis MD [address] [facility] [address] [place] [phone] URIN TRACT INFECTION NOS (Primary Dx) Social History Tobacco Use Types Packs/Day Years Used Date Smoking Tobacco: Never Assessed Comments Unknown Sex and Gender Information Value Date Recorded Sex Assigned at Not on file Legal Sex Female 5:20 AM SUPERVISOR INSPECTION ROOM Gender Identity Not on file Sexual Orientation Not on file documented as of this encounter Plan of Treatment Not on file documented as of this encounter Visit Diagnoses Diagnosis Urinary tract infection, site not specified- Primary documented in this encounter Care Teams Shade Classifier Relationship Specialty Start Date End Date Graciela Marsh MD [address] [facility] [address] [place] [address] PCP - General Family Practice 10/11/13 documented as of this encounter
--- OUTSIDE RECORDS SUMMARY | 2025-08-14 13:09 | XMS_ITS | Encounter Summary ---
Author Organization [facility] Address [address] [address] Phone Care Team Providers Care Director Labor Standards Name Role Phone Mary Ann Thurman RN Unavailable [phone] Elton Velasquez MD Primary Care Provider [phone] Reason for Visit * Reason Onset Date Comments Appointment 12/29/2021 Encounter Details Date Type Department Care Team (Late st Contact Info) Description 12/29/[address] 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
--- OUTSIDE RECORDS SUMMARY | 2025-08-14 13:09 | XMS_ITS | Encounter Summary ---
Author Organization [facility] Address [address] [place] [address] Care Team Providers Care News Broadcaster Name Role Phone Graciela Marsh MD Primary Care Provider Encounter Details Date Type Department Care Team (Latest Contact Info) Description 10/25/2005 Outpatient Historical [facility] [address] [place] [address] Eliza Amezcua, SUPERINTENDENT NONSELLING [address] [place] [address] BREAST DISORDER NOS (Primary Dx) Social History Tobacco Use Types Packs/Day Years Used Date Smoking Tobacco: Never Assessed Comments Unknown Sex and Gender Information Value Date Recorded Sex Assigned at Not on file Legal Sex Female 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
--- OUTSIDE RECORDS SUMMARY | 2025-08-14 13:09 | XMS_ITS | Encounter Summary ---
Author Organization [facility] Address [address] [place] [address] Care Team Providers Care Geothermal Operations Engineer Name Role Phone Graciela Marsh MD Primary Care Provider [phone] Encounter Details Date Type Department Care Team (Latest Contact Info) Description 07/29/1998 Outpatient [facility] [address] [phone] Christian Longoria MD [address] [place] [address] Acute upper respiratory infections of unspecified site (Primary Dx) Social History Tobacco Use Types Packs/Day Years Used Date Smoking Tobacco: Never Assessed Comments Unknown Sex and Gender Information Value Date Recorded Sex Assigned at Not on file Legal Sex Female 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
--- OUTSIDE RECORDS SUMMARY | 2025-08-14 13:09 | XMS_ITS | Encounter Summary ---
Author Organization [facility] Address [address] [place] [address] Care Team Providers Care Instructional Writer Name Role Phone Graciela Marsh MD Primary Care Provider Encounter Details Date Type Department Care Team (Latest Contact Info) Description 04/28/1999 Outpatient [facility] Medicine[address] [phone] Matthew Palacios MD [address] [address] Urinary tract infection, site not specified (Primary Dx) Social History Tobacco Use Types Packs/Day Years Used Date Smoking Tobacco: Never Assessed Comments Unknown Sex and Gender Information Value Date Recorded Sex Assigned at Not on file 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
--- OUTSIDE RECORDS SUMMARY | 2025-08-14 13:09 | XMS_ITS | Encounter Summary ---
Author Organization [facility] Address [address] [place] [address] Care Team Providers Care Systems Programmer Name Role Phone Graciela Marsh MD Primary Care Provider [phone] Encounter Details Date Type Department Care Team (Latest Contact Info) Description 06/18/1998 Outpatient Historical [facility] Medicine [address] [address] Christian Longoria MD [address] [place] [address] Routine follow-up (Primary Dx) Social History Tobacco Use Types Packs/Day Years Used Date Smoking Tobacco: Never Assessed Comments Unknown Sex and Gender Information Value Date Recorded Sex Assigned at Not on file 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
--- OUTSIDE RECORDS SUMMARY | 2025-08-14 13:09 | XMS_ITS | Encounter Summary ---
Author Organization [facility] Address [address] [place] [address] Care Team Providers Care Big Data Software Engineer Name Role Phone Graciela Marsh MD Primary Care Provider Encounter Details Date Type Department Care Team (Latest Contact Info) Description 02/04/1999 Outpatient [facility] [address] [phone] Matthew Palacios MD [address] [address] Urinary tract infection, site not specified (Primary Dx) Social History Tobacco Use Types Packs/Day Years Used Date Smoking Tobacco: Never Assessed Comments Unknown Sex and Gender Information Value Date Recorded Sex Assigned at Not on file Legal Sex Female 5:20 AM POURER BUGGY LADLE Gender Identity Not on file Sexual Orientation Not on file documented as of this encounter Plan of Treatment Not on file documented as of this encounter Visit Diagnoses Diagnosis Urinary tract infection, site not specified- Primary documented in this encounter Care Teams Big Data Software Engineer Relationship Specialty Start Date End Date Graciela Marsh MD [address] [phone] PCP - General Family Practice 10/11/13 documented as of this encounter
--- OUTSIDE RECORDS SUMMARY | 2025-08-14 13:09 | XMS_ITS | Encounter Summary ---
Author Organization [facility] Address [address] [place] [address] Care Team Providers Care Adjunct English Instructor Name Role Phone Graciela Marsh MD Primary Care Provider Encounter Details Date Type Department Care Team (Latest Contact Info) Description 06/17/2004 Outpatient Historical [facility] [address] [place] [address] Eliza Amezcua, POWER AND RECOVERY SHIFT ENGINEER [address] [place] [address] ANXIETY STATE NOS (Primary Dx) Social History Tobacco Use Types Packs/Day Years Used Date Smoking Tobacco: Never Assessed Comments Unknown Sex and Gender Information Value Date Recorded Sex Assigned at Not on file Legal Sex Female 5:20 AM ENGINE HOUSE HELPER Gender Identity Not on file Sexual Orientation Not on file documented as of this encounter Plan of Treatment Not on file documented as of this encounter Visit Diagnoses Diagnosis Anxiety state, unspecified- Primary documented in this encounter Care Teams Adjunct English Instructor Relationship Specialty Start Date End Date Graciela Marsh MD [address] [facility] [address] [place] [phone] PCP - General Family Practice 10/11/13 documented as of this encounter
--- OUTSIDE RECORDS SUMMARY | 2025-08-14 13:09 | XMS_ITS | Encounter Summary ---
Author Organization [facility] Address [address] [place] [address] Care Team Providers Care Cardiology Physician Name Role Phone Graciela Marsh MD Primary Care Provider Encounter Details Date Type Department Care Team (Latest Contact Info) Description 07/15/2004 Outpatient Historical [facility] Medicine[address] [phone] Rosio Washington MD [address] [place] [address] ACUTE FRONTAL SINUSITIS (Primary Dx); ESOPHAGEAL REFLUX Social History Tobacco Use Types Packs/Day Years Used Date Smoking Tobacco: Never Assessed Comments Unknown Sex and Gender Information Value Date Recorded Sex Assigned at Not on file Legal Sex Female 5:20 AM ROUGE MIXER Gender Identity Not on file Sexual Orientation Not on file documented as of this encounter Plan of Treatment Not on file documented as of this encounter Visit Diagnoses Diagnosis Acute frontal sinusitis- Primary Esophageal reflux documented in this encounter Care Teams Cardiology Physician Relationship Specialty Start Date End Date Graciela Marsh MD [address] [phone] PCP - General Family Practice 10/11/13 documented as of this encounter
--- OUTSIDE RECORDS SUMMARY | 2025-08-14 13:09 | XMS_ITS | Encounter Summary ---
Author Organization [facility] Address [address] [facility] [address]: [place] [address] Care Team Providers Care Cloth Cutter Name Role Phone Graciela Marsh MD Primary Care Provider [phone] Encounter Details Date Type Department Care Team (Late st Contact Info) Description 01/19/2002 Outpatient Historical Eliza Amezcua, WRAPPER STEMMER HAND [address] [place] [phone] Social History Tobacco Use Types Packs/Day Years Used Date Smoking Tobacco: Never Assessed Comments Unknown Sex and Gender Information Value Date Recorded Sex Assigned at Not on file Legal Sex Female 5:20 AM LIBRARY ACQUISITIONS TECHNICIAN Gender Identity Not on file Sexual Orientation Not on file documented as of this encounter Plan of Treatment Not on file documented as of this encounter Visit Diagnoses Not on filedocumented in this encounter Care Teams Cloth Cutter Relationship Specialty Start Date End Date Graciela Marsh MD [address] [facility] [address] [place] [phone] PCP - General Family Practice 10/11/13 documented as of this encounter
--- OUTSIDE RECORDS SUMMARY | 2025-08-14 13:09 | XMS_ITS | Clinical Summary ---
Author Organization [facility] Address [address] [place] [address] Care Team Providers Care Allergist Name Role Phone Elton Velasquez MD Primary Care Provider [phone] Allergies Active Allergy Reactions Criticality Noted Date Comments Codeine Hives High 10/10/2017 Doxycycline Swelling Low 10/23/2008 Gabapentin Hives High 01/18/2023 Heparin Hives High 08/02/2023 Meperidine Hives High 10/23/2008 Neomycin Hives High 10/10/2017 Other [place]-3s Other (See Comments) 05/18/2023 NEOSPORIN TRIPLE ANTIBIOTOC OINTMENT CAUSES BURNING Phenergan Dm Unknown 01/06/2022 Prochlorperazine Anaphylaxis High 10/23/2008 Prochlorperazine Edisylate Anaphylaxis High 10/23/2008 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 022 Active chlwryqp-xqk-tv lic acid-biotin (Hair,Skin and Nails,FA-biotin ,) 100-1,500 mcg Tablet Take by mouth. Acti ve mv-minerals/FA/ omega 3,6,9 #3 (WOMEN'S 50+ ADVANCED ORAL) Take by mouth. Active melatonin 10 mg tablet Take by mouth nightly as needed. Active fluticasone propionate (FLONASE) 50 mcg/spray [place], Suspension nasal inhalerIndicati ons:Subacute pansinusitis shake liquid [...] 20 Tablet Active naloxone (NARCAN) 4 mg/spray [place], Non-Aerosol EMERGENCY USE ONLY: Administer 1 spray [...] Encounters Date Type Department Care Team Description 08/13/2025 External Device Data [facility] ABSTRACTION Provider, Abstract 08/13/2025 External Device Data [facility] ABSTRACTION Provider, Abstract 08/13/2025 External Device Data [facility]STRACTION Provider, Abstract 08/13/2025 Orders Only [place] [address] [place] [address] Provider, Abstract 08/12/2025 1:35 PM AUTOMOTIVE SALES MANAGER - 08/12/2025 3:23 PM AUTOMOTIVE SALES MANAGER Emergency [facility] Emergency Medicine [address] [facility] [address] [place] [phone] Melinda Fabian MD Ureteral calculus, right (Primary Dx) Discharge Disposition: Home or Self Care 08/12/2025 Travel 08/12/[address] [phone] Gini Pal NP Appointment Information 08/12/[address] [phone] Gini Pal NP Appointment 08/12/2025 08/08/2025 11:00 AM AUTOMOTIVE SALES MANAGER Office Visit [address] [phone] Gini Pal NP Jaw pain (Primary Dx); Screening mammogram, encounter for; Nerve pain 08/08/2025 Refill [facility] [address] [place] [address] Gini Pal NP H/O bariatric surgery 08/06/2025 External Device Data [facility] ABSTRACTION Provider, Abstract 08/06/2025 External Device Data [facility] ABSTRACTION Provider, Abstract 08/06/2025 External Device Data [facility] ABSTRACTION Provider, Abstract 07/31/2025 External Device Data [facility] ABSTRACTION Provider, Abstract 07/30/2025 External Device Data [facility] ABSTRACTION Provider, Abstract 07/26/2025 3:30 PM CDT - 07/26/2025 11:59 PM CDT Hospital Encounter [facility] Outpatient Laboratory Services [address] [phone] Nereyda, Crystal Halie, BAFFLE MOUNTER Calculus of kidney Discharge Disposition: Home or Self Care 07/26/2025 3:27 PM CDT - 07/26/2025 11:59 PM CDT Hospital Encounter [facility] CT Scan [address] [phone] Nereyda, Crystal Halie, BAFFLE MOUNTER Discharge Disposition: Home or Self Care 07/26/2025 2:40 PM CDT Office Visit [address] [phone] Nereyda, Crystal Halie, BAFFLE MOUNTER Kidney stones (Primary Dx); Hematuria, unspecified type; Bilateral flank pain; Nausea; Muscular atrophy, unspecified site 07/26/2025 Results Follow-Up [address] [phone] Nereyda, Crystal Halie, BAFFLE MOUNTER CBC WITH DIFFERENTIAL, COMPREHENSIVE METABOLIC PANEL 07/26/2025 Lab Requisition [facility] General Laboratory Services [address] [phone] Nereyda, Crystal Halie, BAFFLE MOUNTER Calculus of kidney 07/24/2025 External Device Data [facility] ABSTRACTION Provider, Abstract 07/23/2025 [facility] [address] [phone] Gini Pal, LOG GETTER Kidney stone 07/23/[address] [phone] Gini Pal LOG GETTER Environmental and seasonal allergies 07/19/2025 2:40 PM CDT Video Visit [address] [phone] Gini Pal LOG GETTER Oral thrush (Primary Dx) 07/19/2025 Patient Self-Triage [address] [phone] 07/16/2025 External Device Data ST[facility] ABSTRACTION Provider, Abstract 07/09/2025 External Device Data [facility] ABSTRACTION Provider, Abstract 06/21/2025 [facility] [address] [phone] Gini Pal, LOG GETTER Vaginal deyvi 06/21/2025 Orders Only [address] [phone] Gini Pal, LOG GETTER Ingrown toenail of both feet 06/19/2025 External Device Data [facility] ABSTRACTION Provider, Abstract 06/18/2025 External Device Data [facility] ABSTRACTION Provider, Abstract 06/18/2025 External Device Data [facility] ABSTRACTION Provider, Abstract 06/17/2025 3:20 PM CDT Procedure visit [address] [phone] Gini Pal, LOG GETTER Ingrown toenail of both feet (Primary Dx) 06/11/2025 8:20 AM CDT Office Visit [address] [place] [phone] Gini Pal, LOG GETTER Ingrown toenail of both feet (Primary Dx); Declined influenza vaccine; Vaginal deyvi 06/11/2025 Results Follow-Up [facility] [place] [address] [phone] Gini Pal, LOG GETTER ALLERGY PANEL, FOOD AND TREE NUTS W/COMP 06/05/2025 10:00 AM CDT Clinical Support [facility] [address] [place] [address] Allergy to alpha-gal 06/04/2025 External Device Data [facility] ABSTRACTION Provider, Abstract 05/27/[address] [facility] [place] [address] [phone] Gini Pal, LOG GETTER Nausea from Last 3 Months Immunizations Immunization Administration [...] worry about transportation for future doctor visits, fruit or nut picker medication, etc.? No 2024 Housing Stability [...] on file Legal Sex Female 3:05 PM AUTOMOTIVE SALES MANAGER Gender Identity Not on file Sexual Orientation Not on file Last Filed Vital Signs Vital Sign Reading Time Taken Comments Blood Pressure 115/72 08/12/2025 3:15 PM AUTOMOTIVE SALES MANAGER Pulse 66 08/12/2025 3:15 PM AUTOMOTIVE SALES MANAGER Temperature 36.5 C (97.7 F) 08/12/2025 1:36 PM AUTOMOTIVE SALES MANAGER Respiratory Rate 14 08/12/2025 3:15 PM AUTOMOTIVE SALES MANAGER Oxygen Saturation 100% 08/12/2025 3:15 PM AUTOMOTIVE SALES MANAGER Inhaled Oxygen Concentration - - Weight 68.9 kg (152 lb) 08/12/2025 1:36 PM AUTOMOTIVE SALES MANAGER Height 165.1 cm (5' 5 ) 08/12/2025 1:36 PM AUTOMOTIVE SALES MANAGER Body Mass Index 25.29 08/12/2025 1:36 PM AUTOMOTIVE SALES MANAGER Plan of Treatment Upcoming Encounters Date Type Department Care Team (Late st Contact Info) Description 09/04/2025 12:00 PM AUTOMOTIVE SALES MANAGER Office Visit [address] [phone] Elton Velasquez MD [address] [phone] Health Maintenance Due Date Last Done Comments [...] history exists Medical Devices Implanted Type Area Baggage Handler Device Identifier Shelf Expiration Date Model / Serial / Lot Clip Crtg Med/Lrg 1112 - [id number] Implanted:Qty: 1 on 04/09/2023 by Ignacio Peña MD at [facility] Clip N/A: Abdomen [employer] [id number] 12/29/2027 1112 / / [id number] Capsule Cuevas Ph Testing Fgs-0635 - [id number] Implanted:Qty: 1 on 06/14/2023 by Gama Verde MD at [facility] Other N/A: Esophagus [employer] COVIDIEN change management consultant. GIVEN 08/04/2024 FGS-0635 / / [id number] Description:implanted at 33 cm in the esophagus Procedures Procedure Name Priority Date/Time Associated Diagnosis Comments URINALYSIS WITH REFLEX CULTURE Stat 08/12/2025 2:[address]GER [address] ABDOMEN PELVIS WO CONTRAST Stat 08/12/2025 2:14 PM AUTOMOTIVE SALES MANAGER COMPREHENSIVE METABOLIC PANEL Stat 08/12/2025 1:41 PM AUTOMOTIVE SALES MANAGER CBC WITH DIFFERENTIAL Stat 08/12/2025 1:41 PM AUTOMOTIVE SALES MANAGER COMPREHENSIVE METABOLIC PANEL Routine 08/12/2025 10:08 AM AUTOMOTIVE SALES MANAGER COMPREHENSIVE METABOLIC PANEL Stat 07/26/2025 3:54 PM CDT Calculus of kidney CBC WITH DIFFERENTIAL Stat 07/26/2025 3:54 PM CDT Calculus of kidney CT URINARY CALCULI WO CONTRAST Stat 07/26/2025 3:48 PM CDT Bilateral flank pain POC URINALYSIS DIPSTICK AUTOMATED Routine 07/26/2025 3:03 PM CDT Hematuria, unspecified type TX AVULSION NAIL PLATE PARTIAL/COMPLETE SIMPLE 1 Routine 06/17/2025 3:20 PM CDT Ingrown toenail of both feet TX AVULSION NAIL PLATE PARTIAL/COMPLETE SIMPLE 1 Routine 06/17/2025 3:20 PM CDT Ingrown toenail of both feet ALLERGY PANEL, FOOD AND TREE NUTS W/COMP Routine 06/05/2025 10:10 AM CDT Allergy to alpha-gal CERV/VAG CYTOPATH, THIN PREP AND HPV W/RFLX GENOTYPES 16, 18/45 Routine 08/27/2024 4:28 PM AUTOMOTIVE SALES MANAGER Encounter for cervical Pap smear with pelvic exam MAMMO SCREEN BILAT W OR WO CAD Routine 07/11/2024 9:33 AM CDT HEMOGLOBIN A1C Routine 10/27/2023 8:15 AM AUTOMOTIVE SALES MANAGER Severe obesity (BMI 35.0-39.9) with comorbidity (CMS/HCC) from Last 3 Months or Most Recently Relevant to Health Maintenance Results * (ABNORMAL) URINALYSIS WITH REFLEX CULTURE (08/12/2025 2:44 PM AUTOMOTIVE SALES MANAGER) COLOR UA Yellow Pale to Dark Yellow 08/12/2025 2:50 PM AUTOMOTIVE SALES MANAGER [facility] CLARITY UA Clear Clear 08/12/2025 2:50 PM AUTOMOTIVE SALES MANAGER [facility] SPECIFIC GRAVITY UA 1.025 1.003 - 1.035 08/12/2025 2:50 PM AUTOMOTIVE SALES MANAGER [facility] PH UA 5.5 5.0 - 8.0 08/12/2025 2:50 PM AUTOMOTIVE SALES MANAGER [facility] LEUKOCYTE ESTERASE UA Trace(A) Negative 08/12/2025 2:[address] [facility] Comment:For patient s with 'trace' results, consider ordering a culture and sensitivity if clinically indicated. NITRITE UA Negative Negative 08/12/2025 2:50 PM AUTOMOTIVE SALES MANAGER [facility] PROTEIN UA Trace(A) Negative 08/12/2025 2:50 PM AUTOMOTIVE SALES MANAGER [facility] Comment: For patients with 'trace' results, consider ordering a culture and sensitivity if clinically indicated. GLUCOSE UA Negative Negative 08/12/2025 2:50 PM AUTOMOTIVE SALES MANAGER [facility] KETONES UA 1+(A) Negative 08/12/2025 2:[address] [facility] UROBILINOGEN UA 0.2 <2.0 mg/dL 2:50 PM AUTOMOTIVE SALES MANAGER [facility] BILIRUBIN UA Negative Negative 08/12/2025 2:50 PM AUTOMOTIVE SALES MANAGER [facility] BLOOD UA Negative Negative 08/12/2025 2:[address] [facility] Urine URINE SPECIMEN OBTAINED BY CLEAN CATCH PROCEDURE / Unknown Collection / Unknown 08/12/2025 2:44 PM AUTOMOTIVE SALES MANAGER 08/12/2025 2:46 PM AUTOMOTIVE SALES MANAGER Melinda Fabian MD URINE ORDERABLES Final Resul t [facility] CLIA # [id number] [address] [place] [address] * CT ABDOMEN PELVIS WO CONTRAST (08/12/2025 2:14 PM AUTOMOTIVE SALES MANAGER) Anatomical Region Laterality Modality Abdomen Computed Tomogra phy 08/12/2025 2:56 PM AUTOMOTIVE SALES MANAGER Impressions 08/12/2025 2:39 PM AUTOMOTIVE SALES MANAGER IMPRESSION: 1. Moderate right hydronephrosis and hydroureter with a 4 mm calculus in the distal right ureter. Associated right perinephric edema. Narrative 08/12/2025 2:39 PM AUTOMOTIVE SALES MANAGER EXAM: CT ABDOMEN PELVIS WO CONTRAST DATE/TIME [...] (ABNORMAL) CBC WITH DIFFERENTIAL (08/12/2025 1:41 PM AUTOMOTIVE SALES MANAGER) Only the most recent of2 resultswithin the time period is included. WBC 8.8 4.0 - 10.0 K/uL 08/12/2025 1:[address] [facility] RBC 4.18 3.93 - 5.22 M/uL 08/12/2025 1:[address] [facility] HEMOGLOBIN 12.5 11.2 - 15.7 g/dL 08/12/2025 1:[address] [facility] HEMATOCRIT 38.2 34.1 - 44.9 % 08/12/2025 1:[address] [facility] MCV 91.4 79.4 - 94.8 fL 08/12/2025 1:[address] [facility] MCH 29.9 25.6 - 32.2 pg 08/12/2025 1:[address] [facility] MCHC 32.7 32.2 - 35.5 g/dL 08/12/2025 1:[address] [facility] RDW 13.0 11.0 - 14.5 % 08/12/2025 1:[address] [facility] RDW-STDEV 42.9 36.9 - 56.9 fL 08/12/2025 1:[address] [facility] PLATELETS 353(H) 163 - 337 K/uL 08/12/2025 1:[address] [facility] MPV 10.0 10.0 - 14.8 fL 08/12/2025 1:[address] [facility] NEUTROPHILS 51 34 - 71 % 08/12/2025 1:[address] [facility] LYMPHOCYTES 35 19 - 52 % 08/12/2025 1:[address] [facility] MONOCYTES 11 5 - 13 % 08/12/2025 1:[address] [facility] EOSINOPHILS 2 1 - 6 % 08/12/2025 1:[address] [facility] BASOPHILS 1 0 - 1 % 08/12/2025 1:[address] [facility] IMMATURE GRANULOCYTES 0 % 08/12/2025 1:[address] [facility] NEUTROPHIL ABSOLUTE 4.53 1.56 - 6.13 K/uL 08/12/2025 1:[address] [facility] LYMPHOCYTE ABSOLUTE 3.07 1.20 - 3.40 K/uL 08/12/2025 1:[address] [facility] MONOCYTE ABSOLUTE 0.99(H) 0.24 - 0.36 K/uL 08/12/2025 1:[address] [facility] EOSINOPHIL ABSOLUTE 0.14 0.04 - 0.36 K/uL 08/12/2025 1:[address] [facility] BASOPHILS ABSOLUTE 0.07 0.01 - 0.08 K/uL 08/12/2025 1:[address] [facility] IMMATURE GRANULOCYTES ABSOLUTE 0.02 K/uL 08/12/2025 1:[address] [facility] Blood BLOOD SPECIMEN / Unknown Venipuncture / Unknown 08/12/2025 1:41 PM AUTOMOTIVE SALES MANAGER 08/12/2025 1:50 PM AUTOMOTIVE SALES MANAGER Melinda Fabian MD HEMATOLOGY ORDERABLES Final Result [facility] CLIA # [id number] [address] [place] [address] * (ABNORMAL) COMPREHENSIVE METABOLIC PANEL (08/12/2025 1:41 PM AUTOMOTIVE SALES MANAGER) Only the most recent of3 resultswithin the time period is included. SODIUM 140 136 - 145 mmol/L 08/12/2025 2:[address] [facility] POTASSIUM 4.1 3.5 - 5.1 mmol/L 08/12/2025 2:[address] [facility] CHLORIDE 103 98 - 107 mmol/L 08/12/2025 2:[address] [facility] CO2 27 22 - 29 mmol/L 08/12/2025 2:[address] [facility] CALCIUM 9.3 8.6 - 10.0 mg/dL 08/12/2025 2:[address] [facility] BUN 14 6 - 20 mg/dL 08/12/2025 2:[address] [facility] CREATININE 0.73 0.51 - 0.95 mg/dL 08/12/2025 2:[address] [facility] GLUCOSE 103(H) 74 - 99 mg/dL 08/12/2025 2:[address] [facility] TOTAL PROTEIN 7.3 6.6 - 8.7 g/dL 08/12/2025 2:[address] [facility] ALBUMIN 4.4 3.5 - 5.2 g/dL 08/12/2025 2:[address] [facility] BILIRUBIN TOTAL 0.4 0.0 - 1.2 mg/dL 08/12/2025 2:[address] [facility] ALKALINE PHOSPHATASE 104 35 - 104 U/L 08/12/2025 2:[address] [facility] AST 33 0 - 35 U/L 08/12/2025 2:[address] [facility] ALT 40(H) 0 - 35 U/L 08/12/2025 2:[address] [facility] GFR >60 >=60 mL/min/1.7 3 sq meter 08/12/2025 2:[address] [facility] Comment:eGFR calculated with 2020 CKD-EPI equation. Vegetarian diet, extremely high or low muscle mass, and may affect results. Cystatin C with Glomerular Filtration Rate is a suitable alternative for these patients. ANION GAP 10 5 - 20 mmol/L 08/12/2025 2:[address] [facility] Blood BLOOD SPECIMEN / Unknown Venipuncture / Unknown 08/12/2025 1:41 PM AUTOMOTIVE SALES MANAGER 08/12/2025 1:50 PM AUTOMOTIVE SALES MANAGER us Melinda Fabian MD CHEMISTRY ORDERABLES Final R esult [facility] # [id number] [address] [place] [address] * CT URINARY CALCULI WO CONTRAST (07/26/2025 [...] Prior cholecystectomy and gastric surgery. Clare Dawn [facility] CT ORDERABLES Final Re sult * (ABNORMAL) POC URINALYSIS DIPSTICK AUTOMATED (07/26/2025 3:03 PM CDT) COLOR UA POC Yellow Pale to Dark Yellow [facility] CLARITY UA POC Slightly Cloudy(A) Clear, Other [facility] GLUCOSE UA POC Negative Negative, Normal [facility] BILIRUBIN UA POC Negative Negative [facility] KETONES UA POC Negative Negative [facility] SPECIFIC GRAVITY UA POC >=1.030 1.000 - 1.030 [facility] BLOOD UA POC 2+(A) Negative [facility] PH UA POC 6.5 5.0 - 8.0 [facility] IC [facility] PROTEIN UA POC Trace(A) Negative [facility] UROBILINOGEN UA POC 1.0 <2.0 mg/dL [facility] NITRITE UA POC Negative Negative [facility] LEUKOCYTE ESTERASE UA POC Negative Negative [facility] KIT LOT NUMBER POC [phone] [facility] KIT EXP DATE POC 05/02/2026 [facility] Urine 07/26/2025 3:03 PM CDT Clare Dawn [facility] POINT OF CARE TESTING Fi nal Result [facility] CLIA# [id number] [address] [place] [address] * [place] AVULSION NAIL PLATE PARTIAL/COMPLETE SIMPLE 1 (06/17/2025 3:20 PM CDT) [facility] - 06/17/2025 3:20 PM CDT Gini Pal [...] well with no immediate complications Gini Pal NP PROCEDURE/MINOR SURGICAL ORDER AROLDO Final Result Performing Organization Address City/State/[facility] Co de Phone Number [facility] CLIA# [id number] [address] [place] [address] * [place] AVULSION NAIL PLATE PARTIAL/COMPLETE SIMPLE 1 (06/17/2025 3:20 PM CDT) [facility] - 06/17/2025 3:20 PM CDT Gini Pal [...] well with no immediate complications us Gini [place] LOG GETTER PROCEDURE/MINOR SURGICAL ORDER AROLDO Final Result [facility] CLIA# [id number] [address] [place] [address] * ALLERGY PANEL, FOOD AND TREE NUTS [...] [facility] ALLERGY PANEL INTERP [facility] Comment: Specific Level of Allergen IGE [...] analytical performance characteristics have been determined by [facility]. It has not been cleared or approved by the U.S. Food and Drug Administration. This assay has been validated pursuant to the CLIA regulations and is used for clinical purposes. Test Performed at: [facility] [address] [place] [address] Alison Raymond MD Blood 06/05/2025 10:1 0 AM CDT 06/07/2025 5:05 AM CDT us Gini Pal NP CHEMISTRY ORDERABLES Final Res ult [facility] [phone] [facility] [address] [place] [address] * CERV/VAG CYTOPATH, THIN PREP AND HPV W/RFLX GENOTYPES 16, 18/45 (08/27/2024 4:28 PM AUTOMOTIVE SALES MANAGER) CLINICAL INFORMATION [facility] [place] Comment:None given LAST MENSTRUAL PERIOD [facility] [place] Comment:NONE GIVEN PREV PAP: [facility] [place] Comment:NONE GIVEN PREV BX: [facility] [place] Comment:NONE GIVEN SOURCE [facility] [place] Comment:Endocervix ADEQUACY: [facility] [place] Comment: Specimen processed and examined, but unsatisfactory for evaluation due to an insufficient number of squamous cells. PAP INTERP [facility] [place] Comment: Cytology Results: Unable to provide interpretation due to unsatisfactory specimen adequacy. COMMENT (PAP TEST) [facility] [place] Comment: This case could not be evaluated with computer assisted technology. The slide was manually screened according to routine procedures. Microscopic features present suggestive of an interfering substance, including cellular debris, mucus, or possible lubricant (patient or provider use). Use of lubricant is not recommended. SEALER OPERATOR: [facility] Comment: MEF, CT(ASCP) CT screening location: [place] [address] Administration [facility] REVIEW SEALER OPERATOR: Patricia QpynMark Anthony Miller Comment: KMS, CT(ASCP) CT Screening location: [place] [address] Administration [facility] EXPLANATORY NOTE Que [facility] Anthony Miller Comment: EXPLANATORY NOTE: The Pap [...] information. HPV E6/E7 Not Detected Not Detected [facility] [place] Comment: Methodology: Hospital Unit Clerk-Mediated Amplification This assay detects E6/E7 viral messenger RNA (mRNA) from 14 high-risk HPV types (16,18,31,33,35,39,45,51,52,56,58,59,66,68). Cervical sources are required for HPV testing. If a vaginal source from a patient who has had a total hysterectomy with removal of cervix was submitted, please contact the testing laboratory for alternative testing options. For additional information, please refer to http://education.Tunii/faq/SZF425e6 (This link if provided for information/ educational purposes only.) Test Performed at: [facility] [address] [place] [address] Alison Raymond MD Genital SWAB OF ENDOCERVIX / Unknown 08/27/2024 4:28 PM AUTOMOTIVE SALES MANAGER 08/30/2024 4:16 AM AUTOMOTIVE SALES MANAGER us Gini Pal NP PATHOLOGY/CYTOLOGY ORDERABLES Final Result [facility] [phone] [facility] [facility] [place] [address] * MAMMO SCREEN BILAT W OR WO CAD (07/11/2024 9:33 AM CDT) Anatomical Region Laterality Modality Breast Bilateral Mammography us Abstract Provider MAMMO ORDERABLES Final Result * HEMOGLOBIN A1C (10/27/2023 8:15 AM AUTOMOTIVE SALES MANAGER) HEMOGLOBIN A1C 5.4 <5.7 % of total Hgb [facility] Comment: For the purpose of screening for the presence of diabetes: <5.7% Consistent with the absence of diabetes 5.7-6.4% Consistent with increased risk for diabetes (prediabetes) > or =6.5% Consistent with diabetes This assay result is consistent with a decreased risk of diabetes. Currently, no consensus exists regarding use of hemoglobin A1c for diagnosis of diabetes in children. According to [place] Diabetes Association (ADA) guidelines, hemoglobin A1c <7.0% represents optimal control in non- diabetic patients. Different metrics may apply to specific patient populations. Standards of Medical Care in Diabetes(ADA). ESTIMATED AVERAGE GLUCOSE (MG/DL) 108 mg/dL [facility] ESTIMATED AVERAGE GLUCOSE (MMOL/L) 6.0 mmol/L [facility] Comment: HbA1c performed on [employer] platform. Test Performed at: [facility] [address] [place] [address] Alison Raymond MD Blood 10/27/2023 8:15 AM AUTOMOTIVE SALES MANAGER 10/28/2023 4:36 AM AUTOMOTIVE SALES MANAGER us Clare Parks BAFFLE MOUNTER CHEMISTRY ORDERABLES Fin al Result [facility] [phone] [facility] [address], [place] [address] from Last 3 Months or Most Recently Relevant to Health Maintenance Insurance [place] Cell [id number] RX [employer] RX Member Subscriber Plan / Payer (Ef fective 2023-Present) Name:Miriam Bernard Relation to Subscriber:Not on file Name:Miriam Bernard Subscriber ID:Not on file Date of :1975 Payer ID:Not on file Group ID:[id number] Type:RX Commercial Address: [address] Advance Directives For more information, please contact: [phone] * Full Code (Latest Code Status on [...] 9:50 AM 04/09/2023 9:51 AM Care Teams Allergist Relationship Specialty Start Date End Date Elton Velasquez MD [address] [phone] PCP - General Family Practice 11/18/22
--- OUTSIDE RECORDS SUMMARY | 2025-08-14 13:09 | XMS_ITS | Encounter Summary ---
Author Organization [facility] Address [address] [place] [address] Care Team Providers Care Coordinator Of Online Programs Name Role Phone Graciela Marsh MD Primary Care Provider Encounter Details Date Type Department Care Team (Latest Contact Info) Description 06/27/1998 Outpatient Historical [facility] Medicine [address] [phone] Lexi Streeter MD [address] [place] [address] Erythema multiforme (Primary Dx) Social History Tobacco Use Types Packs/Day Years Used Date Smoking Tobacco: Never Assessed Comments Unknown Sex and Gender Information Value Date Recorded Sex Assigned at Not on file Legal Sex Female 5:20 AM PLANTING MATERIAL UNLOADER Gender Identity Not on file Sexual Orientation Not on file documented as of this encounter Plan of Treatment Not on file documented as of this encounter Visit Diagnoses Diagnosis Erythema multiforme- Primary documented in this encounter Care Teams Coordinator Of Online Programs Relationship Specialty Start Date End Date Graciela Marsh MD [address] [facility] [address] [place] [phone] PCP - General Family Practice 10/11/13 documented as of this encounter
--- OUTSIDE RECORDS SUMMARY | 2025-08-14 13:09 | XMS_ITS | Encounter Summary ---
Author Organization [facility] Address [address] [place] [address] Care Team Providers Care Radiologist Physician Name Role Phone Graciela Marsh MD Primary Care Provider Encounter Details Date Type Department Care Team (Latest Contact Info) Description 05/04/1999 Outpatient [facility] [address] [phone] Lexi Streeter MD [address] [place] [address] Abdominal pain, unspecified site (Primary Dx) Social History Tobacco Use Types Packs/Day Years Used Date Smoking Tobacco: Never Assessed Comments Unknown Sex and Gender Information Value Date Recorded Sex Assigned at Not on file Legal Sex Female 5:20 AM MANAGER TAX Gender Identity Not on file Sexual Orientation Not on file documented as of this encounter Plan of Treatment Not on file documented as of this encounter Visit Diagnoses Diagnosis Abdominal pain, unspecified site- Primary documented in this encounter Care Teams Radiologist Physician Relationship Specialty Start Date End Date Graciela Marsh MD [address] [facility] 60 [place] [address] PCP - General Family Practice 10/11/13 documented as of this encounter
--- OUTSIDE RECORDS SUMMARY | 2025-08-14 13:09 | XMS_ITS | Encounter Summary ---
Author Organization [facility] Address [address] [place] [address] Care Team Providers Care Licensed Nursing Assistant Name Role Phone Graciela Marsh MD Primary Care Provider [phone]- [phone] Encounter Details Date Type Department Care Team (Latest Contact Info) Description 02/02/2002 Outpatient Historical [facility] [address] [place] [address] Amanuel Duvall DO NO ADDRESS ON FILE HEMATURIA (Primary Dx) Social History Tobacco Use Types Packs/Day Years Used Date Smoking Tobacco: Never Assessed Comments Unknown Sex and Gender Information Value Date Recorded Sex Assigned at Not on file Legal Sex Female 5:20 AM PROCEDURE MANAGER Gender Identity Not on file Sexual Orientation Not on file documented as of this encounter Plan of Treatment Not on file documented as of this encounter Visit Diagnoses Diagnosis Hematuria- Primary documented in this encounter Care Teams Licensed Nursing Assistant Relationship Specialty Start Date End Date Graciela Marsh MD [address] [facility] 60 [place] [address] PCP - General Family Practice 10/11/13 documented as of this encounter
--- OUTSIDE RECORDS SUMMARY | 2025-08-14 13:09 | XMS_ITS | Encounter Summary ---
Author Organization [facility] Address [address] [place] [address] Care Team Providers Care Manager Product Marketing Name Role Phone Elton Velasquez MD Primary Care Provider [phone] Reason for Visit * Reason Onset Date Comments Appointment 08/12/2025 08/12/2025 Encounter Details Date Type Department Care Team (Late st Contact Info) Description 08/12/2025 Telephone [facility] Medicine [place] [address] [facility] 60 [place] [address] Gini Pal NP [address] [place] [phone] Appointment 08/12/2025 Social History Tobacco Use Types [...] worry about transportation for future doctor visits, excelsior picker medication, etc.? No 2024 Housing Stability [...] on file Legal Sex Female 3:05 PM CURING OVEN ATTENDANT Gender Identity Not on file Sexual Orientation [...] with callback information was provided and a [employer] message will be sent. No further commentary to report at this time. Betzy NG OVEN ATTENDANT documented in this encounter Plan of Treatment Upcoming Encounters Date Type Department Care Team (Late st Contact Info) Description 09/04/2025 12:00 PM CURING OVEN ATTENDANT Office Visit [facility] Medicine [address] [address] Elton Velasquez MD [address] [address] documented as of this encounter Visit Diagnoses Not on filedocumented in this encounter Care Teams Manager Product Marketing Relationship Specialty Start Date End Date Elton Velasquez MD [address] [address] PCP - General Family Practice 11/18/22 documented as of this encounter
--- OUTSIDE RECORDS SUMMARY | 2025-08-14 13:09 | XMS_ITS | Encounter Summary ---
Author Organization [facility] Address [address] 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
--- OUTSIDE RECORDS SUMMARY | 2025-08-14 13:09 | XMS_ITS | Encounter Summary ---
Author Organization [facility] Address [address] [place] [address] Care Team Providers Care Astronomy Instructor Name Role Phone Graciela Marsh MD Primary Care Provider Encounter Details Date Type Department Care Team (Latest Contact Info) Description 07/22/2005 Outpatient Historical [facility] Family Medicine [address] [address] Eliza Amezcua, CD TECHNICIAN [address] [place] [address] ACUTE URI NOS (Primary Dx) Social History Tobacco Use Types Packs/Day Years Used Date Smoking Tobacco: Never Assessed Comments Unknown Sex and Gender Information Value Date Recorded Sex Assigned at Not on file Legal Sex Female 5:20 AM 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
--- OUTSIDE RECORDS SUMMARY | 2025-08-14 13:09 | XMS_ITS | Encounter Summary ---
Author Organization [facility] Address [address] [place] [address] Care Team Providers Care Swahili Teacher Name Role Phone Graciela Marsh MD Primary Care Provider [phone]- [phone] Encounter Details Date Type Department Care Team (Late st Contact Info) Description 06/28/2006 Outpatient Historical [facility] [place] [address] [place] [address] Social History Tobacco Use Types Packs/Day Years Used Date Smoking Tobacco: Never Assessed Comments Unknown Sex and Gender Information Value Date Recorded Sex Assigned at Not on file 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
--- OUTSIDE RECORDS SUMMARY | 2025-08-14 13:09 | XMS_ITS | Encounter Summary ---
Author Organization [facility] Address [address] [place] [address] Care Team Providers Care Wood Grainer Name Role Phone Graciela Marsh MD Primary Care Provider [phone]- [phone] Encounter Details Date Type Department Care Team (Latest Contact Info) Description 06/29/2002 Outpatient Historical [facility] [address] [place] [address] Kathie Steward MD NO ADDRESS ON FILE Benign adilia skin trunk (Primary Dx) Social History Tobacco Use Types Packs/Day Years Used Date Smoking Tobacco: Never Assessed Comments Unknown Sex and Gender Information Value Date Recorded Sex Assigned at Not on file Legal Sex Female 5:20 AM CONTRACTS ANALYST Gender Identity Not on file Sexual Orientation Not on file documented as of this encounter Plan of Treatment Not on file documented as of this encounter Visit Diagnoses Diagnosis Benign adilia skin trunk- Primary Benign neoplasm of skin of trunk, except scrotum documented in this encounter Care Teams Wood Grainer Relationship Specialty Start Date End Date Graciela Marsh MD [address] [phone] PCP - General Family Practice 10/11/13 documented as of this encounter
--- OUTSIDE RECORDS SUMMARY | 2025-08-14 13:09 | XMS_ITS | Encounter Summary ---
Author Organization [facility] Address [address] [place] [address] Care Team Providers Care Computer Technology Teacher Name Role Phone Graciela Marsh MD Primary Care Provider Encounter Details Date Type Department Care Team (Latest Contact Info) Description 02/16/2002 Outpatient Historical [facility] [address] [place] [address] Drew Davis MD [address] [facility] [address] [place] [phone] Corpus luteum cyst (Primary Dx) Social History Tobacco Use Types Packs/Day Years Used Date Smoking Tobacco: Never Assessed Comments Unknown Sex and Gender Information Value Date Recorded Sex Assigned at Not on file Legal Sex Female 5:20 AM HAIR BALER Gender Identity Not on file Sexual Orientation Not on file documented as of this encounter Plan of Treatment Not on file documented as of this encounter Visit Diagnoses Diagnosis Corpus luteum cyst- Primary Corpus luteum cyst or hematoma documented in this encounter Care Teams Computer Technology Teacher Relationship Specialty Start Date End Date Graciela Marsh MD [address] [facility] [address] [place] [address] PCP - General Family Practice 10/11/13 documented as of this encounter
--- OUTSIDE RECORDS SUMMARY | 2025-08-14 13:09 | XMS_ITS | Encounter Summary ---
Author Organization [facility] Address [address] [place] [address] Care Team Providers Care Systems Software Specialist Name Role Phone Graciela Marsh MD Primary Care Provider Encounter Details Date Type Department Care Team (Latest Contact Info) Description 05/16/2000 Outpatient [facility] Medicine[address] [phone] Lexi Streeter MD [address] [place] [address] Chest pain, unspecified (Primary Dx); Other specified temporomandibular joint disorders Social History Tobacco Use Types Packs/Day Years Used Date Smoking Tobacco: Never Assessed Comments Unknown Sex and Gender Information Value Date Recorded Sex Assigned at Not on file Legal Sex Female 5:20 AM DRUM BARKER OPERATOR Gender Identity Not on file Sexual Orientation Not on file documented as of this encounter Plan of Treatment Not on file documented as of this encounter Visit Diagnoses Diagnosis Chest pain, unspecified- Primary Other specified temporomandibular joint disorders documented in this encounter Care Teams Systems Software Specialist Relationship Specialty Start Date End Date Graciela Marsh MD [address] [facility] [address] [place] [phone] PCP - General Family Practice 10/11/13 documented as of this encounter
--- OUTSIDE RECORDS SUMMARY | 2025-08-14 13:09 | XMS_ITS | Encounter Summary ---
Author Organization [facility] Address [address] [place] [address] Care Team Providers Care Smutter Name Role Phone Graciela Marsh MD Primary Care Provider Encounter Details Date Type Department Care Team (Latest Contact Info) Description 12/29/2001 Outpatient Historical [facility] [address] [place] [address] Drew Davis MD [address] [address] Gynecologic examination (Primary Dx); VAGINITIS NOS Social History Tobacco Use Types Packs/Day Years Used Date Smoking Tobacco: Never Assessed Comments Unknown Sex and Gender Information Value Date Recorded Sex Assigned at Not on file Legal Sex Female 5:20 AM HANDHOLE MACHINE OPERATOR Gender Identity Not on file Sexual Orientation Not on file documented as of this encounter Plan of Treatment Not on file documented as of this encounter Visit Diagnoses Diagnosis Gynecologic examination- Primary Gynecological examination Vaginitis and vulvovaginitis, unspecified documented in this encounter Care Teams Smutter Relationship Specialty Start Date End Date Graciela Marsh MD [address] [facility] [address] [place] [address] PCP - General Family Practice 10/11/13 documented as of this encounter
--- OUTSIDE RECORDS SUMMARY | 2025-08-14 13:09 | XMS_ITS | Encounter Summary ---
Author Organization [facility] Address [address] [place] [address] Care Team Providers Care Forestry Contractor Name Role Phone Graciela Marsh MD Primary Care Provider Encounter Details Date Type Department Care Team (Latest Contact Info) Description 06/27/2006 Outpatient Historical [facility] [address] [place] [address] Eliza Amezcua, FACILITIES ENGINEERING MANAGER [address] [place] [address] Contusion of Unspecified Part of Upper Limb (Primary Dx) Social History Tobacco Use Types Packs/Day Years Used Date Smoking Tobacco: Never Assessed Comments Unknown Sex and Gender Information Value Date Recorded Sex Assigned at Not on file Legal Sex Female 5:20 AM EFFICIENCY EXPERT Gender Identity Not on file Sexual Orientation Not on file documented as of this encounter Plan of Treatment Not on file documented as of this encounter Visit Diagnoses Diagnosis Contusion of unspecified part of upper limb- Primary documented in this encounter Care Teams Forestry Contractor Relationship Specialty Start Date End Date Graciela Marsh MD [address] [place] [address] PCP - General Family Practice 10/11/13 documented as of this encounter
--- OUTSIDE RECORDS SUMMARY | 2025-08-14 13:09 | XMS_ITS | Encounter Summary ---
Author Organization [facility] Address [address] [place] [address] Care Team Providers Care Bumper And Painter Name Role Phone Graciela Marsh MD Primary Care Provider [phone] Encounter Details Date Type Department Care Team (Latest Contact Info) Description 09/16/2004 Outpatient Historical [facility] [address] [place] [address] Eliza Amezcua, RAILROAD CAR REPAIRMAN [address] [place] [address] ACUTE URI NOS (Primary Dx) Social History Tobacco Use Types Packs/Day Years Used Date Smoking Tobacco: Never Assessed Comments Unknown Sex and Gender Information Value Date Recorded Sex Assigned at Not on file Legal Sex Female 5:20 AM ROTOR CASTING MACHINE SETUP OPERATOR Gender Identity Not on file Sexual Orientation Not on file documented as of this encounter Plan of Treatment Not on file documented as of this encounter Visit Diagnoses Diagnosis Acute upper respiratory infections of unspecified site- Primary documented in this encounter Care Teams Bumper And Painter Relationship Specialty Start Date End Date Graciela Marsh MD [address] [facility] 60 [place] [address] PCP - General Family Practice 10/11/13 documented as of this encounter
--- OUTSIDE RECORDS SUMMARY | 2025-08-14 13:09 | XMS_ITS | Encounter Summary ---
Author Organization [facility] Address [address] [place] [address] Care Team Providers Care Line Haul Truck Driver Name Role Phone Graciela Marsh MD Primary Care Provider [phone]- [phone] Encounter Details Date Type Department Care Team (Latest Contact Info) Description 01/17/2002 Outpatient Historical [facility] [address] [place] [address] Amanuel Duvall DO NO ADDRESS ON FILE Dermatitis due to plant (Primary Dx) Social History Tobacco Use Types Packs/Day Years Used Date Smoking Tobacco: Never Assessed Comments Unknown Sex and Gender Information Value Date Recorded Sex Assigned at Not on file Legal Sex Female 5:20 AM WALL CRANE OPERATOR Gender Identity Not on file Sexual Orientation Not on file documented as of this encounter Plan of Treatment Not on file documented as of this encounter Visit Diagnoses Diagnosis Dermatitis due to plant- Primary Contact dermatitis and other eczema due to plants (except food) documented in this encounter Care Teams Line Haul Truck Driver Relationship Specialty Start Date End Date Graciela Marsh MD [address] [phone] PCP - General Family Practice 10/11/13 documented as of this encounter
--- OUTSIDE RECORDS SUMMARY | 2025-08-14 13:09 | XMS_ITS | Encounter Summary ---
Author Organization [facility] Address [address] [place] [address] Care Team Providers Care Jumbo Operator Name Role Phone Graciela Marsh MD Primary Care Provider [phone] Encounter Details Date Type Department Care Team (Latest Contact Info) Description 11/16/2004 Outpatient Historical [facility] Medicine[address] [phone] Rosio Washington MD [address] [place] [address] ACUTE FRONTAL SINUSITIS (Primary Dx) Social History Tobacco Use Types Packs/Day Years Used Date Smoking Tobacco: Never Assessed Comments Unknown Sex and Gender Information Value Date Recorded Sex Assigned at Not on file Legal Sex Female 5:20 AM SENIOR FINANCIAL ACCOUNTANT Gender Identity Not on file Sexual Orientation Not on file documented as of this encounter Plan of Treatment Not on file documented as of this encounter Visit Diagnoses Diagnosis Acute frontal sinusitis- Primary documented in this encounter Care Teams Jumbo Operator Relationship Specialty Start Date End Date Graciela Marsh MD [address] [facility] 60 [place] [address] PCP - General Family Practice 10/11/13 documented as of this encounter
--- OUTSIDE RECORDS SUMMARY | 2025-08-14 13:09 | XMS_ITS | Encounter Summary ---
Author Organization [facility] Address [address] [place] [address] Care Team Providers Care Artist And Repertoire Manager Name Role Phone Graciela Marsh MD Primary Care Provider Encounter Details Date Type Department Care Team (Latest Contact Info) Description 05/31/2002 Outpatient Historical [facility] Medicine[address] [phone] Matthew Palcaios MD [address] [address] VAGINITIS NOS (Primary Dx) Social History Tobacco Use Types Packs/Day Years Used Date Smoking Tobacco: Never Assessed Comments Unknown Sex and Gender Information Value Date Recorded Sex Assigned at Not on file Legal Sex Female 5:20 AM MANAGER PLAY Gender Identity Not on file Sexual Orientation Not on file documented as of this encounter Plan of Treatment Not on file documented as of this encounter Visit Diagnoses Diagnosis Vaginitis and vulvovaginitis, unspecified- Primary documented in this encounter Care Teams Artist And Repertoire Manager Relationship Specialty Start Date End Date Graciela Marsh MD [address] [phone] PCP - General Family Practice 10/11/13 documented as of this encounter
--- OUTSIDE RECORDS SUMMARY | 2025-08-14 13:09 | XMS_ITS | Encounter Summary ---
Author Organization [facility] Address [address] [place] [address] Care Team Providers Care Signal Circuit Designer Name Role Phone Graciela Marsh MD Primary Care Provider [phone] Encounter Details Date Type Department Care Team (Latest Contact Info) Description 11/03/2005 Outpatient Historical [facility] [address] [place] [address] Eliza Amezcua, BUSINESS OFFICE DIRECTOR [address] [place] [address] SYMPTOMS IN BREAST NEC (Primary Dx); ACUTE URI NOS Social History Tobacco Use Types Packs/Day Years Used Date Smoking Tobacco: Never Assessed Comments Unknown Sex and Gender Information Value Date Recorded Sex Assigned at Not on file Legal Sex Female 5:20 AM STATE EPIDEMIOLOGIST Gender Identity Not on file Sexual Orientation Not on file documented as of this encounter Plan of Treatment Not on file documented as of this encounter Visit Diagnoses Diagnosis Other sign and symptom in breast- Primary Acute upper respiratory infections of unspecified site documented in this encounter Care Teams Signal Circuit Designer Relationship Specialty Start Date End Date Graciela Marsh MD [address] [facility] [place] [address] PCP - General Family Practice 10/11/13 documented as of this encounter
--- OUTSIDE RECORDS SUMMARY | 2025-08-14 13:09 | XMS_ITS | Encounter Summary ---
Author Organization [facility] Address [address] [facility] [facility] [address] [place]: [place] [address] Care Team Providers Care Twister Frame Tender Name Role Phone Elton Velasquez MD Primary Care Provider [phone] Encounter Details Date Type Department Care Team [...] worry about transportation for future doctor visits, chicken picker medication, etc.? No 2024 Housing Stability [...] on file Legal Sex Female 3:05 PM JOURNALISTS AND OTHER WRITERS Gender Identity Not on file Sexual Orientation Not on file documented as of this encounter Plan of Treatment Upcoming Encounters Date Type Department Care Team (Late st Contact Info) Description 09/04/2025 12:00 PM JOURNALISTS AND OTHER WRITERS Office Visit [facility] [address] [phone] Elton Velasquez MD [address] [phone] documented as of this encounter Visit Diagnoses Not on filedocumented in this encounter Care Teams Twister Frame Tender Relationship Specialty Start Date End Date Elton Velasquez MD [address] [phone] PCP - General Family Practice 11/18/22 documented as of this encounter
--- OUTSIDE RECORDS SUMMARY | 2025-08-14 13:10 | XMS_ITS | Encounter Summary ---
Author Organization [facility] Address [address] [place] [address] Care Team Providers Care Crisis Clinician Name Role Phone Graciela Marsh MD Primary Care Provider Encounter Details Date Type Department Care Team (Latest Contact Info) Description 12/20/2002 Outpatient [facility] Medicine[address] [phone] Matthew Palacios MD [address] [address] MENSTRUAL DISORDER NEC (Primary Dx) Social History Tobacco Use Types Packs/Day Years Used Date Smoking Tobacco: Never Assessed Comments Unknown Sex and Gender Information Value Date Recorded Sex Assigned at Not on file Legal Sex Female 5:20 AM SPECIAL EDUCATION ITINERANT TEACHER Gender Identity Not on file Sexual Orientation Not on file documented as of this encounter Plan of Treatment Not on file documented as of this encounter Visit Diagnoses Diagnosis Other disorder of menstruation and other abnormal bleeding from female genital tract- Primary documented in this encounter Care Teams Crisis Clinician Relationship Specialty Start Date End Date Graciela Marsh MD [address] [phone] PCP - General Family Practice 10/11/13 documented as of this encounter
--- OUTSIDE RECORDS SUMMARY | 2025-08-14 13:10 | XMS_ITS | Encounter Summary ---
Author Organization [facility] Address [address] [place] [address] Care Team Providers Care Theatrical Variety Agent Name Role Phone Graciela Marsh MD Primary Care Provider Encounter Details Date Type Department Care Team (Latest Contact Info) Description 06/01/[address] [facility] [address] [place] [address] Eliza Amezcua, RESOLUTION EXPERT [address] [place] [address] ACUTE URI NOS (Primary Dx) Social History Tobacco Use Types Packs/Day Years Used Date Smoking Tobacco: Never Assessed Comments Unknown Sex and Gender Information Value Date Recorded Sex Assigned at Not on file Legal Sex Female 5:20 AM OUTREACH ASSOCIATE Gender Identity Not on file Sexual Orientation Not on file documented as of this encounter Plan of Treatment Not on file documented as of this encounter Visit Diagnoses Diagnosis Acute upper respiratory infections of unspecified site- Primary documented in this encounter Care Teams Theatrical Variety Agent Relationship Specialty Start Date End Date Graciela Marsh MD [address] [facility] [address] [place] [address] PCP - General Family Practice 10/11/13 documented as of this encounter
--- OUTSIDE RECORDS SUMMARY | 2025-08-14 13:10 | XMS_ITS | Clinical Summary ---
Author Organization [facility] Address [address] [address] Phone Care Team Providers Care Bear Keeper Name Role Phone Mary Ann hTurman RN Unavailable [phone] Elton Velasquez MD Primary Care Provider [phone] Allergies Active Allergy Reactions Criticality Noted Date Comments Phrrj-C-Gyvakhmmyypko 06/18/2025 Alpha-Gal (Wocxzoovb-Speop-2,3-Galact ose) 06/18/2025 Amoxicillin-Pot Clavulanate Nausea/Vomiting Upset stomach Clindamycin Hives 06/24/2020 Codeine Hives High 10/10/2017 Other reaction(s): BLISTERS Prochlorperazine Anaphylaxis High 06/24/2020 Doxycycline Swelling Low 10/23/2008 Gabapentin Hives High 01/18/2023 Heparin Hives High 08/02/2023 Meperidine Hives High 10/23/2008 Neomycin Other,Hives High 10/10/2017 Matthews skins Phenergan Dm Unknown 01/06/2022 Other Reaction(s): Unknown, Unknown Prochlorperazine Edisylate Anaphylaxis High 10/23/19 09 Tqtfjbtbgeixpmk-Ozzwygg-Ut Other 0 Blisters Sulfa (Sulfonamide Antibiotics) Other [...] ondansetron (Zofran) 4 mg tablet 3 Active xjobrjnn-uvh-yh lic acid-biotin (Hair,Skin and Nails,FA-biotin ,) 100-1,500 [...] 07/29/2020 Allergic rhinitis 07/29/2020 Fluid retention 05/11/2012 Encounters Date Type Department Care Team Description 08/14/2025 Telephone [facility] [place] [address] [address] Omkar Garg Jr., DO Advice Only from Last 3 Months Immunizations Immunization Administration Dates Next Due Influenza, [...] Recorded Patient Health Questionnaire-2 Score 0 02/20/2025 [facility] - Mental Health Answer Date Recorde d [...] st Contact Info) Description 08/28/2025 3:00 PM GRAPE PRUNER [facility] Visit [facility] [address] [address] Omkar Garg Jr., DO [address] [place] [id number] Health Maintenance Due Date Last Done Comments [...] of 2) 2024 COVID-19 Vaccine (1 - season) 2025 Influenza Vaccine (#1) 2025 5, [...] this topic Medical Devices Implanted Type Area Shade Maker Device Identifier Shelf Expiration Date Model / Serial / Lot Staple 2.0 Med Thick Tri - [id number] Implanted:Qty : 6 on 07/18/2024 by Omkar Garg Jr., DO at [facility] Patient Billable Implant N/A: Abdomen COVI 03/02/2027 [id number] / / [id number] Staple 2.0 Med Thick Tri - [id number] Implanted:Qty : 1 on 07/18/2024 by Omkar Garg Jr., DO at [facility] Patient Billable Implant N/A: Abdomen COVI 03/02/2027 [id number] AMT / / [id number] Staple Artic Vasc Med Tri - [id number] Implanted:Qty : 1 on 07/18/2024 by Omkar Garg Jr., DO at [facility] Vascular Implant N/A: Abdomen MEDI 06/05/2028 [id number] / / [id number] Procedures Procedure Name Priority Date/Time Associated Diagnosis [...] LAB CHEMISTRY METHOD 07/19/2024 6:04 AM CDT [facility] Chloride 107 101 - 111 mmol/L LAB CHEMISTRY METHOD 07/19/2024 6:04 AM T [facility] Total Carbon Dioxide 23 22 - 30 mmol/L LAB CHEMISTRY METHOD 07/19/2024 6:04 AM CDT [facility] Anion Gap 13 9 - 17 mmol/L LAB CHEMISTRY METHOD 07/19/2024 6:04 AM CDT [facility] Calcium 8.5 8.2 - 10.2 mg/dL LAB CHEMISTRY METHOD 07/19/2024 6:04 AM CDT [facility] Total Protein, Serum 6.9 5.6 - 8.5 g/dL LAB CHEMISTRY METHOD 07/19/2024 6:04 AM T [facility] Albumin 3.6 3.5 - 5.2 g/dL LAB CHEMISTRY METHOD 07/19/2024 6:04 AM T [facility] GLOBULIN 3.3 2.1 - 3.8 g/dL LAB CHEMISTRY METHOD 07/19/2024 6:04 AM [facility] A/G Ratio 1.1(L) 1.4 - 1.7 LAB CHEMISTRY METHOD 07/19/2024 6:04 AM T [facility] Bilirubin, Total 0.3 0.1 - 1.3 mg/dL LAB CHEMISTRY METHOD 07/19/2024 6:04 AM T [facility] Alkaline Phosphatase 127(H) 45 - 117 U/L LAB CHEMISTRY METHOD 07/19/2024 6:04 AM T [facility] ALT (SGPT) 143(H) 11 - 58 U/L LAB CHEMISTRY METHOD 07/19/2024 6:04 AM T [facility] AST (SGOT) 72(H) 9 - 55 U/L LAB CHEMISTRY METHOD 07/19/2024 6:04 AM T [facility] eGFR >60 >=60 mL/min/1. 73 m2 LAB CHEMISTRY METHOD 07/19/2024 6:04 AM [facility] Blood Venous blood specimen / Unknown Venipuncture / Unknown 07/19/2024 5:35 AM CDT 07/19/2024 5:41 AM CDT Omkar Garg Jr., DO LAB BLOOD ORDERABLES Final Result Performing Organization Address [facility]/ZIP Co de Phone Number [facility] [address] [id number] * (ABNORMAL) Lipid panel (07/11/2024 8:22 AM CDT) [facility] Signature Cholesterol, Total 255(H) 0 - 200 mg/dL LAB CHEMISTRY METHOD 07/11/2024 10:29 AM CDT [facility] Comment: NCEP guidelines: Adults (older than 19 yrs) Desirable: Less than 200 mg/dL Borderline-High: 200 - 239 mg/dL High: Greater than or equal to 240 mg/dL Triglycerides 172(H) 0 - 150 mg/dL LAB CHEMISTRY METHOD 07/11/2024 10:29 AM CDT [facility] Comment: NCEP guidelines: Normal: 10 - 150 mg/dL Borderline-High: 150 - 199 mg/dL High: 200 - 499 mg/dL Very High: Greater than 500 mg/dL High-Density Lipoprotein 41 40 - 60 mg/dL LAB CHEMISTRY METHOD 07/11/2024 10:29 AM CDT [facility] Comment: NCEP guidelines: Low: Less than 40 mg/dL Normal: 40 - 60 mg/dL High: Greater than 60 mg/dL LDL 180(H) 0 - 130 mg/dL LAB CHEMISTRY METHOD 07/11/2024 10:29 AM CDT [facility] Blood Venous blood specimen / Unknown Venipuncture / Unknown 07/11/2024 8:22 AM CDT 07/11/2024 8:25 AM CDT Omkar Garg Jr., DO LAB BLOOD ORDERABLES Final Result [facility] [address] [id number] from Last 3 Months or Most Recently Relevant to Health Maintenance Insurance [facility] Advance Directives For more information, please contact: [phone] (7:30 AM - 5PM [facility], 7 days a week) * Full Code (Latest Code Status on File) Date Activated Date Inactivated Comments 07/18/2024 12:42 PM 07/19/2024 2:50 PM Care Teams Bear Keeper Relationship Specialty Start Date End Date Elton Velasquez MD [address] [address] PCP - General Family Medicine 07/18/24 Mary Ann Thurman, YULIA [address] [place] [id number] Registered Nurse Internal Medicine 06/29/24
--- OUTSIDE RECORDS SUMMARY | 2025-08-14 13:10 | XMS_ITS | Encounter Summary ---
Author Organization [facility] Address [address] [place] [address] Care Team Providers Care Desk Monitor Name Role Phone Graciela Marsh MD Primary Care Provider Encounter Details Date Type Department Care Team (Latest Contact Info) Description 04/10/[address] [facility] [address] [place] [address] Eliza Amezcua, PAD EXTRACTION TENDER [address] [place] [address] VAGINITIS NOS (Primary Dx) Social History Tobacco Use Types Packs/Day Years Used Date Smoking Tobacco: Never Assessed Comments Unknown Sex and Gender Information Value Date Recorded Sex Assigned at Not on file Legal Sex Female 5:20 AM INTELLIGENCE SUPPORT OFFICER Gender Identity Not on file Sexual Orientation Not on file documented as of this encounter Plan of Treatment Not on file documented as of this encounter Visit Diagnoses Diagnosis Vaginitis and vulvovaginitis, unspecified- Primary documented in this encounter Care Teams Desk Monitor Relationship Specialty Start Date End Date Graciela Marsh MD [address] [facility] [address] [place] [address] PCP - General Family Practice 10/11/13 documented as of this encounter
--- OUTSIDE RECORDS SUMMARY | 2025-08-14 13:10 | XMS_ITS | Encounter Summary ---
Author Organization [facility] Address [address] [facility] [address] Wilson: [place] [address] Care Team Providers Care Hydraulic Rubbish Compactor Mechanic Name Role Phone Graciela Marsh MD Primary Care Provider [phone] Encounter Details Date Type Department Care Team (Late st Contact Info) Description 07/24/2002 Outpatient Historical Drew Davis MD [address] [address] Social History Tobacco Use Types Packs/Day Years Used Date Smoking Tobacco: Never Assessed Comments Unknown Sex and Gender Information Value Date Recorded Sex Assigned at Not on file Legal Sex Female 5:20 AM FURNACE MECHANIC HELPER Gender Identity Not on file Sexual Orientation Not on file documented as of this encounter Plan of Treatment Not on file documented as of this encounter Visit Diagnoses Not on filedocumented in this encounter Care Teams Hydraulic Rubbish Compactor Mechanic Relationship Specialty Start Date End Date Graciela aMrsh MD [address] [facility] [address] [place] [address] PCP - General Family Practice 10/11/13 documented as of this encounter
--- OUTSIDE RECORDS SUMMARY | 2025-08-14 13:10 | XMS_ITS | Encounter Summary ---
Author Organization [facility] Address [address] [place] [address] Care Team Providers Care Transformer Shop Supervisor Name Role Phone Graciela Marsh MD Primary Care Provider Encounter Details Date Type Department Care Team (Latest Contact Info) Description 12/25/[address] [facility] [address] [place] [address] Eliza Amezcua, VEHICLE OPERATOR TECHNICIAN [address] [place] [address] BACKACHE NOS (Primary Dx) Social History Tobacco Use Types Packs/Day Years Used Date Smoking Tobacco: Never Assessed Comments Unknown Sex and Gender Information Value Date Recorded Sex Assigned at Not on file Legal Sex Female 5:20 AM DUST COLLECTOR Gender Identity Not on file Sexual Orientation Not on file documented as of this encounter Plan of Treatment Not on file documented as of this encounter Visit Diagnoses Diagnosis Backache, unspecified- Primary documented in this encounter Care Teams Transformer Shop Supervisor Relationship Specialty Start Date End Date Graciela Marsh MD [address] [facility] 60 [place] [address] PCP - General Family Practice 10/11/13 documented as of this encounter
--- OUTSIDE RECORDS SUMMARY | 2025-08-14 13:10 | XMS_ITS | Encounter Summary ---
Author Organization [facility] Address [address] [place] [address] Care Team Providers Care Pipe Liner Name Role Phone Graciela Marsh MD Primary Care Provider Encounter Details Date Type Department Care Team (Latest Contact Info) Description 12/17/2002 Outpatient Historical [facility] [address] [place] [address] Drew Davis MD [address] [facility] [address] [place] [address] OPEN WOUND OF FOOT (Primary Dx) Social History Tobacco Use Types Packs/Day Years Used Date Smoking Tobacco: Never Assessed Comments Unknown Sex and Gender Information Value Date Recorded Sex Assigned at Not on file Legal Sex Female 5:20 AM INTERNATIONAL LOGISTICS MANAGER Gender Identity Not on file Sexual Orientation Not on file documented as of this encounter Plan of Treatment Not on file documented as of this encounter Visit Diagnoses Diagnosis Open wound of foot except toe(s) alone, without mention of complication- Primary documented in this encounter Care Teams Pipe Liner Relationship Specialty Start Date End Date Graciela Marsh MD [address] [facility] 60 [place] [address] PCP - General Family Practice 10/11/13 documented as of this encounter
--- OUTSIDE RECORDS SUMMARY | 2025-08-14 13:10 | XMS_ITS | Encounter Summary ---
Author Organization [facility] Address [address] [place] [address] Care Team Providers Care Power Saw Mechanic Name Role Phone Graciela Marsh MD Primary Care Provider Encounter Details Date Type Department Care Team (Latest Contact Info) Description 08/26/2003 Outpatient Historical [facility] [address] [place] [address] Drew Davis MD [address] [facility] [address] [place] [address] ACUTE URI NOS (Primary Dx) Social History Tobacco Use Types Packs/Day Years Used Date Smoking Tobacco: Never Assessed Comments Unknown Sex and Gender Information Value Date Recorded Sex Assigned at Not on file Legal Sex Female 5:20 AM AQUATICS SPECIALIST Gender Identity Not on file Sexual Orientation Not on file documented as of this encounter Plan of Treatment Not on file documented as of this encounter Visit Diagnoses Diagnosis Acute upper respiratory infections of unspecified site- Primary documented in this encounter Care Teams Power Saw Mechanic Relationship Specialty Start Date End Date Graciela Marsh MD [address] [facility] 60 [place] [address] PCP - General Family Practice 10/11/13 documented as of this encounter
--- OUTSIDE RECORDS SUMMARY | 2025-08-14 13:10 | XMS_ITS | Encounter Summary ---
Author Organization [facility] Address [address] [place] [address] Care Team Providers Care Procurement Services Manager Name Role Phone Graciela Marsh MD Primary Care Provider [phone] Reason for Referral * Outpatient Services (Routine) - Closed Specialty Diagnoses / Procedures Referred By Kenn t Referred To Contact Radiology Diagnoses Other screening mammogram Procedures MAMMO DIGITAL SCREEN BILAT Bryan Monet Sr., FNP [address] [place] [address] Phone: tel: fax: [facility] [place] [address] [place] [address] Phone: tel: fax: Referral ID Status Reason Start Date Expiration Date V isits Requested Visits Authorized [id number] Closed [facility] View CTS to Schedule (SGF) 12/12/2014 01/12/2016 1 1 Encounter Details Date Type Department Care Team (Latest Contact Info) Description 12/12/2014 Ancillary Orders [facility] Scheduling [address] [place] [phone] Bryan Monet Sr., FNP [address] [place] [address] Other screening mammogram (Primary Dx) Social History Tobacco Use Types Packs/Day Years Used Date Smoking Tobacco: Never Smokeless Tobacco: Never Alcohol Use Standard Drinks/Week Comments Not Asked 0 (1 standard drink = 0.6 oz pur e alcohol) Comments No Sex and Gender Information Value Date Recorded Sex Assigned at Not on file Legal Sex Female 5:20 AM SINGEING TORCH OPERATOR Gender Identity Not on file Sexual [...] since the prior mammogram(s). Bryan Monet Sr., ALUMINUM HYDROXIDE PROCESS OPERATOR MAMMO ORDERABLES Edited Result - Final documented in this encounter Visit Diagnoses Diagnosis Other screening mammogram- Primary Other screening mammogram documented in this encounter Care Teams Procurement Services Manager Relationship Specialty Start Date End Date Graciela Marsh MD [address] [phone] PCP - General Family Practice 10/11/13 documented as of this encounter
--- OUTSIDE RECORDS SUMMARY | 2025-08-14 13:10 | XMS_ITS | Encounter Summary ---
Author Organization [facility] Address [address] [place] [address] Care Team Providers Care Manager Sales Name Role Phone Graciela Marsh MD Primary Care Provider Encounter Details Date Type Department Care Team (Latest Contact Info) Description 03/25/2003 Outpatient Historical [facility] [address] [place] [address] Drew Davis MD [address] [facility] [address] [place] [address] THRUSH (Primary Dx); ALLERGY, UNSPECIFIED Social History Tobacco Use Types Packs/Day Years Used Date Smoking Tobacco: Never Assessed Comments Unknown Sex and Gender Information Value Date Recorded Sex Assigned at Not on file Legal Sex Female 5:20 AM PROGRAM PARAPROFESSIONAL Gender Identity Not on file Sexual Orientation Not on file documented as of this encounter Plan of Treatment Not on file documented as of this encounter Visit Diagnoses Diagnosis Candidiasis of mouth- Primary Allergy, unspecified not elsewhere classified documented in this encounter Care Teams Manager Sales Relationship Specialty Start Date End Date Graciela Marsh MD [address] [facility] [address] [place] [address] PCP - General Family Practice 10/11/13 documented as of this encounter
--- OUTSIDE RECORDS SUMMARY | 2025-08-14 13:10 | XMS_ITS | Encounter Summary ---
Author Organization [facility] Address [address] [place] [address] Care Team Providers Care Aoc Operations Intelligence Chief Name Role Phone Graciela Marsh MD Primary Care Provider Encounter Details Date Type Department Care Team (Latest Contact Info) Description 06/12/2003 Outpatient [facility] [address] [phone] Lexi Streeter MD [address] [place] [address] ACUTE FRONTAL SINUSITIS (Primary Dx) Social History Tobacco Use Types Packs/Day Years Used Date Smoking Tobacco: Never Assessed Comments Unknown Sex and Gender Information Value Date Recorded Sex Assigned at Not on file Legal Sex Female 5:20 AM REHANGER Gender Identity Not on file Sexual Orientation Not on file documented as of this encounter Plan of Treatment Not on file documented as of this encounter Visit Diagnoses Diagnosis Acute frontal sinusitis- Primary documented in this encounter Care Teams Aoc Operations Intelligence Chief Relationship Specialty Start Date End Date Graciela Marsh MD [address] [facility] [address] [place] [address] PCP - General Family Practice 10/11/13 documented as of this encounter
--- OUTSIDE RECORDS SUMMARY | 2025-08-14 13:10 | XMS_ITS | Encounter Summary ---
Author Organization [facility] Address [address] [place] [address] Care Team Providers Care Bee Rancher Name Role Phone Graciela Marsh MD Primary Care Provider Encounter Details Date Type Department Care Team (Latest Contact Info) Description 03/22/2003 Outpatient Historical [facility] [address] [place] [address] Amanuel Duvall DO NO ADDRESS ON FILE ACUTE URI NOS (Primary Dx) Social History Tobacco Use Types Packs/Day Years Used Date Smoking Tobacco: Never Assessed Comments Unknown Sex and Gender Information Value Date Recorded Sex Assigned at Not on file Legal Sex Female 5:20 AM TECHNOLOGY SOLUTIONS ARCHITECT Gender Identity Not on file Sexual Orientation Not on file documented as of this encounter Plan of Treatment Not on file documented as of this encounter Visit Diagnoses Diagnosis Acute upper respiratory infections of unspecified site- Primary documented in this encounter Care Teams Bee Rancher Relationship Specialty Start Date End Date Graciela Marsh MD [address] [facility] [address] [place] [address] PCP - General Family Practice 10/11/13 documented as of this encounter
--- OUTSIDE RECORDS SUMMARY | 2025-08-14 13:10 | XMS_ITS | Encounter Summary ---
Author Organization [facility] Address [address] [place] [address] Care Team Providers Care Director Learning Services Name Role Phone Graciela Marsh MD Primary Care Provider Encounter Details Date Type Department Care Team (Latest Contact Info) Description 12/16/2003 Outpatient Historical [facility] [address] [place] [address] Eliza Amezcua, CRYSTAL GROWER [address] [place] [address] ACUTE URI NOS (Primary Dx); Benign adilia skin arm Social History Tobacco Use Types Packs/Day Years Used Date Smoking Tobacco: Never Assessed Comments Unknown Sex and Gender Information Value Date Recorded Sex Assigned at Not on file Legal Sex Female 5:20 AM CIGAR PACKER AND SHADER Gender Identity Not on file Sexual Orientation Not on file documented as of this encounter Plan of Treatment Not on file documented as of this encounter Visit Diagnoses Diagnosis Acute upper respiratory infections of unspecified site- Primary Benign adilia skin arm Benign neoplasm of skin of upper limb, including shoulder documented in this encounter Care Teams Director Learning Services Relationship Specialty Start Date End Date Graciela Marsh MD [address] [facility] [place] [address] PCP - General Family Practice 10/11/13 documented as of this encounter
--- OUTSIDE RECORDS SUMMARY | 2025-08-14 13:10 | XMS_ITS | Encounter Summary ---
Author Organization [facility] Address [address] [place] [address] Care Team Providers Care Front Desk Admin Name Role Phone Graciela Marsh MD Primary Care Provider Encounter Details Date Type Department Care Team (Latest Contact Info) Description 04/10/2004 Outpatient Historical [facility] [address] [place] [address] Eliza Amezcua, PUMP ASSEMBLER [address] [place] [address] VAGINITIS NOS (Primary Dx) Social History Tobacco Use Types Packs/Day Years Used Date Smoking Tobacco: Never Assessed Comments Unknown Sex and Gender Information Value Date Recorded Sex Assigned at Not on file Legal Sex Female 5:20 AM INTERACTIVE MEDIA DIRECTOR Gender Identity Not on file Sexual Orientation Not on file documented as of this encounter Plan of Treatment Not on file documented as of this encounter Visit Diagnoses Diagnosis Vaginitis and vulvovaginitis, unspecified- Primary documented in this encounter Care Teams Front Desk Admin Relationship Specialty Start Date End Date Graciela Marsh MD [address] [facility] [place] [address] PCP - General Family Practice 10/11/13 documented as of this encounter
--- OUTSIDE RECORDS SUMMARY | 2025-08-14 13:10 | XMS_ITS | Encounter Summary ---
Author Organization [facility] Address [address] [place] [address] Care Team Providers Care Carpet Technician Name Role Phone Graciela Marsh MD Primary Care Provider Encounter Details Date Type Department Care Team (Latest Contact Info) Description 10/31/2003 Outpatient Historical [facility] Family Medicine [address] [address] Kathie Steward MD NO ADDRESS ON FILE URIN TRACT INFECTION NOS (Primary Dx); ACUTE URI NOS Social History Tobacco Use Types Packs/Day Years Used Date Smoking Tobacco: Never Assessed Comments Unknown Sex and Gender Information Value Date Recorded Sex Assigned at Not on file Legal Sex Female 5:20 AM CRAYON GRADER Gender Identity Not on file Sexual Orientation Not on file documented as of this encounter Plan of Treatment Not on file documented as of this encounter Visit Diagnoses Diagnosis Urinary tract infection, site not specified- Primary Acute upper respiratory infections of unspecified site documented in this encounter Care Teams Carpet Technician Relationship Specialty Start Date End Date Graciela Marsh MD [address] [address] PCP - General Family Practice 10/11/13 documented as of this encounter
--- OUTSIDE RECORDS SUMMARY | 2025-08-14 13:10 | XMS_ITS | Encounter Summary ---
Author Organization [facility] Address [address] [place] [address] Care Team Providers Care Mobile Application Development Lead Name Role Phone Graciela Marsh MD Primary Care Provider Encounter Details Date Type Department Care Team (Latest Contact Info) Description 08/09/2002 Outpatient Historical [facility] [address] [phone] Matthew Palacios MD [address] [address] OTITIS MEDIA NOS (Primary Dx); ACUTE FRONTAL SINUSITIS Social History Tobacco Use Types Packs/Day Years Used Date Smoking Tobacco: Never Assessed Comments Unknown Sex and Gender Information Value Date Recorded Sex Assigned at Not on file Legal Sex Female 5:20 AM DESK SERGEANT Gender Identity Not on file Sexual Orientation Not on file documented as of this encounter Plan of Treatment Not on file documented as of this encounter Visit Diagnoses Diagnosis Unspecified otitis media- Primary Acute frontal sinusitis documented in this encounter Care Teams Mobile Application Development Lead Relationship Specialty Start Date End Date Graciela Marsh MD [address] [phone] PCP - General Family Practice 10/11/13 documented as of this encounter
--- OUTSIDE RECORDS SUMMARY | 2025-08-14 13:10 | XMS_ITS | Encounter Summary ---
Author Organization [facility] Address [address] [place] [address] Care Team Providers Care Learning Coordinator Name Role Phone Graciela Marsh MD Primary Care Provider Encounter Details Date Type Department Care Team (Latest Contact Info) Description 10/02/2001 Outpatient Historical [facility] Medicine [address] [address] Lexi Streeter MD [address] [place] [address] ACUTE FRONTAL SINUSITIS (Primary Dx); MASTODYNIA Social History Tobacco Use Types Packs/Day Years Used Date Smoking Tobacco: Never Assessed Comments Unknown Sex and Gender Information Value Date Recorded Sex Assigned at Not on file Legal Sex Female 5:20 AM GEROPSYCHOLOGIST Gender Identity Not on file Sexual Orientation Not on file documented as of this encounter Plan of Treatment Not on file documented as of this encounter Visit Diagnoses Diagnosis Acute frontal sinusitis- Primary Mastodynia documented in this encounter Care Teams Learning Coordinator Relationship Specialty Start Date End Date Graciela Marsh MD [address] [facility] 60 [place] [phone] PCP - General Family Practice 10/11/13 documented as of this encounter
--- OUTSIDE RECORDS SUMMARY | 2025-08-14 13:10 | XMS_ITS | Encounter Summary ---
Author Organization [facility] Address [address] [place] [address] Care Team Providers Care Sparmaker Name Role Phone Graciela Marsh MD Primary Care Provider Encounter Details Date Type Department Care Team (Latest Contact Info) Description 07/04/2002 Outpatient Historical [facility] [address] [place] [address] Drew Davis MD [address] [facility] 200 [place] [phone] OTITIS MEDIA NOS (Primary Dx) Social History Tobacco Use Types Packs/Day Years Used Date Smoking Tobacco: Never Assessed Comments Unknown Sex and Gender Information Value Date Recorded Sex Assigned at Not on file Legal Sex Female 5:20 AM CONTENT ARCHITECT Gender Identity Not on file Sexual Orientation Not on file documented as of this encounter Plan of Treatment Not on file documented as of this encounter Visit Diagnoses Diagnosis Unspecified otitis media- Primary documented in this encounter Care Teams Sparmaker Relationship Specialty Start Date End Date Graciela Marsh MD [address] [facility] 60 [place] [address] PCP - General Family Practice 10/11/13 documented as of this encounter
--- OUTSIDE RECORDS SUMMARY | 2025-08-14 13:10 | XMS_ITS | Encounter Summary ---
Author Organization [facility] Address [address] [place] [address] Care Team Providers Care Instructor Bus Trolley And Taxi Name Role Phone Graciela Marsh MD Primary Care Provider [phone] Encounter Details Date Type Department Care Team (Latest Contact Info) Description 2002 Outpatient Historical [facility] [address] [place] [address] Kathie Steward MD NO ADDRESS ON FILE ACUTE SINUSITIS NOS (Primary Dx) Social History Tobacco Use Types Packs/Day Years Used Date Smoking Tobacco: Never Assessed Comments Unknown Sex and Gender Information Value Date Recorded Sex Assigned at Not on file Legal Sex Female 5:20 AM ENTRY LEVEL Gender Identity Not on file Sexual Orientation Not on file documented as of this encounter Plan of Treatment Not on file documented as of this encounter Visit Diagnoses Diagnosis Acute sinusitis, unspecified- Primary documented in this encounter Care Teams Instructor Bus Trolley And Taxi Relationship Specialty Start Date End Date Graciela Marsh MD [address] [facility] 60 [place] [address] PCP - General Family Practice 10/11/13 documented as of this encounter
--- OUTSIDE RECORDS SUMMARY | 2025-08-14 13:10 | XMS_ITS | Encounter Summary ---
Author Organization [facility] Address [address] [place] [address] Care Team Providers Care Field Support Technician Name Role Phone Graciela Marsh MD Primary Care Provider Encounter Details Date Type Department Care Team (Latest Contact Info) Description 07/30/2002 Outpatient [facility] Medicine[address] [phone] Christian Longoria MD [address] [place] [address] ACUTE PHARYNGITIS (Primary Dx) Social History Tobacco Use Types Packs/Day Years Used Date Smoking Tobacco: Never Assessed Comments Unknown Sex and Gender Information Value Date Recorded Sex Assigned at Not on file Legal Sex Female 5:20 AM CORRECTIONAL SECURITY 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
--- OUTSIDE RECORDS SUMMARY | 2025-08-14 13:10 | XMS_ITS | Encounter Summary ---
Author Organization [facility] Address [address] [place] [address] Care Team Providers Care Email Marketing Processor Name Role Phone Graciela Marsh MD Primary Care Provider Encounter Details Date Type Department Care Team (Latest Contact Info) Description 12/31/2003 Outpatient Historical [facility] Family Medicine [address] [address] Eliza Amezcua, COMMUNICATION MANAGER [address] [place] [address] FEMALE GENITAL SYMPTOMS NOS (Primary Dx) Social History Tobacco Use Types Packs/Day Years Used Date Smoking Tobacco: Never Assessed Comments Unknown Sex and Gender Information Value Date Recorded Sex Assigned at Not on file Legal Sex Female 5:20 AM BUSINESS PROCESS ANALYST Gender Identity Not on file Sexual Orientation Not on file documented as of this encounter Plan of Treatment Not on file documented as of this encounter Visit Diagnoses Diagnosis Unspecified symptom associated with female genital organs- Primary documented in this encounter Care Teams Email Marketing Processor Relationship Specialty Start Date End Date Graciela Marsh MD [address] [phone] PCP - General Family Practice 10/11/13 documented as of this encounter
--- OUTSIDE RECORDS SUMMARY | 2025-08-14 13:10 | XMS_ITS | Encounter Summary ---
Author Organization [facility] Address [address] [place] [address] Care Team Providers Care Yoker Name Role Phone Graciela Marsh MD Primary Care Provider Encounter Details Date Type Department Care Team (Latest Contact Info) Description 08/21/2002 Outpatient Historical [facility] [address] [phone] Matthew Palacios MD [address] [address] OTITIS MEDIA NOS (Primary Dx); ACUTE FRONTAL SINUSITIS Social History Tobacco Use Types Packs/Day Years Used Date Smoking Tobacco: Never Assessed Comments Unknown Sex and Gender Information Value Date Recorded Sex Assigned at Not on file Legal Sex Female 5:20 AM PATIENT SCHEDULING COORDINATOR Gender Identity Not on file Sexual Orientation Not on file documented as of this encounter Plan of Treatment Not on file documented as of this encounter Visit Diagnoses Diagnosis Unspecified otitis media- Primary Acute frontal sinusitis documented in this encounter Care Teams Yoker Relationship Specialty Start Date End Date Graciela Marsh MD [address] [phone] PCP - General Family Practice 10/11/13 documented as of this encounter
--- OUTSIDE RECORDS SUMMARY | 2025-08-14 13:10 | XMS_ITS | Encounter Summary ---
Author Organization [facility] Address [address] [place] [address] Care Team Providers Care Manual Training Teacher Name Role Phone Graciela Marsh MD Primary Care Provider Encounter Details Date Type Department Care Team (Latest Contact Info) Description 01/20/2004 Outpatient Historical [facility] [address] [place] [address] Eliza Amezcua, DRAMATIC AGENT [address] [place] [address] ACUTE URI NOS (Primary Dx); CANDIDIASIS SITE NEC Social History Tobacco Use Types Packs/Day Years Used Date Smoking Tobacco: Never Assessed Comments Unknown Sex and Gender Information Value Date Recorded Sex Assigned at Not on file Legal Sex Female 5:20 AM CENTRALIZED TRAFFIC CONTROL OPERATOR Gender Identity Not on file Sexual Orientation Not on file documented as of this encounter Plan of Treatment Not on file documented as of this encounter Visit Diagnoses Diagnosis Acute upper respiratory infections of unspecified site- Primary Other candidiasis of other specified sites documented in this encounter Care Teams Manual Training Teacher Relationship Specialty Start Date End Date Graciela Marsh MD [address] [facility] 60 [place] [phone] PCP - General Family Practice 10/11/13 documented as of this encounter
--- OUTSIDE RECORDS SUMMARY | 2025-08-14 13:10 | XMS_ITS | Encounter Summary ---
Author Organization [facility] Address [address] [place] [address] Care Team Providers Care Cleaning Porter Name Role Phone Graciela Marsh MD Primary Care Provider Encounter Details Date Type Department Care Team (Latest Contact Info) Description 04/27/2004 Outpatient Historical [facility] [address] [place] [address] Eliza Amezcua, BUTTON SAWYER [address] [place] [address] ACUTE URI NOS (Primary Dx) Social History Tobacco Use Types Packs/Day Years Used Date Smoking Tobacco: Never Assessed Comments Unknown Sex and Gender Information Value Date Recorded Sex Assigned at Not on file 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
--- OUTSIDE RECORDS SUMMARY | 2025-08-14 13:10 | XMS_ITS | Encounter Summary ---
Author Organization [facility] Address [address] [place] [address] Care Team Providers Care Refrigeration Systems Installer Name Role Phone Graciela Marsh MD Primary Care Provider Encounter Details Date Type Department Care Team (Latest Contact Info) Description 10/14/[address] [facility] [place] [address] [place] [address] Drew Davis MD [address] [facility] 200 [place] [phone] ACUTE BRONCHITIS (Primary Dx) Social History Tobacco Use Types Packs/Day Years Used Date Smoking Tobacco: Never Assessed Comments Unknown Sex and Gender Information Value Date Recorded Sex Assigned at Not on file Legal Sex Female 5:20 AM HAND II CUTTER Gender Identity Not on file Sexual Orientation Not on file documented as of this encounter Plan of Treatment Not on file documented as of this encounter Visit Diagnoses Diagnosis Acute bronchitis- Primary documented in this encounter Care Teams Refrigeration Systems Installer Relationship Specialty Start Date End Date Graciela Marsh MD [address] [facility] 60 [place] [address] PCP - General Family Practice 10/11/13 documented as of this encounter
--- OUTSIDE RECORDS SUMMARY | 2025-08-14 13:10 | XMS_ITS | Encounter Summary ---
Author Organization [facility] Address [address] [place] [address] Care Team Providers Care Creative Project Manager Name Role Phone Graciela Marsh MD Primary Care Provider Encounter Details Date Type Department Care Team (Latest Contact Info) Description 01/27/2004 Outpatient Historical [facility] [address] [place] [address] Eliza Amezcua, BEAUTY COUNSELOR [address] [place] [address] URINARY FREQUENCY (Primary Dx) Social History Tobacco Use Types Packs/Day Years Used Date Smoking Tobacco: Never Assessed Comments Unknown Sex and Gender Information Value Date Recorded Sex Assigned at Not on file Legal Sex Female 5:20 AM VP INFORMATICS Gender Identity Not on file Sexual Orientation Not on file documented as of this encounter Plan of Treatment Not on file documented as of this encounter Visit Diagnoses Diagnosis Urinary frequency- Primary documented in this encounter Care Teams Creative Project Manager Relationship Specialty Start Date End Date Graciela Marsh MD [address] [facility] [place] [phone] PCP - General Family Practice 10/11/13 documented as of this encounter
--- OUTSIDE RECORDS SUMMARY | 2025-08-14 13:10 | XMS_ITS | Encounter Summary ---
Author Organization [facility] Address [address] [place] [address] Care Team Providers Care Consumer Marketing Analyst Name Role Phone Graciela Marsh MD Primary Care Provider Encounter Details Date Type Department Care Team (Latest Contact Info) Description 04/26/2007 Outpatient Historical [facility] [address] [place] [address] Amanuel Duvall DO NO ADDRESS ON FILE Injury, Other and Unspecified, Knee, Leg, Ankle, and Foot (Primary Dx); Contact Dermatitis and Other Eczema, due to Unspecified Cause Social History Tobacco Use Types Packs/Day Years Used Date Smoking Tobacco: Never Assessed Comments Unknown Sex and Gender Information Value Date Recorded Sex Assigned at Not on file Legal Sex Female 5:20 AM BACTERIOLOGY TECHNICIAN Gender Identity Not on file Sexual Orientation Not on file documented as of this encounter Plan of Treatment Not on file documented as of this encounter Visit Diagnoses Diagnosis Injury, other and unspecified, knee, leg, ankle, and foot- Primary Contact dermatitis and other eczema, due to unspecified cause documented in this encounter Care Teams Consumer Marketing Analyst Relationship Specialty Start Date End Date Graciela Marsh MD [address] [facility] 60 [place] [address] PCP - General Family Practice 10/11/13 documented as of this encounter
--- OUTSIDE RECORDS SUMMARY | 2025-08-14 13:10 | XMS_ITS | Encounter Summary ---
Author Organization [facility] Address [address] [place] [address] Care Team Providers Care Supervisor Assembly Stock Name Role Phone Graciela Marsh MD Primary Care Provider Encounter Details Date Type Department Care Team (Latest Contact Info) Description 11/11/2003 Outpatient Historical [facility] [address] [place] [address] Eliza Amezcau, SANDFILL OPERATOR [address] [place] [address] Skin sensation disturb (Primary Dx) Social History Tobacco Use Types Packs/Day Years Used Date Smoking Tobacco: Never Assessed Comments Unknown Sex and Gender Information Value Date Recorded Sex Assigned at Not on file Legal Sex Female 5:20 AM FAMILY LITERACY COORDINATOR Gender Identity Not on file Sexual Orientation Not on file documented as of this encounter Plan of Treatment Not on file documented as of this encounter Visit Diagnoses Diagnosis Skin sensation disturb- Primary Disturbance of skin sensation documented in this encounter Care Teams Supervisor Assembly Stock Relationship Specialty Start Date End Date Graciela Marsh MD [address] [facility] 60 [place] [address] PCP - General Family Practice 10/11/13 documented as of this encounter
--- OUTSIDE RECORDS SUMMARY | 2025-08-14 13:10 | XMS_ITS | Encounter Summary ---
Author Organization [facility] Address [address]: [place] [address] Care Team Providers Care Veneer Jointer Returner Name Role Phone Graciela Marsh MD Primary Care Provider [phone] Encounter Details Date Type Department Care Team (Late st Contact Info) Description 12/26/2001 Outpatient Historical Eliza Amezcua, BUSINESS TECHNOLOGY TEACHER [address] [place] [phone] Social History Tobacco Use Types Packs/Day Years Used Date Smoking Tobacco: Never Assessed Comments Unknown Sex and Gender Information Value Date Recorded Sex Assigned at Not on file Legal Sex Female 5:20 AM PURCHASING BUYER Gender Identity Not on file Sexual Orientation Not on file documented as of this encounter Plan of Treatment Not on file documented as of this encounter Visit Diagnoses Not on filedocumented in this encounter Care Teams Veneer Jointer Returner Relationship Specialty Start Date End Date Graciela Marsh MD [address] [facility] 60 [place] [phone] PCP - General Family Practice 10/11/13 documented as of this encounter
--- OUTSIDE RECORDS SUMMARY | 2025-08-14 13:10 | XMS_ITS | Encounter Summary ---
Author Organization [facility] Address [address] [place] [address] Care Team Providers Care String Cutter Name Role Phone Graciela Marsh MD Primary Care Provider Encounter Details Date Type Department Care Team (Latest Contact Info) Description 04/20/2004 Outpatient Historical [facility] [address] [place] [address] Eliza Amezcua, RAT FARMER [address] [place] [address] ACUTE URI NOS (Primary Dx) Social History Tobacco Use Types Packs/Day Years Used Date Smoking Tobacco: Never Assessed Comments Unknown Sex and Gender Information Value Date Recorded Sex Assigned at Not on file Legal Sex Female 5:[address]ER Gender Identity Not on file Sexual Orientation Not on file documented as of this encounter Plan of Treatment Not on file documented as of this encounter Visit Diagnoses Diagnosis Acute upper respiratory infections of unspecified site- Primary documented in this encounter Care Teams String Cutter Relationship Specialty Start Date End Date Graciela Marsh MD [address] [facility] 60 [place] [address] PCP - General Family Practice 10/11/13 documented as of this encounter
--- OUTSIDE RECORDS SUMMARY | 2025-08-14 13:10 | XMS_ITS | Encounter Summary ---
Author Organization [facility] Address [address] [place] [address] Care Team Providers Care Frame Sample And Pattern Supervisor Name Role Phone Graciela Marsh MD Primary Care Provider [phone] Encounter Details Date Type Department Care Team (Latest Contact Info) Description 03/09/2004 Outpatient Historical [facility] [address] [place] [address] Eliza Amezcua, BOOT AND SHOE REPAIRMAN [address] [place] [address] DERMATITIS OTHER NEC (Primary Dx) Social History Tobacco Use Types Packs/Day Years Used Date Smoking Tobacco: Never Assessed Comments Unknown Sex and Gender Information Value Date Recorded Sex Assigned at Not on file Legal Sex Female 5:20 AM CRUSHER OPERATOR Gender Identity Not on file Sexual Orientation Not on file documented as of this encounter Plan of Treatment Not on file documented as of this encounter Visit Diagnoses Diagnosis Contact dermatitis and other eczema due to other specified agent- Primary documented in this encounter Care Teams Frame Sample And Pattern Supervisor Relationship Specialty Start Date End Date Graciela Marsh MD [address] [facility] 60 [place] [address] PCP - General Family Practice 10/11/13 documented as of this encounter
--- OUTSIDE RECORDS SUMMARY | 2025-08-14 13:10 | XMS_ITS | Encounter Summary ---
Author Organization [facility] Address [address] [place] [address] Care Team Providers Care Radio Technician Name Role Phone Graciela Marsh MD Primary Care Provider Encounter Details Date Type Department Care Team (Latest Contact Info) Description 08/13/2002 Outpatient Historical [facility] [address] [place] [address] Drew Davis MD [address] [facility] 200 [place] [address] ABDOMINAL PAIN UNSPEC SITE (Primary Dx) Social History Tobacco Use Types Packs/Day Years Used Date Smoking Tobacco: Never Assessed Comments Unknown Sex and Gender Information Value Date Recorded Sex Assigned at Not on file Legal Sex Female 5:20 AM VIDEO GAME PRODUCER Gender Identity Not on file Sexual Orientation Not on file documented as of this encounter Plan of Treatment Not on file documented as of this encounter Visit Diagnoses Diagnosis Abdominal pain, unspecified site- Primary documented in this encounter Care Teams Radio Technician Relationship Specialty Start Date End Date Graciela Marsh MD [address] [facility] 60 [place] [address] PCP - General Family Practice 10/11/13 documented as of this encounter
--- OUTSIDE RECORDS SUMMARY | 2025-08-14 13:10 | XMS_ITS | Encounter Summary ---
Author Organization [facility] Address [address] [address] Phone Care Team Providers Care Anime Artist Name Role Phone Mary Ann Thurman RN Unavailable [phone] Elton Velasquez MD Primary Care Provider [phone] Reason for Visit * Reason Onset Date Comments Advice Only 08/14/2025 Encounter Details Date Type Department Care Team (Late st Contact Info) Description 08/14/2025 Telephone [facility] [address] [address] Omkar Garg Jr., DO [address] [phone] Advice Only Social History Tobacco Use Types Packs/Day Years Used Date Smoking Tobacco: Never Passive Smoke Exposure: Never Smokeless Tobacco: Never Alcohol Use Standard Drinks/Week Comments Not Currently 0 (1 standard drink = 0.6 oz pur e alcohol) last drink 1 year ago PHQ-2 Answer Date Recorded Patient Health Questionnaire-2 Score 0 02/20/2025 [facility] - Mental Health Answer Date [...] encounter Miscellaneous Notes * Telephone Encounter - Carol Pérez - 08/14/2025 11:20 AM CST Patient is 1 year post op from weight loss surgery and is currently experiencing kidney stones. Sheis inquiring if she can take something that is an NSAID for her pain because her tylenol is not covering it. Please call her to advise. T AID OFFICER documented in this encounter Plan of Treatment Upcoming Encounters Date Type Department Care Team (Late st Contact Info) Description 08/28/2025 3:00 PM FIRST AID OFFICER Office Visit [facility] [address] [phone] Omkar Garg Jr., DO [address] [phone] documented as of this encounter Visit Diagnoses Not on filedocumented in this encounter Care Teams Anime Artist Relationship Specialty Start Date End Date Elton Velasquez MD [address] [facility] 60 [place] [address] PCP - General Family Medicine 07/18/24 Mary Ann Thurman RN [address] [phone] Registered Nurse Internal Medicine 06/29/24 documented as of this encounter
--- OUTSIDE RECORDS SUMMARY | 2025-08-14 13:10 | XMS_ITS | Encounter Summary ---
Author Organization [facility] Address [address] [place] [address] Care Team Providers Care Copy Writer Name Role Phone Graciela Marsh MD Primary Care Provider Encounter Details Date Type Department Care Team (Latest Contact Info) Description 09/04/2003 Outpatient Historical [facility] [address] [place] [address] Drew Davis MD [address] [facility] 200 [place] [phone] OTITIS MEDIA NOS (Primary Dx) Social History Tobacco Use Types Packs/Day Years Used Date Smoking Tobacco: Never Assessed Comments Unknown Sex and Gender Information Value Date Recorded Sex Assigned at Not on file Legal Sex Female 5:20 AM MEDICAL ONCOLOGY PHYSICIAN Gender Identity Not on file Sexual Orientation Not on file documented as of this encounter Plan of Treatment Not on file documented as of this encounter Visit Diagnoses Diagnosis Unspecified otitis media- Primary documented in this encounter Care Teams Copy Writer Relationship Specialty Start Date End Date Graciela Marsh MD [address] [facility] 60 [place] [address] PCP - General Family Practice 10/11/13 documented as of this encounter
--- OUTSIDE RECORDS SUMMARY | 2025-08-14 13:10 | XMS_ITS | Encounter Summary ---
Author Organization [facility] Address [address] [place] [address] Care Team Providers Care Facility Specialist Name Role Phone Graciela Marsh MD Primary Care Provider [phone] Encounter Details Date Type Department Care Team (Latest Contact Info) Description 09/18/2003 Outpatient Historical [facility] Medicine[address] [phone] Matthew Palacios MD [address] [address] ACUTE FRONTAL SINUSITIS (Primary Dx); Tuberculosis contact Social History Tobacco Use Types Packs/Day Years Used Date Smoking Tobacco: Never Assessed Comments Unknown Sex and Gender Information Value Date Recorded Sex Assigned at Not on file Legal Sex Female 5:20 AM ADJUNCT PSYCHOLOGY INSTRUCTOR Gender Identity Not on file Sexual Orientation Not on file documented as of this encounter Plan of Treatment Not on file documented as of this encounter Visit Diagnoses Diagnosis Acute frontal sinusitis- Primary Tuberculosis contact Contact with or exposure to tuberculosis documented in this encounter Care Teams Facility Specialist Relationship Specialty Start Date End Date Graciela Marsh MD [address] [facility] [address] [place] [phone] PCP - General Family Practice 10/11/13 documented as of this encounter
--- OUTSIDE RECORDS SUMMARY | 2025-08-14 13:10 | XMS_ITS | Encounter Summary ---
Author Organization [facility] Address [address] [place] [address] Care Team Providers Care Physiotherapy Aide Name Role Phone Graciela Marsh MD Primary Care Provider [phone] Encounter Details Date Type Department Care Team (Latest Contact Info) Description 04/04/2001 Outpatient Historical [facility] Medicine [address] [address] Lexi Streeter MD [address] [place] [address] Abdominal pain, unspecified site (Primary Dx) Social History Tobacco Use Types Packs/Day Years Used Date Smoking Tobacco: Never Assessed Comments Unknown Sex and Gender Information Value Date Recorded Sex Assigned at Not on file Legal Sex Female 5:20 AM LINING SETTER Gender Identity Not on file Sexual Orientation Not on file documented as of this encounter Plan of Treatment Not on file documented as of this encounter Visit Diagnoses Diagnosis Abdominal pain, unspecified site- Primary documented in this encounter Care Teams Physiotherapy Aide Relationship Specialty Start Date End Date Graciela Marsh MD [address] [facility] 60 [place] [address] PCP - General Family Practice 10/11/13 documented as of this encounter
--- OUTSIDE RECORDS SUMMARY | 2025-08-14 13:10 | XMS_ITS | Encounter Summary ---
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
--- OUTSIDE RECORDS SUMMARY | 2025-08-14 13:10 | XMS_ITS | Encounter Summary ---
Author Organization [facility] Address [address] [place] [address] Care Team Providers Care Plastic Duplicator Name Role Phone Graciela Marsh MD Primary Care Provider Encounter Details Date Type Department Care Team (Latest Contact Info) Description 09/09/2003 Outpatient Historical [facility] Medicine[address] [phone] Matthew Palacios MD [address] [address] Vaccine for influenza (Primary Dx) Social History Tobacco Use Types Packs/Day Years Used Date Smoking Tobacco: Never Assessed Comments Unknown Sex and Gender Information Value Date Recorded Sex Assigned at Not on file Legal Sex Female 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
--- OUTSIDE RECORDS SUMMARY | 2025-08-14 13:10 | XMS_ITS | Encounter Summary ---
Author Organization [facility] Address [address] [place] [address] Care Team Providers Care Outside Sales Account Representative Name Role Phone Graciela Marsh MD Primary Care Provider Encounter Details Date Type Department Care Team (Latest Contact Info) Description 03/20/2004 Outpatient Historical [facility] Family Medicine [address] [address] Alton Kat NP NO ADDRESS ON FILE ACUTE PHARYNGITIS (Primary Dx); ACUTE SINUSITIS NOS Social History Tobacco Use Types Packs/Day Years Used Date Smoking Tobacco: Never Assessed Comments Unknown Sex and Gender Information Value Date Recorded Sex Assigned at Not on file Legal Sex Female 5:20 AM ANDROID ARCHITECT Gender Identity Not on file Sexual Orientation Not on file documented as of this encounter Plan of Treatment Not on file documented as of this encounter Visit Diagnoses Diagnosis Acute pharyngitis- Primary Acute sinusitis, unspecified documented in this encounter Care Teams Outside Sales Account Representative Relationship Specialty Start Date End Date Graciela Marsh MD [address] [address] PCP - General Family Practice 10/11/13 documented as of this encounter
--- OUTSIDE RECORDS SUMMARY | 2025-08-14 13:10 | XMS_ITS | Encounter Summary ---
Author Organization [facility] Address [address] [place] [address] Care Team Providers Care Resident Caregiver Name Role Phone Graciela Marsh MD Primary Care Provider Encounter Details Date Type Department Care Team (Latest Contact Info) Description 09/24/2002 Outpatient Historical [facility] [address] [place] [address] Drew Davis MD [address] [facility] 200 [place] [phone] URIN TRACT INFECTION NOS (Primary Dx) Social History Tobacco Use Types Packs/Day Years Used Date Smoking Tobacco: Never Assessed Comments Unknown Sex and Gender Information Value Date Recorded Sex Assigned at Not on file Legal Sex Female 5:20 AM FLOORHAND Gender Identity Not on file Sexual Orientation Not on file documented as of this encounter Plan of Treatment Not on file documented as of this encounter Visit Diagnoses Diagnosis Urinary tract infection, site not specified- Primary documented in this encounter Care Teams Resident Caregiver Relationship Specialty Start Date End Date Graciela Marsh MD [address] [facility] 60 [place] [address] PCP - General Family Practice 10/11/13 documented as of this encounter
--- OUTSIDE RECORDS SUMMARY | 2025-08-14 13:10 | XMS_ITS | Encounter Summary ---
Author Organization [facility] Address [address] [place] [address] Care Team Providers Care Paper Cup Machine Tender Name Role Phone Graciela Marsh MD Primary Care Provider [phone] Encounter Details Date Type Department Care Team (Late st Contact Info) Description 07/26/2007 Outpatient Historical [facility] Family Medicine [address] [address] Social History Tobacco Use Types Packs/Day Years Used Date Smoking Tobacco: Never Assessed Comments Unknown Sex and Gender Information Value Date Recorded Sex Assigned at Not on file Legal Sex Female 5:20 AM WINERY CELLAR HAND Gender Identity Not on file Sexual Orientation Not on file documented as of this encounter Plan of Treatment Not on file documented as of this encounter Visit Diagnoses Not on filedocumented in this encounter Care Teams Paper Cup Machine Tender Relationship Specialty Start Date End Date Graciela Marsh MD [address] [phone] PCP - General Family Practice 10/11/13 documented as of this encounter
--- OUTSIDE RECORDS SUMMARY | 2025-08-14 13:10 | XMS_ITS | Encounter Summary ---
Author Organization [facility] Address [address] [place] [address] Care Team Providers Care Sap Bw Consultant Name Role Phone Graciela Marsh MD Primary Care Provider Encounter Details Date Type Department Care Team (Latest Contact Info) Description 07/23/2002 Outpatient Historical [facility] [address] [place] [address] Drew Davis MD [address] [facility] 200 [place] [address] VAGINITIS NOS (Primary Dx) Social History Tobacco Use Types Packs/Day Years Used Date Smoking Tobacco: Never Assessed Comments Unknown Sex and Gender Information Value Date Recorded Sex Assigned at Not on file Legal Sex Female 5:20 AM CONCRETE MIXER Gender Identity Not on file Sexual Orientation Not on file documented as of this encounter Plan of Treatment Not on file documented as of this encounter Visit Diagnoses Diagnosis Vaginitis and vulvovaginitis, unspecified- Primary documented in this encounter Care Teams Sap Bw Consultant Relationship Specialty Start Date End Date Graciela Marsh MD [address] [facility] 60 [place] [address] PCP - General Family Practice 10/11/13 documented as of this encounter
--- OUTSIDE RECORDS SUMMARY | 2025-08-14 13:10 | XMS_ITS | Encounter Summary ---
Author Organization [facility] Address [address] [place] [address] Care Team Providers Care House Piping Inspector Name Role Phone Graciela Marsh MD Primary Care Provider Encounter Details Date Type Department Care Team (Latest Contact Info) Description 09/21/2002 Outpatient Historical [facility] [address] [place] [address] Drew Davis MD [address] [address] VACCINE FOR TETANUS + DIPHTHERIA (Primary Dx) Social History Tobacco Use Types Packs/Day Years Used Date Smoking Tobacco: Never Assessed Comments Unknown Sex and Gender Information Value Date Recorded Sex Assigned at Not on file Legal Sex Female 5:20 AM 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
--- OUTSIDE RECORDS SUMMARY | 2025-08-14 13:11 | XMS_ITS | Encounter Summary ---
Author Organization [facility] Address [address] [place] [address] Care Team Providers Care Mind Reader Name Role Phone Graciela Marsh MD Primary Care Provider [phone] Encounter Details Date Type Department Care Team (Latest Contact Info) Description 12/05/2002 Outpatient Historical [facility] [address] [place] [address] Amanuel Duvall DO NO ADDRESS ON FILE FEMALE GENITAL SYMPTOMS NOS (Primary Dx); REFLUX ESOPHAGITIS Social History Tobacco Use Types Packs/Day Years Used Date Smoking Tobacco: Never Assessed Comments Unknown Sex and Gender Information Value Date Recorded Sex Assigned at Not on file 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
--- OUTSIDE RECORDS SUMMARY | 2025-08-14 13:11 | XMS_ITS | Encounter Summary ---
Author Organization [facility] Address [address] [place] [address] Care Team Providers Care Sprue Knocker Name Role Phone Graciela Marsh MD Primary Care Provider Encounter Details Date Type Department Care Team (Latest Contact Info) Description 03/07/2003 Outpatient Historical [facility] Medicine [address] [address] Kathie Steward MD NO ADDRESS ON FILE Gynecologic examination (Primary Dx); ALLERGY, UNSPECIFIED; ESOPHAGEAL REFLUX Social History Tobacco Use Types Packs/Day Years Used Date Smoking Tobacco: Never Assessed Comments Unknown Sex and Gender Information Value Date Recorded Sex Assigned at Not on file Legal Sex Female 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
--- OUTSIDE RECORDS SUMMARY | 2025-08-14 13:11 | XMS_ITS | Encounter Summary ---
Author Organization [facility] Address [address] [place] [address] Care Team Providers Care Dry House Attendant Name Role Phone Graciela Marsh MD Primary Care Provider Encounter Details Date Type Department Care Team (Latest Contact Info) Description 02/04/2003 Outpatient [facility] Medicine[address] [phone] Matthew Palacios MD [address] [address] INFEC OTITIS EXTERNA NOS (Primary Dx); ACUTE PHARYNGITIS Social History Tobacco Use Types Packs/Day Years Used Date Smoking Tobacco: Never Assessed Comments Unknown Sex and Gender Information Value Date Recorded Sex Assigned at Not on file Legal Sex Female 5:20 AM ACID LOADER Gender Identity Not on file Sexual Orientation Not on file documented as of this encounter Plan of Treatment Not on file documented as of this encounter Visit Diagnoses Diagnosis Infective otitis externa, unspecified- Primary Acute pharyngitis documented in this encounter Care Teams Dry House Attendant Relationship Specialty Start Date End Date Graciela Marsh MD [address] [facility] 60 [place] [address] PCP - General Family Practice 10/11/13 documented as of this encounter
--- OUTSIDE RECORDS SUMMARY | 2025-08-14 13:11 | XMS_ITS | Encounter Summary ---
Author Organization [facility] Address [address] [place] [address] Care Team Providers Care Box Car Checker Name Role Phone Graciela Marsh MD Primary Care Provider Encounter Details Date Type Department Care Team (Latest Contact Info) Description 09/27/2002 Outpatient Historical [facility] Family Medicine [address] [place] [address] [address] Kathie Steward MD NO ADDRESS ON FILE ACUTE PHARYNGITIS (Primary Dx); URIN TRACT INFECTION NOS Social History Tobacco Use Types Packs/Day Years Used Date Smoking Tobacco: Never Assessed Comments Unknown Sex and Gender Information Value Date Recorded Sex Assigned at Not on file 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
--- OUTSIDE RECORDS SUMMARY | 2025-08-14 13:11 | XMS_ITS | Encounter Summary ---
Author Organization [employer] [facility] Address [address] [place] [address] Care Team Providers Care Coremaker Helper Name Role Phone Graciela Marsh MD Primary Care Provider Encounter Details Date Type Department Care Team (Late st Contact Info) Description 03/06/2019 Ancillary Orders [facility] [address] [place] [address] Dulce Maria Pugh, [facility] [address] [place] [address] Injury of left hand, initial encounter Social History Tobacco Use Types Packs/Day Years Used Date Smoking Tobacco: Never Smokeless Tobacco: Never Alcohol Use Standard Drinks/Week Comments Not Asked 0 (1 standard drink = 0.6 oz pur e alcohol) Comments No Sex and Gender Information Value Date Recorded Sex Assigned at Not on file Legal Sex Female 5:20 AM MANAGER ASSEMBLY Gender Identity Not on file Sexual [...] joint space abnormality. IMPRESSION: 1. Nothing acute. [id number] Narrative Procedure Note Devin Heaton MD - 03/06/2019 IMPRESSION: Please see below. Exam: XR HAND 3+ VW LEFT Date/Time of Exam: 03/06/2019 8:03 AM Reason For Exam: See Diagnosis. Diagnosis: Injury of left hand, initial encounter. Comparison: None Findings: No acute fracture or significant focal osseous or joint space abnormality. IMPRESSION: 1. Nothing acute. [id number] Dulce Maria Pugh STEAM BRUSH OPERATOR DIAGNOSTIC IMAGING ORDERABL ES Final Result documented in this encounter Visit Diagnoses Diagnosis Injury of left hand, initial encounter Injury of left hand, initial encounter documented in this encounter Care Teams Coremaker Helper Relationship Specialty Start Date End Date Graciela Marsh MD [address] [phone] PCP - General Family Practice 10/11/13 documented as of this encounter
--- OUTSIDE RECORDS SUMMARY | 2025-08-14 13:11 | XMS_ITS | Encounter Summary ---
Author Organization [facility] Address [address] [place] [address] Care Team Providers Care Vat Operator Name Role Phone Graciela Marsh MD Primary Care Provider Encounter Details Date Type Department Care Team (Latest Contact Info) Description 12/31/2002 Outpatient Historical [facility] [address] [place] [address] Drew Davis MD [address] [facility] 200 [place] [phone] ACUTE URI NOS (Primary Dx) Social History Tobacco Use Types Packs/Day Years Used Date Smoking Tobacco: Never Assessed Comments Unknown Sex and Gender Information Value Date Recorded Sex Assigned at Not on file Legal Sex Female 5:20 AM CREDIT CONTROL ADMINISTRATOR Gender Identity Not on file Sexual Orientation Not on file documented as of this encounter Plan of Treatment Not on file documented as of this encounter Visit Diagnoses Diagnosis Acute upper respiratory infections of unspecified site- Primary documented in this encounter Care Teams Vat Operator Relationship Specialty Start Date End Date Graciela Marsh MD [address] [facility] 60 [place] [address] PCP - General Family Practice 10/11/13 documented as of this encounter
--- OUTSIDE RECORDS SUMMARY | 2025-08-14 13:11 | XMS_ITS | Encounter Summary ---
Author Organization [facility] Address [address] [place] [address] Care Team Providers Care Catalyst Concentration Operator Name Role Phone Graciela Marsh MD Primary Care Provider [phone]- [phone] Reason for Referral * Outpatient Services (Routine) - Closed Specialty Diagnoses / Procedures Referred By Kenn saavedra Referred To Contact Radiology Diagnoses Visit for screening mammogram Procedures MAMMO DIGITAL SCREEN BILAT Bryan Monet Sr., FNP [address] [place] [address] Phone: tel: fax: [facility] [place] [address] [place] [address] Phone: tel: fax: Referral ID Status Reason Start Date Expiration Date V isits Requested Visits Authorized [id number] Closed [facility] CTS to Schedule ([facility]GF) 01/06/2016 02/05/2017 1 1 Encounter Details Date Type Department Care Team (Latest Contact Info) Description 01/06/2016 Ancillary Orders [facility] Scheduling [address] [place] [address] Bryan Monet Sr., FNP [address] [place] [address] Visit for screening mammogram (Primary Dx) Social History Tobacco Use Types Packs/Day Years Used Date Smoking Tobacco: Never Smokeless Tobacco: Never Alcohol Use Standard Drinks/Week Comments Not Asked 0 (1 standard drink = 0.6 oz pur e alcohol) Comments No Sex and Gender Information Value Date Recorded Sex Assigned at Not on file Legal Sex Female 5:20 AM AUTOMATION CONSULTANT Gender Identity Not on file Sexual [...] since the prior mammogram(s). Bryan Monet Sr., MIMEOGRAPH OPERATOR MAMMO ORDERABLES Final Result documented in this encounter Visit Diagnoses Diagnosis Visit for screening mammogram- Primary Other screening mammogram Visit for screening mammogram Other screening mammogram documented in this encounter Care Teams Catalyst Concentration Operator Relationship Specialty Start Date End Date Graciela Marsh MD [address] [facility] [address] [place] [address] PCP - General Family Practice 10/11/13 documented as of this encounter
--- OUTSIDE RECORDS SUMMARY | 2025-08-14 13:11 | XMS_ITS | Encounter Summary ---
Author Organization [facility] Address [address] [place] [address] Care Team Providers Care Instrument Lens Grinder Name Role Phone Graciela Marsh MD Primary Care Provider [phone] Encounter Details Date Type Department Care Team (Latest Contact Info) Description 03/21/2003 Outpatient Historical [facility] Family Medicine [address] [address] Kathie Steward MD NO ADDRESS ON FILE OPEN WOUND OF FOOT (Primary Dx) Social History Tobacco Use Types Packs/Day Years Used Date Smoking Tobacco: Never Assessed Comments Unknown Sex and Gender Information Value Date Recorded Sex Assigned at Not on file Legal Sex Female 5:20 AM ORANGE PICKER Gender Identity Not on file Sexual Orientation Not on file documented as of this encounter Plan of Treatment Not on file documented as of this encounter Visit Diagnoses Diagnosis Open wound of foot except toe(s) alone, without mention of complication- Primary documented in this encounter Care Teams Instrument Lens Grinder Relationship Specialty Start Date End Date Graciela Marsh MD [address] [address] PCP - General Family Practice 10/11/13 documented as of this encounter
--- OUTSIDE RECORDS SUMMARY | 2025-08-14 13:11 | XMS_ITS | Encounter Summary ---
Author Organization [facility] Address [address] [place] [address] Care Team Providers Care Load Tallier Name Role Phone Graciela Marsh MD Primary Care Provider Encounter Details Date Type Department Care Team (Latest Contact Info) Description 01/28/[address] 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
--- OUTSIDE RECORDS SUMMARY | 2025-08-14 13:11 | XMS_ITS | Encounter Summary ---
Author Organization [facility] Address [address] [place] [address] Care Team Providers Care Field Crop Farmer Name Role Phone Graciela Marsh MD Primary Care Provider Encounter Details Date Type Department Care Team (Latest Contact Info) Description 10/02/2002 Outpatient Historical [facility] Family Medicine [address] [address] Amanuel Duvall DO NO ADDRESS ON FILE URIN TRACT INFECTION NOS (Primary Dx) Social History Tobacco Use Types Packs/Day Years Used Date Smoking Tobacco: Never Assessed Comments Unknown Sex and Gender Information Value Date Recorded Sex Assigned at Not on file Legal Sex Female 5:20 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
--- OUTSIDE RECORDS SUMMARY | 2025-08-14 13:11 | XMS_ITS | Encounter Summary ---
Author Organization [facility] Address [address] [place] [address] Care Team Providers Care Rn Pool Name Role Phone Graciela Marsh MD Primary Care Provider Encounter Details Date Type Department Care Team (Latest Contact Info) Description 03/11/2003 Outpatient Historical [facility] [address] [place] [address] Drew Davis MD [address] [facility] [address] [place] [phone] ACUTE URI NOS (Primary Dx) Social History Tobacco Use Types Packs/Day Years Used Date Smoking Tobacco: Never Assessed Comments Unknown Sex and Gender Information Value Date Recorded Sex Assigned at Not on file Legal Sex Female 5:20 AM QUALITY CONTROL MANAGER Gender Identity Not on file Sexual Orientation Not on file documented as of this encounter Plan of Treatment Not on file documented as of this encounter Visit Diagnoses Diagnosis Acute upper respiratory infections of unspecified site- Primary documented in this encounter Care Teams Rn Pool Relationship Specialty Start Date End Date Graciela Marsh MD [address] [facility] [address] [place] [phone] PCP - General Family Practice 10/11/13 documented as of this encounter
--- OUTSIDE RECORDS SUMMARY | 2025-08-14 13:11 | XMS_ITS | Encounter Summary ---
Author Organization [facility] Address [address] [place] [address] Care Team Providers Care Spanish Instructor Name Role Phone Elton Velasquez MD Primary Care Provider [phone] Encounter Details Date Type Department Care Team (Late st Contact Info) Description 06/11/2025 Results Follow-Up [facility] Family Medicine [place] [address] [facility] [address] [place] [address] Gini Pal NP [address] [place] [address] ALLERGY PANEL, FOOD AND TREE [...] worry about transportation for future doctor visits, berry picker medication, etc.? No 2024 Housing Stability [...] on file Legal Sex Female 3:05 PM SHOWER MAID Gender Identity Not on file Sexual Orientation Not on file documented as of this encounter Miscellaneous Notes * Result Encounter Note - Gini Pal NP - 06/11/2025 5:12 PM CDT Allergy panel is negative. documented in this encounter Plan of Treatment Upcoming Encounters Date Type Department Care Team (Late st Contact Info) Description 09/04/2025 12:00 PM SHOWER MAID Office Visit [facility] [address] [address] Elton Velasquez MD [address] [address] documented as of this encounter Visit Diagnoses Not on filedocumented in this encounter Care Teams Spanish Instructor Relationship Specialty Start Date End Date Elton Velasquez MD [address] [address] PCP - General Family Practice 11/18/22 documented as of this encounter
--- OUTSIDE RECORDS SUMMARY | 2025-08-14 13:11 | XMS_ITS | Clinical Summary ---
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 Bryan Monet Sr., COMPUTER FORENSIC SPECIALIST MAMMO ORDERABLES Final Result from Last 3 Months or Most Recently Relevant to Health Maintenance Insurance [employer] CHOICE Care Teams Data Communications Engineer Relationship Specialty Start Date End Date Graciela Marsh MD [address] [address] PCP - General Family Practice 10/11/13
--- OUTSIDE RECORDS SUMMARY | 2025-08-14 13:11 | XMS_ITS | Encounter Summary ---
Author Organization [facility] Address [address] [place] [address] Care Team Providers Care Corporate Legal Secretary Name Role Phone Graciela Marsh MD Primary Care Provider Encounter Details Date Type Department Care Team (Latest Contact Info) Description 03/18/2003 Outpatient Historical [facility] Family Medicine [address] [address] Kathie Steward MD NO ADDRESS ON FILE OPEN WOUND OF FOOT (Primary Dx) Social History Tobacco Use Types Packs/Day Years Used Date Smoking Tobacco: Never Assessed Comments Unknown Sex and Gender Information Value Date Recorded Sex Assigned at Not on file 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
--- OUTSIDE RECORDS SUMMARY | 2025-08-14 13:11 | XMS_ITS | Encounter Summary ---
Author Organization [facility] Address [address] [place] [address] Care Team Providers Care Load Manager Name Role Phone Graciela Marsh MD Primary Care Provider Encounter Details Date Type Department Care Team (Latest Contact Info) Description 02/19/2003 Outpatient Historical [facility] Family Medicine- [address] [place] [address] Drew Davis MD [address] [phone] CANDIDAL VULVOVAGINITIS (Primary Dx); DYSURIA; ABDOMINAL PAIN EPIGASTRIC; Dysfunct eustachian tube Social History Tobacco Use Types Packs/Day Years Used Date Smoking Tobacco: Never Assessed Comments Unknown Sex and Gender Information Value Date Recorded Sex Assigned at Not on file 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
--- OUTSIDE RECORDS SUMMARY | 2025-08-14 13:11 | XMS_ITS | Encounter Summary ---
Author Organization [facility] Address [address] [place] [address] Care Team Providers Care Blueprint Maker Name Role Phone Graciela Marsh MD Primary Care Provider Encounter Details Date Type Department Care Team (Latest Contact Info) Description 02/28/2003 Outpatient Historical [facility] Medicine [address] [address] Kathie Steward MD NO ADDRESS ON FILE ACUTE SINUSITIS NOS (Primary Dx); LYMPHADENITIS NOS Social History Tobacco Use Types Packs/Day Years Used Date Smoking Tobacco: Never Assessed Comments Unknown Sex and Gender Information Value Date Recorded Sex Assigned at Not on file 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
--- OUTSIDE RECORDS SUMMARY | 2025-08-14 13:11 | XMS_ITS | Encounter Summary ---
Author Organization [facility] Address [address] [place] [address] Care Team Providers Care Website Developer Name Role Phone Graciela Marsh MD Primary Care Provider Encounter Details Date Type Department Care Team (Latest Contact Info) Description 03/07/2003 Outpatient Historical [facility] Medicine [address] [address] Eliza Amezcua, LOAN OPERATIONS MANAGER [address] [place] [address] SCREENING MAL NEOP-CERVIX (Primary Dx) Social History Tobacco Use Types Packs/Day Years Used Date Smoking Tobacco: Never Assessed Comments Unknown Sex and Gender Information Value Date Recorded Sex Assigned at Not on file 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
--- OUTSIDE RECORDS SUMMARY | 2025-08-14 13:11 | XMS_ITS | Encounter Summary ---
Author Organization [facility] Address [address] [place] [address] Care Team Providers Care Correction Officer Supervisor Name Role Phone Graciela Marsh MD Primary Care Provider Encounter Details Date Type Department Care Team (Latest Contact Info) Description 03/13/2007 Outpatient Historical [facility] [address] [place] [address] Eliza Amezcua, DISPLAYER [address] [place] [address] Contusion of Unspecified Site (Primary Dx) Social History Tobacco Use Types Packs/Day Years Used Date Smoking Tobacco: Never Assessed Comments Unknown Sex and Gender Information Value Date Recorded Sex Assigned at Not on file 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
--- OUTSIDE RECORDS SUMMARY | 2025-08-14 13:11 | XMS_ITS | Encounter Summary ---
Author Organization [facility] Address [address] [place] [address] Care Team Providers Care Mva Still Operator Name Role Phone Graciela Marsh MD Primary Care Provider [phone] Encounter Details Date Type Department Care Team (Latest Contact Info) Description 01/16/2003 Outpatient Historical [facility] [address] [place] [address] Kathie Steward MD NO ADDRESS ON FILE OTITIS MEDIA NOS (Primary Dx) Social History Tobacco Use Types Packs/Day Years Used Date Smoking Tobacco: Never Assessed Comments Unknown Sex and Gender Information Value Date Recorded Sex Assigned at Not on file 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
--- OUTSIDE RECORDS SUMMARY | 2025-08-14 13:11 | XMS_ITS | Encounter Summary ---
Author Organization [facility] Address [address] [place] [address] Care Team Providers Care Deputy County Clerk Name Role Phone Graciela Marsh MD Primary Care Provider Encounter Details Date Type Department Care Team (Latest Contact Info) Description 10/22/2002 Outpatient Historical [facility] [address] [place] [address] Drew Davis MD [address] [address] ACUTE URI NOS (Primary Dx); URIN TRACT INFECTION NOS Social History Tobacco Use Types Packs/Day Years Used Date Smoking Tobacco: Never Assessed Comments Unknown Sex and Gender Information Value Date Recorded Sex Assigned at Not on file 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
--- NOTE | 2025-08-14 13:31 | W.ED.ABDPA2 ---
HPI - Abdominal Pain General: Chief Complaint: Abdominal Pain Stated Complaint: R side Back Pain going to the Front Can't pee Time Seen by Provider: 08/14/25 13:26 History of Present Illness: 49-year-old female with history of hyperlipidemia, anxiety, depression and hypertension who presents the emergency room with worsening kidney stone pain. She was diagnosed with a kidney stone a couple days ago. Said yesterday she felt quite bit better but today pain had become much worse. She has had some nausea but no vomiting. No fevers. She does states she has had some trouble urinating. Related Data Home Medications ?Medication ?Instructions ?Recorded ?Confirmed hydroxyzine HCl 50 mg tablet 50 mg PO DAILY PRN Pain 03/16/22 08/14/25 cyclobenzaprine 5 mg tablet 5 mg PO DAILY PRN Pain 06/03/23 08/14/25 ondansetron HCl 4 mg tablet 4 mg PO Q6H 09/02/23 08/14/25 metformin 500 mg tablet 500 mg PO DAILY 04/13/24 08/14/25 phytonadione (vitamin K1) 1,000 2 mg PO DAILY 04/25/25 08/14/25 mcg capsule vitamin A 2,400 mcg capsule 10,000 unit PO DAILY 04/25/25 08/14/25 amoxicillin 500 mg capsule 500 mg PO TID 08/14/25 08/14/25 baclofen 10 mg tablet 10 mg PO TID 08/14/25 08/14/25 hydrocodone 5 mg-acetaminophen 325 1 tab PO TID 08/14/25 08/14/25 mg tablet asszzqsw-ogbwnjny-llzr 45 mg-folic 1 cap PO DAILY 08/14/25 08/14/25 acid 800 mcg-vit K 120 mcg capsule (Bariatric Multivitamins) potassium chloride 20 mEq 20 meq PO DAILY 08/14/25 08/14/25 tablet,extended release Previous Rx's ?Medication ?Instructions ?Recorded metoprolol tartrate 50 mg tablet 50 mg PO BID #180 tabs 01/04/23 albuterol sulfate 90 mcg/actuation See Rx Instructions .Route 07/08/23 aerosol inhaler .COMPLEX #6.7 grams bupropion HCl 150 mg tablet,12 hr See Rx Instructions .Route 08/16/23 sustained-release .COMPLEX #30 tabs epinephrine 0.3 mg/0.3 mL 0.3 mg (0.3 mL) SUBCUT ONCE PRN 02/10/24 injection, auto-injector Allergic Reaction #2 ea furosemide 20 mg tablet See Rx Instructions .Route 06/19/24 .COMPLEX #90 tabs estradiol 1 mg tablet See Rx Instructions .Route 05/27/25 .COMPLEX #90 tabs progesterone micronized 200 mg 200 mg PO BEDTIME #90 caps 06/11/25 capsule cephalexin 500 mg tablet 500 mg PO TID 7 days #21 tabs 08/14/25 oxycodone 5 mg tablet 5 mg PO Q8H PRN pain #20 tabs 08/14/25 polyethylene glycol 3350 17 17 g PO DAILY #510 grams 08/14/25 gram/dose oral powder (Miralax) tamsulosin 0.4 mg capsule (Flomax) 0.4 mg PO DAILY #30 caps 08/14/25 Allergies Allergy/AdvReac Type Severity Reaction Status Date / Time codeine Allergy Severe ALGY-Hives Verified 08/12/25 20:05 doxycycline Allergy Severe ALGY-Swell Verified 08/12/25 20:05 Lip/Tongue/Throat heparin Allergy Severe ALGY-Hives Verified 08/12/25 20:05 meperidine (From Demerol) Allergy Severe ALGY-Hives Verified 08/12/25 20:05 prochlorperazine (From Allergy Severe ALGY-Anaphy Verified 08/12/25 20:05 Compazine) laxis Sulfa (Sulfonamide Allergy Severe Unknown Verified 08/12/25 20:05 Antibiotics) Tetracyclines Allergy Severe ALGY-Anaphy Verified 08/12/25 20:05 laxis neomycin Allergy Intermediate ALGY-Bliste Verified 08/12/25 20:05 r Alpha-Gal Allergy Unknown Verified 08/12/25 20:05 (Xwnuczmbu-Gaies-6,3-Gala Review of Systems Narrative: Constitutional symptoms: Negative except as documented in HPI. Skin symptoms: Negative except as documented in HPI. Eye symptoms: Negative except as documented in HPI. ENMT symptoms: Negative except as documented in HPI. Respiratory symptoms: Negative except as documented in HPI. Cardiovascular symptoms: Negative except as documented in HPI. Gastrointestinal symptoms: Negative except as documented in HPI. Genitourinary symptoms: Negative except as documented in HPI. Musculoskeletal symptoms: Negative except as documented in HPI. Neurologic symptoms: Negative except as documented in HPI. Psychiatric symptoms: Negative except as documented in HPI. Endocrine symptoms: Negative except as documented in HPI. PFSH ED PFSH: Medical History (Updated 08/14/25 @ 15:41 by Regi Shine MD) Allergy to alpha-gal No pertinent past medical history neghx: dm, thyroid, dvt/pe PCP: [facility] Esophageal dilatation Neuropathy of both feet Vitamin D insufficiency Mixed hyperlipidemia Anxiety and depression Hypokalemia Essential hypertension Obesity GERD (gastroesophageal reflux disease) Patient has hsitory of GERD and is controlled with Dexilant. Will refill medication and monitor. Surgical History S/P hysterectomy (~2004) TV-- performed for AUB, PP. Uncertain of where this occurred. Reported as benign Status post creation of urethral sling by suprapubic approach 11/15/2018 S/P left oophorectomy (~1999) Performed in [facility]--- due to pain. Benign findings (per patient) S/P ear surgery H/O vaginal surgery anterior colporrhaphy 11/15/2018 anterior colporrhapy augmented with allograft 06/07/2023, performed by Alon at [facility] S/P tonsillectomy Patient had recent tonsillectomy to remove residual tonsillar tissue. She had previous tonsillectomy in the past, but continued to have problems. Family History Father Congestive heart failure (CHF) Hypertension Diabetes Hyperlipidemia Heart disease Mother Hypertension Leukemia Diabetes Breast cancer, Onset Age: 66 Heart disease Thyroid disease Stroke Sister Hyperlipidemia Denies family history of Colon cancer Ovarian cancer Uterine cancer Social History Smoking and tobacco/nicotine status: never used tobacco/nicotine Physical Exam Narrative: EXAM NARRATIVE: General: Alert, no acute distress. Skin: Warm, dry. Head: Normocephalic, atraumatic. Neck: Supple, trachea midline. Eye: Extraocular movements are intact. Ears, nose, mouth and throat: Tacky oral mucosa Cardiovascular: Regular, Normal peripheral perfusion. Respiratory: Lungs are clear to auscultation, respirations are non-labored, breath sounds are equal, Symmetrical chest wall expansion. Gastrointestinal: Soft, Nontender, Non distended Musculoskeletal: Normal ROM, no deformity. Neurological: Alert and oriented, No focal neurological deficit observed. Psychiatric: Cooperative, appropriate mood & affect. Course Vital Signs: Vital signs: Vital Signs Temperature 98.1 F 08/14/25 13:15 Pulse Rate 70 08/14/25 16:00 Respiratory Rate 18 08/14/25 13:15 Blood Pressure 157/97 08/14/25 16:00 Pulse Oximetry 98 08/14/25 16:00 Oxygen Delivery Me thod Room Air 08/14/25 16:00 MDM - Abdominal Pain Medical Decision Making Medical decision making Patient's reason for coming to the emergency room: Continued flank pain from a kidney stone. Social determinants: I reviewed the patient's medical record. I reviewed note from a couple days ago here in the emergency room. Patient did have a 4 mm stone. She did go home with nausea meds but no pain medication. I reviewed the patient's current home meds Patient is on metformin. Alternate historians: None Differential diagnosis including but not limited to and based on the above HPI, review of systems and physical exam: In this patient with flank pain would have concern for: Ureterolithiasis. Urinary tract infection. Appendicitis. Cholecystitis. Musculoskeletal / back pain. Pyelonephritis. Orders placed to evaluate differential diagnosis based on the above differential, HPI and physical exam Lab Review: Laboratory results were reviewed and interpreted by myself the emergency room physician. No leukocytosis. No anemia. No renal failure. Urinalysis does show few red cells but no whites. CT of the abdomen pelvis shows right hydronephrosis with a 4 mm calcification in the distal ureter. Has not moved in a couple of days. There is a large amount of Giorgio within the ureter and this may be preventing the calcification from migrating. This was reviewed and interpreted by myself the emergency room physician. I also reviewed the radiology report. Assessment of risk: Level of risk: Mild Hospitalization considerations: Considered but the patient does not have a fever. And Dr. Shaw will see the patient tomorrow. Reexamination: Patient remained stable. No increased work of breathing. No altered mental status. No focal motor deficits. Consultation: I spoke with Dr. Shaw, urologist at [facility]. He will see the patient in clinic tomorrow. Assessment and plan: Ureterolithiasis Dehydration ?Saline, Dilaudid, Toradol and Zofran in the emergency room - Discharged home - Discussed plan with patient. Answered any questions. - Evaluation and treatment of this problem were appropriate in the emergency setting. Lab Data 08/14/25 13:31 08/14/25 13:31 Labs/Radiology: Radiology Impressions Abdomen/Pelvis CT 08/14/25 14:14 IMPRESSION: 1. Continued moderate RIGHT hydroureteronephrosis secondary to a 4 mm calcification in the distal ureter. Ureteral calcification is in similar position as on 08/12/2025. There is a large amount of edema within the ureter. This may be preventing the calcification from distal migration. 2. Prior cholecystectomy. Laboratory Results WBC 7.72 10^3/uL (3.29-11.43) 08/14/25 13:31 RBC 3.82 10^6/uL (3.85-5.65) L 08/14/25 13:31 Hgb 11.20 g/dL (11.27-16.99) L 08/14/25 13:31 Hct 35.7 % (36-47) L 08/14/25 13:31 MCV 93.5 fl (85-98) 08/14/25 13:31 MCH 29.3 pg (27-33) 08/14/25 13:31 MCHC 31.4 g/dL (30-55) 08/14/25 13:31 RDW 13.0 % (12.1-15.1) 08/14/25 13:31 Plt Count 276 10^3/cmm (157-399) 08/14/25 13:31 MPV 10.3 fL (7.4-10.4) 08/14/25 13:31 Neut % (Auto) 54.3 % 08/14/25 13:31 Lymph % (Auto) 31.6 % 08/14/25 13:31 [place] % (Auto) 11.3 % 08/14/25 13:31 Eos % (Auto) 1.9 % 08/14/25 13:31 Baso % (Auto) 0.8 % 08/14/25 13:31 Neut # (Auto) 4.19 10^3/uL (1.8-7.7) 08/14/25 13:31 Lymph # (Auto) 2.4 10^3/uL (0.8-4.8) 08/14/25 13:31 [place] # (Auto) 0.9 10^3/uL (0.2-0.9) 08/14/25 13:31 Eos # (Auto) 0.2 10^3/uL (0.0-0.8) 08/14/25 13:31 Baso # (Auto) 0.1 10^3/uL (0.0-0.1) 08/14/25 13:31 Nucleated RBC % (auto) 0 % 08/14/25 13:31 Nucleated RBCs # 0.0 /100WBC 08/14/25 13:31 Sodium 141 mmol/L (136-145) 08/14/25 13:31 Potassium 4.2 mmol/L (3.5-5.1) 08/14/25 13:31 Chloride 106 mmol/L (98-107) 08/14/25 13:31 Carbon Dioxide 23 mmol/L (22-29) 08/14/25 13:31 Anion Gap 16.2 (5-19) 08/14/25 13:31 BUN 13 mg/dL (6-20) 08/14/25 13:31 Creatinine 0.6 mg/dL (0.5-0.9) 08/14/25 13:31 GFR Calculation 105.8 mL/min (90-130) 08/14/25 13:31 Glucose 86 mg/dL (65-115) 08/14/25 13:31 Calculated Osmolality 291 mOsm/kg (285-295) 08/14/25 13:31 Lactic Acid 1.3 mmol/L (0.5-2.2) 08/14/25 13:31 Calcium 9.0 mg/dL (8.5-10.5) 08/14/25 13:31 C-Reactive Protein 3.0 mg/L (0.0-4.9) 08/14/25 13:31 Urine Color Yellow (Yellow) 08/14/25 14:41 Urine Appearance Clear (CLEAR) 08/14/25 14:41 Urine pH 5.5 (5-7) 08/14/25 14:41 Ur Specific [place] 1.024 (1.005-1.030) 08/14/25 14:41 Urine Protein Trace (Negative) A 08/14/25 14:41 Urine Glucose (UA) Negative (Normal) 08/14/25 14:41 Urine Ketones Trace (Negative) 08/14/25 14:41 Urine Blood Trace (Negative) A 08/14/25 14:41 Urine Nitrate Negative (Negative) 08/14/25 14:41 Urine Bilirubin Negative (Negative) 08/14/25 14:41 Urine Urobilinogen 1.0 mg/dL (Negative) 08/14/25 14:41 Ur Leukocyte Esterase Trace (Negative) A 08/14/25 14:41 Urine RBC 6-10 /hpf (0-2) 08/14/25 14:41 Urine WBC 0-5 /hpf (0-5) 08/14/25 14:41 Ur Squamous Epith Cells 0-5 /hpf (0-5) 08/14/25 14:41 Calcium Oxalate Crystal 10-15 /hpf H 08/14/25 14:41 Amorphous Sediment Not Reportable 08/14/25 14:41 Urine Bacteria None seen /hpf (NONE) 08/14/25 14:41 Hyaline Casts 0.40 /lpf 08/14/25 14:41 All radiology interpretation(s) finalized by discharge Discharge Plan Discharge Patient Disposition: Home Clinical Impression: Ureterolithiasis Condition: Stable Prescriptions: New tamsulosin [Flomax] 0.4 mg capsule 0.4 mg PO DAILY Qty: 30 0RF cephalexin 500 mg tablet 500 mg PO TID 7 Days Qty: 21 0RF polyethylene glycol 3350 [Miralax] 17 gram/dose powder 17 g PO DAILY Qty: 510 0RF Rx Instructions: Take 1 scoop daily while taking pain medications. oxycodone 5 mg tablet 5 mg PO Q8H PRN (Reason: pain) Qty: 20 0RF No Action hydroxyzine HCl 50 mg tablet 50 mg PO DAILY PRN (Reason: Pain) metformin 500 mg tablet 500 mg PO DAILY vitamin A 2,400 mcg capsule 10,000 unit PO DAILY phytonadione (vitamin K1) 1,000 mcg capsule 2 mg PO DAILY ondansetron HCl 4 mg tablet 4 mg PO Q6H metoprolol tartrate 50 mg tablet 50 mg PO BID Qty: 180 1RF albuterol sulfate 90 mcg/actuation HFA aerosol inhaler See Rx Instructions .ROUTE .COMPLEX Qty: 6.7 0RF Dose Instruction: INHALE 2 PUFFS BY MOUTH EVERY 6 HOURS NEEDED FOR SHORTNESS OF BREATH OR WHEEZING Rx Instructions: INHALE 2 PUFFS BY MOUTH EVERY 6 HOURS NEEDED FOR SHORTNESS OF BREATH OR WHEEZING bupropion HCl 150 mg tablet sustained-release 12 hr See Rx Instructions .ROUTE .COMPLEX Qty: 30 0RF Dose Instruction: TAKE 1 TABLET BY MOUTH TWICE DAILY Rx Instructions: TAKE 1 TABLET BY MOUTH TWICE DAILY epinephrine 0.3 mg/0.3 mL auto-injector 0.3 mg SUBCUT ONCE PRN (Reason: Allergic Reaction) Qty: 2 0RF furosemide 20 mg tablet See Rx Instructions .ROUTE .COMPLEX Qty: 90 3RF Dose Instruction: TAKE 1 TABLET BY MOUTH DAILY Rx Instructions: TAKE 1 TABLET BY MOUTH DAILY estradiol 1 mg tablet See Rx Instructions .ROUTE .COMPLEX Qty: 90 3RF Dose Instruction: Take 1 tablet by mouth once daily Rx Instructions: Take 1 tablet by mouth once daily progesterone micronized 200 mg capsule 200 mg PO BEDTIME Qty: 90 0RF cyclobenzaprine 5 mg tablet 5 mg PO DAILY PRN (Reason: Pain) baclofen 10 mg tablet 10 mg PO TID amoxicillin 500 mg capsule 500 mg PO TID potassium chloride 20 mEq tablet extended release 20 meq PO DAILY Bariatric Multivitamins 45 mg iron- 800 mcg-120 mcg Capsule 1 cap PO DAILY hydrocodone-acetaminophen 5-325 mg tablet 1 tab PO TID Discharge Orders: Discharge ED (Routine); Ordered 08/14/25 Ordered By: Regi Shine Referrals: Shreyas Shaw MD [Referring, Urology] Referral Note: Please call for appointment. Dr. Shaw said he will see you tomorrow. Tell scheduling persons that we have spoken. Gini Pal [Primary Care Provider] Patient Instructions: Kidney Stones (ED), Abdominal Pain (ED), Opioid Safety, Pain Management, Patient Portal & [place] Instructions Activity Restrictions/Additional Instructions: Call for appointment with urology. If fever (temp >100.4) develops return to the emergency room immediately, as this is an emergency. Take nausea medication prior to taking pain medications. Thank you for choosing [facility] for your healthcare needs today. You have been screened and evaluated and felt safe for discharge. Health conditions do change or evolve sometimes and as such it is important that you follow up with your Primary Doctor to be re checked, 3-5 days is a general good time frame for follow up. You are always welcome to return to the ED for re assessment if your symptoms are worsening or you have new concerns Print Language: Greenlandic Coding Level of Care Code ED Assembler Type Bar And Segment for Padma Orr
[2025-08-14 13:41] LABS: Hematocrit 35.7 % (36-47); Hemoglobin 11.20 g/dL (11.27-16.99); Mean Corpuscular HGB Conc 31.4 g/dL (30-55); Mean Corpuscular Hemoglobin 29.3 pg (27-33); Mean Corpuscular Volume 93.5 fl (85-98); Nucleated Red Blood Cells % 0 %; Platelet Count 276 10^3/cmm (157-399); Red Blood Count 3.82 10^6/uL (3.85-5.65); White Blood Count 7.72 10^3/uL (3.29-11.43)
[2025-08-14 14:01] LABS: Anion Gap 16.2 (5-19); Blood Urea Nitrogen 13 mg/dL (6-20); Calcium 9.0 mg/dL (8.5-10.5); Carbon Dioxide 23 mmol/L (22-29); Chloride 106 mmol/L (98-107); Glucose 86 mg/dL (65-115); Lactic Sepsis W/Reflex 1.3 mmol/L (0.5-2.2); Osmolality Calculated 291 mOsm/kg (285-295); Potassium 4.2 mmol/L (3.5-5.1); Sodium 141 mmol/L (136-145)
--- NOTE | 2025-08-14 14:14 | CT_ITS ---
WS: [id number] CT ABDOMEN AND PELVIS NONCONTRAST HISTORY: traumatic pelvic pain TECHNIQUE: Imaging performed through the abdomen and pelvis. Coronal and sagittal reformats are submitted. All CT scans at [facility] use at least one of these dose optimization techniques: automated exposure control; mA and/or kV adjustment per patient size (includes targeted exams where dose is matched to clinical indication); or iterative reconstruction. DLP: 467.86 mGy.cm COMPARISON: 08/12/2025 Lower thorax: Lung bases are clear. Visualized heart is normal. No hiatal hernia. Liver: Normal size liver. No mass or bile duct dilatation. Gallbladder: Prior cholecystectomy. Pancreas: Normal size and attenuation. Normal pancreatic duct. No pancreatitis or mass. Spleen: Normal. Adrenal glands: Normal. No mass. Right kidney: Very mild perinephric stranding. Dilated renal pelvis and ureter. Ureter is markedly dilated throughout its course. Single distal ureteral calcification is identified. This ureteral calcification was identified on the prior study of 08/12/2025 and has not changed since position of any sig nificance. Left kidney: Normal size kidney with no mass or hydronephrosis. Aorta: Mild atherosclerosis abdominal aorta with no aneurysm. No free fluid, intraperitoneal air or significant lymphadenopathy. GI tract: Prior gastric bypass. Constipation with no obstruction. Abdominal wall: Negative. No hernia. Pelvis: No free fluid. Urinary bladder is well distended. Osseous structures: Increase in lumbar lordosis. No destructive bone lesions. CT/CT abdomen pelvis wo con [id number] IMPRESSION: 1. Continued moderate RIGHT hydroureteronephrosis secondary to a 4 mm calcific ation in the distal ureter. Ureteral calcification is in similar position as on 08/12/2025. There is a large amount of edema within the ureter. This may be pr eventing the calcification from distal migration. 2. Prior cholecystectomy.
[2025-08-14] MEDS: HYDROmorphone 0.5 MG/0.5 ML INJ IVP (14:23)
[2025-08-14] MEDS: ondansetron 2 mg/ML SDV 2 mL 4 MG IVP (14:23)
[2025-08-14 15:30] LABS: Glucose Urine UA Negative (Normal); Nitrate Urine Negative (Negative); Specific Gravity, Urine 1.024 (1.005-1.030)
[2025-08-14 15:59] LABS: UA Slide Review UA Slide Review Perf
[2025-08-14] MEDS: ondansetron 2 mg/ML SDV 2 mL 8 MG IVP (17:10)
== END 2025-08-14 17:22 | disposition home or self-care (01) ==
PROVIDERS: Family Medicine; Emergency Provider Emergency Medicine
DX: N20.1 Calculus of ureter (principal); Z87.442 Personal history of urinary calculi; Z79.84 Long term (current) use of oral hypoglycemic drugs; E78.2 Mixed hyperlipidemia; I10 Essential (primary) hypertension
CPT/HCPCS: 36415; 74176; 80048; 81001; 83605; 85025; 86140; 87040; 96374; 96375; 96376; 99285; J1171; J1885; J2405; J7030

== ENCOUNTER 2025-09-16 13:38 | Outpatient (CLI) | payer OTHER, SELFPAY ==
[2025-09-16 15:33] LABS: Cholesterol 241 mg/dL (0-200); HDL Cholesterol 72 mg/dL (60-100); Triglycerides 115 mg/dL (0-150)
== END 2025-09-16 13:39 | disposition home or self-care (01) ==
PROVIDERS: Visit Provider Internal Medicine
DX: I10 Essential (primary) hypertension (principal); I70.0 Atherosclerosis of aorta
CPT/HCPCS: 36415; 80061

== ENCOUNTER 2025-10-02 13:59 | Outpatient (CLI) | payer OTHER, SELFPAY ==
--- NOTE | 2025-10-02 14:45 | US_ITS ---
WS: [id number] ULTRASOUND-GUIDED LEFT THYROID NODULE FNA HISTORY: LEFT thyroid nodule. Procedure, risks, and complications were explained to the patient. Consent has been obtained. Comparison: 09/11/2025 The skin is cleansed with ChloraPrep and anesthetized with 1% buffered lidocaine. FNA performed with 25 gauge needles. cath lab technologist is present to fix slides. US/US biopsy/FNA thyroid [id number] IMPRESSION: Uncomplicated FNA of a LEFT thyroid nodule. Final pathology results pending.
== END 2025-10-02 14:00 | disposition home or self-care (01) ==
LOC: RAD 14:00
PROVIDERS: Visit Provider Family Medicine
DX: E04.1 Nontoxic single thyroid nodule (principal)
CPT/HCPCS: 10005; 88173